=== PATIENT | female | born 1985 | race Caucasian/White ===

== ENCOUNTER 2019-07-06 11:18 | Emergency (ER) | payer SELFPAY ==
[2019-07-06 11:20] VITALS: BP 104/80; PULSE 100; RESP 18; TEMP 36.4; O2SAT 98; BMI 25.7
[2019-07-06 11:27] VITALS: O2SAT 99
[2019-07-06 11:28] VITALS: O2SAT 99
--- NOTE | 2019-07-06 11:33 | RAD_ITS ---
STUDY: X-RAY CHEST REASON FOR EXAM: Female, 34 years old. SOB, asthma attack today TECHNIQUE: PA and lateral views of the chest. COMPARISON: Prior comparison studies are not available for review at this time. FINDINGS: The lungs are clear and expanded. There is no demonstrated pleural abnormality. Normal size heart. Normal mediastinum and caron. Normal visualized pulmonary arteries. Normal visualized aortic arch and descending thoracic aorta. Normal visualized thoracic spine. Normal visualized ribs, clavicles, and shoulders. There is no demonstrated abnormality of the visualized soft tissue structures of the upper abdomen. RAD/Chest PA and Lateral IMPRESSION: Normal x-ray examination of the chest. Electronically Signed: Amara Blue MD at 12:55 EST Tel , Service support ,
--- NOTE | 2019-07-06 11:34 | ED.VIS.GEN ---
History of Present Illness Chief Complaint: Asthma Informant: Patient Onset: Days Current Severity: Moderate Maximum Severity: Moderate Narrative: Patient presents with URI symptoms and asthma exacerbation. She states earlier in the week she started to get cold symptoms with cough congestion and fever. It is now settled more into her chest with significant wheezing. She was seen at urgent care and given a DuoNeb treatment without improvement. - Past Medical History (1) Asthma Status: Chronic Past Medical History - Allergies and Home Meds Allergies/Adverse Reactions: Allergies No Known Allergies Allergy (Verified 07/06/19 11:20) Primary Care Physician: Navdeep Mo MD [Primary Care Provider] - Prior records reviewed: Yes Smoking Status: Current every day smoker Review of Systems General: Reports: Fever Eyes: Denies: Visual changes - bilaterally ENT: Denies: Rhinorrhea, Sore throat Cardiovascular: Reports: Chest pain - Lungs feel tight Respiratory: Reports: Dyspnea, Cough Gastrointestinal: Denies: Abdominal pain, Nausea, Vomiting, Diarrhea Genitourinary: Denies: Dysuria Skin: Denies: Rash Neurological: Denies: Headache Allergy: Denies: Uticaria Physical Exam Vital Signs/Narrative: Vital Signs Temp Pulse Resp BP Pulse Ox 07/06/19 11:27 99 07/06/19 11:20 97.6 F L 100 18 104/80 98 Inital Vital Signs reviewed: Yes General: Well nourished, Well developed Head: Normocephalic ENT: Moist mucous membranes, - - Normal posterior pharynx Neck: Supple Cardiovascular: Regular rate, Regular rhythm Respiratory: - - Diminished air movement with tight expiratory wheezes. Abdomen: Soft, Nontender Extremities: Nontender Skin: Normal color, No rash Neurological: Alert, Oriented x3 Psychological: Normal affect Diagnostic/Tx/Re-eval Impressions Chest X-Ray 07/06/19 11:33 IMPRESSION: Normal x-ray examination of the chest. Electronically Signed: Amara Blue MD at 12:55 EST Tel , Service support , 07/06/19 11:33 Chest PA and Lateral [RAD] Stat - Medical Decision Making Patient was given a DuoNeb treatment at urgent care. On arrival here she received 2 albuterol treatments. She was given 60 mg of p.o. prednisone. I was asked to stop and talk to the patient. Apparently someone at the urgent care had told her that she needed a drip of IV steroids for her breathing and she was upset that I had given her oral medication only. I explained to her that the bioavailability of both the oral and the IV is the exact same and there was no indication to start an IV. On repeat evaluation patient has much better air movement. She still does have some wheezing noted. She has an albuterol nebulizer at home as well as inhaler. I will write her for steroid taper. 2 view chest x-ray reveals no infiltrate. ED Disposition - Plan for ED Patient: Disposition: Home or Assisted Living Diagnosis: Asthma Instructions: ASTHMA, Acute (Adult) Prescriptions: Prednisone 10 mg PO DAILY #63 tablet Referrals: Navdeep Mo MD [Primary Care Provider] - 1-2 Days if not improving
[2019-07-06 11:42] VITALS: PULSE 88; RESP 18
[2019-07-06] MEDS: Albuterol 2.5 MG/3 ML VIAL.NEB. INHALATION ×2 (11:45)
[2019-07-06] MEDS: predniSONE 20 MG Tablet 60 MG PO (11:46)
--- NOTE | 2019-07-06 13:21 | EKG12_ITS ---
Test Reason : CHEST TIGHTNESS Blood Pressure : / mmHG Vent. Rate : 089 BPM Atrial Rate : 089 BPM P-R Int : 106 ms QRS Dur : 072 ms QT Int : 344 ms P-R-T Axes : 046 065 041 degrees QTc Int : 418 ms Sinus rhythm with short OH Otherwise normal ECG Confirmed by GAUDENCIO LIVINGSTON, BETI ([id number]), supervising editor news reel DARRELL GUZMAN ([id number]) on 07/09/2019 8:47:57 AM Referred By: TRIAGE NURSE Confirmed By:BETI RATLIFF MD
[2019-07-06 13:43] VITALS: BP 112/78; PULSE 81; RESP 18; O2SAT 97
== END 2019-07-06 13:44 | disposition home or self-care (01) ==
PROVIDERS: Emergency Provider Emergency Medicine; Family Provider Internal Medicine; PCP Internal Medicine
DX: J45.901 Unspecified asthma with (acute) exacerbation (principal); F17.200 Nicotine dependence, unspecified, uncomplicated; Z79.899 Other long term (current) drug therapy
CPT/HCPCS: 71046; 93005; 94640; 99251; 99281; 99282; G0463

== ENCOUNTER 2020-01-16 22:59 | Emergency (ER) | payer MEDICAID, SELFPAY ==
[2020-01-16 23:00] VITALS: BP 121/75; PULSE 90; RESP 16; TEMP 36.7; O2SAT 97; BMI 25.7
[2020-01-16 23:16] VITALS: O2SAT 100
--- NOTE | 2020-01-16 23:28 | ED.VIS.GEN ---
History of Present Illness Chief Complaint: Asthma Informant: Patient Narrative: 34-year-old female with history of asthma presents for wheezing. She states she feels like this is her typical asthma exacerbation. She is not a smoker. She states she has had no exposure to anybody ill. She is not had a fever. She does not have chest pain. She states that usually she gets breathing treatments and steroids and does well. She denies cough. Past Medical History - Allergies and Home Meds Allergies/Adverse Reactions: Allergies No Known Allergies Allergy (Verified 01/16/20 23:02) Primary Care Physician: Navdeep Mo MD [Primary Care Provider] - Smoking Status: Former smoker Review of Systems General: Denies: Chills, Fever, Malaise Eyes: Denies: Visual changes - bilaterally, Diplopia ENT: Denies: Rhinorrhea, Sore throat Cardiovascular: Denies: Chest pain, Palpitations Respiratory: Reports: Dyspnea Gastrointestinal: Denies: Abdominal pain, Nausea Genitourinary: Denies: Dysuria Musculoskeletal: Denies: Myalgias Skin: Denies: Rash Neurological: Denies: Headache, Weakness Endocrine: Denies: Polyuria, Polydipsia Allergy: Denies: Uticaria Physical Exam Vital Signs/Narrative: Vital Signs Temp Pulse Resp BP Pulse Ox 01/16/20 23:00 98.0 F 90 16 121/75 H 97 Inital Vital Signs reviewed: Yes General: Well nourished, Well developed, No Acute Distress Head: Normocephalic, Atraumatic Eyes: Perrl, EOMI ENT: Moist mucous membranes. Negative for: No rhinorrhea Cardiovascular: Regular rate, Regular rhythm Respiratory: No distress, Wheezing Skin: Normal color, No rash Neurological: Alert, Oriented x3 Psychological: Normal affect Diagnostic/Tx/Re-eval - Medical Decision Making She presents with wheezing which feels like her typical asthma exacerbation. She is in no acute distress. Her vital signs are stable and she is afebrile. She was given breathing treatments and prednisone and felt much improved on reevaluation. She was moving more air is diminished wheezing on reevaluation. Patient feels comfortable going home with a prednisone burst. She has breathing treatments at home. She is given return precautions. Patient stable for discharge. ED Disposition - Plan for ED Patient: Disposition: Home or Assisted Living Diagnosis: Asthma Instructions: ED REACTIVE AIRWAY DISEASE Adult Prescriptions: predniSONE tablet 60 mg PO DAILY #5 tab Prescription Printed Referrals: Navdeep Mo MD [Primary Care Provider] -
[2020-01-16 23:42] VITALS: PULSE 86; RESP 20; RESP 22; O2SAT 98
[2020-01-16] MEDS: Ipratropium/Albuterol Sulfate 3 ML AMPUL.NEB INHALATION (23:42)
[2020-01-16] MEDS: predniSONE 20 MG Tablet 60 MG PO (23:42)
[2020-01-16] MEDS: Albuterol 2.5 MG/3 ML VIAL.NEB. INHALATION ×3 (23:42)
--- NOTE | 2020-01-17 00:20 | CPS ---
x3 Albuterol given to pt. in ED as well
[2020-01-17 01:02] VITALS: PULSE 88; RESP 18; O2SAT 98
== END 2020-01-17 01:03 | disposition home or self-care (01) ==
LOC: ED 23:35
PROVIDERS: Emergency Provider Student in an Organized Health Care Education/Training Program; PCP Internal Medicine
DX: J45.909 Unspecified asthma, uncomplicated (principal); Z87.891 Personal history of nicotine dependence
CPT/HCPCS: 94640; 99251; 99283; G0463

== ENCOUNTER 2021-05-15 09:01 | Emergency (ER) | payer MEDICAID, SELFPAY ==
[2021-05-15 09:01] VITALS: BP 127/86; PULSE 107; RESP 18; TEMP 36.2; O2SAT 98; BMI 29.1
[2021-05-15 09:15] VITALS: PULSE 91; RESP 22; O2SAT 98
--- NOTE | 2021-05-15 10:09 | EDS_ITS ---
HPI History of Present Illness Chief Complaint: Asthma Narrative Narrative: Patient presenting with asthma exacerbation. She states she is had to deal with this every day of her life. She says she is been to pulmonologists and states that she does not see one now. She states that she does have home nebulizers for albuterol but this does not appear to be effective. Her shortness of breath is worse last 2 days. She denies fever, chills, cough. Patient does state that it is partially her fault because she continues to smoke cigarettes even though she has very bad asthma. She has not had any chest pain or palpitations. She denies other symptoms. [facility] Medical History Asthma Home Medications albuterol sulfate 2 puff INHALATION Q4H PRN PRN 07/06/19 [History Last Taken Unknown] albuterol sulfate 2.5 mg INHALATION Q4HWA.RT PRN 01/16/20 [History Last Taken Unknown] fluticasone propion-salmeterol [Advair Diskus] 1 inh INHALATION BID 05/15/21 [History Last Taken Unknown] montelukast 10 mg PO DAILY 05/15/21 [History Last Taken Unknown] prednisone 50 mg PO DAILY 5 Days #25 tab 05/15/21 [Rx Last Taken Unknown] Allergy/AdvReac Type Severity Reaction Status Date / Time No Known Allergies Allergy Verified 05/15/21 09:03 Surgical History no surgical history Social History Smoking Status: Current every day smoker tobacco type: cigarettes ROS ROS ED Constitutional Constitutional ED: Denies fever(s) Eyes Eyes: Denies blurry vision or change in vision ENT ENT ED: Denies rhinorrhea or sore throat Cardiovascular Cardiovascular: Denies chest pain or palpitations Respiratory/Chest Respiratory/Chest: Reports dyspnea Gastrointestinal Gastrointestinal: Denies abdominal pain, nausea or vomiting Genitourinary Genitourinary ED: Denies dysuria or hematuria Musculoskeletal Musculoskeletal: Denies arthralgias or myalgias Integumentary Denies abscess or rash Neurologic Neurologic: Denies headache(s) or paresthesias Psychiatric Psychiatric: Denies anxiety or depression EXAM Physical Exam Const Vital Signs: 05/15/21 09:01 05/15/21 09:15 05/15/21 10:23 Temperature 97.2 F L Temperature Source Temporal Pulse Rate 107 H 91 84 Respiratory Rate 18 22 H 21 H Respiratory Effort Non-Labored Short of Breath Short of Breath Labored Respiratory Depth Normal Respiratory Pattern Normal Blood Pressure 127/86 H Blood Pressure Mean 99 Pulse Ox 98 98 100 Oxygen Delivery Method Room Air Room Air Room Air 05/15/21 11:01 Temperature Temperature Source Pulse Rate Respiratory Rate 20 H Respiratory Effort Respiratory Depth Respiratory Pattern Blood Pressure Blood Pressure Mean Pulse Ox 98 Oxygen Delivery Method Room Air Positive well nourished General Appearance ED: NAD HEENT Reports moist mucous membranes atraumatic Eyes PERRL and EOMs intact bilaterally Resp normal respiratory effort Auscultation: wheezes scattered wheezes Cardio regular rate and regular rhythm Neuro oriented x3 Sensorium / Orientation: alert Psych mental status grossly normal Thought Process: normal thought process Skin Rashes: no rashes MDM MDM MDM Narrative Medical decision making narrative: Patient was given breathing treatments and prednisone. On reevaluation she has significant improvement of her wheezing. She feels much better physically as well. I will place her on a prednisone burst. She has albuterol at home and does not need a refill. She will follow-up with her PCP to ensure resolution. She is given return precautions. Impression: 1. Asthma exacerbation Discharge Plan Triage Chief Complaint: Asthma ED Provider: Blue Quispe Dx/Rx/DC Orders Instructions: ED Asthma, Acute (Adult) Prescriptions: New prednisone 10 mg tablet 50 mg PO DAILY 5 Days Qty: 25 RF: 0 No Action albuterol sulfate 1 PUFF inhaler 2 puff inhalation Q4H PRN PRN (Reason: Wheezing) RF: 0 albuterol sulfate 2.5 MG/3 ML solution for nebulization 2.5 mg inhalation Q4HWA.RT PRN (Reason: Shortness Of Breath) RF: 0 fluticasone propion-salmeterol [Advair Diskus] 500-50 mcg/dose blister with device 1 inh INHALATION BID RF: 0 montelukast 10 mg tablet 10 mg PO DAILY RF: 0 Primary Care Provider: Navdeep oM Referrals: Navdeep Mo MD [Primary Care Provider] - Disposition Disposition: Home, Self Care
[2021-05-15] MEDS: Ipratropium/Albuterol Sulfate 3 ML AMPUL.NEB INHALATION (10:21)
[2021-05-15 10:23] VITALS: PULSE 84; RESP 21; O2SAT 100
[2021-05-15] MEDS: Albuterol 2.5 MG/3 ML VIAL.NEB. INHALATION (10:25)
[2021-05-15] MEDS: predniSONE 20 MG Tablet 60 MG PO (10:47)
[2021-05-15 11:01] VITALS: RESP 20; O2SAT 98
[2021-05-15 11:32] VITALS: PULSE 86; RESP 16; O2SAT 98
== END 2021-05-15 11:34 | disposition home or self-care (01) ==
PROVIDERS: Emergency Provider Student in an Organized Health Care Education/Training Program; PCP Internal Medicine
DX: J45.901 Unspecified asthma with (acute) exacerbation (principal); F17.210 Nicotine dependence, cigarettes, uncomplicated; Z79.51 Long term (current) use of inhaled steroids; Z79.899 Other long term (current) drug therapy
CPT/HCPCS: 94640; 99251; 99283; G0463

== ENCOUNTER 2021-08-26 17:36 | Emergency (ER) | payer MEDICAID, SELFPAY ==
[2021-08-26 17:37] VITALS: BP 115/102; PULSE 85; RESP 18; TEMP 36.2; O2SAT 98; BMI 29.5
--- NOTE | 2021-08-26 18:04 | EDS_ITS ---
HPI History of Present Illness Chief Complaint: Asthma Detail of Chief Complaint: Asthma attack and hoarse voice Informant: patient Onset/Context/Timing Onset: Yesterday Context: sudden Timing: Continuous Quality: Positive for Dyspnea on exertion Current Severity: Moderate Maximum Severity: Severe Worsened by: Exertion; Not Worsened By Lying flat, Coughing and other Relieved by: Nothing Associated Symptoms cough and rhinorrhea; Negative for post nasal drip, ear pain, fever, sore throat, subjective, chills, sweats, clear sputum, white sputum, yellow sputum or green sputum Chest Pain: Positive for None Narrative Narrative: Patient is a 36-year-old female with history of asthma. Her last ER visit was May 2021. She was received aerosol treatments and prednisone at that time. She does report hoarse voice. She has chronic rhinorrhea. She has postnasal drainage with sore throat. She denies fever or chills. She denies headache. She denies neck pain or neck stiffness. She denies chest discomfort. She denies GI symptoms. She denies symptoms. She denies history of VTE. Denies leg pain, swelling discoloration. PE Risk Factors: Negative for Cancer, OCP + Smoking + > 35, Prior DVT or PE, Recent immobilization, Recent surgery and Recent travel Prior similar symptoms: Yes (Asthma) Recent Illness/Hospitalization: No (May 2021) [facility] Medical History Asthma Home Medications albuterol sulfate 2 puff INHALATION Q4H PRN PRN 07/06/19 [History Last Taken Unknown] albuterol sulfate 2.5 mg INHALATION Q4HWA.RT PRN 01/16/20 [History Last Taken Unknown] fluticasone propion-salmeterol [Advair Diskus] 1 inh INHALATION BID 05/15/21 [History Last Taken Unknown] montelukast 10 mg PO DAILY 05/15/21 [History Last Taken Unknown] inhalational spacing device [Aerochamber MV] #1 ea 08/26/21 [Rx Last Taken Unknown] prednisone 60 mg PO DAILY #15 tablet 08/26/21 [Rx Last Taken Unknown] Allergy/AdvReac Type Severity Reaction Status Date / Time propranolol [From Inderal LA] Allergy Shortness Verified 08/26/21 17:39 of breath Social History (Updated 08/26/21 @ 18:[address] Corey Marinelli MD) household members: significant other Smoking Status: Current every day smoker tobacco type: cigarettes substance use type: does not use ROS ROS ED Constitutional Constitutional ED: Denies chills, fever(s), sweats or weight loss Eyes Eyes: Denies blurry vision, change in vision or diplopia ENT ENT ED: Reports rhinorrhea; Denies ear pain or sore throat Cardiovascular Cardiovascular: Denies chest pain, orthopnea, palpitations, paroxysmal nocturnal dyspnea or racing heartbeat Respiratory/Chest Respiratory/Chest: Reports dyspnea and dyspnea on exertion; Denies orthopnea, paroxysmal nocturnal dyspnea or sputum Gastrointestinal Gastrointestinal: Denies abdominal pain, constipation, diarrhea, nausea or vomiting Genitourinary Genitourinary ED: Denies dysuria, hematuria or urinary frequency Musculoskeletal Musculoskeletal: Denies arthralgias, back pain, myalgias or neck pain Integumentary Denies rash Neurologic Neurologic: Reports headache(s); Denies paresthesias or weakness Endocrine Endocrinology: Denies polydipsia, polyphagia or polyuria Allergic/Immunologic Allergic/Immunologic ED: Denies mouth swelling or tongue swelling EXAM Physical Exam Const Vital Signs: 08/26/21 17:37 08/26/21 18:00 08/26/21 18:16 Temperature 97.2 F L Temperature Source Temporal Pulse Rate 85 80 Respiratory Rate 18 18 Respiratory Effort Short of Breath Blood Pressure 115/102 H Blood Pressure Mean 106 Pulse Ox 98 Oxygen Delivery Method Room Air 08/26/21 18:18 Temperature Temperature Source Pulse Rate 86 Respiratory Rate 18 Respiratory Effort Blood Pressure Blood Pressure Mean Pulse Ox 98 Oxygen Delivery Method Room Air Positive well nourished, well developed and obese General Appearance ED: well developed and NAD Nutritional Appearance: obese HEENT Reports TM's clear and moist mucous membranes; Denies dry mucous membranes HEENT Narrative: Uvula is midline. There is no angioedema. There is no erythema or exudate. atraumatic; Negative for tenderness Tympanic Membrane ED: Yes TM's clear Mouth ED: No dry mucous membranes Mouth: No dry mucous membranes Eyes PERRL and EOMs intact bilaterally General Eye ED: Negative for pale conjunctiva or scleral icterus Neck no lymphadenopathy, supple, no meningeal signs and no JVD Neck Narrative: Trachea is midline. There is no stridor. Resp normal respiratory effort and No clear to auscultation bilaterally Auscultation: wheezes expiratory wheezes, inspiratory wheezes (Upper left side posteriorly) and throughout Cardio regular rate, regular rhythm, S1 normal heart sound, S2 normal heart sound and no murmurs GI non-tender and non-distended Palpation: soft Extremity Negative for normal to inspection General Extremety ED: Negative for edema or tenderness General Extremity: Negative for edema Neuro oriented x3 and CN's II-XII intact bilaterally Neuro Narrative: Moves all extremities. Sensorium / Orientation: alert Psych mental status grossly normal Thought Process: normal thought process Skin no wounds Skin Narrative: Evidence of prior well-healed self collected wounds right and left forearm. Lesions: no lesions Rashes: no rashes MDM MDM MDM Narrative Medical decision making narrative: Suspect patient has a viral infection which is exacerbating her asthma. She was treated with 60 mg of prednisone and albuterol every 15 minutes x3. Patient was reassessed at 1846. She still has some wheezing. She has improved markedly. Plan is spacer and burst of prednisone. Discharge Plan Triage Chief Complaint: Asthma ED Provider: Corey Marinelli Dx/Rx/DC Orders Clinical Impression: Asthma with status asthmaticus Instructions: ED Asthma, Acute (Adult), ED Inhaler Use Prescriptions: New prednisone 20 MG tablet 60 mg PO DAILY Qty: 15 RF: 0 (DME) Aerochamber MV Spacer See Rx Instructions .ROUTE .MEDSUPPLY Qty: 1 RF: 0 No Action albuterol sulfate 1 PUFF inhaler 2 puff inhalation Q4H PRN PRN (Reason: Wheezing) RF: 0 albuterol sulfate 2.5 MG/3 ML solution for nebulization 2.5 mg inhalation Q4HWA.RT PRN (Reason: Shortness Of Breath) RF: 0 fluticasone propion-salmeterol [Advair Diskus] 500-50 mcg/dose blister with device 1 inh INHALATION BID RF: 0 montelukast 10 mg tablet 10 mg PO DAILY RF: 0 Primary Care Provider: Navdeep Mo Referrals: Navdeep Mo MD [Primary Care Provider] - Disposition Disposition: Home, Self Care
[2021-08-26 18:16] VITALS: PULSE 80; RESP 18
[2021-08-26] MEDS: predniSONE 20 MG Tablet 60 MG PO (18:16)
[2021-08-26 18:18] VITALS: PULSE 86; RESP 18; O2SAT 98
[2021-08-26] MEDS: Albuterol 2.5 MG/3 ML VIAL.NEB. INHALATION ×3 (18:19)
--- NOTE | 2021-08-27 11:30 | CASEMGMT ---
IGGY KIM ED follow-up: Date of ER visit: 08/26/2021 Presenting ER complaint: asthma RN JUDY placed call to patient's telephone number listed on demographics with no answer. Voice message identifies different name other than patient's. No message left. IGYG Beatty CM
== END 2021-08-26 18:57 | disposition home or self-care (01) ==
PROVIDERS: Emergency Provider Emergency Medicine; PCP Internal Medicine; Visit Provider Emergency Medicine
DX: J45.902 Unspecified asthma with status asthmaticus (principal); F17.210 Nicotine dependence, cigarettes, uncomplicated; Z79.899 Other long term (current) drug therapy
CPT/HCPCS: 94640; 99283

== ENCOUNTER 2022-01-22 23:09 | Emergency (ER) | payer MEDICAID, SELFPAY ==
[2022-01-22 23:10] VITALS: BP 129/92; PULSE 114; RESP 18; TEMP 36.3; BMI 28.0
[2022-01-22] MEDS: morphine 10 MG/ML Syringe IM (23:23)
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
--- NOTE | 2022-01-22 23:36 | CT_ITS ---
EXAM: CT CERVICAL SPINE WITHOUT INTRAVENOUS CONTRAST CLINICAL INDICATION: injury TECHNIQUE: Helically acquired images were obtained of the cervical spine without intravenous contrast. 2D reformatted images were reviewed. This CT exam was performed using one or more of the following dose reduction techniques: automated exposure control, adjustment of the mA and/or kV according to patient size, and/or use of iterative reconstruction technique. This report was created using [employer] report generation technology. RADIATION DOSE: CTDIvol = 18.42 mGy, DLP = 371.39 mGy-cm. COMPARISON: None. FINDINGS: VERTEBRAE: Reversal of the normal cervical lordosis. No fracture. No traumatic subluxation. No discrete lytic or blastic abnormality. Normal craniocervical junction and cervicothoracic junction. DISCS/SPINAL CANAL/NEURAL FORAMINA: Unremarkable. Disc heights are preserved. No critical stenosis. SOFT TISSUES: Unremarkable. No prevertebral soft tissue swelling. LYMPH NODES: Unremarkable. No cervical adenopathy. LUNG APICES: Unremarkable as visualized. Clear. CT/Spine Cervical without Contras IMPRESSION: No acute findings in the cervical spine. Reversal of the normal cervical lordosis may be due to positioning or muscle spasm. Electronically Signed: Andrade Aponte MD at 23:59 EDT ,
[2022-01-23 00:22] VITALS: BP 106/72; PULSE 64; RESP 16; O2SAT 96
== END 2022-01-23 00:43 | disposition home or self-care (01) ==
PROVIDERS: Emergency Provider Emergency Medicine; PCP Internal Medicine; Visit Provider Emergency Medicine
DX: S00.81XA Abrasion of other part of head, initial encounter (principal); S40.811A Abrasion of right upper arm, initial encounter; S40.812A Abrasion of left upper arm, initial encounter; S70.311A Abrasion, right thigh, initial encounter; S70.312A Abrasion, left thigh, initial encounter; S90.511A Abrasion, right ankle, initial encounter; F17.210 Nicotine dependence, cigarettes, uncomplicated; V28.1XXA Motorcycle passenger injured in noncollision transport accident in nontraffic accident, initial encounter
CPT/HCPCS: 70450; 72125; 99282

== ENCOUNTER 2022-05-24 19:18 | Emergency (ER) | payer MEDICAID, SELFPAY ==
[2022-05-24 19:19] VITALS: BP 137/94; PULSE 108; RESP 22; TEMP 36.6; O2SAT 97; BMI 29.2
[2022-05-24 19:46] VITALS: O2SAT 96
--- NOTE | 2022-05-24 19:53 | ED.VIS.DYS ---
HPI History of Present Illness Chief Complaint: Asthma Detail of Chief Complaint: Dyspnea that started today Informant: patient Narrative Narrative: Patient presents to the emergency department stating that her asthma is flared up. Patient has history of longstanding asthma. Patient complains of increased dyspnea today and she has been using her inhaler and nebulizer without much relief. Patient denies recent illness of fever cough. Patient states its been years since she has been admitted for asthma. She denies chest pain. PFSH PFSH Medical History Asthma Home Medications albuterol sulfate 90 mcg/actuation aerosol inhaler 2 puff inhalation Q4H PRN PRN Wheezing 07/06/19 [History Last Taken Unknown] albuterol sulfate 2.5 mg/3 mL (0.083 %) solution for nebulization 2.5 mg inhalation Q4HWA.RT PRN Shortness Of Breath 01/16/20 [History Last Taken Unknown] fluticasone 500 mcg-salmeterol 50 mcg/dose blistr powdr for inhalation (Advair Diskus) 1 inh inhalation BID 05/15/21 [History Last Taken Unknown] montelukast 10 mg tablet 10 mg PO DAILY 05/15/21 [History Last Taken Unknown] inhalational spacing device (Aerochamber MV spacer) #1 ea 08/26/21 [Rx Last Taken Unknown] prednisone 20 mg tablet 20 mg PO BID #10 tabs 05/24/22 [Rx Last Taken Unknown] Allergy/AdvReac Type Severity Reaction Status Date / Time propranolol [From Inderal LA] Allergy Shortness Verified 05/24/22 19:20 of breath Social History household members: significant other Smoking Status: Current every day smoker tobacco type: cigarettes substance use type: does not use ROS ROS ED Review of Systems ROS Unobtainable: other Constitutional Constitutional ED: Reports lethargy; Denies chills, fever(s), sweats or weight loss Eyes Eyes: Denies blurry vision, change in vision or diplopia ENT ENT ED: Denies rhinorrhea or sore throat Cardiovascular Cardiovascular: Denies chest pain, orthopnea or racing heartbeat Respiratory/Chest Respiratory/Chest: Reports dyspnea and dyspnea on exertion; Denies cough, orthopnea or sputum Gastrointestinal Gastrointestinal: Denies abdominal pain, diarrhea, nausea or vomiting Genitourinary Genitourinary ED: Denies dysuria, hematuria or urinary frequency Musculoskeletal Musculoskeletal: Denies arthralgias, back pain, myalgias or neck pain Integumentary Denies abscess, Abrasions or rash Neurologic Neurologic: Denies headache(s) or weakness Psychiatric Psychiatric: Denies anxiety, depression or suicidal thoughts Endocrine Endocrinology: Denies polydipsia, polyphagia or polyuria Hematologic/Lymphatic Hematologic/Lymphatic: Denies easy bleeding, easy bruising or lymphadenopathy Allergic/Immunologic Allergic/Immunologic ED: Denies mouth swelling, tongue swelling or urticaria EXAM Physical Exam Const Vital Signs: 05/24/22 19:19 05/24/22 19:46 05/24/22 19:57 Temperature 97.8 F Temperature Source Temporal Pulse Rate 108 H 109 H Respiratory Rate 22 H 18 Respiratory Effort Respiratory Depth Respiratory Pattern Normal Blood Pressure 137/94 H Blood Pressure Mean 108 Pulse Ox 97 Oxygen Delivery Method Room Air Room Air 05/24/22 19:57 Temperature Temperature Source Pulse Rate Respiratory Rate 26 H Respiratory Effort Short of Breath Labored Accessory Muscle Use Respiratory Depth Shallow Respiratory Pattern Tachypnea Blood Pressure Blood Pressure Mean Pulse Ox 96 Oxygen Delivery Method Room Air Positive well nourished and well developed General Appearance ED: well developed and NAD HEENT Reports TM's clear and moist mucous membranes normocephalic and atraumatic; Negative for trauma or tenderness Tympanic Membrane ED: Yes TM's clear Eyes PERRL and EOMs intact bilaterally General Eye ED: Negative for pale conjunctiva or scleral icterus Neck no lymphadenopathy, supple and no JVD General: Negative for tenderness Chest Wall inspection of chest normal and palpation of chest normal Chest: Negative for tenderness Resp normal respiratory effort Resp Narrative: Patient tachypneic with expiratory wheezes bilaterally. Diminished breath sounds bilaterally. Effort and Inspection: Negative for respiratory distress or pain with movement Auscultation: wheezes; Negative for rhonchi or diminished lung sounds Cardio regular rate, regular rhythm, S1 normal heart sound, S2 normal heart sound and no murmurs Peripheral Pulses: pulses 2+ throughout GI normal to inspection, nondistended, normoactive bowel sounds, soft to palpation, non-tender, non-distended and no masses Back/Spine no CVA tenderness and no thoracic nor lumbar tenderness Extremity normal to inspection General Extremety ED: Negative for edema General Extremity: Negative for edema Neuro oriented x3, CN's II-XII intact bilaterally, no sensory deficits noted and gait normal Sensorium / Orientation: awake, alert, oriented to person, oriented to place and oriented to time Motor Exam: strength 5/5 throughout and strength abnormal Psych mental status grossly normal Skin no rashes or lesions noted and no wounds MDM MDM MDM Narrative Medical decision making narrative: IV line established. Patient was given Solu-Medrol 125 mg IV. Patient was given DuoNeb aerosol and albuterol aerosols. After treatments in the department she felt markedly improved. Her wheezing is dramatically improved. She is moving good air. Patient feels well enough to go home. Patient will be started on prednisone. She is advised to return if increased difficulty breathing or condition worsen anyway. Patient otherwise to follow-up with her primary care physician within next 3 to 5 days. Lab Data Attestation: I reviewed the patient's lab results. Discharge Plan Triage Chief Complaint: Asthma ED Provider: Josue Cooper Dx/Rx/DC Orders Clinical Impression: Asthma exacerbation Instructions: ED Asthma, Acute (Adult) Prescriptions: New prednisone 20 mg tablet 20 mg PO BID Qty: 10 0RF No Action albuterol sulfate 1 PUFF inhaler 2 puff inhalation Q4H PRN PRN (Reason: Wheezing) albuterol sulfate 2.5 MG/3 ML solution for nebulization 2.5 mg inhalation Q4HWA.RT PRN (Reason: Shortness Of Breath) fluticasone propion-salmeterol [Advair Diskus] 500-50 mcg/dose blister with device 1 inh INHALATION BID montelukast 10 mg tablet 10 mg PO DAILY Label Comments: Take 1 tablet by mouth daily at bedtime. (DME) Aerochamber MV Spacer See Rx Instructions .ROUTE .MEDSUPPLY Qty: 1 0RF Rx Instructions: As directed Primary Care Provider: Navdeep Mo Referrals: Navdeep Mo MD [Primary Care Provider] - Disposition Disposition: Home, Self Care
[2022-05-24 19:57] VITALS: PULSE 109; RESP 18; RESP 26; O2SAT 96
[2022-05-24] MEDS: Ipratropium/Albuterol Sulfate 3 ML AMPUL.NEB INHALATION (19:57)
[2022-05-24] MEDS: Albuterol 2.5 MG/3 ML VIAL.NEB. INHALATION ×3 (19:58→20:20)
[2022-05-24] MEDS: MethylPREDNISolone 125 MG/2 ML Vial IV (20:03)
--- NOTE | 2022-05-24 20:32 | CPS ---
x3 Albuterol given to pt. in ER as well
[2022-05-24 21:09] VITALS: BP 124/74; PULSE 74; RESP 16; O2SAT 98
== END 2022-05-24 21:15 | disposition home or self-care (01) ==
PROVIDERS: Emergency Provider Emergency Medicine; PCP Internal Medicine; Visit Provider Emergency Medicine
DX: J45.901 Unspecified asthma with (acute) exacerbation (principal); F17.210 Nicotine dependence, cigarettes, uncomplicated; Z79.899 Other long term (current) drug therapy
CPT/HCPCS: G0463; 94640; 96374; 99251; 99284; A4216

== ENCOUNTER 2022-10-06 18:02 | Emergency (ER) | payer MEDICAID, SELFPAY ==
[2022-10-06 18:03] VITALS: BP 132/76; PULSE 118; RESP 18; TEMP 37.2; O2SAT 100; BMI 25.7
[2022-10-06] MEDS: predniSONE 20 MG Tablet 60 MG PO (18:33)
[2022-10-06 18:34] VITALS: PULSE 104; RESP 20; O2SAT 98
[2022-10-06 18:39] VITALS: PULSE 99; RESP 20; O2SAT 99
[2022-10-06] MEDS: Ipratropium/Albuterol Sulfate 3 ML AMPUL.NEB INHALATION (18:39)
--- NOTE | 2022-10-06 18:44 | EDS_ITS ---
HPI History of Present Illness Chief Complaint: Asthma Informant: patient Onset/Context/Timing Onset: Days (2) Context: gradual Timing: Continuous Quality: Positive for Wheezing Worsened by: Exertion Relieved by: Nothing Associated Symptoms cough; Negative for rhinorrhea, post nasal drip, ear pain, fever, sore throat, chills, sweats, clear sputum, white sputum, yellow sputum or green sputum Chest Pain: Positive for Sharp Narrative Narrative: Patient presents with exacerbation of her asthma that has been getting worse over the last 2 days. Patient states she feels like she is wheezing. Patient states it has been constant. Patient admits to a mild cough but denies any sputum. Patient denies any fevers or chills. Patient denies any sore throat or rhinorrhea. Patient does admit to some sharp pain in her chest along the parasternal area and lower chest wall bilaterally. Patient states this feels similar to prior asthma exacerbations. [facility] Medical History Asthma Home Medications albuterol sulfate 90 mcg/actuation aerosol inhaler 2 puff inhalation Q4H PRN PRN Wheezing 07/06/19 [History Last Taken Unknown] albuterol sulfate 2.5 mg/3 mL (0.083 %) solution for nebulization 2.5 mg inhalation Q4HWA.RT PRN Shortness Of Breath 01/16/20 [History Last Taken Unknown] fluticasone 500 mcg-salmeterol 50 mcg/dose blistr powdr for inhalation (Advair Diskus) 1 inh inhalation BID 05/15/21 [History Last Taken Unknown] montelukast 10 mg tablet 10 mg PO DAILY 05/15/21 [History Last Taken Unknown] inhalational spacing device (Aerochamber MV spacer) #1 ea 08/26/21 [Rx Last Taken Unknown] prednisone 20 mg tablet 20 mg PO BID #10 tabs 05/24/22 [Rx Last Taken Unknown] prednisone 20 mg tablet 60 mg PO DAILY #15 TABLETS 10/06/22 [Rx Last Taken Unknown] Allergy/AdvReac Type Severity Reaction Status Date / Time propranolol [From Inderal LA] Allergy Shortness Verified 05/24/22 19:20 of breath Surgical History no surgical history no surgical history Social History household members: significant other Smoking Status: Former smoker substance use type: does not use ROS ROS ED Constitutional Constitutional ED: Denies chills or fever(s) Eyes Eyes: Denies blurry vision or change in vision ENT ENT ED: Denies rhinorrhea or sore throat Cardiovascular Cardiovascular: Reports chest pain; Denies palpitations Respiratory/Chest Respiratory/Chest: Reports dyspnea; Denies cough Gastrointestinal Gastrointestinal: Denies nausea or vomiting Genitourinary Genitourinary ED: Denies dysuria or hematuria Musculoskeletal Musculoskeletal: Reports back pain; Denies neck pain Integumentary Denies abscess or rash Neurologic Neurologic: Denies headache(s) or weakness Allergic/Immunologic Allergic/Immunologic ED: Denies mouth swelling or urticaria EXAM Physical Exam Const Vital Signs: 10/06/22 18:03 10/06/22 18:34 10/06/22 18:34 Temperature 98.9 F Temperature Source Temporal Pulse Rate 118 H 104 H Respiratory Rate 18 20 H Respiratory Effort Short of Breath Labored Respiratory Depth Respiratory Pattern Blood Pressure 132/76 H Blood Pressure Mean 94 Pulse Ox 100 98 Oxygen Delivery Method Room Air Room Air 10/06/22 18:39 10/06/22 18:39 Temperature Temperature Source Pulse Rate 99 Respiratory Rate 20 H 20 H Respiratory Effort Normal Non-Labored Short of Breath Respiratory Depth Normal Respiratory Pattern Normal Normal Blood Pressure Blood Pressure Mean Pulse Ox 99 Oxygen Delivery Method Room Air Positive well nourished and well developed General Appearance ED: well developed HEENT Reports moist mucous membranes Neck supple and no JVD Resp normal respiratory effort Auscultation: wheezes expiratory wheezes and throughout Cardio regular rate and regular rhythm GI normal to inspection, nondistended, normoactive bowel sounds and non-tender Palpation: soft Extremity normal to inspection General Extremety ED: Negative for edema or tenderness General Extremity: Negative for edema Neuro oriented x3, CN's II-XII intact bilaterally and no sensory deficits noted Sensorium / Orientation: alert Motor Exam: strength 5/5 throughout Psych mental status grossly normal Skin no rashes or lesions noted MDM MDM MDM Narrative Medical decision making narrative: Differential diagnosis includes asthma exacerbation, pneumonia, and viral upper respiratory infection. Chest x-ray will be obtained to assess for pneumonia. Radiography Diagnostic Testing: Patient refused chest x-ray. Treatment and Re-Evaluation :: Patient was given a DuoNeb aerosol here. Patient was started on prednisone. Patient was still having some wheezing on reevaluation. Patient was given a repeat dose of albuterol here. Patient was given a prescription for prednisone. Patient was instructed to follow-up with her primary care physician in 5 to 7 days. Patient understood and was agreeable with the plan. All questions were answered. Discharge Plan Triage Chief Complaint: Asthma ED Provider: Chato Lomas Dx/Rx/DC Orders Clinical Impression: Asthma exacerbation, Asthma Instructions: ED Asthma, Acute (Adult) Prescriptions: New prednisone 20 mg tablet 60 mg PO DAILY Qty: 15 0RF No Action albuterol sulfate 1 PUFF inhaler 2 puff inhalation Q4H PRN PRN (Reason: Wheezing) albuterol sulfate 2.5 MG/3 ML solution for nebulization 2.5 mg inhalation Q4HWA.RT PRN (Reason: Shortness Of Breath) fluticasone propion-salmeterol [Advair Diskus] 500-50 mcg/dose blister with device 1 inh INHALATION BID montelukast 10 mg tablet 10 mg PO DAILY Label Comments: Take 1 tablet by mouth daily at bedtime. (DME) Aerochamber MV Spacer See Rx Instructions .ROUTE .MEDSUPPLY Qty: 1 0RF Rx Instructions: As directed prednisone 20 mg tablet 20 mg PO BID Qty: 10 0RF Primary Care Provider: Navdeep Mo Referrals: Navdeep Mo MD [Primary Care Provider] - 5-7 Days Disposition Disposition: Home, Self Care
[2022-10-06] MEDS: Albuterol 2.5 MG/3 ML VIAL.NEB. INHALATION (20:23)
--- NOTE | 2022-10-06 20:36 | CPS ---
[2023] x1 Albuterol given to pt. before discharge. Pt. still has inspiratory and expiratory wheezes throughout. Tx. did seem to help improve air movement, yet, scattered wheezes throughout.
[2022-10-06 21:01] VITALS: PULSE 115; RESP 16; O2SAT 97
== END 2022-10-06 21:03 | disposition home or self-care (01) ==
LOC: ED 18:49
PROVIDERS: Emergency Provider Emergency Medicine; PCP Internal Medicine; Visit Provider Emergency Medicine
DX: J45.901 Unspecified asthma with (acute) exacerbation (principal); Z87.891 Personal history of nicotine dependence
CPT/HCPCS: G0463; 94640; 99252; 99283

== ENCOUNTER 2023-04-12 20:52 | Emergency (ER) | payer MEDICAID, SELFPAY ==
[2023-04-12 20:53] VITALS: BP 122/69; PULSE 86; RESP 19; TEMP 36.7; O2SAT 100; BMI 28.6
[2023-04-12] MEDS: predniSONE 20 MG Tablet 60 MG PO (21:08)
[2023-04-12 21:12] VITALS: PULSE 88; RESP 18
[2023-04-12] MEDS: Ipratropium/Albuterol Sulfate 3 ML AMPUL.NEB INHALATION (21:12)
--- NOTE | 2023-04-12 21:12 | EDS_ITS ---
HPI History of Present Illness Chief Complaint: Asthma Informant: patient Onset/Context/Timing Onset: Days Narrative Narrative: Patient presents with increased shortness of breath for the past 3 days, much worse today. Has been using her albuterol more than normal. She states her symptoms are consistent with an asthma flare. She has not noted a fever. She has not had much of a cough. She is not currently on steroids. [facility] Medical History Asthma Home Medications albuterol sulfate 90 mcg/actuation aerosol inhaler 2 puff inhalation Q4H PRN PRN Wheezing 07/06/19 [History Last Taken Unknown] albuterol sulfate 2.5 mg/3 mL (0.083 %) solution for nebulization 2.5 mg inhalation Q4HWA.RT PRN Shortness Of Breath 01/16/20 [History Last Taken Unknown] fluticasone 500 mcg-salmeterol 50 mcg/dose blistr powdr for inhalation (Advair Diskus) 1 inh inhalation BID 05/15/21 [History Last Taken Unknown] montelukast 10 mg tablet 10 mg PO DAILY 05/15/21 [History Last Taken Unknown] inhalational spacing device (Aerochamber MV spacer) #1 ea 08/26/21 [Rx Last Taken Unknown] prednisone 20 mg tablet 20 mg PO BID #10 tabs 05/24/22 [Rx Last Taken Unknown] prednisone 20 mg tablet 60 mg (3 x 20 mg) PO DAILY #15 TABLETS 10/06/22 [Rx Last Taken Unknown] prednisone 20 mg tablet 40 mg (2 x 20 mg) PO DAILY #8 tabs 04/12/23 [Rx Last Taken Unknown] Allergy/AdvReac Type Severity Reaction Status Date / Time propranolol [From Inderal LA] Allergy Shortness Verified 04/12/23 20:55 of breath Social History household members: significant other Smoking Status: Former smoker substance use type: does not use ROS ROS ED Constitutional Constitutional ED: Denies chills or fever(s) Eyes Eyes: Denies discharge from eye(s) ENT ENT ED: Denies discharge from eye(s), rhinorrhea or sore throat Cardiovascular Cardiovascular: Denies chest pain or palpitations Respiratory/Chest Respiratory/Chest: Reports dyspnea; Denies cough Gastrointestinal Gastrointestinal: Denies abdominal pain, diarrhea, nausea or vomiting Musculoskeletal Musculoskeletal: Denies back pain or extremity pain Integumentary Denies Abrasions or rash Neurologic Neurologic: Denies headache(s) or weakness Psychiatric Psychiatric: Denies anxiety or depression Allergic/Immunologic Allergic/Immunologic ED: Denies lip swelling or urticaria EXAM Physical Exam Const Vital Signs: 04/12/23 20:53 04/12/23 20:57 04/12/23 21:12 Temperature 98.0 F Temperature Source Temporal Pulse Rate 86 88 Respiratory Rate 19 H 18 Respiratory Effort Normal Respiratory Depth Normal Respiratory Pattern Normal Normal Blood Pressure 122/69 H Blood Pressure Mean 86 Pulse Ox 100 Oxygen Delivery Method Room Air 04/12/23 22:44 Temperature Temperature Source Pulse Rate 80 Respiratory Rate 18 Respiratory Effort Respiratory Depth Respiratory Pattern Blood Pressure 102/60 Blood Pressure Mean 74 Pulse Ox 97 Oxygen Delivery Method Room Air Positive well nourished and well developed General Appearance ED: well developed HEENT Reports normocephalic and head/scalp atraumatic Eyes PERRL and EOMs intact bilaterally Neck supple Chest Wall inspection of chest normal and palpation of chest normal Resp Resp Narrative: Tight wheezes bilaterally. Cardio regular rate and regular rhythm GI normal to inspection, nondistended, normoactive bowel sounds Palpation: soft Extremity normal to inspection Neuro oriented x3 and no sensory deficits noted Sensorium / Orientation: alert Motor Exam: strength 5/5 throughout Psych mental status grossly normal Skin no rashes or lesions noted MDM MDM MDM Narrative Medical decision making narrative: Patient given p.o. prednisone along with aerosols. Treatment and Re-Evaluation :: On repeat examination patient still has some scattered expiratory wheezes, but much improved over initial exam. She has albuterol at home to use. I will write her for additional days of steroids for home. Return instructions are given. Discharge Plan Triage Chief Complaint: Asthma ED Provider: Joana Luu Dx/Rx/DC Orders Clinical Impression: Asthma exacerbation Instructions: ED Asthma, Acute (Adult) Prescriptions: New prednisone 20 mg tablet 40 mg PO DAILY Qty: 8 0RF No Action albuterol sulfate 1 PUFF inhaler 2 puff inhalation Q4H PRN PRN (Reason: Wheezing) albuterol sulfate 2.5 MG/3 ML solution for nebulization 2.5 mg inhalation Q4HWA.RT PRN (Reason: Shortness Of Breath) fluticasone propion-salmeterol [Advair Diskus] 500-50 mcg/dose blister with device 1 inh INHALATION BID montelukast 10 mg tablet 10 mg PO DAILY Patient Comments: Take 1 tablet by mouth daily at bedtime. (DME) Aerochamber MV Spacer See Rx Instructions .ROUTE .MEDSUPPLY Qty: 1 0RF Rx Instructions: As directed prednisone 20 mg tablet 20 mg PO BID Qty: 10 0RF prednisone 20 mg tablet 60 mg PO DAILY Qty: 15 0RF Primary Care Provider: Navdeep Mo Referrals: Navdeep Mo MD [Primary Care Provider] - 3-5 Days if not improving Disposition Disposition: Home, Self Care
[2023-04-12] MEDS: Albuterol 2.5 MG/3 ML VIAL.NEB. INHALATION ×2 (21:18→21:28)
--- NOTE | 2023-04-12 22:14 | CPS ---
x2 Albuterol given to pt. in ER as well
[2023-04-12 22:44] VITALS: BP 102/60; PULSE 80; RESP 18; O2SAT 97
[2023-04-12 22:56] VITALS: PULSE 78; RESP 18
== END 2023-04-12 22:56 | disposition home or self-care (01) ==
PROVIDERS: Emergency Provider Emergency Medicine; PCP Internal Medicine; Visit Provider Emergency Medicine
DX: J45.901 Unspecified asthma with (acute) exacerbation (principal); Z87.891 Personal history of nicotine dependence
CPT/HCPCS: 94640; 99282

== ENCOUNTER 2023-06-18 22:55 | Inpatient (IN) | payer SELFPAY ==
[2023-06-18 22:56] VITALS: BP 123/90; PULSE 132; RESP 40; TEMP 36.4; O2SAT 100; BMI 31.6
[2023-06-18 23:04] VITALS: O2SAT 100
--- NOTE | 2023-06-18 23:04 | EKG12_ITS ---
Test Reason : SOB Blood Pressure : / mmHG Vent. Rate : 129 BPM Atrial Rate : 129 BPM P-R Int : 124 ms QRS Dur : 074 ms QT Int : 296 ms P-R-T Axes : 067 060 066 degrees QTc Int : 433 ms Sinus tachycardia Otherwise normal ECG Confirmed by GAUDENCIO LIVINGSTON, BETI ([id number]), primer expeditor and drier DARRELL GUZMAN ([id number]) on 06/19/2023 1:08:26 PM Referred By: Saji Noonan Confirmed By:BETI RATLIFF MD
[2023-06-18 23:05] VITALS: PULSE 129; RESP 30
--- NOTE | 2023-06-18 23:06 | EDS_ITS ---
HPI History of Present Illness Chief Complaint: Shortness of Breath Informant: patient and EMS Narrative Narrative: Patient having a severe asthma attack. She has been intubated and in the ICU for this before. History is very limited due to acuity, the patient states please, I cannot talk when asked most questions. Unknown how long this has been going on. PFSH PFS Medical History Anxiety Asthma Home Medications albuterol sulfate 90 mcg/actuation aerosol inhaler 2 puff inhalation Q4H PRN PRN Wheezing 07/06/19 [History Last Taken Unknown] albuterol sulfate 2.5 mg/3 mL (0.083 %) solution for nebulization 2.5 mg inhalation Q4HWA.RT PRN Shortness Of Breath 01/16/20 [History Last Taken Unknown] fluticasone 500 mcg-salmeterol 50 mcg/dose blistr powdr for inhalation (Advair Diskus) 1 inh inhalation BID 05/15/21 [History Last Taken Unknown] montelukast 10 mg tablet 10 mg PO DAILY 05/15/21 [History Last Taken Unknown] inhalational spacing device (Aerochamber MV spacer) #1 ea 08/26/21 [Rx Last Taken Unknown] fluticasone propionate 50 mcg/actuation nasal spray,suspension 1 spray intranasal Q12H 06/18/23 [History Last Taken Unknown] Allergy/AdvReac Type Severity Reaction Status Date / Time propranolol [From Inderal LA] Allergy Shortness Verified 06/18/23 22:56 of breath Social History household members: significant other Smoking Status: Former smoker substance use type: does not use ROS ROS ED Review of Systems ROS Unobtainable: other Details: Limited due to acuity Respiratory/Chest Respiratory/Chest: Reports dyspnea EXAM Physical Exam Const Vital Signs: 06/18/23 22:56 06/18/23 23:04 06/18/23 23:49 Temperature 97.6 F L Temperature Source Temporal Pulse Rate 132 H 116 H Respiratory Rate 40 H 19 H Respiratory Effort Short of Breath Labored Accessory Muscle Use Respiratory Depth Shallow Respiratory Pattern Grunting Blood Pressure 123/90 H 137/84 H Blood Pressure Mean 101 101 Pulse Ox 100 96 Oxygen Delivery Method Non-Rebreather Oxygen Flow Rate (L/min) 15 06/18/23 23:05 Temperature Temperature Source Pulse Rate 129 H Respiratory Rate 30 H Respiratory Effort Respiratory Depth Respiratory Pattern Tachypnea Blood Pressure Blood Pressure Mean Pulse Ox Oxygen Delivery Method Oxygen Flow Rate (L/min) Positive well nourished and well developed Constitutional Narrative: Acute respiratory distress General Appearance ED: well developed HEENT Reports moist mucous membranes normocephalic and atraumatic Eyes PERRL and EOMs intact bilaterally Neck full ROM, supple and no JVD Resp Resp Narrative: Acute respiratory distress with expiratory wheezes throughout but sounds tight. Breath sounds symmetric bilaterally. Cardio regular rate, regular rhythm and no murmurs GI non-tender and non-distended Auscultation: normoactive bowel sounds Palpation: soft Back/Spine no CVA tenderness General Back: other FROM Extremity normal to inspection General Extremety ED: Negative for edema, pulses abnormal or tenderness General Extremity: Negative for edema or pulses abnormal Neuro oriented x3, CN's II-XII intact bilaterally and no sensory deficits noted Sensorium / Orientation: awake and alert Motor Exam: strength 5/5 throughout Psych Attitude: No agitated Mood & Affect: anxious Skin no rashes or lesions noted and no wounds MDM MDM MDM Narrative Medical decision making narrative: Recommended BiPAP at this patient struggling to breathe with, and in acute respiratory distress but she declined saying that she has had that before and been admitted to the ICU with asthma before like this, and the BiPAP is made things worse. She is in distress but holding her own right now so we treated her medically and it did result in drastic improvement, using nebulizer treatments, terbutaline, epinephrine, she received Solu-Medrol prior to arrival by EMS 125 mg. Magnesium sulfate ordered and yet to be infused. On reexamination she is doing much better and is able to converse better. She is tired but she agrees that she can continue like this without being intubated right now, but I would still admit her to the ICU. Discussed with hospitalist, and I reviewed her 1 view chest x-ray which shows no pneumonia or pneumothorax on my interpretation, COVID and flu are sent, her EKG is normal except for sinus tachycardia. Labs noted. As a result of treatment, her tachycardia is much improved down to the 110s. Lab Data Attestation: I reviewed the patient's lab results. Labs: Laboratory Results - last 24 hr 06/18/23 23:00 WBC 10.5 RBC 4.08 L Hgb 12.6 Hct 39.5 MCV 96.8 MCH 30.9 MCHC 31.9 L RDW Std Deviation 43.0 RDW Coeff of Brittney 12.1 Plt Count 430 MPV 9.3 Immature Gran % (Auto) 0.400 Neut % (Auto) 51.9 Lymph % (Auto) 33.9 Storey % (Auto) 7.9 Eos % (Auto) 4.8 Baso % (Auto) 1.1 H Absolute Neuts (auto) 5.4 Absolute Lymphs (auto) 3.55 Nucleated RBC % 0 Sodium 141 Potassium 3.7 Chloride 111 H Carbon Dioxide 28.0 Anion Gap 2 L BUN 10 Creatinine 0.84 Estim Creat Clear Calc 79.18 Est GFR (MDRD) Af Amer 98 Est GFR (MDRD) Non-Af 81 BUN/Creatinine Ratio 11.9 Glucose 128 H Calcium 8.5 Troponin I High Sens 5 ABG Data ABG results: ABG 06/18/23 23:21 Specimen Type MIHAI Sample Site Not entered O2 % 100.0 VBG pH 7.21 L VBG pO2 105 H VBG HCO3 26 VBG Total CO2 28 VBG O2 Sat (Calc) 96 H VBG Base Excess -2 L POC Mix VBG pCO2 Pt Tmp 64.8 H O2 Delivery Device NRB Rhythm Strip Rhythm Strip: Sinus Tach Rate: 140 Ectopy: None EKG Initial EKG: Attestation: I personally reviewed and interpreted this EKG as follows: Interpretation: No Acute Injury Pattern and Sinus Tachycardia Management Discussion w/another healthcare provider: Hospitalist Critical Care Time Critical Care Time: Yes Critical care time (excluding procedures): 30-74 minutes (36 min), Discussing w/Patient &/or Family/Refinery Operator Visbreaking, Discussing w/Consultants, Arranging Admission or Transfer and Performing Direct Patient Care at Bedside Discharge Plan Dx/Rx/DC Orders Clinical Impression: Asthma with status asthmaticus Disposition Disposition: [facility]
[2023-06-18] MEDS: Terbutaline 1 MG/ML Vial 0.25 MG SC (23:14)
[2023-06-18] MEDS: Epi Pen (EQUIV) 0.3 MG Syringe IM (23:15)
[2023-06-18 23:16] LABS: Absolute Lymphocyte Count 3.55 X10^3/uL (0.83-4.51); Absolute Neutrophil Count 5.4 X10^3/uL (2.0-7.7); Basophil# 0.11 X10^3/uL; Basophil% 1.1 % (0-1); Eosinophils% 4.8 % (0-5); Hematocrit 39.5 % (37-47); Hemoglobin 12.6 g/dL (12.0-15.0); Lymphocyte # 3.55 X10^3/ul (0.83-4.51); Lymphocyte % 33.9 % (19-41); Mean Corp Hgb Conc 31.9 g/dL (32-36); Mean Corpuscular Hgb 30.9 pg (27.0-32.0); Mean Corpuscular Volume 96.8 fL (81-99); Mean Platelet Vol. 9.3 fl (6.2-12.0); Monocyte# 0.83 X10^3/uL; Monocyte% 7.9 % (0-10); NRBC Flagged by Analyzer 0 % (0-5); Neutrophil # 5.44 X10^3/uL (2.7-7.7); Neutrophil % 51.9 % (47-70); Platelet Count 430 K/mm3 (150-450); RBC Distribution Width CV 12.1 % (11.6-14.6); Red Blood Count 4.08 M/mm3 (4.2-5.4); White Blood Count 10.5 K/mm3 (4.4-11.0)
--- NOTE | 2023-06-18 23:17 | RAD_ITS ---
EXAM: XR CHEST, 1 VIEW CLINICAL INDICATION: sob TECHNIQUE: Frontal view of the chest. COMPARISON: No relevant prior studies available. FINDINGS: LUNGS AND PLEURAL SPACES: Unremarkable. No consolidation or edema. No pneumothorax. No effusion. HEART: Unremarkable. Cardiac silhouette not enlarged. MEDIASTINUM: Central airways and mediastinal contour are unremarkable. BONES/JOINTS: Unremarkable. No acute fracture. SOFT TISSUES: Unremarkable. RAD/Chest 1 View (Portable) IMPRESSION: No radiographic evidence of acute cardiopulmonary disease. Electronically Signed: Onel Connor MD at 0:25 EST ,
[2023-06-18 23:25] LABS: Blood Gas Specimen Type VEN; O2 Delivery Device NRB; SITE Not entered; VBG BASE EXCESS -2 mmol/L (-1.0-3.5); VBG Bicarbonate 26 mmol/L (22-26); VBG PO2 105 mmHg (25-40); VBG SO2 96 % (50-70); VBG TCO2 28 mmol/L (23-33); VBG pCO2 64.8 mmHg (41-51); VBG pH 7.21 (7.32-7.42)
[2023-06-18 23:33] LABS: Anion Gap 2 (5-15); BUN 10 mg/dL (7-18); BUN/Creat Ratio 11.9 RATIO (10-20); Calcium,Total 8.5 mg/dL (8.5-10.1); Chloride 111 mmol/L (98-107); Creatinine, Serum 0.84 mg/dL (0.55-1.02); EST Glomerular Filtration Rate 81 mL/min (>60); Est Glom Filt Rate - Afr Amer 98 mL/min (>60); Estimated Creatinine Clearance 79.18 ml/min; Glucose 128 mg/dL (74-106); Potassium 3.7 mmol/L (3.5-5.1); Sodium Level 141 mmol/L (136-145); Troponin-I HS 5 pg/mL (3.0-54.0)
[2023-06-18 23:49] VITALS: BP 137/84; PULSE 116; RESP 19; O2SAT 96
[2023-06-18 23:54] VITALS: PULSE 110; RESP 14
--- NOTE | 2023-06-18 23:54 | HP.PCM.HOS_ITS ---
HPI - General General Date of Admission: 06/18/23 Date of Service: 06/18/23 Chief Complaint: Dyspnea, wheezing, increased work of breathing, respiratory distress. HPI Narrative The patient is a 38 y/o F w/ PMHx: Asthma w/ allergic rhinitis, Anxiety who presents to the [facility] ED on 06/18/23 with Workup in the ED included T97.6, heart rate 132, BP 123/90, respiratory rate 40, 100% on room air, Acute on Chronic Asthma exacerbation: CXR w/ chronic changes, CBC on admission w/ []. Will admit to [], maintain on oxygen with wean as tolerated to room air, continue ATC duonebs, PRN albuterol, IV methylprednisolone, HOB, IS parameters, will obtain sputum Cx, respiratory viral panel, procalcitonin, magnesium IV will be also administered. If ongoing low threshold to involve pulmonary medicine given history of status asthmaticus. Will continue home montelukast regimen. Anxiety: Per current list not on regimen, certainly would expect to be increased with current presentation #1, encourage continued outpatient follow-up and counseling if appropriate. [facility] Medical History Anxiety Asthma Home Medications albuterol sulfate 90 mcg/actuation aerosol inhaler 2 puff inhalation Q4H PRN PRN Wheezing 07/06/19 [History Last Taken Unknown] albuterol sulfate 2.5 mg/3 mL (0.083 %) solution for nebulization 2.5 mg inhalation Q4HWA.RT PRN Shortness Of Breath 01/16/20 [History Last Taken Unknown] fluticasone 500 mcg-salmeterol 50 mcg/dose blistr powdr for inhalation (Advair Diskus) 1 inh inhalation BID 05/15/21 [History Last Taken Unknown] montelukast 10 mg tablet 10 mg PO DAILY 05/15/21 [History Last Taken Unknown] inhalational spacing device (Aerochamber MV spacer) #1 ea 08/26/21 [Rx Last Taken Unknown] fluticasone propionate 50 mcg/actuation nasal spray,suspension 1 spray intr anasal Q12H 06/18/23 [History Last Taken Unknown] Allergy/AdvReac Type Severity Reaction Status Date / Time propranolol [From Inderal LA] Allergy Shortness Verified 06/18/23 22:56 of breath Social History household members: significant other Smoking Status: Former smoker substance use type: does not use Vital Signs Vital Signs Vital Signs: 06/18/23 22:56 06/18/23 23:04 06/18/23 23:49 Temperature 97.6 F L Temperature Source Temporal Pulse Rate 132 H 116 H Respiratory Rate 40 H 19 H Respiratory Effort Short of Breath Labored Accessory Muscle Use Respiratory Depth Shallow Respiratory Pattern Grunting Blood Pressure 123/90 H 137/84 H Blood Pressure Mean 101 101 Pulse Ox 100 96 Oxygen Delivery Method Non-Rebreather Oxygen Flow Rate (L/min) 15 Weight Weight: 184 lb 4.903 oz Body Mass Index (BMI) 31.6 Results Lab / Micro Data 06/18/23 23:00 06/18/23 23:00 Labs: Laboratory Results - last 24 hr 06/18/23 23:00: WBC 10.5, RBC 4.08 L, Hgb 12.6, Hct 39.5, MCV 96.8, MCH 30.9, MCHC 31.9 L, RDW Std Deviation 43.0, RDW Coeff of Brittney 12.1, Plt Count 430, MPV 9.3, Immature Gran % (Auto) 0.400, Neut % (Auto) 51.9, Lymph % (Auto) 33.9, [place]igs % (Auto) 7.9, Eos % (Auto) 4.8, Baso % (Auto) 1.1 H, Absolute Neuts (auto) 5.4, Absolute Lymphs (auto) 3.55, Nucleated RBC % 0, Sodium 141, Potassium 3.7, Chloride 111 H, Carbon Dioxide 28.0, Anion Gap 2 L, BUN 10, Creatinine 0.84, Estim Creat Clear Calc 79.18, Est GFR (MDRD) Af Amer 98, Est GFR (MDRD) Non-Af 81, BUN/Creatinine Ratio 11.9, Glucose 128 H, Calcium 8.5, Troponin I High Sens 5 ABG Data ABG results: ABG 06/18/23 23:21 Specimen Type MIHAI Sample Site Not entered O2 % 100.0 VBG pH 7.21 L VBG pO2 105 H VBG HCO3 26 VBG Total CO2 28 VBG O2 Sat (Calc) 96 H VBG Base Excess -2 L POC Mix VBG pCO2 Pt Tmp 64.8 H O2 Delivery Device NRB Rhythm Strip Rhythm Strip: Sinus Tach Rate: 140 Ectopy: None
--- NOTE | 2023-06-18 23:54 | PCM.HP.STD ---
HPI - General General Date of Admission: 06/18/23 Date of Service: 06/18/23 Chief Complaint: Dyspnea, wheezing, increased work of breathing, respiratory distress. HPI Narrative The patient is a 38 y/o F w/ PMHx: Asthma w/ allergic rhinitis, Anxiety who presents to the [facility] ED on 06/18/23 with 3 of onset dyspnea worsening over the last 3 days with chest tightness and wheezing with no recent upper respiratory infection or symptoms or any ill contacts in the home but not improving despite usage of home nebulizer treatments prompting eventual EMS call and transition to the ED. On route to the ED they did attempt BiPAP but because of claustrophobia and anxiety patient was unable to tolerate it. She does report allergies to cats and does have several cats but is never seek at allergy treatment. 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 Workup in the ED included T97.6, heart rate 132, BP 123/90, respiratory rate 40, 100% on room air, CBC with WBC 10.5, hemoglobin 12.6, platelet 430 without marked shift, VBG with pH 7.21, pO2 105, O2 96% on a nonrebreather, BMP with glucose 128 otherwise not marked appearing, troponin 5, chest x-ray on review with no acute cardiopulmonary findings but final read pending per radiology, EKG with sinus tachycardia with no acute evidence of ischemia, COVID and influenza antigen pending per ED physician. In the ED patient administered terbutaline 0.25 subcu x 1, Solu-Medrol 125 mg IV x 1, magnesium 2 g IV x 1, DuoNeb therapy as well as epi 0.3 mg IM x 1 treatment in addition to a 1 L normal saline bolus. In the ED the physician did encourage patient to utilize BiPAP however she declined but fortunately slowly improved. Did discuss potential need for future BiPAP in the ED with patient just in case she declined again and following lengthy discussion she would be amenable to trying potentially with Precedex drip. PFSH Medical History Anxiety Asthma Former tobacco use Home Medications albuterol sulfate 90 mcg/actuation aerosol inhaler 2 puff inhalation Q4H PRN PRN Wheezing 07/06/19 [History Last Taken Unknown] albuterol sulfate 2.5 mg/3 mL (0.083 %) solution for nebulization 2.5 mg inhalation Q4HWA.RT PRN Shortness Of Breath 01/16/20 [History Last Taken Unknown] fluticasone 500 mcg-salmeterol 50 mcg/dose blistr powdr for inhalation (Advair Diskus) 1 inh inhalation BID 05/15/21 [History Last Taken Unknown] montelukast 10 mg tablet 10 mg PO DAILY 05/15/21 [History Last Taken Unknown] inhalational spacing device (Aerochamber MV spacer) #1 ea 08/26/21 [Rx Last Taken Unknown] fluticasone propionate 50 mcg/actuation nasal spray,suspension 1 spray intranasal Q12H 06/18/23 [History Last Taken Unknown] Allergy/AdvReac Type Severity Reaction Status Date / Time propranolol [From Inderal LA] Allergy Shortness Verified 06/18/23 22:56 of breath Family History (Updated 06/19/23 @ 00:[address] Sara Celestin MD) Mother Asthma Father Diabetes Surgical History (Updated 06/19/23 @ 00:[address] Sara Celestin MD) No history of previous surgery Social History (Updated 06/19/23 @ 00:[address] Sara Celestin MD) household members: significant other and children Smoking Status: Former smoker how long ago did patient quit smoking: Quit cigarette tobacco ~ 1 year prior, 1 pk/3-4 days from teen until quit. alcohol intake: current alcohol intake frequency: a few times a month substance use type: does not use ROS ROS Narrative Admission Review of Systems: CONSTITUTIONAL: No weight loss, fever, chills, + weakness or fatigue. HEENT: Eyes: No visual loss, blurred vision, double vision or yellow sclerae. Ears, Nose, Throat: No hearing loss, sneezing, congestion, runny nose or sore throat. SKIN: No rash or itching, lesions, wounds. CARDIOVASCULAR: No chest pain, chest pressure or chest discomfort, palpitations, edema, orthopnea, syncopal events. RESPIRATORY: + Shortness of breath, wheezing, respiratory distress. No recent cough or marked sputum, hemoptysis. GASTROINTESTINAL: No anorexia, nausea, vomiting or diarrhea, abdominal pain, melena, BRBPR. GENITOURINARY: No dysuria, frequency, urgency or retention. NEUROLOGICAL: No headache, dizziness, syncope, paralysis, ataxia, numbness or tingling in the extremities, focal weakness, change in bowel or bladder control, seizure. MUSCULOSKELETAL: No muscle, back pain, joint pain or stiffness. HEMATOLOGIC: No anemia, bleeding or bruising. LYMPHATICS: No enlarged nodes. No history of splenectomy. PSYCHIATRIC: + Severe anxiety and claustrophobia. ENDOCRINOLOGIC: No reports of sweating, cold or heat intolerance. No polyuria or polydipsia. ALLERGIES: + history of asthma, rhinitis. Vital Signs Vital Signs Vital Signs: 06/18/23 22:56 06/18/23 23:04 06/18/23 23:49 Temperature 97.6 F L Temperature Source Temporal Pulse Rate 132 H 116 H Respiratory Rate 40 H 19 H Respiratory Effort Short of Breath Labored Accessory Muscle Use Respiratory Depth Shallow Respiratory Pattern Grunting Blood Pressure 123/90 H 137/84 H Blood Pressure Mean 101 101 Pulse Ox 100 96 Oxygen Delivery Method Non-Rebreather Oxygen Flow Rate (L/min) 15 Weight Weight: 184 lb 4.903 oz Body Mass Index (BMI) 31.6 Physical Exam Narrative Physical Examination: General: Awake, alert, oriented x 3 and cooperative, seated upright in the ED bed, still increased work of breathing and some accessory muscle use but able to speak in sentences now and no longer tripoding with respiratory distress significantly lessened. Skin: Normal color, normal turgor, no icterus, no cyanosis. HEENT: AT/NC, EOMI, PERRLA, dry MM, no carotid bruits or JVD noted. Lungs: Still significantly diminished throughout, tight, some air movement upper tavarez, decreased significantly bases, occasional and tight wheeze, increased work of breathing accessory muscle usage still present however respiratory distress is improving. Heart: Tachycardic with regular rhythm; no gallop, rub audible. Abdomen: Soft, NTTP, ND, distant normal BS, no HSM. Extremities: No cyanosis, clubbing, or edema. Neurological: Patient awake, alert, oriented as noted, cognitive function intact; pupils equally reactive to light and accommodation, cranial nerves II-XII grossly normal, moving all 4 extremities, no focal deficits, strength severely globally decreased secondary to acute presentation. Psychiatric: Affect appears anxious, tearful but eventually calms with discussions and does have significant underlying anxiety history. Also admits to claustrophobia. Results Lab / Micro Data 06/18/23 23:00 06/18/23 23:00 Labs: Laboratory Results - last 24 hr 06/18/23 23:00: WBC 10.5, RBC 4.08 L, Hgb 12.6, Hct 39.5, MCV 96.8, MCH 30.9, MCHC 31.9 L, RDW Std Deviation 43.0, RDW Coeff of Brittney 12.1, Plt Count 430, MPV 9.3, Immature Gran % (Auto) 0.400, Neut % (Auto) 51.9, Lymph % (Auto) 33.9, Cass % (Auto) 7.9, Eos % (Auto) 4.8, Baso % (Auto) 1.1 H, Absolute Neuts (auto) 5.4, Absolute Lymphs (auto) 3.55, Nucleated RBC % 0, Sodium 141, Potassium 3.7, Chloride 111 H, Carbon Dioxide 28.0, Anion Gap 2 L, BUN 10, Creatinine 0.84, Estim Creat Clear Calc 79.18, Est GFR (MDRD) Af Amer 98, Est GFR (MDRD) Non-Af 81, BUN/Creatinine Ratio 11.9, Glucose 128 H, Calcium 8.5, Troponin I High Sens 5 ABG Data ABG results: ABG 06/18/23 23:21 Specimen Type MIHAI Sample Site Not entered O2 % 100.0 VBG pH 7.21 L VBG pO2 105 H VBG HCO3 26 VBG Total CO2 28 VBG O2 Sat (Calc) 96 H VBG Base Excess -2 L POC Mix VBG pCO2 Pt Tmp 64.8 H O2 Delivery Device NRB Rhythm Strip Rhythm Strip: Sinus Tach Rate: 140 Ectopy: None Assessment & Plan Assessment/Plan (1) Asthma with status asthmaticus: PLAN: Plan The patient is a 38 y/o F w/ PMHx: Asthma w/ allergic rhinitis, Anxiety who presents to the [facility] ED on 06/18/23 with 3 of onset dyspnea worsening over the last 3 days with chest tightness and wheezing with no recent upper respiratory infection or symptoms or any ill contacts in the home but not improving despite usage of home nebulizer treatments prompting eventual EMS call and transition to the ED. #1. Acute on Chronic Asthma exacerbation with status asthmaticus with acute respiratory distress, slowly improving: CXR w/ chronic changes, CBC on admission w/ no marked WBC elevation or left shift, no recent URI symptoms. Will admit to the ICU, requesting send this to dilation, maintain on oxygen with wean as tolerated to room air, continue ATC duonebs, PRN albuterol, IV methylprednisolone, HOB, IS parameters, to be cautious we will request respiratory viral panel, procalcitonin, magnesium IV will be also administered. At discharge patient would strongly benefit from referral to pulmonary medicine and would also strongly benefit from allergy formal testing and treatment as patient very clearly implicates that she would not forego having cats as pets. #2. Anxiety: Per current list not on regimen, certainly would expect to be increased with current presentation #1, encourage continued outpatient follow-up and counseling if appropriate. Again as note if patient for some reason did worsen and required BiPAP certainly could consider Precedex usage. Given presentation in the ED and discussions will have low-dose Ativan for severe anxiety. #3. Former tobacco use: Encourage continued tobacco cessation. #4. DVT prophylaxis: Low risk. Charges/Coding Visit Charges Inpatient E&M: 33931 Init Hosp L3
[2023-06-18] MEDS: Albuterol 2.5 MG/3 ML VIAL.NEB. INHALATION ×3 (23:57)
[2023-06-18] MEDS: Ipratropium/Albuterol Sulfate 3 ML AMPUL.NEB INHALATION (23:57)
[2023-06-18 23:58] VITALS: O2SAT 98
[2023-06-19] VITALS (15 sets, daily range): BP systolic 90–124; BP diastolic 50–81; PULSE 84–113; RESP 14–23; TEMP 35.8–37; O2SAT 94–100; BMI 30.2
[2023-06-19] MEDS: Magnesium Sulfate 2 GM in Dextrose 5%-Water (100mL Bag) 100 ML IV (00:02)
--- NOTE | 2023-06-19 00:02 | NURSING ---
Report given to Serena PARKINSON in ICU
[2023-06-19] MEDS: Acetaminophen 325 MG Tablet 650 MG PO (00:52)
[2023-06-19] MEDS: 0.9% Normal Saline (1000mL) 1,000 ML 100 ML IV (00:53)
[2023-06-19] MEDS: LORazepam 2 MG/ML Syringe 0.5 MG IV (01:26)
[2023-06-19 04:56] LABS: Absolute Lymphocyte Count 0.29 X10^3/uL (0.83-4.51); Absolute Neutrophil Count 8.4 X10^3/uL (2.0-7.7); Basophil# 0.01 X10^3/uL; Basophil% 0.1 % (0-1); Hematocrit 35.2 % (37-47); Hemoglobin 11.4 g/dL (12.0-15.0); Lymphocyte # 0.29 X10^3/ul (0.83-4.51); Lymphocyte % 3.3 % (19-41); Mean Corp Hgb Conc 32.4 g/dL (32-36); Mean Corpuscular Hgb 31.1 pg (27.0-32.0); Mean Corpuscular Volume 95.9 fL (81-99); Monocyte# 0.07 X10^3/uL; Monocyte% 0.8 % (0-10); NRBC Flagged by Analyzer 0 % (0-5); Neutrophil # 8.37 X10^3/uL (2.7-7.7); Neutrophil % 95.5 % (47-70); POSITIVE DIFFERENTIAL YES; Platelet Count 263 K/mm3 (150-450); RBC Distribution Width SD 42.7 fl (35.1-43.9); Red Blood Count 3.67 M/mm3 (4.2-5.4); White Blood Count 8.8 K/mm3 (4.4-11.0)
[2023-06-19 05:03] LABS: ALB/GLOB Ratio 0.9 RATIO (0.9-2.4); AST(SGOT) 29 U/L (15-37); Alanine Aminotransfer ALT/SGPT 12 U/L (13-56); Albumin, Serum 2.8 g/dL (3.2-5.0); Alkaline Phosphatase 32 U/L (45-117); Anion Gap 8 (5-15); BUN 8 mg/dL (7-18); BUN/Creat Ratio 10.1 RATIO (10-20); Calcium,Total 6.8 mg/dL (8.5-10.1); Chloride 114 mmol/L (98-107); Creatinine, Serum 0.79 mg/dL (0.55-1.02); EST Glomerular Filtration Rate 87 mL/min (>60); Est Glom Filt Rate - Afr Amer 105 mL/min (>60); Estimated Creatinine Clearance 84.19 ml/min; Glucose 205 mg/dL (74-106); Potassium 4.2 mmol/L (3.5-5.1); Protein, Total 5.8 g/dL (6.4-8.2); Sodium Level 142 mmol/L (136-145)
[2023-06-19 05:36] LABS: Procalcitonin < 0.04 ng/mL (0.00-0.09)
[2023-06-19 06:17] LABS: Differential Indicated SCAN CRITERIA MET
[2023-06-19] MEDS: 0.9% Saline Lock 10 ML Syringe IV (06:33)
--- NOTE | 2023-06-19 07:22 | EX.PCM.CONCC ---
Assessment & Plan Assessment/Plan (1) Asthma with status asthmaticus: QUALIFIERS: Asthma severity: moderate Asthma persistence: persistent Qualified Code(s): J45.42 - Moderate persistent asthma with status asthmaticus PLAN: Plan RECOMMENDATIONS: 1. Okay to transition to p.o. prednisone 2. Social work to help with maintenance medications 3. Walking oximetry prior to discharge 4. Follow-up in pulmonary office in 2 weeks for baseline PFTs 5. Likely okay to transition to MedSurg status IMPRESSIONS: 1. Status asthmaticus secondary to noncompliance Clinical suspicion is for status asthmaticus secondary to inability to comply with medication secondary to insurance issues. Patient has not been using her maintenance medications appropriately, trying to get them to last. Patient responded very quickly. Low clinical suspicion for URI precipitated exacerbation, but patient could be treated for 5 days with p.o. prednisone. Patient will need a walking oximetry prior to discharge. Patient would benefit from following up in pulmonary as she may require Biologics. Patient is reporting 2-3 ER visits despite maximum inhaled steroids. Will need to address the social issues before patient can be discharged or she does run a high risk of readmission. HPI Consult Data Date of Consult: 06/19/23 HPI Narrative Reason for Consultation: Uncontrolled asthma HPI Narrative: PRAVEEN ONTIVEROS is a 38 F, with past medical history listed below, who presents to [facility] on 06/18/2023 secondary to a severe asthma attack. Patient reportedly has a long history of asthma that was relatively controlled previously. Patient states that over the last 4 to 5 days she has felt like she was developing an asthma attack. Unfortunately, patient does not have insurance and has been rationing her baseline Advair and was unable to get control. Patient had attempted albuterol with little to no success. On presentation to the ER, patient was tachycardic at 132 bpm and breathing 40 breaths/min. Patient was requiring a nonrebreather. Laboratory workup showed a white blood cell count of 10.5, hemoglobin of 12.6 and platelet count of 430. Patient was noted to have 4.8% eosinophils. Chemistry showed an elevated bicarbonate of 28 with normal renal function and a glucose of 128. Troponin was negative. Patient did have a VBG showing a pH of 7.21. No ABG was obtained. Patient was attempted on BiPAP, but this made her overall condition worse. Patient was given nebulized medications terbutaline, epinephrine and Solu-Medrol. Patient responded well and was admitted to the intensive care unit for possible need for intubation. Viral panels were sent. Overnight in the intensive care unit, patient has significantly improved. Patient is requiring only 2 L/min and is saturating 98%. Patient states she has a long history of asthma and was doing well until recently. Patient has been on Advair and relatively controlled, but lost her insurance several months ago. Patient states she has been trying to make her Advair last by using it every other day. Patient states she has not seen a communications editor in the past. Patient states that when she does have her medications she is typically presenting to the ER 2-3 times per year at most. Patient has been intubated for asthma previously. Review of systems otherwise negative from a constitutional, HEENT, respiratory, cardiovascular, GI, genitourinary, musculoskeletal, skin, neurologic, psychiatric and hematologic system unless stated above. PFSH Medical History Anxiety Asthma Former tobacco use Home Medications albuterol sulfate 90 mcg/actuation aerosol inhaler 2 puff inhalation Q4H PRN PRN Wheezing 07/06/19 [History Last Taken Unknown] albuterol sulfate 2.5 mg/3 mL (0.083 %) solution for nebulization 2.5 mg inhalation Q4HWA.RT PRN Shortness Of Breath 01/16/20 [History Last Taken Unknown] fluticasone 500 mcg-salmeterol 50 mcg/dose blistr powdr for inhalation (Advair Diskus) 1 inh inhalation BID 05/15/21 [History Last Taken Unknown] montelukast 10 mg tablet 10 mg PO DAILY 05/15/21 [History Last Taken Unknown] inhalational spacing device (Aerochamber MV spacer) #1 ea 08/26/21 [Rx Last Taken Unknown] fluticasone propionate 50 mcg/actuation nasal spray,suspension 1 spray intranasal Q12H 06/18/23 [History Last Taken Unknown] Allergy/AdvReac Type Severity Reaction Status Date / Time propranolol [From Inderal LA] Allergy Shortness Verified 06/18/23 22:56 of breath Family History Mother Asthma Father Diabetes Surgical History No history of previous surgery Social History household members: significant other and children Smoking Status: Former smoker how long ago did patient quit smoking: Quit cigarette tobacco ~ 1 year prior, 1 pk/3-4 days from teen until quit. alcohol intake: current alcohol intake frequency: a few times a month substance use type: does not use ROS ROS Narrative See HPI Physical Exam Const alert and oriented x3 Constitutional Narrative: No conversational dyspnea General Appearance: cooperative and well developed; Negative for ill appearing HEENT normocephalic and head/scalp atraumatic Mouth: oral and palatal mucosa normal Eyes PERRL, EOMs intact bilaterally and conjunctivae normal Eyes Narrative: Glasses in place Neck full ROM and no lymphadenopathy Resp normal respiratory effort Effort and Inspection: able to speak in complete sentences; Negative for actively coughing Auscultation: clear to auscultation bilaterally; Negative for rales, rhonchi or wheezes Cardio regular rate, regular rhythm, S1 normal heart sound, S2 normal heart sound, no murmurs, no rub and no gallops GI normal to inspection, nondistended, normoactive bowel sounds Extremity no clubbing, cyanosis or edema Skin no rashes or lesions noted Neuro oriented x3, CN's II-XII intact bilaterally and moves all extremities Psych cooperative and affect normal Medical Records Data Attestation: I reviewed the patient's medical records Medical records narrative: Patient has [address] [facility] secondary to an asthma exacerbation. Lab / Micro Data Attestation: I reviewed the patient's lab results. 06/19/23 04:05 06/19/23 04:05 Labs: Laboratory Results - last 24 hr 06/18/23 23:00: WBC 10.5, RBC 4.08 L, Hgb 12.6, Hct 39.5, MCV 96.8, MCH 30.9, MCHC 31.9 L, RDW Std Deviation 43.0, RDW Coeff of Brittney 12.1, Plt Count 430, MPV 9.3, Immature Gran % (Auto) 0.400, Neut % (Auto) 51.9, Lymph % (Auto) 33.9, [place] % (Auto) 7.9, Eos % (Auto) 4.8, Baso % (Auto) 1.1 H, Absolute Neuts (auto) 5.4, Absolute Lymphs (auto) 3.55, Nucleated RBC % 0, Sodium 141, Potassium 3.7, Chloride 111 H, Carbon Dioxide 28.0, Anion Gap 2 L, BUN 10, Creatinine 0.84, Estim Creat Clear Calc 79.18, Est GFR (MDRD) Af Amer 98, Est GFR (MDRD) Non-Af 81, BUN/Creatinine Ratio 11.9, Glucose 128 H, Calcium 8.5, Troponin I High Sens 5 06/19/23 00:40: Procalcitonin < 0.04 06/19/23 04:05: WBC 8.8, RBC 3.67 L, Hgb 11.4 L, Hct 35.2 L, MCV 95.9, MCH 31.1, MCHC 32.4, RDW Std Deviation 42.7, RDW Coeff of Brittney 12.0, Plt Count 263, MPV 10.0, Immature Gran % (Auto) 0.300, Neut % (Auto) 95.5 H, Lymph % (Auto) 3.3 L, [place] % (Auto) 0.8, Eos % (Auto) 0.0, Baso % (Auto) 0.1, Absolute Neuts (auto) 8.4 H, Absolute Lymphs (auto) 0.29 L, Nucleated RBC % 0, Sodium 142, Potassium 4.2, Chloride 114 H, Carbon Dioxide 20.0 L, Anion Gap 8, BUN 8, Creatinine 0.79, Estim Creat Clear Calc 84.19, Est GFR (MDRD) Af Amer 105, Est GFR (MDRD) Non-Af 87, BUN/Creatinine Ratio 10.1, Glucose 205 H, Calcium 6.8 L, Total Bilirubin 0.30, AST 29, ALT 12 L, Alkaline Phosphatase 32 L, Total Protein 5.8 L, Albumin 2.8 L, Globulin 3.0, Albumin/Globulin Ratio 0.9 Micro: Microbiology 06/18/23 23:27 Nasal Secretion SARS-CoV-2 & FLU Antigen (Rapid) - Final ABG Data ABG results: ABG 06/18/23 23:21 Specimen Type MIHAI Sample Site Not entered O2 % 100.0 VBG pH 7.21 L VBG pO2 105 H VBG HCO3 26 VBG Total CO2 28 VBG O2 Sat (Calc) 96 H VBG Base Excess -2 L POC Mix VBG pCO2 Pt Tmp 64.8 H O2 Delivery Device NRB Rhythm Strip Rhythm Strip: Sinus Tach Rate: 140 Ectopy: None Imagaing Radiology Impression Chest X-Ray 06/18/23 23:17 IMPRESSION: No radiographic evidence of acute cardiopulmonary disease. Electronically Signed: Onel Connor MD at 0:25 EST Reading Location ID and State: [address] [place] [address] Tel , Service support , Charges/Coding Visit Charges Inpatient E&M: 68058 Init Hosp L2
--- NOTE | 2023-06-19 07:22 | PCM.PN.HOSP ---
Reason for Visit Reason for Visit: Diagnoses Unspecified asthma with status asthmaticus (06/18/23) Objective Data Objective Data Vital Signs: Vital Signs Temp Pulse Resp BP Pulse Ox O2 Del Method O2 Flow Rate 97.2 F L 98 17 107/65 99 Nasal Cannula 2 06/19/23 06:00 06/19/23 07:00 06/19/23 07:00 06/19/23 07:00 06/19/23 07:00 06/19/23 07:00 06/19/23 07:00 Oxygen Flow Rate (L/min) 2 Oxygen Delivery Method Nasal Cannula Weight: 80 kg Body Mass Index (BMI) 30.2 Intake & Output: Intake and Output for Last 24 Hours 06/17/23 06/18/23 06/19/23 23:59 23:59 23:59 Intake Total 304 / 304 Output Total 0 / 0 Balance 304 / 304 Lab / Micro Data 06/19/23 04:05 06/19/23 04:05 Labs: Laboratory Results - last 24 hr 06/18/23 23:00: WBC 10.5, RBC 4.08 L, Hgb 12.6, Hct 39.5, MCV 96.8, MCH 30.9, MCHC 31.9 L, RDW Std Deviation 43.0, RDW Coeff of Brittney 12.1, Plt Count 430, MPV 9.3, Immature Gran % (Auto) 0.400, Neut % (Auto) 51.9, Lymph % (Auto) 33.9, [place] % (Auto) 7.9, Eos % (Auto) 4.8, Baso % (Auto) 1.1 H, Absolute Neuts (auto) 5.4, Absolute Lymphs (auto) 3.55, Nucleated RBC % 0, Sodium 141, Potassium 3.7, Chloride 111 H, Carbon Dioxide 28.0, Anion Gap 2 L, BUN 10, Creatinine 0.84, Estim Creat Clear Calc 79.18, Est GFR (MDRD) Af Amer 98, Est GFR (MDRD) Non-Af 81, BUN/Creatinine Ratio 11.9, Glucose 128 H, Calcium 8.5, Troponin I High Sens 5 06/19/23 00:40: Procalcitonin < 0.04 06/19/23 04:05: WBC 8.8, RBC 3.67 L, Hgb 11.4 L, Hct 35.2 L, MCV 95.9, MCH 31.1, MCHC 32.4, RDW Std Deviation 42.7, RDW Coeff of Brittney 12.0, Plt Count 263, MPV 10.0, Immature Gran % (Auto) 0.300, Neut % (Auto) 95.5 H, Lymph % (Auto) 3.3 L, [place] % (Auto) 0.8, Eos % (Auto) 0.0, Baso % (Auto) 0.1, Absolute Neuts (auto) 8.4 H, Absolute Lymphs (auto) 0.29 L, Nucleated RBC % 0, Sodium 142, Potassium 4.2, Chloride 114 H, Carbon Dioxide 20.0 L, Anion Gap 8, BUN 8, Creatinine 0.79, Estim Creat Clear Calc 84.19, Est GFR (MDRD) Af Amer 105, Est GFR (MDRD) Non-Af 87, BUN/Creatinine Ratio 10.1, Glucose 205 H, Calcium 6.8 L, Total Bilirubin 0.30, AST 29, ALT 12 L, Alkaline Phosphatase 32 L, Total Protein 5.8 L, Albumin 2.8 L, Globulin 3.0, Albumin/Globulin Ratio 0.9 Micro: Microbiology 06/18/23 23:27 Nasal Secretion SARS-CoV-2 & FLU Antigen (Rapid) - Final ABG Data ABG results: ABG 06/18/23 23:21 Specimen Type MIHAI Sample Site Not entered O2 % 100.0 VBG pH 7.21 L VBG pO2 105 H VBG HCO3 26 VBG Total CO2 28 VBG O2 Sat (Calc) 96 H VBG Base Excess -2 L POC Mix VBG pCO2 Pt Tmp 64.8 H O2 Delivery Device NRB Radiography Diagnostic Testing: Radiology Impression Chest X-Ray 06/18/23 23:17 IMPRESSION: No radiographic evidence of acute cardiopulmonary disease. Electronically Signed: Onel Connor MD at 0:25 EST , Rhythm Strip Rhythm Strip: Sinus Tach Rate: 140 Ectopy: None Physical Exam Narrative Physical Examination: General: Awake, alert, oriented x 3 and cooperative, seated upright in the ED bed, still increased work of breathing and some accessory muscle use but able to speak in sentences now and no longer tripoding with respiratory distress significantly lessened. Skin: Normal color, normal turgor, no icterus, no cyanosis. HEENT: AT/NC, EOMI, PERRLA, dry MM, no carotid bruits or JVD noted. Lungs: Still significantly diminished throughout, tight, some air movement upper [place], decreased significantly bases, occasional and tight wheeze, increased work of breathing accessory muscle usage still present however respiratory distress is improving. Heart: Tachycardic with regular rhythm; no gallop, rub audible. Abdomen: Soft, NTTP, ND, distant normal BS, no HSM. Extremities: No cyanosis, clubbing, or edema. Neurological: Patient awake, alert, oriented as noted, cognitive function intact; pupils equally reactive to light and accommodation, cranial nerves II-XII grossly normal, moving all 4 extremities, no focal deficits, strength severely globally decreased secondary to acute presentation. Psychiatric: Affect appears anxious, tearful but eventually calms with discussions and does have significant underlying anxiety history. Also admits to claustrophobia. Assessment & Plan Assessment/Plan (1) Asthma with status asthmaticus: PLAN: Plan The patient is a 38 y/o F w/ PMHx: Asthma w/ allergic rhinitis, Anxiety who presents to the [facility] ED on 06/18/23 with 3 of onset dyspnea worsening over the last 3 days with chest tightness and wheezing with no recent upper respiratory infection or symptoms or any ill contacts in the home but not improving despite usage of home nebulizer treatments prompting eventual EMS call and transition to the ED. #1. Acute on Chronic Asthma exacerbation with status asthmaticus with acute respiratory distress, slowly improving: CXR w/ chronic changes, CBC on admission w/ no marked WBC elevation or left shift, no recent URI symptoms. Will admit to the ICU, requesting send this to dilation, maintain on oxygen with wean as tolerated to room air, continue ATC duonebs, PRN albuterol, IV methylprednisolone, HOB, IS parameters, to be cautious we will request respiratory viral panel, procalcitonin, magnesium IV will be also administered. At discharge patient would strongly benefit from referral to pulmonary medicine and would also strongly benefit from allergy formal testing and treatment as patient very clearly implicates that she would not forego having cats as pets. #2. Anxiety: Per current list not on regimen, certainly would expect to be increased with current presentation #1, encourage continued outpatient follow-up and counseling if appropriate. Again as note if patient for some reason did worsen and required BiPAP certainly could consider Precedex usage. Given presentation in the ED and discussions will have low-dose Ativan for severe anxiety. #3. Former tobacco use: Encourage continued tobacco cessation. #4. DVT prophylaxis: Low risk.
[2023-06-19] MEDS: Ipratropium/Albuterol Sulfate 3 ML AMPUL.NEB INHALATION ×2 (07:26→11:14)
[2023-06-19] MEDS: Fluticasone 0.05% 1 SPRAY NASAL.SRY NASAL (08:02)
[2023-06-19] MEDS: Montelukast 10 MG Tablet PO (08:02)
[2023-06-19 08:32] LABS: Differential Comment SCANNED
--- NOTE | 2023-06-19 10:01 | DS.PCM_ITS ---
Providers Date of Admission: 06/18/23 Date of Discharge: 06/19/23 Primary Care Physician: Dr. Navdeep Mo MD Consultations 06/19/23 00:37 Consult: Die Stamping Press Operator / Pulmonary Medicine Routine Consulting Provider: Maximo Beasley Reason for Consult: Asthma with status asthmaticus EMERGENT Consult: No Notified: No Date Notified: 06/18/23 Time Notified: 23:56 06/19/23 07:02 Consult: Die Stamping Press Operator / Pulmonary Medicine Routine Consulting Provider: Pulmonary Medicine jeison [place] Reason for Consult: Asthma EMERGENT Consult: No Notified: Yes Date Notified: 06/19/23 Time Notified: 07:02 Method of Notification: Verbal Reason For Visit: STATUS ASTHMATICUS Diagnosis Discharge Diagnosis (1) Asthma with status asthmaticus: Status: Chronic Code(s): J45.902 - Unspecified asthma with status asthmaticus Qualifiers: Asthma persistence: persistent Asthma severity: moderate Qualified Code(s): J45.42 - Moderate persistent asthma with status asthmaticus Medications at Discharge Home Medications albuterol sulfate 90 mcg/actuation aerosol inhaler 2 puff inhalation Q4H PRN PRN Wheezing 07/06/19 albuterol sulfate 2.5 mg/3 mL (0.083 %) solution for nebulization 2.5 mg inhalation Q4HWA.RT PRN Shortness Of Breath 01/16/20 fluticasone 500 mcg-salmeterol 50 mcg/dose blistr powdr for inhalation (Advair Diskus) 1 inh inhalation BID 05/15/21 montelukast 10 mg tablet 10 mg PO DAILY 05/15/21 inhalational spacing device (Aerochamber MV spacer) #1 ea 08/26/21 fluticasone propionate 50 mcg/actuation nasal spray,suspension 1 spray intranasal Q12H 06/18/23 prednisone 20 mg tablet 40 mg (2 x 20 mg) PO DAILY #10 tabs 06/19/23 Hospital Course Summary of Care Provided Minutes Spent on Discharge: 35 Hospital Course: Patient is a 38-year-old lady with past medical history is again for moderate intermittent asthma who presented to the emergency department with worsening shortness of breath 1. Acute asthma exacerbation ? Patient admitted to a monitored bed managed with bronchodilator treatment as well as systemic steroid. Patient was seen in consultation by pulmonary medicine. Patient did experience rapid improvement in her condition discharged on prednisone. Instructed to follow-up with pulmonary medicine and primary care physician as outpatient 2. Allergic rhinitis ? Stable 3. Anxiety disorder ? Per history currently not on any medication 4. DVT prophylaxis ? Low risk Physical Exam Narrative GENERAL: cooperative HEENT: Atraumatic; normocephalic EYES; Anicteric, Normal Conjunctiva NECK; supple, normal thyroid, RESPIRATORY: Diminished to auscultation CARDIOVASCULAR: Regular S1 S2, GI: soft, normoactive bowel sounds, : No Renal angle tenderness; EXTREMITIES: No edema, no clubbing, MUSCULOSKELETAL: no muscle wasting NEURO: Awake; no lateralizing signs. SKIN: No Rash PSYCH; Flat affect Weight / BMI Weight Weight: 80 kg Body Mass Index (BMI) 30.2 ABG / Lab / Microbiology Data 06/19/23 04:05 06/19/23 04:05 Laboratory: Laboratory Results - last 24 hr 06/18/23 23:00: WBC 10.5, RBC 4.08 L, Hgb 12.6, Hct 39.5, MCV 96.8, MCH 30.9, MCHC 31.9 L, RDW Std Deviation 43.0, RDW Coeff of Brittney 12.1, Plt Count 430, MPV 9.3, Immature Gran % (Auto) 0.400, Neut % (Auto) 51.9, Lymph % (Auto) 33.9, Jack % (Auto) 7.9, Eos % (Auto) 4.8, Baso % (Auto) 1.1 H, Absolute Neuts (auto) 5.4, Absolute Lymphs (auto) 3.55, Nucleated RBC % 0, Sodium 141, Potassium 3.7, Chloride 111 H, Carbon Dioxide 28.0, Anion Gap 2 L, BUN 10, Creatinine 0.84, Estim Creat Clear Calc 79.18, Est GFR (MDRD) Af Amer 98, Est GFR (MDRD) Non-Af 81, BUN/Creatinine Ratio 11.9, Glucose 128 H, Calcium 8.5, Troponin I High Sens 5 06/19/23 00:40: Procalcitonin < 0.04 06/19/23 04:05: WBC 8.8, RBC 3.67 L, Hgb 11.4 L, Hct 35.2 L, MCV 95.9, MCH 31.1, MCHC 32.4, RDW Std Deviation 42.7, RDW Coeff of Brittney 12.0, Plt Count 263, MPV 10.0, Immature Gran % (Auto) 0.300, Neut % (Auto) 95.5 H, Lymph % (Auto) 3.3 L, Jack % (Auto) 0.8, Eos % (Auto) 0.0, Baso % (Auto) 0.1, Absolute Neuts (auto) 8.4 H, Absolute Lymphs (auto) 0.29 L, Nucleated RBC % 0, Differential Comment SCANNED, Sodium 142, Potassium 4.2, Chloride 114 H, Carbon Dioxide 20.0 L, Anion Gap 8, BUN 8, Creatinine 0.79, Estim Creat Clear Calc 84.19, Est GFR (MDRD) Af Amer 105, Est GFR (MDRD) Non-Af 87, BUN/Creatinine Ratio 10.1, Glucose 205 H, Calcium 6.8 L, Total Bilirubin 0.30, AST 29, ALT 12 L, Alkaline Phosphatase 32 L , Total Protein 5.8 L, Albumin 2.8 L, Globulin 3.0, Albumin/Globulin Ratio 0.9 Microbiology: Microbiology 06/18/23 23:27 Nasal Secretion SARS-CoV-2 & FLU Antigen (Rapid) - Final ABG: ABG 06/18/23 23:21 Specimen Type MIHAI Sample Site Not entered O2 % 100.0 VBG pH 7.21 L VBG pO2 105 H VBG HCO3 26 VBG Total CO2 28 VBG O2 Sat (Calc) 96 H VBG Base Excess -2 L POC Mix VBG pCO2 Pt Tmp 64.8 H O2 Delivery Device NRB Radiography Diagnostic Testing: Radiology Impression Chest X-Ray 06/18/23 23:17 IMPRESSION: No radiographic evidence of acute cardiopulmonary disease. Electronically Signed: Onel Connor MD at 0:25 EST , D/C Instructions Discharge Diet: No restrictions Discharge Activity: Return to Normal Activity Call your doctor if you observe: Fever of 101 or Higher, Shortness of breath, Fainting spells and Chest pain Meaningful Use Info Meaningful Use Diagnoses (Choose all that apply): None applicable Discharge Plan Admission Admit Date/Time: 06/18/23 23:54 Attending Provider: Gregorio Mosley Primary Care Provider: Navdeep Mo Consulting Providers: Sara Celestin; You Fox; Tc Swan; aMximo Beasley; Chacorta Frost; Vani Méndez DIRECTOR TELEMETRY Discharge Orders/Prescriptions Prescriptions: New prednisone 20 mg tablet 40 mg PO DAILY Qty: 10 0RF Continued albuterol sulfate 1 PUFF inhaler 2 puff inhalation Q4H PRN PRN (Reason: Wheezing) albuterol sulfate 2.5 MG/3 ML solution for nebulization 2.5 mg inhalation Q4HWA.RT PRN (Reason: Shortness Of Breath) fluticasone propion-salmeterol [Advair Diskus] 500-50 mcg/dose blister with device 1 inh INHALATION BID montelukast 10 mg tablet 10 mg PO DAILY Patient Comments: Take 1 tablet by mouth daily at bedtime. (DME) Aerochamber MV Spacer See Rx Instructions .ROUTE .MEDSUPPLY Qty: 1 0RF Rx Instructions: As directed fluticasone propionate 50 mcg/actuation spray,suspension 1 spray INTRANASAL Q12H Patient Comments: Use 2 Sprays in each nostril once daily. Rinse mouth after use. Referrals / Follow Up: You Fox MD [Med Staff - Active Staff] - Within 1 Month Navdeep Mo MD [Primary Care Provider] - Within 2 Weeks Disposition Disposition (needs filled in before D/C Order can be placed): Home, Self Care Charges/Coding Visit Charges Inpatient E&M: 08987 Disch Hosp >30min
--- NOTE | 2023-06-19 10:40 | CASEMGMT ---
Patient is self pay. Per RN patient recently lost her Medicaid and has been trying to conserve on using her inhalers etc. SW met with patient. Introduced self and role at [facility]. Patient has a primary care doctor. Patient said she had Medicaid for a long time up until a month ago when they told her she no longer qualified. Patient did sign up for an insurance plan that will go into effect Jul 2023. SW completed [facility] prescription assistance program so patient can leave the hospital with her necessary medications/inhalers etc. SW also provided patient with a list of prescription assistance programs and information on [employer]. SW also printed of a program that assists patients with Asthma that have no insurance. Patient was thankful for all of the information and assistance. Chitra NULL
--- NOTE | 2023-06-19 11:33 | CASEMGMT ---
IGGY KIM Discharge Planning Assessment: Face to Face with patient for initial transition planning/care coordination assessment.?This IGGY KIM introduced self and role at [facility], pt voices understanding.? Pt alert, oriented and answering questions appropriately. Pt agreeable to participating in assessment. Care providers, pharmacy,?and demographics verified. ? Admitting dx: Asthma exac PCP: [facility] Specialists: none, states she saw a program management professional in the summer of 2021 but has not seen since. Preferred Pharmacy: [facility], agreeable to [facility] for prescription assistance program Insurance: none, states she has signed up for insurance that will be effective on 07/03/2023. Pt unable to recall the name of the provider and has not yet received her cards. Prescription Benefit: none? LNOK: Marv (friend) Living Arrangements: Pt lives with her young son and roommate (Marv) in a two story home. Pt states she is independent with ADLs and IADLs. Pt states she can navigate the steps without difficulty on good days but has more difficulty with SOB on days she is not feeling well. Transportation: Pt drives and denies any transportation concerns. DME: [employer] HHC/SNF: denies any previous providers. ? Pt's goal/plan: pt states she plans to return home with the support of her roommate. Discussed information on prescription assistance programs as provided by the . Discussed follow-up with program management professional. Pt states she did not followup in 2021 d/t fear of what she may have been told. Encouraged pt to follow-up with program management professional with the goal of being placed on medications to improve her asthma and prevent exacerbations and ED/Acute care need. Pt expressed understanding. Pt states she is willing to follow-up with program management professional after discharge but wants to wait and see who will be covered under her new insurance plan. Pt states she would prefer to follow-up with Dr. Fox/[facility] [place]. This IGGY KIM provided pt with the office phone number for follow-up. Also provided pt with pulse oximeter. Pt denies any additional needs at this time. DC plan: home with Rx assist, pulse oximeter, and follow-up with pulmonology. Alber Barrett RN CM
== END 2023-06-19 11:43 | disposition home or self-care (01) | DRG 203 ==
LOC: ED 23:47 → ICU 06-19 00:03
PROVIDERS: Admitting Provider Family Medicine; Emergency Provider Emergency Medicine; PCP Internal Medicine; Referring Provider Emergency Medicine; Visit Provider Internal Medicine
DX: J45.42 Moderate persistent asthma with status asthmaticus (principal); F41.1 Generalized anxiety disorder; Z91.148 Patient's other noncompliance with medication regimen for other reason; Z59.7 Insufficient social insurance and welfare support; Z79.51 Long term (current) use of inhaled steroids; Z87.891 Personal history of nicotine dependence
CPT/HCPCS: 71045; 80048; 80053; 82803; 84145; 84484; 85025; 87428; 87633; 93005; 94640; 94762; 99285; 99406; J7030; J7050; A4216

== ENCOUNTER 2023-07-30 19:13 | Emergency (ER) | payer SELFPAY ==
[2023-07-30 19:15] VITALS: PULSE 116; RESP 22; TEMP 36.7; O2SAT 98; BMI 31.1
[2023-07-30 19:25] VITALS: BP 101/55; PULSE 112; RESP 24; O2SAT 99
[2023-07-30 19:28] VITALS: O2SAT 97
--- NOTE | 2023-07-30 19:41 | ED.VIS.DYS ---
HPI History of Present Illness Chief Complaint: Shortness of Breath Informant: patient Narrative Narrative: Patient presents with some cough and wheezing. She states this really all just started today. She has had subjective fever. Little bit of myalgias. A little bit of congestion sore throat. She started coughing but no productivity. She is now wheezing. She does have some moderate asthma. She generally has been reasonably well-controlled but did have some more exacerbations recently. She was actually admitted to ICU for status asthmaticus a little over a month ago. But she did well within about a day. That was her last steroid dose. She is not having chest pain. [facility] Medical History Anxiety Asthma Former tobacco use Home Medications inhalational spacing device (Aerochamber MV spacer) #1 ea 08/26/21 [Rx Last Taken Unknown] albuterol sulfate 2.5 mg/3 mL (0.083 %) solution for nebulization 2.5 mg (3 mL) inhalation Q4HWA.RT PRN Shortness Of Breath #180 mL 06/19/23 [Rx Last Taken Unknown] albuterol sulfate 90 mcg/actuation aerosol inhaler 2 puff inhalation Q4H PRN PRN Wheezing #8.5 grams 06/19/23 [Rx Last Taken Unknown] fluticasone 500 mcg-salmeterol 50 mcg/dose blistr powdr for inhalation (Advair Diskus) 1 inh inhalation BID #60 ea 06/19/23 [Rx Last Taken Unknown] fluticasone propionate 50 mcg/actuation nasal spray,suspension 1 spray intranasal Q12H #16 grams 06/19/23 [Rx Last Taken Unknown] montelukast 10 mg tablet 10 mg PO DAILY #30 tabs 06/19/23 [Rx Last Taken Unknown] prednisone 20 mg tablet 40 mg (2 x 20 mg) PO DAILY #10 tabs 06/19/23 [Rx Last Taken Unknown] prednisone 20 mg tablet 60 mg (3 x 20 mg) PO DAILY #15 TABLETS 07/30/23 [Rx Last Taken Unknown] umeclidinium 62.5 mcg/actuation blister powder for inhalation (Incruse Ellipta) 1 inh inhalation Q24H 07/30/23 [History Last Taken Unknown] Allergy/AdvReac Type Severity Reaction Status Date / Time propranolol [From Inderal LA] Allergy Shortness Verified 07/30/23 19:15 of breath Family History Mother Asthma Father Diabetes Surgical History No history of previous surgery Social History household members: significant other and children Smoking Status: Former smoker how long ago did patient quit smoking: Quit cigarette tobacco ~ 1 year prior, 1 pk/3-4 days from teen until quit. alcohol intake: current alcohol intake frequency: a few times a month substance use type: does not use ROS ROS ED ROS Narrative A complete review of systems was performed and is negative except as documented in the history of present illness. Some specific details below. Constitutional: Possible mild fevers today. EYE: No discharge, visual complaints, or pain. ENT: No difficulty swallowing. No swelling. No pain. No reflux symptoms. CV: No chest pain or syncope. No palpitations. Respiratory: See history of present illness. GI: No abdominal pain. No nausea vomiting diarrhea. No blood in stool. : No frequency dysuria or hematuria. Musculoskeletal: No recent trauma. Mild myalgias Skin: No rash. Nondiaphoretic. Neuro: No weakness or numbness. Endocrine: No polyuria or polydipsia. EXAM Physical Exam Narrative Exam Narrative: CONSTITUTIONAL: Patient is nontoxic in appearance. The patient looks comfortable. Work of breathing looks slightly increased. HEENT: No notable trauma. Mucous membranes moist. No swelling. No nasal drainage. EYES: No conjunctival injection. No proptosis. NECK:No JVD. No stridor. CARDIOVASCULAR: Mildly tachycardic rate. Regular rhythm. No notable murmur. No JVD. RESPIRATORY: No respiratory distress. Breathing is slightly increased but she is air able to carry on normal conversation. She does have expiratory wheezing that is mild throughout. But she seems to be moving good volumes. Saturations are normal at 99% on room air showing no hypoxia. GASTROINTESTINAL: Not distended. Bowel sounds are normal. No tenderness. No guarding. No rebound. No palpable mass. No bruit is heard. GENITOURINARY: No CVA tenderness. MUSCULOSKELETAL: Atraumatic. No peripheral edema. No cord. No tenderness. NEUROLOGICAL: Patient is alert and appropriate. SKIN: No noted rashes. No diaphoresis. PSYCHIATRIC: Patient is calm. Mood is appropriate. Const Vital Signs: 07/30/23 19:15 07/30/23 19:25 07/30/23 19:28 Temperature 98.1 F Temperature Source Temporal Pulse Rate 116 H 112 H Respiratory Rate 22 H 24 H Respiratory Effort Short of Breath Respiratory Depth Normal Respiratory Pattern Tachypnea Blood Pressure 101/55 L Blood Pressure Mean 70 Pulse Ox 98 99 Oxygen Delivery Method Room Air Room Air Room Air 07/30/23 19:51 07/30/23 19:43 Temperature Temperature Source Pulse Rate 94 Respiratory Rate 20 H Respiratory Effort Respiratory Depth Respiratory Pattern Normal Blood Pressure Blood Pressure Mean Pulse Ox Oxygen Delivery Method Room Air MDM MDM MDM Narrative Medical decision making narrative: My independent interpretation of single view x-ray shows no acute process. No infiltrate or pneumothorax. Final reading shows increased lung volumes. Viral studies are normal. I did blood work because she had gotten ill before and I wanted to get ahead of this in case. Patient CBC is normal. Patient's electrolytes are normal other than minimal elevation of glucose. Patient is feeling markedly better. She has nebulizer meds and inhalers at home. I will write for prednisone. Lab Data Attestation: I reviewed the patient's lab results. Labs: Laboratory Results - last 24 hr 07/30/23 19:50 WBC 7.4 RBC 4.22 Hgb 12.9 Hct 39.5 MCV 93.6 MCH 30.6 MCHC 32.7 RDW Std Deviation 43.3 RDW Coeff of Brittney 12.7 Plt Count 322 MPV 9.1 Immature Gran % (Auto) 0.400 Neut % (Auto) 78.9 H Lymph % (Auto) 14.3 L Real % (Auto) 2.8 Eos % (Auto) 2.8 Baso % (Auto) 0.8 Absolute Neuts (auto) 5.8 Absolute Lymphs (auto) 1.06 Nucleated RBC % 0 Sodium 141 Potassium 3.8 Chloride 112 H Carbon Dioxide 26.0 Anion Gap 3 L BUN 9 Creatinine 0.91 Estim Creat Clear Calc 87.93 Est GFR (MDRD) Af Amer 89 Est GFR (MDRD) Non-Af 74 BUN/Creatinine Ratio 9.9 L Glucose 146 H Calcium 8.7 Radiography Diagnostic Testing: Clinical Impression(s) from Imaging Studies Chest X-Ray 01/28/24 20:11 IMPRESSION: Increased lung volumes suggesting air trapping, without appreciable peribronchial thickening. No pulmonary hyperlucency to suggest emphysema. Electronically Signed: Andrade Alvarado, at 20:36 EST , Discharge Plan Triage Chief Complaint: Shortness of Breath ED Provider: Amilcar Byrnes Dx/Rx/DC Orders Clinical Impression: Asthma Instructions: ED Asthma, Acute (Adult) Prescriptions: New prednisone 20 mg tablet 60 mg PO DAILY Qty: 15 0RF No Action (DME) Aerochamber MV Spacer See Rx Instructions .ROUTE .MEDSUPPLY Qty: 1 0RF Rx Instructions: As directed prednisone 20 mg tablet 40 mg PO DAILY Qty: 10 0RF albuterol sulfate 2.5 MG/3 ML solution for nebulization 2.5 mg inhalation Q4HWA.RT PRN (Reason: Shortness Of Breath) Qty: 180 0RF fluticasone propion-salmeterol [Advair Diskus] 500-50 mcg/dose blister with device 1 inh INHALATION BID Qty: 60 0RF montelukast 10 mg tablet 10 mg PO DAILY Qty: 30 0RF albuterol sulfate 1 PUFF inhaler 2 puff inhalation Q4H PRN PRN (Reason: Wheezing) Qty: 8.5 0RF fluticasone propionate 50 mcg/actuation spray,suspension 1 spray INTRANASAL Q12H Qty: 16 0RF Incruse Ellipta 62.5 mcg/actuation blister with device 1 inh INHALATION Q24H Patient Comments: Inhale 1 Puff as instructed once daily. Primary Care Provider: Navdeep Mo Referrals: Navdeep Mo MD [Primary Care Provider] - 3-5 Days if not improving Disposition Disposition: Home, Self Care
[2023-07-30 19:43] VITALS: PULSE 94; RESP 20
[2023-07-30] MEDS: Ipratropium/Albuterol Sulfate 3 ML AMPUL.NEB INHALATION (19:43)
[2023-07-30] MEDS: Albuterol 2.5 MG/3 ML VIAL.NEB. INHALATION (19:43)
[2023-07-30] MEDS: MethylPREDNISolone 125 MG/2 ML Vial IV (19:49)
[2023-07-30 19:56] LABS: Absolute Lymphocyte Count 1.06 X10^3/uL (0.83-4.51); Absolute Neutrophil Count 5.8 X10^3/uL (2.0-7.7); Basophil# 0.06 X10^3/uL; Basophil% 0.8 % (0-1); Eosinophil# 0.21 X10^3/uL; Eosinophils% 2.8 % (0-5); Hematocrit 39.5 % (37-47); Hemoglobin 12.9 g/dL (12.0-15.0); Lymphocyte # 1.06 X10^3/ul (0.83-4.51); Lymphocyte % 14.3 % (19-41); Mean Corp Hgb Conc 32.7 g/dL (32-36); Mean Corpuscular Hgb 30.6 pg (27.0-32.0); Mean Corpuscular Volume 93.6 fL (81-99); Mean Platelet Vol. 9.1 fl (6.2-12.0); Monocyte# 0.21 X10^3/uL; Monocyte% 2.8 % (0-10); NRBC Flagged by Analyzer 0 % (0-5); Neutrophil # 5.82 X10^3/uL (2.7-7.7); Neutrophil % 78.9 % (47-70); Platelet Count 322 K/mm3 (150-450); RBC Distribution Width CV 12.7 % (11.6-14.6); RBC Distribution Width SD 43.3 fl (35.1-43.9); Red Blood Count 4.22 M/mm3 (4.2-5.4); White Blood Count 7.4 K/mm3 (4.4-11.0)
--- NOTE | 2023-07-30 20:03 | CPS ---
x1 Albuterol given to pt. in ER as well
--- OUTSIDE RECORDS SUMMARY | 2023-07-30 20:08 | XMS RPT_ITS | CCD ---
Author Name Unknown Address [address] [place] [address] Organization [facility] Care Team Providers [employer] Administrator Name Role Phone ALEXI [facility] Unavailable Unavaila javan TRUONG, [facility] Unavailable Unavaila javan TRUONG, [facility] Unavailable UnavailNavdeep Trinidad MD Primary Care Provider [phone] Navdeep Flowers MD Primary Care Provider [phone] Navdeep Flowers MD Primary Care Provider [phone] NAVDEEP FLOWERS Primary Care Unavailable NAVDEEP FLOWERS Primary Care Unavailable LIDIA PERAZA Attending Unavailable NAVDEEP FLOWERS Primary Care Unavailable LIDIA PERAZA Attending Unavailable NAVDEEP FLOWERS Primary Care Unavailable Allergies Allergy Classification Reported Allergen(s) Allergy Type Date of Onset Reaction(s) Facility (15 sources) Environmental allergies [Other] Propensity to adverse reactions 9 Other: See Comments [facility] (11 sources) Propranolol; Translations: [PROPRANOLOL] Drug Allergy 2 Shortness of Breath [facility] (1 source) OTHER; Translations: [OTHER] Propensity to adverse reactions (disorder) 9 [facility] Rep[facility] Medications Current Medications Medication Drug Class(es) Dates Sig (Normalized) Sig (Original) gabapentin 300 mg oral capsule (1 source) Anti-epileptic Agent Start: 05-10-2023 End: 05-09-2024 take 1 capsule by mouth three times daily gabapentin (NEURONTIN) 300 mg capsule Take 1 capsule by mouth three times a day. Prescribed by psychiatry at [facility] 0 05/10/2023 05/09/2024 Active Completed/Discontinued Medications Medication Drug Class(es) Dates Sig (Normalized) Sig (Original) albuterol 0.83 mg/ml inhalation solution (20 sources) beta2-Adrenergic Agonist Start: 01-24-2023 End: 03-15-2023 take 1 dose by inhalation every four hours for wheezing albuterol (PROVENTIL) 2.5 mg /3 mL (0.083 %) nebulizer solution Indications: Moderate persistent asthma without complication inhale contents of 1 vial in nebulizer every 4 hours if needed for wheezing or shortness of breath 150 mL 0 03/16/2023 Active Problems Active Problems Problem Classification Problem Date Documented Da te Episodic/Chronic Alcohol-related disorders (1 source) Chronic alcoholism in remission; Translations: [Alcohol dependence, in remission] Onset: 05-10-2023 05-10-2023 Chronic Anxiety disorders (20 sources) Generalized anxiety disorder; Translations: [Generalized anxiety disorder] Onset: 08-24-2017 Chronic Asthma (20 sources) Moderate persistent asthma; Translations: [Moderate persistent asthma, uncomplicated] Onset: 09-22-2009 08-25-2017 Chronic Mood disorders (18 sources) Recurrent major depressive episodes, moderate ; Translations: [Major depressive disorder, recurrent, moderate] Onset: 08-25-2021 Chronic Other aftercare (1 source) Patient encounter status; Translations: [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] Episodic Other nervous system disorders (1 source) Anesthesia of skin; Translations: [Numbness and tingling in left hand] Onset: 07-05-2023 Episodic Other nervous system disorders (1 source) Paresthesia of skin; Translations: [Numbness and tingling in left hand] Onset: 07-05-2023 Episodic Other non-traumatic joint disorders (1 source) Pain in left shoulder; Translations: [Acute pain of left shoulder] Onset: 07-05-2023 Episodic Residual codes; unclassified (2 sources) Nicotine user; Translations: [Tobacco use] Episodic Spondylosis; intervertebral disc disorders; other back problems (1 source) Cervicalgia; Translations: [Neck pain] Onset: 07-05-2023 Episodic Substance-related disorders (14 sources) Tobacco dependence syndrome; Translations: [Nicotine dependence, unspecified, uncomplicated] Onset: 09-22-2009 09-22-2009 Chronic Past or Other Problems Problem Classification Problem Date Documented Da te Episodic/Chronic Residual codes; unclassified (15 sources) Abnormal cytology findings; Translations: [ASCUS favor benign] Onset: 05-25-2012 06-28-2021 Episodic Results Test Name Value Interpretation Reference Range Facil ity Vital Signs Date Time Vital Sign Value Performing Clinician Wan ibarra 04-20-2022 18:17-0400 Body temperature 98.6 [degF] [facility] DIRECTOR OF OPTIMIZATION.DESIGN MAKER Work Phone: [facility] 04-20-2022 18:17-0400 Body weight 77.75 kg [facility] DIRECTOR OF OPTIMIZATION.DESIGN MAKER Work Phone: [facility] 04-20-2022 18:17-0400 Diastolic blood pressure 78 mm[Hg] [facility] DIRECTOR OF OPTIMIZATION.DESIGN MAKER Work Phone: [facility] 04-20-2022 18:17-0400 Heart rate 98 /min [facility] DIRECTOR OF OPTIMIZATION.DESIGN MAKER Work Phone: [facility] 04-20-2022 18:17-0400 Respiratory rate 21 /min [facility] DIRECTOR OF OPTIMIZATION.DESIGN MAKER Work Phone: [facility] 04-20-2022 18:17-0400 SaO2% (BldA) [Mass fraction] 97 % [facility] DIRECTOR OF OPTIMIZATION.DESIGN MAKER Work Phone: [facility] 04-20-2022 18:17-0400 Systolic blood pressure 112 mm[Hg] [facility] DIRECTOR OF OPTIMIZATION.DESIGN MAKER Work Phone: [facility] Encounters Encounter Date Encounter Type Care Provider Facility Start: 07-14-2023 Emergency department patient visit NAVDEEP FLOWERS Facility:[facility] Start: 07-13-2023 End: 07-13-2023 ambulatory NAVDEEP FLOWERS Facility:[facility] Start: 07-05-2023 End: 07-06-2023 ambulatory NAVDEEP FLOWERS Facility:[facility] Start: 05-11-2023 Telephone encounter Navdeep jennings MD Work Phone: [facility] Plan of Treatment Date Care Activity Detail Author Start: 05-14-2026 HPV TESTING HPV TESTING [facility] Start: 05-14-2026 PAP TESTING PAP TESTING [facility] Start: 05-10-2024 Annual PCP Team Golf Technician iveth Disease Visit Annual PCP Team Chronic Disease Visit [facility] Start: 05-10-2024 Covid-19 Vaccine (#1) Covid-19 Vacci ne (#1) [facility] Immunizations Immunization Date Immunization Notes Care Provider Fa karen 04-10-2017 influenza virus vacc ine, unspecified formulation Lidia Older DIRECTOR OF OPTIMIZATION.DESIGN MAKER Work Phone: [facility] 05-05-2014 influenza, seasonal, injectable Pham Rajguru DIRECTOR OF OPTIMIZATION.DESIGN MAKER Work Phone: [facility] 09-30-2013 measles, mumps and rubella virus vaccine Pham Rajguru DIRECTOR OF OPTIMIZATION.DESIGN MAKER Work Phone: [facility] 09-30-2013 pneumococcal polysaccharide vaccine, 23 valent Pham Rajguru DIRECTOR OF OPTIMIZATION.DESIGN MAKER Work Phone: [facility] 10-02-2012 tetanus toxoid, redu tad diphtheria toxoid, and acellular pertussis vaccine, adsorbed Pham Rajguru DIRECTOR OF OPTIMIZATION.DESIGN MAKER Work Phone: [facility] 05-25-2012 influenza virus vacc ine, unspecified formulation Pham Rajguru DIRECTOR OF OPTIMIZATION.DESIGN MAKER Work Phone: [facility] 05-14-2009 influenza virus vacc ine, unspecified formulation Pham Rajguru DIRECTOR OF OPTIMIZATION.DESIGN MAKER Work Phone: [facility] 05-14-2009 novel influenza-H1N1 -09, all formulations Pham Rajguru DIRECTOR OF OPTIMIZATION.DESIGN MAKER Work Phone: [facility] Payers Date Payer Category Payer Medicaid [id number] 2020 Medicaid [employer] [id number] 2020-Present [phone] [address] [place] [address] Medicaid [id number] 2020 Medicaid [id number] Social History Date Type Detail Facility Start: 11-08-2003 End: 04-20-2022 Tobacco smoking status NHIS Smokes tobacco daily [facility] Start: 11-08-2003 End: 05-10-2022 History of tobacco use Cigarette Smoker [facility] Start: 11-23-2015 End: 01-13-2023 Cigarettes smoked current (pack per day) - Reported 0.3 [facility] Start: 11-23-2015 End: 05-10-2023 Tobacco use and exposure Smokeless tobacco non-user [facility] Start: 08-25-2021 End: 05-10-2023 Alcohol intake Current drinker of alcohol (finding) [facility] Start: 11-19-2014 History SDOH Alcohol Comment occasionally [facility] Start: 09-21-2018 End: 04-20-2022 Tobacco Comment 2 packs per week [facility] Start: 1985 Sex Assigned At Not on file [facility] Start: 12-03-2021 History SDOH Alcohol Frequency 2 [facility] Start: 12-03-2021 History SDOH Alcohol Std Drinks 1 [facility] Start: 12-03-2021 History SDOH Social Connections Living 7 [facility] Start: 12-03-2021 History SDOH Physical Activity DPW 0 [facility] Start: 12-03-2021 History SDOH Stress 5 [facility] Start: 12-03-2021 History SDOH Financial 4 [facility] Start: 11-30-2021 End: 12-10-2021 Exposure to SARS-CoV-2 (event) Not sure [facility] Work Phone: Start: 01-13-2023 End: 05-10-2023 Social connection and isolation panel [facility] Do you belong to any clubs or organizations such as tenriism groups, unions, fraternal or athletic groups, or school groups? No [facility] Are you now , , , , never or living with a partner? Never [facility] How often to you hav e a drink containing alcohol? 2-3 time sa week [facility] How many standard dr inks containing alcohol do you have on a typical day? 3 or 4 [facility] How often do you hav e 6 or more drinks on 1 occasion? Weekly [facility] How hard is it for y ou to pay for the very basics like food, housing, medical care, and heating Somewhat hard [facility] Adult Depression Screening Assessment 5 [facility] Do you feel stress - tense, restless, nervous, or anxious, or unable to sleep at night because your mind is troubled all the time - these days [OSQ] Very much [facility] (I/We) worried wheth er (my/our) food would run out before (I/we) got money to buy more. Never true [facility] Start: 05-10-2023 Tobacco smoking status NHIS Ex-smoker [facility] Work Phone: Start: 11-08-2003 End: 05-10-2022 History of tobacco use Current smoker [facility] Work Phone: Clinical Notes 01-04-2013 to 07-13-2023 Telephone Encounter - Heladio Mead Ma - 05/12/2023 11:32 AM ESTTelephone Encounter - Lidia Johnson APRN.CNP - 05/12/2023 10:22 AM ESTTelephone Encounter - Lidia Johnson APRN.SHAR - 05/12/2023 10:20 AM EST Note Date & Type Note Facility 07-13-2023 Note HNO ID: [id number] Author: CROW DUARTE PA-C Service: ? Author Type: Physician Planer Chain Offbearer Type: Progress Notes Filed: 07/13/2023 15:30 Note Text: Patient presents to [facility] with a chief complaint of left arm pain. She states she feels like it is losing strength and numb. She was seen about a week ago by PCP who gave her prednisone. She states today the pain is 10 out of 10 and is making her feel lightheaded it hurts so bad today. Discussed with patient would recommend being seen in the emergency department for pain control at this point. [facility] 07-05-2023 Note HNO ID: [id number] Author: Lidia Peraza APRN.CNP Service: ? Author Type: Nurse Practitioner Type: Progress Notes Filed: 07/05/2023 6:26 PM Note Text: CC: Patient presents with: Arm Pain: Starts in shoulder radiates down left arm x 1.5 months, no injury patient aware of. HPI Praveen Ontiveros is a 38 year old female who presents today for above. Left shoulder pain for almost two months, worsening over the past two weeks Injury: Patient does not recall any specific injury. Her job requires a lot of heavy lifting most of the work day. Located: left side of neck down to the shoulder and then down the left arm to the hand Described as shooting, burning pain that is constant Clicking, locking, popping, feeling like the shoulder is not stable, feeling like the shoulder is giving out : No Associated symptoms: She notes radicular neck pain on the left to the fingers and numbness and tingling of the left hand. Denies weakness. exhibits aggravating factors of Any movement of the arm. exhibits alleviating factors of head. Treatments so far have included ibuprofen, Aleve, Tylenol with no relief of symptoms. Review of Systems See HPI 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 (Deisi Rodriguez MD) MONA (generalized anxiety disorder) 08/25/2021 High-risk 04/27/2012 LGSIL (low grade squamous intraepithelial dysplasia) 01/04/2013 Tobacco dependence syndrome 09/22/2009 Trauma 2008 DISLOCATED KNEE, Right PAST SURGICAL HISTORY Procedure Laterality Date NONE ALLERGIES Environmental Allergies [Other] and Propranolol MEDICATIONS umeclidinium (INCRUSE ELLIPTA) 62.5 mcg/actuation inhaler Inhale 1 Puff as instructed once daily. fluticasone (FLONASE) 50 mcg/actuation nasal spray Use 2 Sprays in each nostril once daily. Rinse mouth after use. albuterol (PROVENTIL) 2.5 mg /3 mL (0.083 %) nebulizer solution inhale contents of 1 vial in nebulizer every 4 hours if needed for wheezing or shortness of breath diphenhydrAMINE (BENADRYL) 25 mg capsule Take 1 capsule by mouth twice daily. fluticasone-salmeterol (ADVAIR DISKUS) 500-50 mcg/dose dsdv Inhale 1 Puff as instructed twice daily. Rinse and gargle mouth with water after use. albuterol HFA (VENTOLIN HFA) 90 mcg/actuation inhaler inhale 2 puffs by mouth as directed every 4 hours if needed for wheezing OR SHORTNESS OF BREATH montelukast (SINGULAIR) 10 mg tablet Take 1 tablet by mouth daily at bedtime. levonorgestrel (MIRENA) 20 mcg/24 hours (7 yrs) 52 mg IUD 1 Each by INTRAUTERINE route as directed. Nebulizer Accessories [facility] Pt needs nebulzier and supplies. Dx is asthma J45.40. gabapentin (NEURONTIN) 300 mg capsule Take 1 capsule by mouth three times a day. Prescribed by [facility]ry [facility] (Patient not taking: Reported on 07/05/2023) naltrexone 50 mg tablet Take 1 tablet by mouth once daily. Prescribed by psychiatry at [facility] (Patient not taking: Reported on 07/05/2023) FAMILY HISTORY Problem Relation Age of Onset Anxiety disorder Mother Depression Mother Asthma Mother Diabetes Father Hypertension Father Diabetes Paternal Grandfather Hypertension Paternal Grandfather Social History Tobacco Use Smoking status: Former Packs/day: 0.30 Years: 16.00 Additional pack years: 0.00 Total pack years: 4.80 Types: Cigarettes Start date: 11/08/2003 Quit date: 05/10/2022 Years since quittin.1 Smokeless tobacco: Never Vaping Use Vaping Use: Never used Substance Use Topics Alcohol use: Yes Comment: occasionally Drug use: No BP 126/84 (BP Site: Right Arm, BP Position: Sitting, BP Cuff Size: Regular Adult) Pulse 99 Wt 77.8 kg (171 lb 9.6 oz) LMP (LMP Unknown) SpO2 100% BMI 29.46 kg/m? Physical Exam Vitals reviewed. Constitutional: General: She is not in acute distress. Comments: Appears uncomfortable Cardiovascular: Pulses: Normal pulses. Musculoskeletal: Right shoulder: Normal. Left shoulder: Tenderness (left scapula, posterior shoulder, biceps) present. No swelling or deformity. Normal range of motion. Normal strength. Right upper arm: Normal. Left upper arm: Tenderness present. No swelling or deformity. Right elbow: Normal. Left elbow: No swelling or deformity. Tenderness present. Right forearm: Normal. Left forearm: Tenderness present. No swelling or deformity. Cervical back: Normal range of motion. Pain with movement and muscular tenderness (left trapezius and sternocleidomastoid) present. Normal range of motion. Comments: Left shoulder- positive Valentine and Neer Skin: General: Skin is warm and dry. Capillary Refill: Capillary refill takes less than 2 seconds. Neurological: Mental Status: She is alert. Motor: No weakness or atrophy. Deep Tendon Reflexes: Reflex Scores: Tricep reflexes are 2+ on th (more content not included)... [facility] 05-12-2023 Miscellaneous Notes Patient notified, verbalized understanding. Please let patient know she needs to take the Incruse Ellipta in addition to the Advair. Lidia Johnson APRN.CNP The following approved medication requests have been transmitted electronically. Requested Prescriptions Signed Prescriptions Disp Refills umeclidinium (INCRUSE ELLIPTA) 62.5 mcg/actuation inhaler 30 Each 5 Sig: Inhale 1 Puff as instructed once daily. Authorizing Provider: LIDIA JOHNSON APRN.CNP Notified that medicaid will not cover Trelegy Ellipta. Please change to alternative listed below. Patient aware formulary change is needed and does not need notified when sent. -Anoror Ellipta -Dulera -Incruse Ellipta -Ipratropium Albuterol -Stiolto Respimat Tammy Quick Ma documented in this encounter [facility] 05-10-2023 Note HNO ID: [id number] Author: Lidia Johnson APRN.CNP Service: ? Author Type: Nurse Practitioner Type: Progress Notes Filed: 05/10/2023 6:52 PM Note Text: CC: Patient presents with: Yearly Exam HPI Praveen Ontiveros is a 38 year old female who presents today for above. Exercise: denies regular aerobic exercise. Works 10 hours a day on her feet Diet: Watches diet for salt (salty snacks, added salt, processed frozen/canned foods), sugary/sweet snacks, unhealthy fats: no Asthma-Symptoms: wheezing, chest tightness, shortness of breath, and cough. Nocturnal Symptoms: YES once a week. Asthma is limiting daily activities or exercise. Current pulmonary medications are montelukast (Singulair) 10 mg daily and Advair 500/50 one inhalation bid. Frequency of albuterol use is Q 4hours. Triggers include: animal dander - cat, upper respiratory infections, and pollens/allergens. Recent exacerbations: YES. Last steriod course was one month ago with 4 courses in the past 12 months. Recent ED visits or hospitalizations in the past year: Yes, last and October History of life threatening exacerbations: No Review of Systems HENT: Positive for postnasal drip, rhinorrhea and sneezing. Negative for trouble swallowing. Eyes: Positive for itching. Respiratory: See HPI Cardiovascular: Negative for chest pain, palpitations and leg swelling. Gastrointestinal: Negative for abdominal pain, blood in stool, constipation, diarrhea, nausea and vomiting. Occasional heartburn when she eats tomato based foods/sauces Genitourinary: Negative. Musculoskeletal: Negative. Skin: Negative. Neurological: Negative. Hematological: Negative. Psychiatric/Behavioral: MONA treated by psychiatry at [facility]. Currently prescribed Gabapentin for anxiety and Naltrexone for alcohol abuse 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 (Deisi Rodriguez MD) MONA (generalized anxiety disorder) 08/25/2021 High-risk 04/27/2012 LGSIL (low grade squamous intraepithelial dysplasia) 01/04/2013 Tobacco dependence syndrome 09/22/2009 Trauma 2008 DISLOCATED KNEE, Right PAST SURGICAL HISTORY Procedure Laterality Date NONE ALLERGIES Environmental Allergies [Other] and Propranolol MEDICATIONS albuterol (PROVENTIL) 2.5 mg /3 mL (0.083 %) nebulizer solution inhale contents of 1 vial in nebulizer every 4 hours if needed for wheezing or shortness of breath diphenhydrAMINE (BENADRYL) 25 mg capsule Take 1 capsule by mouth twice daily. fluticasone-salmeterol (ADVAIR DISKUS) 500-50 mcg/dose dsdv Inhale 1 Puff as instructed twice daily. Rinse and gargle mouth with water after use. albuterol HFA (VENTOLIN HFA) 90 mcg/actuation inhaler inhale 2 puffs by mouth as directed every 4 hours if needed for wheezing OR SHORTNESS OF BREATH montelukast (SINGULAIR) 10 mg tablet Take 1 tablet by mouth daily at bedtime. levonorgestrel (MIRENA) 20 mcg/24 hours (7 yrs) 52 mg IUD 1 Each by INTRAUTERINE route as directed. Nebulizer Accessories [facility] Pt needs nebulzier and supplies. Dx is asthma J45.40. FLUoxetine (PROZAC) 40 mg capsule Take 2 capsules by mouth once daily. (Patient not taking: Reported on 05/10/2023) QUEtiapine (SEROQUEL) 25 mg tablet Take 1 tablet by mouth daily at bedtime. (Patient not taking: Reported on 05/10/2023) varenicline (CHANTIX STARTING MONTH BOX) 0.5 mg (11)- 1 mg (42) tablet Take 0.5 mg by mouth once daily on Days 1 through 3, THEN 0.5 mg twice daily on Days 4 through 7, THEN 1 mg twice daily on Day 8 and thereafter (Patient not taking: Reported on 05/10/2023) FAMILY HISTORY Problem Relation Age of Onset Anxiety disorder Mother Depression Mother Asthma Mother Diabetes Father Hypertension Father Diabetes Paternal Grandfather Hypertension Paternal Grandfather Social History Tobacco Use Smoking status: Former Packs/day: 0.30 Years: 16.00 Additional pack years: 0.00 Total pack years: 4.80 Types: Cigarettes Start date: 11/08/2003 Quit date: 05/10/2022 Years since quittin.0 Smokeless tobacco: Never Tobacco comments: 2 packs per week Vaping Use Vaping Use: Never used Substance Use Topics Alcohol use: Yes Comment: occasionally Drug use: No BP 124/86 Pulse 94 Temp 36.3 ?C (97.4 ?F) (Temporal) Resp 16 Ht 162.6 cm (5' 4 ) Wt 77.4 kg (170 lb 11.2 oz) LMP (LMP Unknown) SpO2 96% BMI 29.30 kg/m? Physical Exam Vitals reviewed. Constitutional: Appearance: Normal appearance. Eyes: Conjunctiva/sclera: Conjunctivae normal. Neck: Thyroid: No thyroid mass, thyromegaly or thyroid tenderness. Cardiovascular: Rate and Rhythm: Normal rate and regular rhythm. Pulses: Normal pulses. Heart sounds: Normal heart sounds. No murmur heard. Pulmonary: Effort: Pulmonary effort is normal. Breath sounds: Examination of the right-upp (more content not included)... [facility] 03-16-2023 Miscellaneous Notes Patient has been identified by name and date of : Yes Patient phones for refill(s): Requested Prescriptions Pending Prescriptions Disp Refills albuterol (PROVENTIL) 2.5 mg /3 mL (0.083 %) nebulizer solution 150 mL 0 Sig: inhale contents of 1 vial in nebulizer every 4 hours if needed for wheezing or shortness of breath diphenhydrAMINE (BENADRYL) 25 mg capsule 60 capsule 0 Sig: Take 1 capsule by mouth twice daily. fluticasone-salmeterol (ADVAIR DISKUS) 500-50 mcg/dose dsdv 1 Each 0 Sig: Inhale 1 Puff as instructed twice daily. Rinse and gargle mouth with water after use. Refused Prescriptions Disp Refills albuterol HFA (VENTOLIN HFA) 90 mcg/actuation inhaler 18 g 5 Sig: inhale 2 puffs by mouth as directed every 4 hours if needed for wheezing OR SHORTNESS OF BREATH Date of last office visit in primary care: 12/03/2021 Next appointment scheduled 05/10/2023 Please advise. Thank you. Emani Aquino LPN documented in this encounter [facility] 04-20-2022 History of Presen t illness Narrative Subjective HPI Nontoxic-appearing female presents urgent care chief complaint asthma flare. Duration of symptoms last few days. Associated symptoms increased cough and wheeze. History of asthma exacerbations this feels similar. Has been using rescue inhaler more frequently. Increased weakening at night. States may be fumes at work she. 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 Denies any known sick contacts. Denies any chest pain hemoptysis fever body aches chills nausea vomiting abdominal pain change in bowel or bladder habits. Past medical history prescription medication use allergies reviewed. Denies chance of is not breast-feeding. .Patient presents with: Asthma: Asthma flare up, has been going on for a few days 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 (Deisi Rodriguez MD) MONA (generalized anxiety disorder) 08/25/2021 High-risk 04/27/2012 LGSIL (low grade squamous intraepithelial dysplasia) 01/04/2013 Tobacco dependence syndrome 09/22/2009 Trauma 2008 DISLOCATED KNEE, Right PAST SURGICAL HISTORY Procedure Laterality Date NONE ALLERGIES Environmental Allergies [Other] and Propranolol MEDICATIONS montelukast (SINGULAIR) 10 mg tablet Take 1 tablet by mouth daily at bedtime. albuterol HFA (VENTOLIN HFA) 90 mcg/actuation inhaler inhale 2 puffs by mouth as directed every 4 hours if needed for wheezing OR SHORTNESS OF BREATH albuterol (PROVENTIL) 2.5 mg /3 mL (0.083 %) nebulizer solution inhale contents of 1 vial in nebulizer every 4 hours if needed for wheezing or shortness of breath diphenhydrAMINE (BENADRYL) 25 mg capsule Take 1 capsule by mouth twice daily. fluticasone-salmeterol (ADVAIR DISKUS) 500-50 mcg/dose dsdv Inhale 1 Puff as instructed twice daily. Rinse and gargle mouth with water after use. FLUoxetine (PROZAC) 40 mg capsule Take 2 capsules by mouth once daily. QUEtiapine (SEROQUEL) 25 mg tablet Take 1 tablet by mouth daily at bedtime. levonorgestrel (MIRENA) 20 mcg/24 hours (7 yrs) 52 mg IUD 1 Each by INTRAUTERINE route as directed. Nebulizer Accessories [facility] [place] Pt needs nebulzier and supplies. Dx is asthma J45.40. varenicline (CHANTIX STARTING MONTH BOX) 0.5 mg (11)- 1 mg (42) tablet Take 0.5 mg by mouth once daily on Days 1 through 3, THEN 0.5 mg twice daily on Days 4 through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 with her boyfriend and son. PATIENT DATA: Generalized Anxiety Disorder Scale (MONA-7) MONA - 7 SCORES 08/06/2021 08/25/2021 10/01/2021 MONA-7 Score 20 20 21 (0-4) minimal anxiety, (5-9) mild anxiety, (10-14) moderate anxiety, (15-21) severe anxiety Patient Health Questionnaire (PHQ-9) PHQ-9 08/25/2021 10/01/2021 10/01/2021 Score 25 16 16 (0-4) minimal depression, (5-9) mild depression, (10-14) moderate depression, (15-19) moderately severe depression, (20-27) severe depression ROS: See HPI General: Negative for fever, malaise, unintentional weight loss HEENT: Negative for recent changes in vision or hearing, no nasal drainage Respiratory: Negative for cough, wheezing or SOB Cardiovascular: Negative for chest pain GI: Negative for nausea, vomiting, change in bowel habits MUSCULOSKELETAL: Negative for acute back or joint pain SKIN: Negative for rash NEURO: Negative for headaches, seizures, focal neurological deficits All other systems negative. MENTAL STATUS EXAMINATION: Appearance: Appropriately groomed, appears stated age Behavior: Appropriately engaged Psychomotor: No psychomotor agitation Cognition Level of Consciousness: Awake and alert. No fluctuation in wakefulness. Orientation: Grossly oriented Memory: Intact Attention/Concentration: Good Fund of Knowledge: Able to demonstrate an awareness of current events. Mood: Anxious Affect: Full Range Speech/Language: The patient demonstrates appropriate tone, prosody, orin, phonetics, and syntax and Appropriate tone, prosody, orin, phonetics, and syntax Thought Form: Goal-directed. No loosening of associations. Thought Content: No delusions noted or endorsed. Perceptual Disturbances: Did not appear to respond to auditory stimuli. Safety: Suicidal Ideations: No suicidal ideation, intent or plan. Homicidal Ideations: No homicidal ideation, intent or plan. Insight: Good Judgment: Good I spent a total of 28 minutes on the date of the service which included preparing to see the patient, [id number] patient care, completing clinical documentation, and counseling and educating the patient/family/caregiver, ordering medications/labs. 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 Discussed risks of smoking during and advised pt to continue not smoking. RR_ 1/4-1/3 PPD Immunization due 03/29/2012 11/19/2014 Overview: 03/29/2012 patient states her tetanus vaccine is not up-to-date. 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 Discussed risks of smoking during and advised pt to continue not smoking. RR_ 1/4-1/3 PPD Immunization due 03/29/2012 11/19/2014 Overview: 03/29/2012 patient states her tetanus vaccine is not up-to-date. 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 Discussed risks of smoking during and advised pt to continue not smoking. RR_ 1/4-1/3 PPD Immunization due 03/29/2012 11/19/2014 Overview: 03/29/2012 patient states her tetanus vaccine is not up-to-date. 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 Discussed risks of smoking during and advised pt to continue not smoking. RR_ 1/4-13 PPD Immunization due 03/29/2012 11/19/2014 Overview: 03/29/2012 patient states her tetanus vaccine is not up-to-date. 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 Discussed risks of smoking during and advised pt to continue not smoking. RR_ 1/4-1/3 PPD Immunization due 03/29/2012 11/19/2014 Overview: 03/29/2012 patient states her tetanus vaccine is not up-to-date. 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 Discussed risks of smoking during and advised pt to continue not smoking. RR_ 1/4-1/3 PPD Immunization due 03/29/2012 11/19/2014 Overview: 03/29/2012 patient states her tetanus vaccine is not up-to-date. 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 Discussed risks of smoking during and advised pt to continue not smoking. RR_ 1/4-1/3 PPD Immunization due 03/29/2012 11/19/2014 Overview: 03/29/2012 patient states her tetanus vaccine is not up-to-date. 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 Discussed risks of smoking during and advised pt to continue not smoking. RR_ 1/4-1/3 PPD Immunization due 03/29/2012 11/19/2014 Overview: 03/29/2012 patient states her tetanus vaccine is not up-to-date. 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 Discussed risks of smoking during and advised pt to continue not smoking. RR_ 1/4-1/3 PPD Immunization due 03/29/2012 11/19/2014 Overview: 03/29/2012 patient states her tetanus vaccine is not up-to-date. 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 Discussed risks of smoking during and advised pt to continue not smoking. RR_ 1/4-1/3 PPD Immunization due 03/29/2012 11/19/2014 Overview: 03/29/2012 patient states her tetanus vaccine is not up-to-date. 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 Discussed risks of smoking during and advised pt to continue not smoking. RR_ 1/4-1/3 PPD Immunization due 03/29/2012 11/19/2014 Overview: 03/29/2012 patient states her tetanus vaccine is not up-to-date. 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 Discussed risks of smoking during and advised pt to continue not smoking. RR_ 1/4-1/3 PPD Immunization due 03/29/2012 11/19/2014 Overview: 03/29/2012 patient states her tetanus vaccine is not up-to-date. documented as of this encounter (statuses as of 04/20/2022) [facility] History of Past illness Narrative* Problem Noted Date Diagnosed Date Resolved Date LGSIL (low grade squamous in traepithelial dysplasia) 01/04/2013 08/25/2017 Rubella non-immune status 04/30/2012 High-risk 04/27/2012 10/01/19 14 Quit smoking 03/29/2012 11/19/2014 Overview: 03/29/2012 Pt recently quit smoking March 06, 2012. Discussed risks of smoking during and advised pt to continue not smoking. RR_ 1/4-1/3 PPD Immunization due 03/29/2012 11/19/2014 Overview: 03/29/2012 patient states her tetanus vaccine is not up-to-date. documented as of this encounter (statuses as of 03/16/2023) [facility] History of Past illness Narrative* Problem Noted Date Diagnosed Date Resolved Date LGSIL (low grade squamous in traepithelial dysplasia) 01/04/2013 08/25/2017 Rubella non-immune status 04/30/2012 High-risk 04/27/2012 10/01/19 14 Quit smoking 03/29/2012 11/19/2014 Overview: 03/29/2012 Pt recently quit smoking March 06, 2012. Discussed risks of smoking during and advised pt to continue not smoking. RR_ 1/4-1/3 PPD Immunization due 03/29/2012 11/19/2014 Overview: 03/29/2012 patient states her tetanus vaccine is not up-to-date. Tobacco dependence syndrome 09/22/2009 05/10/2023 documented as of this encounter (statuses as of 05/12/2023) [facility] Diagnosis MONA (generalized anxiety disorder)- Primary Generalized anxiety disorder Chronic post-traumatic stress disorder (PTSD) Major depressive disorder, recurrent episode, moderate (HCC) Major depressive disorder, recurrent episode, moderate Encounter for long-term (current) use of medications Encounter for long-term (current) use of other medications [facility] Diagnosis Moderate persistent asthma without complication Unspecified asthma Anxiety Anxiety state, unspecified Moderate persistent asthma with acute exacerbation [facility] Diagnosis MONA (generalized anxiety disorder) Generalized anxiety disorder [facility] Moderate persistent asthma without complication Unspecified asthma [facility] Diagnosis Chronic post-traumatic stress disorder (PTSD)- Primary MONA (generalized anxiety disorder) Generalized anxiety disorder Major depressive disorder, recurrent episode, moderate (HCC) Major depressive disorder, recurrent episode, moderate Nicotine use [facility] Diagnosis Moderate persistent asthma without complication Unspecified asthma Anxiety Anxiety state, unspecified Moderate persistent asthma with acute exacerbation [facility] Diagnosis Moderate persistent asthma without complication Unspecified asthma [facility] Diagnosis Chronic post-traumatic stress disorder (PTSD)- Primary MONA (generalized anxiety disorder) Generalized anxiety disorder Recurrent major depressive disorder, in partial remission (HCC) Nicotine use documented in this encounter [facility] note* Diagnosis MONA (generalized anxiety disorder) Generalized anxiety disorder [facility] Diagnosis Moderate persistent asthma with exacerbation- Primary Unspecified asthma, with exacerbation documented in this encounter [facility]* Diagnosis Moderate persistent asthma without complication Unspecified asthma Anxiety Anxiety state, unspecified Moderate persistent asthma with acute exacerbation documented in this encounter [facility] Summary Purpose Family History No Family History Records FoundNo Family History Records FoundNo Family History Records Found Advance Directives No Advanced Directives Records FoundNo Advanced Directives Records FoundNo Advanced Directives Records Found Additional Source Comments INFORMATION SOURCE (unrecogn ized section and content) DATE CREATED AUTHOR AUTHOR'S ORGANIZ ATION 07/15/2023 [facility] DATE CREATED AUTHOR AUTHOR'S ORGANIZ ATION 07/15/2023 [facility] Source Comments (unrecognize d section and content) In the event this informatio n is protected by the Federal Confidentiality of Alcohol and Drug Abuse Patient Records regulations: The Federal rules restrict any use of the information to criminally investigate or prosecute any alcohol or drug abuse patient.[facility] event this information is protected by the Federal Confidentiality of Alcohol and Drug Abuse Patient Records regulations: The Federal rules restrict any use of the information to criminally investigate or prosecute any alcohol or drug abuse patient.[facility] the event this information is protected by the Federal Confidentiality of Alcohol and Drug Abuse Patient Records regulations: The Federal rules restrict any use of the information to criminally investigate or prosecute any alcohol or drug abuse patient.[facility] the event this information is protected by the Federal Confidentiality of Alcohol and Drug Abuse Patient Records regulations: The Federal rules restrict any use of the information to criminally investigate or prosecute any alcohol or drug abuse patient.[facility] the event this information is protected by the Federal Confidentiality of Alcohol and Drug Abuse Patient Records regulations: The Federal rules restrict any use of the information to criminally investigate or prosecute any alcohol or drug abuse patient.[facility] the event this information is protected by the Federal Confidentiality of Alcohol and Drug Abuse Patient Records regulations: The Federal rules restrict any use of the information to criminally investigate or prosecute any alcohol or drug abuse patient.[facility] the event this information is protected by the Federal Confidentiality of Alcohol and Drug Abuse Patient Records regulations: The Federal rules restrict any use of the information to criminally investigate or prosecute any alcohol or drug abuse patient.[facility] the event this information is protected by the Federal Confidentiality of Alcohol and Drug Abuse Patient Records regulations: The Federal rules restrict any use of the information to criminally investigate or prosecute any alcohol or drug abuse patient.[facility] the event this information is protected by the Federal Confidentiality of Alcohol and Drug Abuse Patient Records regulations: The Federal rules restrict any use of the information to criminally investigate or prosecute any alcohol or drug abuse patient.[facility] the event this information is protected by the Federal Confidentiality of Alcohol and Drug Abuse Patient Records regulations: The Federal rules restrict any use of the information to criminally investigate or prosecute any alcohol or drug abuse patient.[facility] the event this information is protected by the Federal Confidentiality of Alcohol and Drug Abuse Patient Records regulations: The Federal rules restrict any use of the information to criminally investigate or prosecute any alcohol or drug abuse patient.[facility] the event this information is protected by the Federal Confidentiality of Alcohol and Drug Abuse Patient Records regulations: The Federal rules restrict any use of the information to criminally investigate or prosecute any alcohol or drug abuse patient.[facility] the event this information is protected by the Federal Confidentiality of Alcohol and Drug Abuse Patient Records regulations: The Federal rules restrict any use of the information to criminally investigate or prosecute any alcohol or drug abuse patient.[facility] the event this information is protected by the Federal Confidentiality of Alcohol and Drug Abuse Patient Records regulations: The Federal rules restrict any use of the information to criminally investigate or prosecute any alcohol or drug abuse patient.[facility] the event this information is protected by the Federal Confidentiality of Alcohol and Drug Abuse Patient Records regulations: The Federal rules restrict any use of the information to criminally investigate or prosecute any alcohol or drug abuse patient.[facility] Reason for Visit (unrecogniz ed section and content) Reason Onset Date Comments Refill Request 10/12/2021 Reason Comments Opened In Error Reason Onset Date Comments Refill Request 11/01/2021 Reason Comments Follow Up Anxiety Reason Onset Date Comments Refill Request 12/06/2021 Reason Comments Insurance Authorization Reason Comments Spirometry Specialty Diagnoses / Procedures Referred By Contac t Referred To [facility] Diagnoses Moderate persistent asthma without complication Procedures LUNG VOLUMES PLETHYSMOGRAPHY LUNG VOLUMES W/WO AIRWAY RESIST Lidia Johnson, PEREZ.DESIGN MAKER [address] [place] [address] [facility] [place] [address] [place] [address] Referral ID Status Reason Start Date Expiration Date V isits Requested Visits Authorized [id number] Closed Auto-Generate d Referral 12/03/2021 07/02/2022 1 1 Reason Onset Date Comments Refill Request 03/04/2022 Reason Comments Asthma Asthma flare up, has been going on for a few days Reason Onset Date Comments Refill Request 03/15/2023 Reason Comments Insurance Authorization Trelegy [employer] Care Teams (unrecognized sec tion and content) [employer] Administrator Relationship Specialty Start Date End Date Navdeep Flowers MD [address] [place], [place] [id number] PCP - General Internal Medicine 11/30/17 [employer] Administrator Relationship Specialty Start Date End Date Navdeep Flowers MD [address] [facility] [address] PCP - General Internal Medicine 11/30/17 [employer] Administrator Relationship Specialty Start Date End Date Navdeep Flowers MD [address] [facility] [address] PCP - General Internal Medicine 11/30/17 [employer] Administrator Relationship Specialty Start Date End Date Navdeep Flowers MD [address] [facility] [address] PCP - General Internal Medicine 11/30/17 [employer] Administrator Relationship Specialty Start Date End Date Navdeep Flowers MD [address] [facility] [address] PCP - General Internal Medicine 11/30/17 [employer] Administrator Relationship Specialty Start Date End Date Navdeep Flowers MD [address] [facility] [address] PCP - General Internal Medicine 11/30/17 [employer] Administrator Relationship Specialty Start Date End Date Navdeep Flowers MD [address] [facility] [address] PCP - General Internal Medicine 11/30/17 [employer] Administrator Relationship Specialty Start Date End Date Navdeep Flowers MD [address] [facility] [address] PCP - General Internal Medicine 11/30/17 [employer] Administrator Relationship Specialty Start Date End Date Navdeep Flowers MD [address] [facility] [address] PCP - General Internal Medicine 11/30/17 [employer] Administrator Relationship Specialty Start Date End Date Navdeep Flowers MD [address] [facility] [address] PCP - General Internal Medicine 11/30/17 FOR RECORDS PERTAINING TO PATIENTS WHO ARE OR HAVE BEEN ENROLLED IN A CHEMICAL DEPENDENCY/SUBSTANCEABUSE PROGRAM, SOME INFORMATION MAY BE OMITTED. This clinical summary was aggregated from multiple sources. Caution should be exercised in using it in the provision of clinical care. This summary normalizes information from multiple sources, and as a consequence, information in this document may materially change the coding, format and clinical context of patient data. In addition, data may be omitted in some cases. CLINICAL DECISIONS SHOULD BE BASED ON THE PRIMARY CLINICAL RECORDS. [facility]. provides no warranty or guarantee of the accuracy or completeness of information in this document.
[2023-07-30 20:11] LABS: Anion Gap 3 (5-15); BUN 9 mg/dL (7-18); BUN/Creat Ratio 9.9 RATIO (10-20); Calcium,Total 8.7 mg/dL (8.5-10.1); Chloride 112 mmol/L (98-107); Creatinine, Serum 0.91 mg/dL (0.55-1.02); EST Glomerular Filtration Rate 74 mL/min (>60); Est Glom Filt Rate - Afr Amer 89 mL/min (>60); Estimated Creatinine Clearance 87.93 ml/min; Glucose 146 mg/dL (74-106); Potassium 3.8 mmol/L (3.5-5.1); Sodium Level 141 mmol/L (136-145)
--- NOTE | 2023-07-30 20:11 | RAD_ITS ---
INDICATION: cough EXAMINATION/TECHNIQUE: X-RAY - XR Chest 1 View COMPARISON: July 06, 2019 chest x-ray and June 18, 2023 chest x-ray FINDINGS: LINES/DEVICES: None. LUNGS: Symmetric, increased lung volumes likely representing air trapping. Central airways are normal in appearance. No hyperlucency to suggest emphysematous changes. No consolidation, pleural effusion or nodule. No reticulations. No pneumothorax. MEDIASTINUM AND CARDIOVASCULAR STRUCTURES: Normal size and contour of the cardiomediastinal silhouette. No evidence of pulmonary vascular congestion. BONES AND SOFT TISSUES: No fracture or focal osseous lesion. RAD/Chest 1 View (Portable) IMPRESSION: Increased lung volumes suggesting air trapping, without appreciable peribronchial thickening. No pulmonary hyperlucency to suggest emphysema. Electronically Signed: Andrade Alvarado DO at 20:36 EST ,
[2023-07-30 21:14] VITALS: BP 132/87; PULSE 100; PULSE 97; RESP 16; RESP 22; O2SAT 100; O2SAT 98
== END 2023-07-30 21:38 | disposition home or self-care (01) ==
PROVIDERS: Emergency Provider Emergency Medicine; PCP Internal Medicine; Visit Provider Emergency Medicine
DX: J45.909 Unspecified asthma, uncomplicated (principal); Z87.891 Personal history of nicotine dependence
CPT/HCPCS: 71045; 80048; 85025; 87631; 94640; 96374; 99284

== ENCOUNTER 2023-11-27 04:40 | Emergency (ER) | payer SELFPAY ==
[2023-11-27 04:41] VITALS: BP 117/88; PULSE 81; RESP 20; TEMP 36.4; O2SAT 99
[2023-11-27 04:44] VITALS: O2SAT 99
--- NOTE | 2023-11-27 04:49 | EDS_ITS ---
HPI History of Present Illness Chief Complaint: Asthma Informant: patient Onset/Context/Timing Onset: Today Context: gradual Timing: Continuous Quality: Positive for Wheezing Current Severity: Moderate Maximum Severity: Moderate Worsened by: Nothing Relieved by: Nothing Associated Symptoms Negative for cough Chest Pain: Positive for None Narrative Narrative: [id number] female history of asthma complaining of shortness of breath and wheezing consistent with her prior asthma flares. No chest pain. No fever or cough. Using her inhalers at home without relief. Currently not on any ster oids. PE Risk Factors: Negative for Cancer, OCP + Smoking + > 35, Prior DVT or PE, Recent immobilization, Recent surgery or Recent travel Prior similar symptoms: Yes Recent Illness/Hospitalization: No PFSH PFSH Medical History Former tobacco use Anxiety Asthma Home Medications ?Medication ?Instructions ?Recorded ?Last Taken ?Type inhalational spacing device #1 ea 08/26/21 Unknown Rx (Aerochamber MV spacer) albuterol sulfate 90 mcg/actuation 2 puff inhalation Q4H PRN PRN 06/19/23 Unknown Rx aerosol inhaler Wheezing #8.5 grams fluticasone 500 mcg-salmeterol 50 1 inh inhalation BID #60 ea 06/19/23 Unknown Rx mcg/dose blistr powdr for inhalation (Advair Diskus) fluticasone propionate 50 1 spray intranasal Q12H #16 grams 06/19/23 Unknown Rx mcg/actuation nasal spray,suspension albuterol sulfate 90 mcg/actuation 2 inh inhalation Q4H PRN shortness 11/27/23 Unknown Rx aerosol inhaler (Proventil HFA) of breath or wheezing #8.5 grams cyclobenzaprine 10 mg tablet 10 mg PO Q8H PRN PRN back pain 11/27/23 Unknown History diclofenac sodium 75 mg 75 mg PO BID 11/27/23 Unknown History tablet,delayed release prednisone 20 mg tablet 40 mg (2 x 20 mg) PO DAILY 7 days 11/27/23 Unknown Rx #14 tabs prednisone 20 mg tablet 40 mg (2 x 20 mg) PO DAILY 7 days 11/27/23 Unknown Rx #14 tabs tizanidine 4 mg tablet 4 mg PO Q8H PRN PRN muscle spasm 11/27/23 Unknown History Allergy/AdvReac Type Severity Reaction Status Date / Time propranolol (From Inderal [place]) Allergy Shortness Verified 07/30/23 19:15 of breath Family History Mother Asthma Father Diabetes Surgical History No history of previous surgery Social History household members: significant other and children Smoking Status: Former smoker how long ago did patient quit smoking: Quit cigarette tobacco ~ 1 year prior, 1 pk/3-4 days from teen until quit. alcohol intake: current alcohol intake frequency: a few times a month substance use type: does not use ROS ROS ED ROS Narrative Shortness of breath and wheezing. Review of Systems ROS Unobtainable: Denies due to encephalopathy Constitutional Constitutional ED: Denies chills or fever(s) Eyes Eyes: Denies blurry vision Cardiovascular Cardiovascular: Denies chest pain or palpitations Respiratory/Chest Respiratory/Chest: Reports dyspnea; Denies cough Gastrointestinal Gastrointestinal: Denies abdominal pain, constipation, diarrhea, melena, nausea or vomiting Genitourinary Genitourinary ED: Denies dysuria or hematuria Musculoskeletal Musculoskeletal: Denies arthralgias, back pain or myalgias Integumentary Denies abscess or Abrasions Neurologic Neurologic: Denies headache(s) Psychiatric Psychiatric: Denies anxiety or depression Endocrine Endocrinology: Denies cold intolerance Hematologic/Lymphatic Hematologic/Lymphatic: Denies easy bleeding or easy bruising Allergic/Immunologic Allergic/Immunologic ED: Denies mouth swelling, tongue swelling or urticaria EXAM Physical Exam Narrative Exam Narrative: 38-year-old female vital signs are stable pulse ox 99% on room air. Mild respiratory distress. H EENT exam unremarkable. Mytrex members. Neck nontender. No JVD. No lymphadenopathy. Lungs expiratory wheezing throughout. Prolonged expiratory phase. No rales or rhonchi. Equal symmetrical. Heart regular rhythm rate about 80 no murmur. Chest wall and ribs nontender. Abdomen soft nontender. Back nontender. Moving all 4 extremities. Normal milieu coordinator strength. Normal dorsi plantarflexion. Calves are nontender without edema or cords. Neurologically she is awake and alert no focal motor deficits. Exam consistent with asthma flare. Const Vital Signs: 11/27/23 04:41 11/27/23 04:44 11/27/23 04:52 Temperature 97.6 F L Temperature Source Temporal Pulse Rate 81 83 Respiratory Rate 20 H 18 Respiratory Effort Normal Non-Labored Respiratory Depth Normal Respiratory Pattern Normal Normal Blood Pressure 117/88 H Blood Pressure Mean 97 Pulse Ox 99 Oxygen Delivery Method Room Air Room Air 11/27/23 05:47 Temperature 97.1 F L Temperature Source Pulse Rate 72 Respiratory Rate 16 Respiratory Effort Respiratory Depth Respiratory Pattern Blood Pressure 117/68 Blood Pressure Mean 84 Pulse Ox 98 Oxygen Delivery Method Positive well nourished and well developed; Negative for cachectic, contractures or unkempt General Appearance ED: well developed; Negative for unkempt, cachectic, contractures, NAD or pallor Nutritional Appearance: Negative for cachectic HEENT Reports moist mucous membranes atraumatic; Negative for trauma or tenderness Eyes PERRL and EOMs intact bilaterally General Eye ED: Negative for pale conjunctiva or scleral icterus Neck no lymphadenopathy, supple, no meningeal signs and no JVD General: Negative for tenderness Lymph Lymphatic: Negative for other Resp No normal respiratory effort and No clear to auscultation bilaterally Resp Narrative: Bilateral wheezing. Primarily expiratory. Prolonged expiratory phase. Auscultation: wheezes and diminished lung sounds; Negative for rales or rhonchi Cardio regular rate, regular rhythm, S1 normal heart sound, S2 normal heart sound and no murmurs Rate: Negative for bradycardia Rhythm: Negative for abnormal rhythm GI non-tender, non-distended and no masses Inspection: Negative for other Auscultation: normoactive bowel sounds Palpation: soft; Negative for tender, guarding or rebound tenderness present Back/Spine no CVA tenderness and normal to inspection General Back: Negative for CVA tenderness Extremity normal to inspection General Extremety ED: Negative for edema, tenderness or other findings General Extremity: Negative for edema or other findings Neuro oriented x3 and CN's II-XII intact bilaterally Neuro Narrative: Speaks in limited phrases due to dyspnea. Sensorium / Orientation: alert, oriented to person, oriented to place and oriented to time; Negative for orientation impaired, confused, lethargic or stuporous Speech: speech normal Motor Exam: strength 5/5 throughout Psych mental status grossly normal Appearance: Negative for unkempt Attitude: No agitated and No other Mood & Affect: Negative for depressed, anxious or tearful Thought Process: normal thought process Skin no wounds and skin turgor normal General Skin Exam: Negative for jaundice or pallor Rashes: no rashes Trauma: Negative for abrasion or laceration MDM MDM MDM Narrative Medical decision making narrative: 38-year-old female history of asthma. Asthma asthma flare with wheezing. She will be treated with DuoNeb and albuterol aerosols and prednisone. Chest x-ray will be obtained. She be reevaluated after treatment. I do not think she needs blood work at this time. Repeat exam at 5:20 AM patient has better air movement. Still has expiratory wheezes. She has already been given her aerosol and prednisone. She is responding. She will be observed and reexamined. But at this time I do think she will be able to be discharged home on prednisone and use her inhaler.Patient also requested the chest x-ray not be done for financial reasons. Therefore I canceled the order. Review 0 5:50 AM. Patient is showing improvement. She is comfortable being discharged home. She did not want a chest x-ray to be done so it was canceled. She was discharged home on Proventil inhaler and prednisone daily for the next week. Outpatient follow-up as needed. Return if worse. History & Record Review Discussion w/independent historian: Patient Additional record(s) reviewed:: Prior inpatient record, Prior outpatient record, Prior ED visit and Prior labs Radiography Diagnostic Testing: Patient requested no chest x-ray. Discharge Plan Triage Chief Complaint: Asthma ED Provider: Bill Bowen Dx/Rx/DC Orders Clinical Impression: Asthma Instructions: ED Asthma, Acute (Adult) Prescriptions: New prednisone 20 mg tablet 40 mg PO DAILY 7 Days Qty: 14 0RF albuterol sulfate [Proventil HFA] 90 mcg/actuation HFA aerosol inhaler 2 inh inhalation Q4H PRN (Reason: shortness of breath or wheezing) Qty: 8.5 1RF prednisone 20 mg tablet 40 mg PO DAILY 7 Days Qty: 14 0RF No Action (DME) Aerochamber MV Spacer See Rx Instructions .ROUTE .MEDSUPPLY Qty: 1 0RF Rx Instructions: As directed fluticasone propion-salmeterol [Advair Diskus] 500-50 mcg/dose blister with device 1 inh INHALATION BID Qty: 60 0RF albuterol sulfate 1 PUFF inhaler 2 puff inhalation Q4H PRN PRN (Reason: Wheezing) Qty: 8.5 0RF fluticasone propionate 50 mcg/actuation spray,suspension 1 spray INTRANASAL Q12H Qty: 16 0RF cyclobenzaprine 10 mg tablet 10 mg PO Q8H PRN PRN (Reason: back pain) tizanidine 4 mg tablet 4 mg PO Q8H PRN PRN (Reason: muscle spasm) diclofenac sodium 75 mg tablet,delayed release (DR/EC) 75 mg PO BID Primary Care Provider: Navdeep Mo Referrals: Navdeep Mo MD [Primary Care Provider] - 3-5 Days if not improving Activity Restrictions/Additional Instructions: Use your inhaler 2 puffs every 2-4 hours as needed. Prednisone 20 mg/day for the next week. Follow-up with your doctor if not improving or return if worse. Print Language: Upper Sorbian Disposition Disposition: Home, Self Care
[2023-11-27] MEDS: predniSONE 20 MG Tablet 60 MG PO (04:51)
[2023-11-27 04:52] VITALS: PULSE 83; RESP 18
[2023-11-27] MEDS: Ipratropium/Albuterol Sulfate 3 ML AMPUL.NEB INHALATION (04:52)
[2023-11-27] MEDS: Albuterol 2.5 MG/3 ML VIAL.NEB. INHALATION ×2 (04:58→05:03)
--- NOTE | 2023-11-27 05:20 | CPS ---
x2 Albuterol given to pt. in ER as well
[2023-11-27 05:47] VITALS: BP 117/68; PULSE 72; RESP 16; TEMP 36.2; O2SAT 98
== END 2023-11-27 05:53 | disposition home or self-care (01) ==
LOC: ED 05:19
PROVIDERS: Emergency Provider Emergency Medicine; PCP Internal Medicine; Visit Provider Emergency Medicine
DX: J45.909 Unspecified asthma, uncomplicated (principal); Z87.891 Personal history of nicotine dependence; Z79.51 Long term (current) use of inhaled steroids
CPT/HCPCS: 94640; 99283

== ENCOUNTER 2024-02-02 03:41 | Emergency (ER) | payer SELFPAY ==
[2024-02-02] VITALS (7 sets, daily range): BP systolic 136–149; BP diastolic 72–103; PULSE 90–95; RESP 14–27; TEMP 36.9; O2SAT 94–97; BMI 30.2
--- NOTE | 2024-02-02 03:48 | RAD_ITS ---
INDICATION: dyspnea EXAMINATION/TECHNIQUE: X-RAY - XR Chest 1 View COMPARISON: Prior study dated: 07/30/2023 FINDINGS: LINES/DEVICES: None. LUNGS: The lungs are well expanded. No consolidation, edema or effusion. No pneumothorax. MEDIASTINUM AND CARDIOVASCULAR STRUCTURES: Cardiac silhouette not enlarged. Central airways and mediastinal contour are unremarkable. BONES AND SOFT TISSUES: No acute abnormality. RAD/Chest 1 View (Portable) IMPRESSION: No acute pulmonary finding. Electronically Signed: Angelo Rojas MD at 4:54 EDT ,
[2024-02-02] MEDS: Albuterol 2.5 MG/3 ML VIAL.NEB. INHALATION ×2 (03:52→04:37)
[2024-02-02] MEDS: Ipratropium/Albuterol Sulfate 3 ML AMPUL.NEB INHALATION (03:52)
[2024-02-02] MEDS: MethylPREDNISolone 125 MG/2 ML Vial IV (03:52)
[2024-02-02 04:00] LABS: Absolute Lymphocyte Count 2.84 X10^3/uL (0.83-4.51); Absolute Neutrophil Count 3.7 X10^3/uL (2.0-7.7); Basophil# 0.12 X10^3/uL; Basophil% 1.5 % (0-1); Eosinophil# 0.58 X10^3/uL; Eosinophils% 7.3 % (0-5); Hematocrit 41.9 % (37-47); Hemoglobin 14.1 g/dL (12.0-15.0); Lymphocyte # 2.84 X10^3/ul (0.83-4.51); Lymphocyte % 35.8 % (19-41); Mean Corp Hgb Conc 33.7 g/dL (32-36); Mean Corpuscular Hgb 30.9 pg (27.0-32.0); Mean Corpuscular Volume 91.9 fL (81-99); Mean Platelet Vol. 9.2 fl (6.2-12.0); Monocyte# 0.65 X10^3/uL; Monocyte% 8.2 % (0-10); NRBC Flagged by Analyzer 0 % (0-5); Neutrophil # 3.72 X10^3/uL (2.7-7.7); Neutrophil % 46.9 % (47-70); Platelet Count 414 K/mm3 (150-450); RBC Distribution Width CV 12.7 % (11.6-14.6); RBC Distribution Width SD 42.5 fl (35.1-43.9); Red Blood Count 4.56 M/mm3 (4.2-5.4); White Blood Count 7.9 K/mm3 (4.4-11.0)
[2024-02-02 04:17] LABS: Anion Gap 5 (5-15); BUN 9 mg/dL (7-18); Calcium,Total 8.7 mg/dL (8.5-10.1); Chloride 111 mmol/L (98-107); Creatinine, Serum 0.82 mg/dL (0.55-1.02); EST Glomerular Filtration Rate 83 mL/min (>60); Est Glom Filt Rate - Afr Amer 101 mL/min (>60); Estimated Creatinine Clearance 95.97 ml/min; Glucose 96 mg/dL (74-106); Potassium 4.3 mmol/L (3.5-5.1); Sodium Level 140 mmol/L (136-145)
--- NOTE | 2024-02-02 04:20 | CPS ---
x1 Albuterol given to pt. in ER as well
--- NOTE | 2024-02-02 04:33 | EDS_ITS ---
HPI History of Present Illness Chief Complaint: Asthma [facility] Medical History (Updated 02/02/24 @ 05:[address] Mick Martinez DO) Status asthmaticus Former tobacco use Anxiety Asthma Home Medications ?Medication ?Instructions ?Recorded ?Last Taken ?Type inhalational spacing device #1 ea 08/26/21 Unknown Rx (Aerochamber MV spacer) albuterol sulfate 90 mcg/actuation 2 puff inhalation Q4H PRN PRN 06/19/23 Unknown Rx aerosol inhaler Wheezing #8.5 grams fluticasone 500 mcg-salmeterol 50 1 inh inhalation BID #60 ea 06/19/23 Unknown Rx mcg/dose blistr powdr for inhalation (Advair Diskus) fluticasone propionate 50 1 spray intranasal Q12H #16 grams 06/19/23 Unknown Rx mcg/actuation nasal spray,suspension albuterol sulfate 90 mcg/actuation 2 inh inhalation Q4H PRN shortness 11/27/23 Unknown Rx aerosol inhaler (Proventil HFA) of breath or wheezing #8.5 grams cyclobenzaprine 10 mg tablet 10 mg PO Q8H PRN PRN back pain 11/27/23 Unknown History tizanidine 4 mg tablet 4 mg PO Q8H PRN PRN muscle spasm 11/27/23 Unknown History albuterol sulfate 90 mcg/actuation 2 puff inhalation Q4H PRN PRN 02/02/24 Unknown Rx aerosol inhaler (Ventolin HFA) Wheezing ##1 prednisone 20 mg tablet 60 mg (3 x 20 mg) PO DAILY #12 02/02/24 Unknown Rx TABLETS Allergy/AdvReac Type Severity Reaction Status Date / Time propranolol (From Inderal [place]) Allergy Shortness Verified 02/02/24 03:42 of breath Family History Mother Asthma Father Diabetes Surgical History No history of previous surgery Social History household members: significant other and children Smoking Status: Former smoker how long ago did patient quit smoking: Quit cigarette tobacco ~ 1 year prior, 1 pk/3-4 days from teen until quit. alcohol intake: current alcohol intake frequency: a few times a month substance use type: does not use EXAM Physical Exam Const Vital Signs: 02/02/24 03:41 02/02/24 03:48 02/02/24 03:52 Temperature 98.5 F Temperature Source Oral Pulse Rate 95 93 Respiratory Rate 27 H 18 Respiratory Effort Short of Breath Labored Accessory Muscle Use Respiratory Pattern Normal Blood Pressure 149/98 H Blood Pressure Mean 115 Pulse Ox 97 Oxygen Delivery Method 02/02/24 04:41 02/02/24 05:00 Temperature Temperature Source Pulse Rate 90 90 Respiratory Rate 18 20 H Respiratory Effort Respiratory Pattern Blood Pressure 136/103 H 139/72 H Blood Pressure Mean 114 94 Pulse Ox 94 96 Oxygen Delivery Method Room Air Room Air MDM MDM MDM Narrative Medical decision making narrative: Interventions / MDM: Differential diagnosis: Asthma exacerbation Diagnosis considered but do not suspect: Pneumothorax, pneumonia however chest x-ray negative. My EKG interpretation: N/A Imaging independently reviewed and interpreted by myself: 1 view chest x-ray: No acute process. External documents reviewed: N/A Test considered but not ordered:N/A ED course: Patient increasing tachypnea with wheezing asthma history slight cough. DuoNeb additional albuterol ordered Solu-Medrol IV. Basic labs were obtained. Chest x-ray ordered. 0430: Clinically improving however on reevaluation there is still some wheezing lower lobes. Additional aerosol treatments were given. Chest x-ray negative baseline labs negative. 0530: Clinically improved ambulated with pulse ox maintained at 94%. Considered admission however symptoms significantly improved and stable with ambulation. Will refill her inhaler. Additional 4 days of steroids for burst treatment for exacerbation. Outpatient follow-up. Return precautions. Re-evaluation: stable Disposition discussed with patient/family/significant other: Patient Case discussed with consulting clinician: N/A This note was generated with [employer] dictation software. It may contain incorrect words, spelling, and punctuation that were not noted in checking the note before signing. Lab Data Attestation: I reviewed the patient's lab results. Labs: Laboratory Results - last 24 hr 02/02/24 03:50 WBC 7.9 RBC 4.56 Hgb 14.1 Hct 41.9 MCV 91.9 MCH 30.9 MCHC 33.7 RDW Std Deviation 42.5 RDW Coeff of Brittney 12.7 Plt Count 414 MPV 9.2 Immature Gran % (Auto) 0.300 Neut % (Auto) 46.9 L Lymph % (Auto) 35.8 Giles % (Auto) 8.2 Eos % (Auto) 7.3 H Baso % (Auto) 1.5 H Absolute Neuts (auto) 3.7 Absolute Lymphs (auto) 2.84 Nucleated RBC % 0 Sodium 140 Potassium 4.3 Chloride 111 H Carbon Dioxide 24.0 Anion Gap 5 BUN 9 Creatinine 0.82 Estim Creat Clear Calc 95.97 Est GFR (MDRD) Af Amer 101 Est GFR (MDRD) Non-Af 83 BUN/Creatinine Ratio 11.0 Glucose 96 Calcium 8.7 Radiography Diagnostic Testing: Clinical Impression(s) from Imaging Studies Chest X-Ray 02/02/24 03:48 IMPRESSION: No acute pulmonary finding. Electronically Signed: Angelo Rojas MD at 4:54 EDT , Discharge Plan Triage Chief Complaint: Asthma ED Provider: Mick Martinez Dx/Rx/DC Orders Clinical Impression: Asthma with exacerbation, Bilateral wheezing Instructions: Asthma Action Plan Prescriptions: New prednisone 20 mg tablet 60 mg PO DAILY Qty: 12 0RF albuterol sulfate [Ventolin HFA] 90 mcg/actuation HFA aerosol inhaler 2 puff inhalation Q4H PRN PRN (Reason: Wheezing) Qty: 1 0RF No Action (DME) Aerochamber MV Spacer See Rx Instructions .ROUTE .MEDSUPPLY Qty: 1 0RF Rx Instructions: As directed fluticasone propion-salmeterol [Advair Diskus] 500-50 mcg/dose blister with device 1 inh INHALATION BID Qty: 60 0RF albuterol sulfate 1 PUFF inhaler 2 puff inhalation Q4H PRN PRN (Reason: Wheezing) Qty: 8.5 0RF fluticasone propionate 50 mcg/actuation spray,suspension 1 spray INTRANASAL Q12H Qty: 16 0RF cyclobenzaprine 10 mg tablet 10 mg PO Q8H PRN PRN (Reason: back pain) tizanidine 4 mg tablet 4 mg PO Q8H PRN PRN (Reason: muscle spasm) albuterol sulfate [Proventil HFA] 90 mcg/actuation HFA aerosol inhaler 2 inh inhalation Q4H PRN (Reason: shortness of breath or wheezing) Qty: 8.5 1RF Primary Care Provider: Navdeep Mo Referrals: Navdeep Mo MD [Primary Care Provider] - 1 Week Activity Restrictions/Additional Instructions: Chest x-ray is negative labs are all stable. Continue steroids and finish the course. Inhaler as needed. May hold your Advair while taking oral steroids, restart after finish. If you have worsening symptoms, return to the ED for reevaluation. Print Language: Vietnamese Disposition Disposition: Home, Self Care
--- NOTE | 2024-02-02 04:49 | CPS ---
[0437] x1 Albuterol given to pt. in ER. Pre-tx: HR = 84, RR = 14 with diminished breath sounds and expiratory wheezes. Post-tx: HR = 86, RR = 14 with clearer breath sounds and inspiratory wheezes.
== END 2024-02-02 05:51 | disposition home or self-care (01) ==
PROVIDERS: Emergency Provider Emergency Medicine; PCP Internal Medicine; Visit Provider Emergency Medicine
DX: J45.901 Unspecified asthma with (acute) exacerbation (principal); Z87.891 Personal history of nicotine dependence; Z79.51 Long term (current) use of inhaled steroids
CPT/HCPCS: 71045; 80048; 85025; 94640; 96374; 99284; A4216

== ENCOUNTER 2024-04-10 19:49 | Emergency (ER) | payer SELFPAY ==
[2024-04-10 19:50] VITALS: BP 158/90; PULSE 115; RESP 28; TEMP 37; O2SAT 98; BMI 30.4
--- NOTE | 2024-04-10 20:26 | EDS_ITS ---
HPI History of Present Illness Chief Complaint: Asthma Informant: patient Onset/Context/Timing Onset: Today Timing: Continuous Quality: Positive for Wheezing Current Severity: Moderate Maximum Severity: Moderate Worsened by: Coughing Relieved by: Albuterol Associated Symptoms cough Chest Pain: Positive for None Narrative Narrative: 39-year-old female history of asthma has a inhaler or nebulizer at home. Currently not on steroids. Has had URI symptoms with nonproductive cough last several days today started having increasing difficulty breathing with wheezing. Denies any fever. No vomiting. No hemoptysis. No leg pain or swelling. No history of DVT or PE risk factors. No hemoptysis. PE Risk Factors: Negative for Cancer, OCP + Smoking + > 35, Prior DVT or PE, Recent immobilization, Recent surgery or Recent travel Prior similar symptoms: Yes Recent Illness/Hospitalization: No PFSH PFSH Medical History Status asthmaticus Former tobacco use Anxiety Asthma Home Medications ?Medication ?Instructions ?Recorded ?Last Taken ?Type inhalational spacing device #1 ea 08/26/21 Unknown Rx (Aerochamber MV spacer) albuterol sulfate 90 mcg/actuation 2 puff inhalation Q4H PRN PRN 06/19/23 Unknown Rx aerosol inhaler Wheezing #8.5 grams fluticasone 500 mcg-salmeterol 50 1 inh inhalation BID #60 ea 06/19/23 Unknown Rx mcg/dose blistr powdr for inhalation (Advair Diskus) fluticasone propionate 50 1 spray intranasal Q12H #16 grams 06/19/23 Unknown Rx mcg/actuation nasal spray,suspension albuterol sulfate 90 mcg/actuation 2 inh inhalation Q4H PRN shortness 11/27/23 Unknown Rx aerosol inhaler (Proventil HFA) of breath or wheezing #8.5 grams cyclobenzaprine 10 mg tablet 10 mg PO Q8H PRN PRN back pain 11/27/23 Unknown History tizanidine 4 mg tablet 4 mg PO Q8H PRN PRN muscle spasm 11/27/23 Unknown History albuterol sulfate 90 mcg/actuation 2 puff inhalation Q4H PRN PRN 02/02/24 Unknown Rx aerosol inhaler (Ventolin HFA) Wheezing ##1 prednisone 20 mg tablet 60 mg (3 x 20 mg) PO DAILY #12 02/02/24 Unknown Rx TABLETS albuterol sulfate 2.5 mg/3 mL 2.5 mg (3 mL) inhalation Q4H PRN 04/10/24 Unknown Rx (0.083 %) solution for nebulization #25 vials prednisone 20 mg tablet 40 mg (2 x 20 mg) PO DAILY asthma 04/10/24 Unknown Rx 7 days #14 tabs Allergy/AdvReac Type Severity Reaction Status Date / Time propranolol (From Inderal [place]) Allergy Shortness Verified 04/10/24 19:52 of breath Family History Mother Asthma Father Diabetes Surgical History No history of previous surgery Social History household members: significant other and children Smoking Status: Former smoker how long ago did patient quit smoking: Quit cigarette tobacco ~ 1 year prior, 1 pk/3-4 days from teen until quit. alcohol intake: current alcohol intake frequency: a few times a month substance use type: does not use ROS ROS ED ROS Narrative Recent URI. Wheezing. Constitutional Constitutional ED: Denies chills or fever(s) Eyes Eyes: Denies blurry vision ENT ENT ED: Denies ear pain Cardiovascular Cardiovascular: Denies chest pain Respiratory/Chest Respiratory/Chest: Reports cough and dyspnea Gastrointestinal Gastrointestinal: Denies abdominal pain, diarrhea, nausea or vomiting Genitourinary Genitourinary ED: Denies dysuria or hematuria Musculoskeletal Musculoskeletal: Denies arthralgias Integumentary Denies abscess Neurologic Neurologic: Denies headache(s) Psychiatric Psychiatric: Denies anxiety Endocrine Endocrinology: Denies cold intolerance Hematologic/Lymphatic Hematologic/Lymphatic: Denies easy bleeding, easy bruising or lymphadenopathy Allergic/Immunologic Allergic/Immunologic ED: Denies mouth swelling, tongue swelling or urticaria EXAM Physical Exam Narrative Exam Narrative: 39-year-old female vital signs are stable except she is tachycardic at 115 respiratory rate 28. H EENT exam unremarkable. Neck nontender. No JVD. No lymphadenopathy. Lungs prolonged expiratory phase bilaterally. Inspiratory and expiratory wheezing bilaterally. More so expiratory. No rales or rhonchi. Equal symmetrical. Heart tachycardic 115 no murmur. Chest wall and ribs nontender. No subcu air. Abdomen soft nontender. Back nontender. Moving all 4 extremities. 5 out of 5 quality control strength. Dorsi plantarflexion intact. Calves are nontender without edema or cords. Neurologically she is awake and alert no focal motor deficits. Const Vital Signs: 04/10/24 19:50 04/10/24 20:34 Temperature 98.6 F Temperature Source Temporal Pulse Rate 115 H 94 Respiratory Rate 28 H 15 Respiratory Pattern Normal Blood Pressure 158/90 H Blood Pressure Mean 112 Pulse Ox 98 Oxygen Delivery Method Room Air Positive well nourished and well developed; Negative for obese, cachectic, contractures or unkempt General Appearance ED: well developed; Negative for unkempt, cachectic, contractures, NAD or pallor Nutritional Appearance: Negative for cachectic or obese HEENT Reports moist mucous membranes atraumatic; Negative for trauma or tenderness Eyes PERRL and EOMs intact bilaterally General Eye ED: Negative for pale conjunctiva or scleral icterus Neck no lymphadenopathy, supple, no meningeal signs and no JVD General: Negative for tenderness Lymph Lymphatic: Negative for other Resp No normal respiratory effort and No clear to auscultation bilaterally Resp Narrative: Prolonged expiratory phase bilaterally Tory both inspiratory and expiratory wheezing. Equal symmetrical. No rales or rhonchi. Auscultation: wheezes Cardio regular rhythm, S1 normal heart sound, S2 normal heart sound and no murmurs; Negative for regular rate Rate: tachycardic GI non-tender, non-distended and no masses Palpation: Negative for tender, guarding or rebound tenderness present Back/Spine no CVA tenderness and normal to inspection Extremity normal to inspection General Extremety ED: Negative for edema or tenderness General Extremity: Negative for edema Neuro oriented x3 and CN's II-XII intact bilaterally Sensorium / Orientation: alert, oriented to person, oriented to place and oriented to time; Negative for orientation impaired, confused, lethargic or stuporous Speech: speech normal Motor Exam: strength 5/5 throughout Psych mental status grossly normal Appearance: Negative for unkempt Attitude: No agitated Mood & Affect: anxious; Negative for depressed Thought Process: normal thought process Skin no wounds and skin turgor normal General Skin Exam: Negative for jaundice or pallor Lesions: no lesions Rashes: no rashes MDM MDM MDM Narrative Medical decision making narrative: 39-year-old female with wheezing and recent URI. Suspect viral syndrome with exacerbation of asthma. She be treated with DuoNeb aerosols plus albuterol aerosols. Oral prednisone. At this time I do not think she needs imaging should be reevaluated after the aerosol treatments and steroids. Repeat exam at 9:40 PM. Patient looks and feels much better. Respiratory rate is improved from 28-15. Pulse ox is 98% on room air. She is in no distress. She is still having mild respiratory wheezing but her peak flow is improved. She is much better expiration. She and I discussed discharge she is comfortable being discharged. She has both a nebulizer at home which I wrote her for albuterol for she also has an inhaler and should be started on prednisone. She was given her first dose in the ER. History & Record Review Discussion w/independent historian: Patient Additional record(s) reviewed:: Prior inpatient record, Prior outpatient record, Prior ED visit and Prior labs Discharge Plan Triage Chief Complaint: Asthma ED Provider: Bill Bowen Dx/Rx/DC Orders Clinical Impression: Asthma, Viral URI Instructions: Asthma Prescriptions: New prednisone 20 mg tablet 40 mg PO DAILY 7 Days Qty: 14 0RF albuterol sulfate 2.5 mg /3 mL (0.083 %) solution for nebulization 2.5 mg inhalation Q4H PRN Qty: 25 0RF Rx Instructions: Use q4 hours and PRN for wheezing No Action (DME) Aerochamber MV Spacer See Rx Instructions .ROUTE .MEDSUPPLY Qty: 1 0RF Rx Instructions: As directed fluticasone propion-salmeterol [Advair Diskus] 500-50 mcg/dose blister with device 1 inh INHALATION BID Qty: 60 0RF albuterol sulfate 1 PUFF inhaler 2 puff inhalation Q4H PRN PRN (Reason: Wheezing) Qty: 8.5 0RF fluticasone propionate 50 mcg/actuation spray,suspension 1 spray INTRANASAL Q12H Qty: 16 0RF cyclobenzaprine 10 mg tablet 10 mg PO Q8H PRN PRN (Reason: back pain) tizanidine 4 mg tablet 4 mg PO Q8H PRN PRN (Reason: muscle spasm) albuterol sulfate [Proventil HFA] 90 mcg/actuation HFA aerosol inhaler 2 inh inhalation Q4H PRN (Reason: shortness of breath or wheezing) Qty: 8.5 1RF prednisone 20 mg tablet 60 mg PO DAILY Qty: 12 0RF albuterol sulfate [Ventolin HFA] 90 mcg/actuation HFA aerosol inhaler 2 puff inhalation Q4H PRN PRN (Reason: Wheezing) Qty: 1 0RF Primary Care Provider: Navdeep Mo Referrals: Navdeep Mo MD [Primary Care Provider] - 3-5 Days if not improving Activity Restrictions/Additional Instructions: Use your inhaler as needed. Your nebulizer as needed. I sent a prescription for more albuterol for your nebulizer to the pharmacy. Prednisone 40 mg a day starting tomorrow for the next 7 days. Follow-up with your doctor if not improving or return if worse. Print Language: [place] Disposition Disposition: Home, Self Care
[2024-04-10] MEDS: Ipratropium/Albuterol Sulfate 3 ML AMPUL.NEB INHALATION (20:32)
[2024-04-10] MEDS: Albuterol 2.5 MG/3 ML VIAL.NEB. INHALATION ×2 (20:32→20:33)
[2024-04-10 20:34] VITALS: PULSE 94; RESP 15
[2024-04-10] MEDS: predniSONE 20 MG Tablet 60 MG PO (20:45)
[2024-04-10 21:55] VITALS: BP 122/65; PULSE 101; RESP 18; TEMP 37.2; O2SAT 99
== END 2024-04-10 21:57 | disposition home or self-care (01) ==
PROVIDERS: Emergency Provider Emergency Medicine; PCP Internal Medicine; Referring Provider Emergency Medicine; Visit Provider Emergency Medicine
DX: J06.9 Acute upper respiratory infection, unspecified (principal); J45.909 Unspecified asthma, uncomplicated; Z87.891 Personal history of nicotine dependence; Z79.52 Long term (current) use of systemic steroids
CPT/HCPCS: 94640; 99282

== ENCOUNTER 2024-04-19 14:37 | Inpatient (IN) | payer SELFPAY ==
[2024-04-19] VITALS (25 sets, daily range): BP systolic 87–174; BP diastolic 68–133; PULSE 76–121; RESP 16–23; TEMP 36.1–38.2; O2SAT 88–100; BMI 31.8; BMI 31.6
[2024-04-19] MEDS: Etomidate 20 MG/10 ML Vial IV (14:45)
[2024-04-19] MEDS: Rocuronium Bromide 50 MG/5 ML Vial 60 MG IV (14:46)
--- NOTE | 2024-04-19 14:50 | EKG12_ITS ---
Test Reason : Blood Pressure : / mmHG Vent. Rate : 094 BPM Atrial Rate : 067 BPM P-R Int : 126 ms QRS Dur : 080 ms QT Int : 382 ms P-R-T Axes : 072 065 081 degrees QTc Int : 477 ms Sinus rhythm with frequent and consecutive Premature ventricular complexes Abnormal ECG Confirmed by Andrade Garzon ([id number]), publishing editor DARRELL GUZMAN ([id number]) on 04/22/2024 11:57:50 AM Referred By: Confirmed By:Andrade Garzon
--- NOTE | 2024-04-19 14:54 | RAD_ITS ---
INDICATION: Dyspnea EXAMINATION/TECHNIQUE: X-RAY - XR Chest 1 View COMPARISON: Prior study dated: 02/02/2024 FINDINGS: LINES/DEVICES: Endotracheal tube with its tip approximately 1 cm proximal to the pao. Nasogastric tube extends below the level of the diaphragm. The sidehole is just below the gastroesophageal junction. LUNGS: No consolidation, edema or effusion. No pneumothorax. MEDIASTINUM AND CARDIOVASCULAR STRUCTURES: Cardiac silhouette not enlarged. Central airways and mediastinal contour are unremarkable. BONES AND SOFT TISSUES: Unremarkable. RAD/Chest 1 View (Portable) IMPRESSION: 1. Endotracheal tube with its tip just above the pao. 2. No active pulmonary disease. Electronically Signed: Christiano Aden MD at 15:03 EDT ,
[2024-04-19] MEDS: Albuterol 2.5 MG/3 ML VIAL.NEB. INHALATION ×5 (14:59→15:56)
--- NOTE | 2024-04-19 15:08 | ED.VIS.DYS ---
HPI History of Present Illness Chief Complaint: Asthma Informant: EMS Onset/Context/Timing Onset: Today Timing: Continuous Quality: Positive for Wheezing Relieved by: Oxygen and Albuterol Narrative Narrative: Patient presents with asthma that became worse today. EMS reports they were called for shortness of breath. EMS states the patient was hypoxic when they arrived. EMS reports patient was having tight wheezing. EMS administered a DuoNeb aerosol with minimal improvement. EMS then gave subcutaneous epinephrine with some improvement. Patient's oxygen saturations improved. However, as the patient was being carried to the ambulance, her saturations diminished again. EMS was using [id number] to help ventilate the patient on the way to the emergency department. Family states patient has been intubated in the past for her asthma. Patient is nonverbal. [facility] Medical History Status asthmaticus Former tobacco use Anxiety Asthma Home Medications ?Medication ?Instructions ?Recorded ?Last Taken ?Type inhalational spacing device #1 ea 08/26/21 Unknown Rx (Aerochamber MV spacer) albuterol sulfate 90 mcg/actuation 2 puff inhalation Q4H PRN PRN 06/19/23 Unknown Rx aerosol inhaler Wheezing #8.5 grams fluticasone 500 mcg-salmeterol 50 1 inh inhalation BID #60 ea 06/19/23 Unknown Rx mcg/dose blistr powdr for inhalation (Advair Diskus) fluticasone propionate 50 1 spray intranasal Q12H #16 grams 06/19/23 Unknown Rx mcg/actuation nasal spray,suspension albuterol sulfate 90 mcg/actuation 2 inh inhalation Q4H PRN shortness 11/27/23 Unknown Rx aerosol inhaler (Proventil HFA) of breath or wheezing #8.5 grams cyclobenzaprine 10 mg tablet 10 mg PO Q8H PRN PRN back pain 11/27/23 Unknown History tizanidine 4 mg tablet 4 mg PO Q8H PRN PRN muscle spasm 11/27/23 Unknown History albuterol sulfate 90 mcg/actuation 2 puff inhalation Q4H PRN PRN 02/02/24 Unknown Rx aerosol inhaler (Ventolin HFA) Wheezing ##1 prednisone 20 mg tablet 60 mg (3 x 20 mg) PO DAILY #12 02/02/24 Unknown Rx TABLETS albuterol sulfate 2.5 mg/3 mL 2.5 mg (3 mL) inhalation Q4H PRN 04/10/24 Unknown Rx (0.083 %) solution for nebulization #25 vials Allergy/AdvReac Type Severity Reaction Status Date / Time propranolol (From Inderal LA) Allergy Shortness Verified 04/19/24 14:38 of breath Family History Mother Asthma Father Diabetes Surgical History No history of previous surgery Social History household members: significant other and children Smoking Status: Former smoker how long ago did patient quit smoking: Quit cigarette tobacco ~ 1 year prior, 1 pk/3-4 days from teen until quit. alcohol intake: current alcohol intake frequency: a few times a month substance use type: does not use ROS ROS ED Review of Systems ROS Unobtainable: due to mental status EXAM Physical Exam Const Vital Signs: 04/19/24 14:38 04/19/24 14:44 04/19/24 14:55 Temperature 97.8 F Temperature Source Temporal Pulse Rate 121 H Respiratory Rate 22 H 16 Respiratory Effort Labored Accessory Muscle Use Respiratory Depth Shallow Respiratory Pattern Tachypnea Blood Pressure 158/105 H Blood Pressure Mean 122 Pulse Ox 99 Oxygen Delivery Method Ambu-Bag Fraction of Inspired Oxygen (FIO2) 30 04/19/24 15:00 04/19/24 15:07 04/19/24 15:23 Temperature Temperature Source Pulse Rate 94 90 Respiratory Rate 16 19 H Respiratory Effort Labored Accessory Muscle Use Respiratory Depth Shallow Respiratory Pattern Normal Tachypnea Blood Pressure 174/133 H Blood Pressure Mean 146 Pulse Ox 98 Oxygen Delivery Method Mechanical Ventilator Mechanical Ventilator Fraction of Inspired Oxygen (FIO2) 04/19/24 15:30 04/19/24 15:30 04/19/24 15:35 Temperature 97 F L Temperature Source Core Pulse Rate 76 Respiratory Rate 16 Respiratory Effort Respiratory Depth Respiratory Pattern Blood Pressure 138/96 H Blood Pressure Mean 110 Pulse Ox 88 93 Oxygen Delivery Method Mechanical Ventilator Mechanical Ventilator Fraction of Inspired Oxygen (FIO2) 50 30 50 04/19/24 15:53 04/19/24 15:53 04/19/24 15:57 Temperature 97.2 F L Temperature Source Core Pulse Rate 102 H 102 H Respiratory Rate 19 H 23 H Respiratory Effort Respiratory Depth Respiratory Pattern Blood Pressure 133/93 H Blood Pressure Mean 106 Pulse Ox 94 Oxygen Delivery Method Mechanical Ventilator Fraction of Inspired Oxygen (FIO2) 60 60 04/19/24 16:00 04/19/24 16:30 04/19/24 16:47 Temperature 97.2 F L 97.4 F L Temperature Source Core Core Pulse Rate 95 118 H 104 H Respiratory Rate 20 H 18 20 H Respiratory Effort Respiratory Depth Respiratory Pattern Blood Pressure 143/82 H 110/70 Blood Pressure Mean 102 83 Pulse Ox 94 94 97 Oxygen Delivery Method Mechanical Ventilator Mechanical Ventilator Fraction of Inspired Oxygen (FIO2) 60 60 60 04/19/24 17:00 04/19/24 17:14 Temperature 98.1 F Temperature Source Pulse Rate 108 H 102 H Respiratory Rate 16 18 Respiratory Effort Respiratory Depth Respiratory Pattern Blood Pressure 97/69 106/78 Blood Pressure Mean 78 87 Pulse Ox 98 99 Oxygen Delivery Method Fraction of Inspired Oxygen (FIO2) Positive well nourished and well developed General Appearance ED: well developed and NAD HEENT Reports moist mucous membranes atraumatic Neck supple Resp Auscultation: wheezes expiratory wheezes and inspiratory wheezes Cardio regular rhythm Rate: tachycardic GI non-distended Palpation: soft Extremity General Extremety ED: Negative for edema General Extremity: Negative for edema MDM MDM MDM Narrative Medical decision making narrative: Differential diagnosis includes status asthmaticus, pneumonia, upper respiratory infection, cardiac dysrhythmia, cardiac ischemia, and respiratory failure. EKG will be obtained to assess for cardiac dysrhythmia and cardiac ischemia. Chest x-ray will be obtained to assess for pneumonia and pneumothorax. CBC will be obtained to assess for leukocytosis and anemia. Basic metabolic profile will be obtained to assess for electrolyte abnormality and renal function. High-sensitivity troponin will be obtained to assess for cardiac ischemia. 2-hour repeat high-sensitivity troponin will be obtained to assess for ongoing cardiac ischemia. Urinalysis will be obtained to assess for urinary tract infection. Sputum culture will be obtained to assess for pneumonia. COVID-19, influenza, and RSV PCR will be obtained to assess for viral illness. Arterial blood gas will be obtained to assess for acid-base status and oxygenation. Lab Data Attestation: I reviewed the patient's lab results. Lab results narrative: CBC was reviewed. There is a slight leukocytosis of 11.4. There is a slight thrombocytosis of 458. The remainder is within normal limits. Basic metabolic profile was reviewed and was within normal limits. High-sensitivity troponin was reviewed and was normal at 35. Urinalysis was reviewed. There is no evidence of urinary tract infection or hematuria. Labs: Laboratory Results - last 24 hr 04/19/24 04/19/24 15:15 15:21 WBC 11.4 H RBC 4.55 Hgb 14.4 Hct 43.3 MCV 95.2 MCH 31.6 MCHC 33.3 RDW Std Deviation 43.3 RDW Coeff of Brittney 12.4 Plt Count 458 H MPV 9.1 Immature Gran % (Auto) 1.000 H Neut % (Auto) 54.4 Lymph % (Auto) 33.1 Coke % (Auto) 7.0 Eos % (Auto) 3.3 Baso % (Auto) 1.2 H Absolute Neuts (auto) 6.2 Absolute Lymphs (auto) 3.78 Nucleated RBC % 0 Sodium 139 Potassium 4.2 Chloride 105 Carbon Dioxide 32.0 Anion Gap 2 L BUN 15 Creatinine 1.03 H Estim Creat Clear Calc 77.65 Est GFR (MDRD) Af Amer 77 Est GFR (MDRD) Non-Af 64 BUN/Creatinine Ratio 14.6 Glucose 153 H Calcium 8.0 L Troponin I High Sens 35 Urine Color Yellow Urine Clarity Sl. Cloudy Urine pH 6.0 Ur Specific [place] 1.030 Urine Protein 100 H Urine Glucose (UA) Normal Urine Ketones Negative Urine Occult Blood 25 H Urine Nitrite Negative Urine Bilirubin Negative Urine Urobilinogen Normal Ur Leukocyte Esterase Negative Urine RBC 0-5 SEEN Urine WBC 0-5 SEEN Ur Squamous Epith Cells 5-10 SEEN Urine Bacteria 2+ Hyaline Casts 0-5 SEEN Urine Mucus 0 SEEN ABG Data Attestation: I personally reviewed and interpreted this ABG as follows: Interpretation: Arterial blood gas was reviewed and showed a pH of 7.32 with a pCO2 of 46.4. pO2 was 67 and bicarb was 23.6. Oxygen saturation 91% on FiO2 of 60% with a tidal volume of 400 and respiratory rate of 16 and PEEP of 5. ABG results: ABG 04/19/24 16:38 Specimen Type ART Sample Site R Radial pH 7.32 L Bicarbonate Actual 23.6 Total CO2 25 Base Excess -3 L O2 Saturation 91 L O2 % 60.0 ABG pCO2 46.4 H ABG pO2 67 L Torsten Test Positive Respiration Rate 16 O2 Delivery Device Adult Vent Vent Mode AC Tidal Volume 400.0 POC PEEP 5 Radiography Chest X-Ray - ED: 1 View, Read by ED Physician, Read by Radiologist, No Acute Disease and - (Endotracheal tube is just above the pao.) Diagnostic Testing: Clinical Impression(s) from Imaging Studies Chest X-Ray 04/19/24 14:54 IMPRESSION: 1. Endotracheal tube with its tip just above the pao. 2. No active pulmonary disease. Electronically Signed: Christiano Aden MD at 15:03 EDT , Portable 1 view chest x-ray was obtained. On my independent interpretation, lung tavarez are clear. There is normal cardiac silhouette. Bony thorax is normal. The endotracheal tube is intact and just above the pao. Radiologist also interpreted the x-ray and agrees. EKG Initial EKG: Attestation: I personally reviewed and interpreted this EKG as follows: Interpretation: Sinus Rhythm (94 with frequent PVCs) Comments: EKG was obtained. On my independent interpretation, it showed a normal sinus rhythm with frequent PVCs with a rate of 94. [place] interval, QRS interval, and QTc intervals were all normal. Vass was normal. There are no acute ST or T wave changes. Prior EKG tracings: available for review Prior: Unchanged (06/18/2023) Treatment and Re-Evaluation :: Patient was not responding. Patient was having tight inspiratory and expiratory wheezing. Patient has been intubated in the past for her asthma. Patient was having difficulty protecting her airway. Because of this, the decision was made to proceed with endotracheal intubation to protect patient's airway. Family is agreeable with this. Patient was given etomidate, 20 mg, and rocuronium, 60 mg. Patient was intubated using a glide scope with a 7.5 ET tube. Patient was intubated to 23 cm at the lip. Patient tolerated procedure well. Patient was placed on propofol and fentanyl drip for sedation. Patient was given continuous albuterol aerosols. After reviewing chest x-ray, the endotracheal tube was withdrawn 2 cm. Patient was feeling better on reevaluation. Patient was more awake and was able to use her hand to communicate. Patient was advised of the need for admission. Patient is agreeable with this. Case was discussed with Dr. Lisa. He will admit the patient to ICU. Patient and family understood and were agreeable with the plan. All questions were answered. Procedures Intubations Intubation Method: orotracheal Intubation Verification: Positive color change and Bilateral breath sounds confirmed Intubation Complications: vomited Critical Care Time Critical Care Time: Yes Critical care time (excluding procedures): 30-74 minutes (36), Including time spent:, Discussing w/Patient &/or Family/Padded Products Inspector Trimmer, Discussing w/Consultants, Arranging Admission or Transfer and Performing Direct Patient Care at Bedside Discharge Plan Dx/Rx/DC Orders Clinical Impression: Respiratory failure, Status asthmaticus, Altered mental status, Dyspnea Disposition Disposition: Acute Care [facility]
[2024-04-19] MEDS: fentaNYL 100 MCG/2 ML Ampul 50 MCG IV (15:16)
[2024-04-19] MEDS: Propofol 10MG/Ml 1,000 MG/100 ML Bottle 5 MG CONT INF (15:17)
[2024-04-19] MEDS: fentaNYL drip 100 ML 2.5 MCG CONT INF (15:18)
[2024-04-19 15:26] LABS: Absolute Lymphocyte Count 3.78 X10^3/uL (0.83-4.51); Absolute Neutrophil Count 6.2 X10^3/uL (2.0-7.7); Basophil# 0.14 X10^3/uL; Basophil% 1.2 % (0-1); Eosinophil# 0.38 X10^3/uL; Eosinophils% 3.3 % (0-5); Hematocrit 43.3 % (37-47); Hemoglobin 14.4 g/dL (12.0-15.0); Lymphocyte # 3.78 X10^3/ul (0.83-4.51); Lymphocyte % 33.1 % (19-41); Mean Corp Hgb Conc 33.3 g/dL (32-36); Mean Corpuscular Hgb 31.6 pg (27.0-32.0); Mean Corpuscular Volume 95.2 fL (81-99); Mean Platelet Vol. 9.1 fl (6.2-12.0); NRBC Flagged by Analyzer 0 % (0-5); Neutrophil # 6.21 X10^3/uL (2.7-7.7); Neutrophil % 54.4 % (47-70); Platelet Count 458 K/mm3 (150-450); RBC Distribution Width CV 12.4 % (11.6-14.6); RBC Distribution Width SD 43.3 fl (35.1-43.9); Red Blood Count 4.55 M/mm3 (4.2-5.4); White Blood Count 11.4 K/mm3 (4.4-11.0)
[2024-04-19 15:33] LABS: Mucous, Urine 0 SEEN /hpf (<or=2+)
[2024-04-19 15:39] LABS: Color, Urine Yellow (Yellow); Glucose, Dipstick Normal (Normal); Ketone-Dipstick Negative (Negative); Leukocyte Esterase-Dipstick Negative /ul (Negative); Nitrite-Dipstick Negative (Negative); Occult Blood-Urine 25 /ul (Negative); Protein-Dipstick 100 mg/dl (Negative); Urine Bilirubin Dipstick Negative (Negative); Urine Clarity Sl. Cloudy (Clear); Urine Urobilinogen Normal (Normal)
[2024-04-19 15:49] LABS: Bacteria 2+ /hpf (None Seen); Hyaline Cast 0-5 SEEN /lpf (0-5); Squamous Epithelial Cells - UA 5-10 SEEN /hpf (5-10); White Blood Cells 0-5 SEEN /hpf (0-5)
[2024-04-19 15:50] LABS: Anion Gap 2 (5-15); BUN 15 mg/dL (7-18); BUN/Creat Ratio 14.6 RATIO (10-20); Chloride 105 mmol/L (98-107); Creatinine, Serum 1.03 mg/dL (0.55-1.02); EST Glomerular Filtration Rate 64 mL/min (>60); Est Glom Filt Rate - Afr Amer 77 mL/min (>60); Estimated Creatinine Clearance 77.65 ml/min; Glucose 153 mg/dL (74-106); Potassium 4.2 mmol/L (3.5-5.1); Sodium Level 139 mmol/L (136-145); Troponin-I HS (w/2H Reflex) 35 pg/mL (3.0-54.0)
[2024-04-19 15:50] LABS: Red Blood Cells-Urine 0-5 SEEN /hpf (0-5)
[2024-04-19 16:44] LABS: Allen Test Positive; Base Excess -3 mmol/L (-2 to +2); Bicarbonate 23.6 mmol/L (22-26); Blood Gas Specimen Type ART; Mode AC; O2 Delivery Device Adult Vent; PEEP 5; PO2 67 mmHG (75-100); RR 16; SITE R Radial; SO2 91 % (95-99); Total Carbon Dioxide 25 mmol/L; pCO2 46.4 mmHg (35-45); pH 7.32 (7.35-7.45)
[2024-04-19] MEDS: Midazolam 2 MG/2 ML Syringe IV (16:51)
[2024-04-19 17:20] LABS: Reflex Troponin-HS? (from REC) Y
--- NOTE | 2024-04-19 17:20 | HP.PCM.HOS_ITS ---
HPI - General General Date of Admission: 04/19/24 Date of Service: 04/19/24 Chief Complaint: Hypoxic 56% on room air, asthma exacerbation HPI Narrative PRAVEEN ONTIVEROS, antonio a 39 F was brought to ED by EMS for increased shortness of breath, labored breathing, tripod breathing, respiratory distress, audible wheezing and turning blue. EMS was called by her son who is 11-year-old and told me in ED that her mother called her and she was struggling with breath, could not speak in sentences, was turning blue therefore she called EMS. As per her boyfriend, she is not doing well for last 3 to 4 days. She has history of asthma since her early 20s. Patient was put on 15 L oxygen nonrebreather and was given a DuoNeb and oxygen came up to 89% from 56%. In ED, patient looked very worse with shortness of breath, hypoxic, tight and wheezing and patient was intubated after not significant improvement after DuoNeb for nebulization. Patient has been intubated in the past for the asthma. She was nonverbal to the ED physician When I saw the patient she is on ventilator on propofol and fentanyl drip. [facility] Medical History Status asthmaticus Former tobacco use Anxiety Asthma Home Medications ?Medication ?Instructions ?Recorded ?Last Taken ?Type inhalational spacing device #1 ea 08/26/21 Unknown Rx (Aerochamber MV spacer) albuterol sulfate 90 mcg/actuation 2 puff inhalation Q4H PRN PRN 06/19/23 Unknown Rx aerosol inhaler Wheezing #8.5 grams fluticasone 500 mcg-salmeterol 50 1 inh inhalation BID #60 ea 06/19/23 Unknown Rx mcg/dose blistr powdr for inhalation (Advair Diskus) fluticasone propionate 50 1 spray intranasal Q12H #16 grams 06/19/23 Unknown Rx mcg/actuation nasal spray,suspension albuterol sulfate 90 mcg/actuation 2 inh inhalation Q4H PRN shortness 11/27/23 Unknown Rx aerosol inhaler (Proventil HFA) of breath or wheezing #8.5 grams cyclobenzaprine 10 mg tablet 10 mg PO Q8H PRN PRN back pain 11/27/23 Unknown History tizanidine 4 mg tablet 4 mg PO Q8H PRN PRN muscle spasm 11/27/23 Unknown History albuterol sulfate 90 mcg/actuation 2 puff inhalation Q4H PRN PRN 02/02/24 Unknown Rx aerosol inhaler (Ventolin HFA) Wheezing ##1 prednisone 20 mg tablet 60 mg (3 x 20 mg) PO DAILY #12 02/02/24 Unknown Rx TABLETS albuterol sulfate 2.5 mg/3 mL 2.5 mg (3 mL) inhalation Q4H PRN 04/10/24 Unknown Rx (0.083 %) solution for nebulization #25 vials Allergy/AdvReac Type Severity Reaction Status Date / Time propranolol (From Inderal [place]) Allergy Shortness Verified 04/19/24 14:38 of breath Family History Mother Asthma Father Diabetes Surgical History No history of previous surgery Social History household members: significant other and children Smoking Status: Former smoker how long ago did patient quit smoking: Quit cigarette tobacco ~ 1 year prior, 1 pk/3-4 days from teen until quit. alcohol intake: current alcohol intake frequency: a few times a month substance use type: does not use ROS Review of Systems ROS Unobtainable: due to encephalopathy and due to endotracheal tube Vital Signs Vital Signs Vital Signs: 04/19/24 14:38 04/19/24 14:44 04/19/24 14:55 Temperature 97.8 F Temperature Source Temporal Pulse Rate 121 H Respiratory Rate 22 H 16 Respiratory Effort Labored Accessory Muscle Use Respiratory Depth Shallow Respiratory Pattern Tachypnea Blood Pressure 158/105 H Blood Pressure Mean 122 Pulse Ox 99 Oxygen Delivery Method Ambu-Bag Fraction of Inspired Oxygen (FIO2) 30 04/19/24 15:00 04/19/24 15:07 04/19/24 15:23 Temperature Temperature Source Pulse Rate 94 90 Respiratory Rate 16 19 H Respiratory Effort Labored Accessory Muscle Use Respiratory Depth Shallow Respiratory Pattern Normal Tachypnea Blood Pressure 174/133 H Blood Pressure Mean 146 Pulse Ox 98 Oxygen Delivery Method Mechanical Ventilator Mechanical Ventilator Fraction of Inspired Oxygen (FIO2) 04/19/24 15:30 04/19/24 15:30 04/19/24 15:35 Temperature 97 F L Temperature Source Core Pulse Rate 76 Respiratory Rate 16 Respiratory Effort Respiratory Depth Respiratory Pattern Blood Pressure 138/96 H Blood Pressure Mean 110 Pulse Ox 88 93 Oxygen Delivery Method Mechanical Ventilator Mechanical Ventilator Fraction of Inspired Oxygen (FIO2) 50 30 50 04/19/24 15:53 04/19/24 15:53 04/19/24 15:57 Temperature 97.2 F L Temperature Source Core Pulse Rate 102 H 102 H Respiratory Rate 19 H 23 H Respiratory Effort Respiratory Depth Respiratory Pattern Blood Pressure 133/93 H Blood Pressure Mean 106 Pulse Ox 94 Oxygen Delivery Method Mechanical Ventilator Fraction of Inspired Oxygen (FIO2) 60 60 04/19/24 16:00 04/19/24 16:30 04/19/24 16:47 Temperature 97.2 F L 97.4 F L Temperature Source Core Core Pulse Rate 95 118 H 104 H Respiratory Rate 20 H 18 20 H Respiratory Effort Respiratory Depth Respiratory Pattern Blood Pressure 143/82 H 110/70 Blood Pressure Mean 102 83 Pulse Ox 94 94 97 Oxygen Delivery Method Mechanical Ventilator Mechanical Ventilator Fraction of Inspired Oxygen (FIO2) 60 60 60 04/19/24 17:00 04/19/24 17:14 04/19/24 17:15 Temperature 98.1 F 98.1 F Temperature Source Core Pulse Rate 108 H 102 H 104 H Respiratory Rate 16 18 18 Respiratory Effort Respiratory Depth Respiratory Pattern Blood Pressure 97/69 106/78 107/73 Blood Pressure Mean 78 87 84 Pulse Ox 98 99 98 Oxygen Delivery Method Mechanical Ventilator Fraction of Inspired Oxygen (FIO2) 60 Weight Weight: 185 lb 3.2 oz Body Mass Index (BMI) 31.8 Physical Exam Narrative General: Intubated, lightly sedated HEENT: Atraumatic, PERRLA, EOMI, Normocephalic Oral: ET and OG Neck: Supple, No JVD, Negative Carotid Bruits Chest wall/Lungs: Air entry diminished in bilateral lung bases. Bilateral wheezing. On vent sup Cardiovascular: Sinus tachycardia, Normal S1, Normal S2, No M/G/R Abdomen: Bowel Sounds Present, Soft, Non Tender, Non-Distended : No renal angle tenderness. No suprapubic tenderness. Extremities: No edema, Capillary Refill Less than 3 Seconds Skin: No rashes, No breakdown Musculoskeletal: No Tenderness to Palpation of Joints or Extremities Neurological: Sedated. Neuroexam unobtainable Psych/Mental Status: Flat Results Lab / Micro Data 04/19/24 15:15 04/19/24 15:15 Labs: Laboratory Results - last 24 hr 04/19/24 15:15: WBC 11.4 H, RBC 4.55, Hgb 14.4, Hct 43.3, MCV 95.2, MCH 31.6, MCHC 33.3, RDW Std Deviation 43.3, RDW Coeff of Brittney 12.4, Plt Count 458 H, MPV 9.1, Immature Gran % (Auto) 1.000 H, Neut % (Auto) 54.4, Lymph % (Auto) 33.1, [place] % (Auto) 7.0, Eos % (Auto) 3.3, Baso % (Auto) 1.2 H, Absolute Neuts (auto) 6.2, Absolute Lymphs (auto) 3.78, Nucleated RBC % 0, Sodium 139, Potassium 4.2, Chloride 105, Carbon Dioxide 32.0, Anion Gap 2 L, BUN 15, Creatinine 1.03 H, Estim Creat Clear Calc 77.65, Est GFR (MDRD) Af Amer 77, Est GFR (MDRD) Non-Af 64, BUN/Creatinine Ratio 14.6, Glucose 153 H, Calcium 8.0 L, Troponin I High Sens 35 04/19/24 15:21: Urine Color Yellow, Urine Clarity Sl. Cloudy, Urine pH 6.0, Ur Specific [place] 1.030, Urine Protein 100 H, Urine Glucose (UA) Normal, Urine Ketones Negative, Urine Occult Blood 25 H, Urine Nitrite Negative, Urine Bilirubin Negative, Urine Urobilinogen Normal, Ur Leukocyte Esterase Negative, Urine RBC 0-5 SEEN, Urine WBC 0-5 SEEN, Ur Squamous Epith Cells 5-10 SEEN, Urine Bacteria 2+, Hyaline Casts 0-5 SEEN, Urine Mucus 0 SEEN Micro: Microbiology 04/19/24 15:21 Mucosa - Nose SARS-CoV-2, Influenza & RSV (PCR) - Final ABG Data ABG results: ABG 04/19/24 16:38 Specimen Type ART Sample Site R Radial pH 7.32 L Bicarbonate Actual 23.6 Total CO2 25 Base Excess -3 L O2 Saturation 91 L O2 % 60.0 ABG pCO2 46.4 H ABG pO2 67 L Torsten Test Positive Respiration Rate 16 O2 Delivery Device Adult Vent Vent Mode AC Tidal Volume 400.0 POC PEEP 5 Imaging Radiology Impression Chest X-Ray 04/19/24 14:54 IMPRESSION: 1. Endotracheal tube with its tip just above the pao. 2. No active pulmonary disease. Electronically Signed: Christiano Aden MD at 15:03 EDT , Assessment & Plan Assessment/Plan (1) Respiratory failure: (2) Altered mental status: PLAN: Plan This is a 31-year-old female is being admitted for acute asthma exacerbation/status asthmaticus 1. Acute hypoxic respiratory failure due to acute asthma exacerbation/status asthmaticus: Patient is being admitted in ICU after intubation and ventilator. Help Desk Support Specialist consult to manage ventilator. Triple PCR for SARS-CoV-2, flu and RSV are negative. ABG shows 7.3 on 60% FiO2/400/5. On light sedation with propofol and fentanyl drip 2. Acute asthma exacerbation/status asthmaticus: Patient is being managed on scheduled bronchodilator, IV Solu-Medrol, Mucinex, incentive spirometry and Pep. Chest x-ray initially reviewed and does not show active pulmonary disease. Doxycycline as anti-inflammatory ordered. Zithromax as drug interaction with propofol 3. Acute encephalopathy, could not explain most likely due to hypoxia/asthma exacerbation: Monitor mental status 4. DVT prophylaxis: Moderate risk as the patient is sick and admitted in ICU. Lovenox 40 mg subcutaneous daily Patient is full code Microbiology Past 72 Hours 04/19/24 15:21 Mucosa - Nose SARS-CoV-2, Influenza & RSV (PCR) - Final Laboratory Results 04/19/24 15:15: WBC 11.4 H, RBC 4.55, Hgb 14.4, Hct 43.3, MCV 95.2, MCH 31.6, MCHC 33.3, RDW Std Deviation 43.3, RDW Coeff of Brittney 12.4, Plt Count 458 H, MPV 9.1, Immature Gran % (Auto) 1.000 H, Neut % (Auto) 54.4, Lymph % (Auto) 33.1, [place] % (Auto) 7.0, Eos % (Auto) 3.3, Baso % (Auto) 1.2 H, Absolute Neuts (auto) 6.2, Absolute Lymphs (auto) 3.78, Nucleated RBC % 0, Sodium 139, Potassium 4.2, Chloride 105, Carbon Dioxide 32.0, Anion Gap 2 L, BUN 15, Creatinine 1.03 H, Estim Creat Clear Calc 77.65, Est GFR (MDRD) Af Amer 77, Est GFR (MDRD) Non-Af 64, BUN/Creatinine Ratio 14.6, Glucose 153 H, Calcium 8.0 L, Troponin I High Sens 35 04/19/24 15:21: Urine Color Yellow, Urine Clarity Sl. Cloudy, Urine pH 6.0, Ur Specific [place] 1.030, Urine Protein 100 H, Urine Glucose (UA) Normal, Urine Ketones Negative, Urine Occult Blood 25 H, Urine Nitrite Negative, Urine Bilirubin Negative, Urine Urobilinogen Normal, Ur Leukocyte Esterase Negative, Urine RBC 0-5 SEEN, Urine WBC 0-5 SEEN, Ur Squamous Epith Cells 5-10 SEEN, Urine Bacteria 2+, Hyaline Casts 0-5 SEEN, Urine Mucus 0 SEEN 04/19/24 16:38: Specimen Type ART, Sample Site R Radial, pH 7.32 L, Bicarbonate Actual 23.6, Total CO2 25, Base Excess -3 L, O2 Saturation 91 L, O2 % 60.0, ABG pCO2 46.4 H, ABG pO2 67 L, Torsten Test Positive, Respiration Rate 16, O2 Delivery Device Adult Vent, Vent Mode AC, Tidal Volume 400.0, POC PEEP 5 Clinical Impression(s) from Imaging Studies Chest X-Ray 04/19/24 14:54 IMPRESSION: 1. Endotracheal tube with its tip just above the pao. 2. No active pulmonary disease. Electronically Signed: Christiano Aden MD at 15:03 EDT , Charges/Coding Visit Charges Inpatient E&M: 61846 Init Hosp L3 Procedures Hospitalists Procedures: 46795 Advncd Care Plan 30 Min
[2024-04-19] MEDS: Propofol 10MG/Ml 1,000 MG/100 ML Bottle 22.7 MG CONT INF ×2 (19:10→23:00)
[2024-04-19] MEDS: Ipratropium/Albuterol Sulfate 3 ML AMPUL.NEB INHALATION ×2 (19:30→22:59)
--- NOTE | 2024-04-19 19:50 | CON.PCM.CC_ITS ---
HPI Consult Data Date of Consult: 04/19/24 HPI Narrative HPI Narrative: PRAVEEN ONTIVEROS, is a 39 F w/ severe asthma on ?chronic prednisone, anxiety, h/o tobacco use who was brought in by EMS for asthma exacerbation. Per boyfriend she apparently has been feeling ill for past few days, though he is unaware of any specific sx associated with this such as congestion, cough, fevers/chills, etc. She has not having any obvious dyspnea the past few days, but then today she apparently had severe acute respiratory distress prompting son to call EMS. She continued to be in respiratory distress with severe wheezing, becoming cyanotic in ED despite neb treatment. Therefore she was intubated and transferred to ICU. She apparently came to the ER several days ago as well for asthma exac and sent home. She has been intubated previously for this as well. Boyfriend believes she is compliant with taking her inhalers daily, and that she is also on chronic prednisone. No other significant medical issues per him. No prior known h/o vocal cord dysfunction/throat closing. She quit smoking abt a yr ago. Only occasional EtOH, no illicits per boyfriend. ROS: Unable to obtain as pt intubated [facility] Medical History Status asthmaticus Former tobacco use Anxiety Asthma Home Medications ?Medication ?Instructions ?Recorded ?Last Taken ?Type inhalational spacing device #1 ea 08/26/21 Unknown Rx (Aerochamber MV spacer) albuterol sulfate 90 mcg/actuation 2 puff inhalation Q4H PRN PRN 06/19/23 Unknown Rx aerosol inhaler Wheezing #8.5 grams fluticasone 500 mcg-salmeterol 50 1 inh inhalation BID #60 ea 06/19/23 Unknown Rx mcg/dose blistr powdr for inhalation (Advair Diskus) fluticasone propionate 50 1 spray intranasal Q12H #16 grams 06/19/23 Unknown Rx mcg/actuation nasal spray,suspension albuterol sulfate 90 mcg/actuation 2 inh inhalation Q4H PRN shortness 11/27/23 Unknown Rx aerosol inhaler (Proventil HFA) of breath or wheezing #8.5 grams cyclobenzaprine 10 mg tablet 10 mg PO Q8H PRN PRN back pain 11/27/23 Unknown History tizanidine 4 mg tablet 4 mg PO Q8H PRN PRN muscle spasm 11/27/23 Unknown History albuterol sulfate 90 mcg/actuation 2 puff inhalation Q4H PRN PRN 02/02/24 Unknown Rx aerosol inhaler (Ventolin HFA) Wheezing ##1 prednisone 20 mg tablet 60 mg (3 x 20 mg) PO DAILY #12 02/02/24 Unknown Rx TABLETS albuterol sulfate 2.5 mg/3 mL 2.5 mg (3 mL) inhalation Q4H PRN 04/10/24 Unknown Rx (0.083 %) solution for nebulization #25 vials Allergy/AdvReac Type Severity Reaction Status Date / Time propranolol (From Inderal [place]) Allergy Shortness Verified 04/19/24 14:38 of breath Family History Mother Asthma Father Diabetes Surgical History No history of previous surgery Social History household members: significant other and children Smoking Status: Former smoker how long ago did patient quit smoking: Quit cigarette tobacco ~ 1 year prior, 1 pk/3-4 days from teen until quit. alcohol intake: current alcohol intake frequency: a few times a month substance use type: does not use Objective Data Objective Data Vital Signs: Vital Signs Last response 3 Temperature 37.7 C H 04/19/24 19:00 Temperature Source Core 04/19/24 19:00 Pulse Rate 98 04/19/24 19:00 Respiratory Rate 18 04/19/24 19:00 Respiratory Effort Labored, Accessory Muscle Use 04/19/24 15:23 Respiratory Depth Shallow 04/19/24 15:23 Respiratory Pattern Tachypnea 04/19/24 15:23 Blood Pressure 114/80 04/19/24 19:00 Blood Pressure Mean 91 04/19/24 19:00 Blood Pressure Source Monitor 04/19/24 19:00 Blood Pressure Position Semi-Fowlers 04/19/24 19:00 Blood Pressure Location Left Arm 04/19/24 19:00 Pulse Ox 100 04/19/24 19:00 Oxygen Delivery Method Mechanical Ventilator 04/19/24 19:00 Fraction of Inspired Oxygen (FIO2) 50 04/19/24 19:00 I&O: I&O Last 24 Hours 3 04/18/24 04/19/24 04/19/24 23:59 11:59 23:59 Intake Total 79.37 / 79.37 Balance 79.37 / 79.37 I&O: Total Stay 3 04/19/24 14:37 thru 04/19/24 19:10 Intake Total 79.37 Balance 79.37 Current Meds Ordered / Administered: Current meds ordered / Administered 3 Generic Name Dose Route Start Last Admin Trade Name Freq PRN Reason Stop Dose Admin Albuterol/Ipratropium 3 ml 04/19/24 18:50 04/19/24 19:30 Ipratropium/Albuterol Sulfate 3 Ml Ampul.Neb INHALATION 3 ml Q4H.RT HELENA Administration Doxycycline Monohydrate 100 mg 04/19/24 22:00 Doxycycline 100 Mg Capsule GT BID HELENA Enoxaparin Sodium 40 mg 04/19/24 18:45 Enoxaparin 40 Mg/0.4 Ml Syringe SC Q24 [facility] Propofol 1,000 mg in 100 mls @ 5.04 mls/hr 04/19/24 14:50 04/19/24 19:10 Diprivan CONT INF 45 mcg/kg/min .Q12H HELENA 22.7 mls/hr Administration Protocol 10 MCG/KG/MIN Fentanyl 100 mls @ 2.5 mls/hr 04/19/24 14:50 04/19/24 16:45 CONT INF 100 mcg/hr UD HELENA 10 mls/hr Titration Protocol 25 MCG/HR Methylprednisolone 40 mg 04/19/24 22:00 Methylprednisolone 40 Mg/Ml Vial IV Q8 [facility] Sodium Chloride 10 - 40 ml 04/19/24 19:08 0.9% Saline Lock 10 Ml Syringe IV UD PRN SALINE FLUSH Lab / Micro Data 04/19/24 15:15 04/19/24 15:15 Labs: Laboratory Results - last 24 hr 04/19/24 15:15: WBC 11.4 H, RBC 4.55, Hgb 14.4, Hct 43.3, MCV 95.2, MCH 31.6, MCHC 33.3, RDW Std Deviation 43.3, RDW Coeff of Brittney 12.4, Plt Count 458 H, MPV 9.1, Immature Gran % (Auto) 1.000 H, Neut % (Auto) 54.4, Lymph % (Auto) 33.1, [place] % (Auto) 7.0, Eos % (Auto) 3.3, Baso % (Auto) 1.2 H, Absolute Neuts (auto) 6.2, Absolute Lymphs (auto) 3.78, Nucleated RBC % 0, Sodium 139, Potassium 4.2, Chloride 105, Carbon Dioxide 32.0, Anion Gap 2 L, BUN 15, Creatinine 1.03 H, Estim Creat Clear Calc 77.65, Est GFR (MDRD) Af Amer 77, Est GFR (MDRD) Non-Af 64, BUN/Creatinine Ratio 14.6, Glucose 153 H, Calcium 8.0 L, Troponin I High Sens 35 04/19/24 15:21: Urine Color Yellow, Urine Clarity Sl. Cloudy, Urine pH 6.0, Ur Specific [place] 1.030, Urine Protein 100 H, Urine Glucose (UA) Normal, Urine Ketones Negative, Urine Occult Blood 25 H, Urine Nitrite Negative, Urine Bilirubin Negative, Urine Urobilinogen Normal, Ur Leukocyte Esterase Negative, Urine RBC 0-5 SEEN, Urine WBC 0-5 SEEN, Ur Squamous Epith Cells 5-10 SEEN, Urine Bacteria 2+, Hyaline Casts 0-5 SEEN, Urine Mucus 0 SEEN Micro: Microbiology 04/19/24 15:21 Mucosa - Nose SARS-CoV-2, Influenza & RSV (PCR) - Final ABG Data ABG results: ABG 04/19/24 16:38 Specimen Type ART Sample Site R Radial pH 7.32 L Bicarbonate Actual 23.6 Total CO2 25 Base Excess -3 L O2 Saturation 91 L O2 % 60.0 ABG pCO2 46.4 H ABG pO2 67 L Torsten Test Positive Respiration Rate 16 O2 Delivery Device Adult Vent Vent Mode AC Tidal Volume 400.0 POC PEEP 5 Imaging Radiology Impression Chest X-Ray 04/19/24 14:54 IMPRESSION: 1. Endotracheal tube with its tip just above the pao. 2. No active pulmonary disease. Electronically Signed: Christiano Aden MD at 15:03 EDT , Assessment and Plan . Assessment and plan: Physical Exam: Gen - NAD, well-developed HEENT - MMM. ETT in place Resp - CTAB. Mechanically ventilated CV - RRR. No m/g/r Abd - Soft, NT, ND Ext - No c/c/e. Skin - No rashes? Neuro - Sedated, intubated I have reviewed the pertinent vital sign, laboratory, and imaging data. ASSESSMENT: # Acute hypoxic and hypercapneic respiratory failure - intubated 04/19 # Asthma exacerbation - pt had reported inspiratory/expiratory wheezing on arrival prior to intubation. However currently without wheezing and Ppeak only 21. May have had rapid improvement in bronchospasm vs VCD/upper airway pathology that improved after intubation? (though not reported to be a difficult intubation per ED notes). Multiple prior asthma exacerbations reported in the past # UTE # Acute encephalopathy # Anxiety PLAN: -Cont VC vent 400/18/5/30%. Follow ABG/CXR. ETT pulled back -Attempt SAT/SBT tmrw if remains stable. Check for cuff leak. Reportedly has been able to follow some commands and even write on pad with sedation wean earlier -IV steroids, nebs -Obtain sputum Cx, procal. Started on empiric doxy per IM -IVF -Check test FEN/GI: NPO Proph DVT/GI: Lovenox, pepcid Updated boyfriend at bedside Critical Care Time: 60 mins The entirety of this encounter was completed via telemedicine
[2024-04-19] MEDS: Enoxaparin 40 MG/0.4 ML Syringe SC (21:15)
[2024-04-19] MEDS: Doxycycline 100 MG CAPSULE GT (21:16)
[2024-04-19 23:16] LABS: Internal QC Validated? YES +Cl - CLEAR BKGD; Pregnancy, Serum, hCG Quali. NEGATIVE Negative
[2024-04-19 23:31] LABS: Procalcitonin 0.25 ng/mL (0.00-0.09)
[2024-04-19 23:34] LABS: Troponin-I HS 1255 pg/mL (3.0-54.0)
[2024-04-19 23:46] LABS: CPK Total, Creatine Kinase 141 U/L (26-192); Triglycerides 68 mg/dL
[2024-04-20] VITALS (34 sets, daily range): BP systolic 89–140; BP diastolic 53–94; PULSE 78–108; RESP 10–24; TEMP 36.2–38.1; O2SAT 91–100
[2024-04-20] MEDS: fentaNYL drip 100 ML 15 MCG CONT INF (00:14)
[2024-04-20] MEDS: Ipratropium/Albuterol Sulfate 3 ML AMPUL.NEB INHALATION ×6 (02:20→22:43)
[2024-04-20] MEDS: Propofol 10MG/Ml 1,000 MG/100 ML Bottle 22.7 MG CONT INF (03:25)
[2024-04-20 05:23] LABS: Absolute Lymphocyte Count 0.26 X10^3/uL (0.83-4.51); Absolute Neutrophil Count 13.1 X10^3/uL (2.0-7.7); Basophil# 0.01 X10^3/uL; Basophil% 0.1 % (0-1); Hematocrit 39.2 % (37-47); Hemoglobin 13.2 g/dL (12.0-15.0); Lymphocyte # 0.26 X10^3/ul (0.83-4.51); Lymphocyte % 1.9 % (19-41); Mean Corp Hgb Conc 33.7 g/dL (32-36); Mean Corpuscular Hgb 31.4 pg (27.0-32.0); Mean Corpuscular Volume 93.1 fL (81-99); Mean Platelet Vol. 9.1 fl (6.2-12.0); Monocyte# 0.17 X10^3/uL; Monocyte% 1.3 % (0-10); NRBC Flagged by Analyzer 0 % (0-5); Neutrophil # 13.12 X10^3/uL (2.7-7.7); Neutrophil % 96.4 % (47-70); POSITIVE DIFFERENTIAL YES; Platelet Count 312 K/mm3 (150-450); RBC Distribution Width CV 12.6 % (11.6-14.6); RBC Distribution Width SD 43.1 fl (35.1-43.9); Red Blood Count 4.21 M/mm3 (4.2-5.4); White Blood Count 13.6 K/mm3 (4.4-11.0)
[2024-04-20 05:29] LABS: Base Excess -2 mmol/L (-2 to +2); Bicarbonate 22.9 mmol/L (22-26); Blood Gas Specimen Type ART; Mode AC; O2 Delivery Device Adult Vent; PEEP 5; PO2 69 mmHG (75-100); RR 18; SITE L Radial; SO2 93 % (95-99); Total Carbon Dioxide 24 mmol/L; pCO2 37.8 mmHg (35-45); pH 7.39 (7.35-7.45)
[2024-04-20 05:38] LABS: Anion Gap 7 (5-15); BUN 12 mg/dL (7-18); Calcium,Total 8.6 mg/dL (8.5-10.1); Chloride 105 mmol/L (98-107); Creatinine, Serum 1.09 mg/dL (0.55-1.02); EST Glomerular Filtration Rate 60 mL/min (>60); Est Glom Filt Rate - Afr Amer 72 mL/min (>60); Estimated Creatinine Clearance 73.38 ml/min; Glucose 172 mg/dL (74-106); Potassium 3.9 mmol/L (3.5-5.1); Sodium Level 136 mmol/L (136-145)
[2024-04-20] MEDS: Propofol 10MG/Ml 1,000 MG/100 ML Bottle 25.2 MG CONT INF (06:37)
[2024-04-20] MEDS: fentaNYL drip 100 ML 17.5 MCG CONT INF (06:39)
[2024-04-20] MEDS: TITRATION PARAMETER CHANGE 1 EACH IV (07:04)
--- NOTE | 2024-04-20 09:46 | PN.CC_ITS ---
Objective Data Objective Data Vital Signs: Vital Signs Last response 3 Temperature 37.6 C H 04/20/24 08:00 Temperature Source Core 04/20/24 08:00 Pulse Rate 88 04/20/24 08:00 Pulse Strength Normal (2+) 04/19/24 22:00 Respiratory Rate 18 04/20/24 08:00 Respiratory Effort Mechanically Ventilated 04/20/24 08:00 Respiratory Depth Normal 04/20/24 08:00 Respiratory Pattern Normal 04/20/24 08:00 Blood Pressure 95/56 L 04/20/24 08:00 Blood Pressure Mean 69 04/20/24 08:00 Blood Pressure Source Monitor 04/20/24 08:00 Blood Pressure Position Semi-Fowlers 04/20/24 08:00 Blood Pressure Location Right Arm 04/20/24 08:00 Pulse Ox 91 04/20/24 08:00 Oxygen Delivery Method Mechanical Ventilator 04/20/24 08:00 Fraction of Inspired Oxygen (FIO2) 30 04/20/24 08:00 I&O: I&O Last 24 Hours 3 04/19/24 04/19/24 04/20/24 11:59 23:59 11:59 Intake Total 243.89 / 274.09 347.30 / 347.30 Output Total 200 / 300 315 / 315 Balance 43.89 / -25.91 32.30 / 32.30 I&O: Total Stay 3 04/19/24 14:37 thru 04/20/24 08:15 Intake Total 591.19 Output Total 515 Balance 76.19 Current Meds Ordered / Administered: Current meds ordered / Administered 3 Generic Name Dose Route Start Last Admin Trade Name Usamaq PRN Reason Stop Dose Admin Albuterol/Ipratropium 3 ml 04/19/24 18:50 04/20/24 07:24 Ipratropium/Albuterol Sulfate 3 Ml Ampul.Neb INHALATION 3 ml Q4H.RT HELENA Administration Doxycycline Monohydrate 100 mg 04/19/24 22:00 04/19/24 21:16 Doxycycline 100 Mg Capsule GT 100 mg BID HELENA Administration Enoxaparin Sodium 40 mg 04/19/24 18:45 04/19/24 21:15 Enoxaparin 40 Mg/0.4 Ml Syringe SC 40 mg Q24 HELENA Administration Famotidine 20 mg 04/19/24 22:00 04/19/24 22:29 Famotidine 20 Mg Tablet PO Not Given BID HELENA Propofol 1,000 mg in 100 mls @ 4.788 mls/hr 04/19/24 14:50 04/20/24 08:15 Diprivan CONT INF 30 mcg/kg/min .Q12H HELENA 14.4 mls/hr Titration Protocol 10 MCG/KG/MIN Fentanyl 100 mls @ 2.5 mls/hr 04/19/24 14:50 04/20/24 08:00 CONT INF 175 mcg/hr UD HELENA 17.5 mls/hr Titration Protocol 25 MCG/HR Influenza Virus Vaccine 45 mcg 04/20/24 10:00 Flu Vacc (6mos Up)/Pf 45 Mcg/0.5 Ml Syringe IM 04/20/24 10:01 .ONCE ONE Methylprednisolone 40 mg 04/19/24 22:00 04/20/24 05:53 Methylprednisolone 40 Mg/Ml Vial IV 40 mg Q8 HELENA Administration Sodium Chloride 10 - 40 ml 04/19/24 19:08 0.9% Saline Lock 10 Ml Syringe IV UD PRN SALINE FLUSH Lab / Micro Data 04/20/24 05:10 04/20/24 05:10 Labs: Laboratory Results - last 24 hr 04/19/24 15:15: WBC 11.4 H, RBC 4.55, Hgb 14.4, Hct 43.3, MCV 95.2, MCH 31.6, MCHC 33.3, RDW Std Deviation 43.3, RDW Coeff of Brittney 12.4, Plt Count 458 H, MPV 9.1, Immature Gran % (Auto) 1.000 H, Neut % (Auto) 54.4, Lymph % (Auto) 33.1, [place] % (Auto) 7.0, Eos % (Auto) 3.3, Baso % (Auto) 1.2 H, Absolute Neuts (auto) 6.2, Absolute Lymphs (auto) 3.78, Nucleated RBC % 0, Sodium 139, Potassium 4.2, Chloride 105, Carbon Dioxide 32.0, Anion Gap 2 L, BUN 15, Creatinine 1.03 H, Estim Creat Clear Calc 77.65, Est GFR (MDRD) Af Amer 77, Est GFR (MDRD) Non-Af 64, BUN/Creatinine Ratio 14.6, Glucose 153 H, Calcium 8.0 L, Troponin I High Sens 35 04/19/24 15:21: Urine Color Yellow, Urine Clarity Sl. Cloudy, Urine pH 6.0, Ur Specific [place] 1.030, Urine Protein 100 H, Urine Glucose (UA) Normal, Urine Ketones Negative, Urine Occult Blood 25 H, Urine Nitrite Negative, Urine Bilirubin Negative, Urine Urobilinogen Normal, Ur Leukocyte Esterase Negative, Urine RBC 0-5 SEEN, Urine WBC 0-5 SEEN, Ur Squamous Epith Cells 5-10 SEEN, Urine Bacteria 2+, Hyaline Casts 0-5 SEEN, Urine Mucus 0 SEEN 04/19/24 22:50: Total Creatine Kinase 141, Troponin I High Sens 1255 H*, Triglycerides 68, Procalcitonin 0.25 H, TSH 2.100, Serum , Qual NEGATIVE 04/20/24 05:10: WBC 13.6 H, RBC 4.21, Hgb 13.2, Hct 39.2, MCV 93.1, MCH 31.4, MCHC 33.7, RDW Std Deviation 43.1, RDW Coeff of Brittney 12.6, Plt Count 312, MPV 9.1, Immature Gran % (Auto) 0.300, Neut % (Auto) 96.4 H, Lymph % (Auto) 1.9 L, [place] % (Auto) 1.3, Eos % (Auto) 0.0, Baso % (Auto) 0.1, Absolute Neuts (auto) 13.1 H, Absolute Lymphs (auto) 0.26 L, Nucleated RBC % 0, Sodium 136, Potassium 3.9, Chloride 105, Carbon Dioxide 24.0, Anion Gap 7, BUN 12, Creatinine 1.09 H, Estim Creat Clear Calc 73.38, Est GFR (MDRD) Af Amer 72, Est GFR (MDRD) Non-Af 60, BUN/Creatinine Ratio 11.0, Glucose 172 H, Calcium 8.6 Micro: Microbiology 04/19/24 19:07 Mucosa - Nasopharyngeal Respiratory Panel (PCR) - Final 04/19/24 15:21 Mucosa - Nose SARS-CoV-2, Influenza & RSV (PCR) - Final ABG Data ABG results: ABG 04/19/24 04/20/24 16:38 05:25 Specimen Type ART ART Sample Site R Radial L Radial pH 7.32 L 7.39 Bicarbonate Actual 23.6 22.9 Total CO2 25 24 Base Excess -3 L -2 O2 Saturation 91 L 93 L O2 % 60.0 25.0 ABG pCO2 46.4 H 37.8 ABG pO2 67 L 69 L [place] Test Positive N/A Respiration Rate 16 18 O2 Delivery Device Adult Vent Adult Vent Vent Mode AC AC Tidal Volume 400.0 400.0 POC PEEP 5 5 Imaging Radiology Impression Chest X-Ray 04/19/24 14:54 IMPRESSION: 1. Endotracheal tube with its tip just above the pao. 2. No active pulmonary disease. Electronically Signed: Christiano Aden MD at 15:03 EDT , Assessment and Plan . Assessment and plan: Critical Care Time: The entirety of this encounter was done via Telemedicine Subjective Subjective Pt seen and examined. Intubated but currently wide awake off sedation and completing SBT. On 11/04 PS/CPAP she is getting volumes >1500 cc and is indicating for ETT to be removed. Physical Exam: Gen - NAD, well-developed HEENT - MMM. ETT in place Resp - CTAB. Mechanically ventilated CV - RRR. No m/g/r Abd - Soft, NT, ND Ext - No c/c/e. Skin - No rashes? Neuro - awake, following all commands, no deficits I have reviewed the pertinent vital sign, laboratory, and imaging data. ASSESSMENT: #Acute hypoxic and hypercapneic respiratory failure - intubated 04/19 #Asthma exacerbation - pt had reported inspiratory/expiratory wheezing on arrival prior to intubation. However currently without wheezing and Ppeak only 21. May have had rapid improvement in bronchospasm vs VCD/upper airway pathology that improved after intubation? (though not reported to be a difficult intubation per ED notes). Multiple prior asthma exacerbations reported in the past #UTE #Acute encephalopathy #Anxiety PLAN: -On MV; settings reviewed/adjusted --> tolerating SAT/SBT; no evidence to suggest significant bronchoconstriction at this time; extubate -IV steroids, nebs -Obtain sputum Cx, procal. Started on empiric doxy per IM -IVF -Check test --> neg FEN/GI: NPO Proph DVT/GI: Lovenox, pepcid Critical Care Time: 50 min The entirety of this encounter was completed via telemedicine
--- NOTE | 2024-04-20 10:04 | PCM.PN.HOSP ---
Subjective Subjective Intubated and sedated, no issues overnight. Will attempt to wean and extubate this morning Objective Data Objective Data Vital Signs: Vital Signs Temp Pulse Resp BP Pulse Ox O2 Del Method FiO2 99.7 F H 108 H 24 H 95/56 L 98 Mechanical Ventilator 30 04/20/24 08:00 04/20/24 09:04 04/20/24 09:04 04/20/24 08:00 04/20/24 09:04 04/20/24 08:00 04/20/24 09:04 Oxygen Delivery Method Mechanical Ventilator Weight: 175 lb 14.862 oz Body Mass Index (BMI) 30.0 Intake & Output: Intake and Output for Last 24 Hours 04/19/24 04/20/24 04/21/24 03:59 03:59 03:59 Intake Total 396.39 / 424.63 194.80 / 194.80 Output Total 340 / 390 175 / 175 Balance 56.39 / 34.63 19.80 / 19.80 Lab / Micro Data 04/20/24 05:10 04/20/24 05:10 Labs: Laboratory Results - last 24 hr 04/19/24 15:15: WBC 11.4 H, RBC 4.55, Hgb 14.4, Hct 43.3, MCV 95.2, MCH 31.6, MCHC 33.3, RDW Std Deviation 43.3, RDW Coeff of Brittney 12.4, Plt Count 458 H, MPV 9.1, Immature Gran % (Auto) 1.000 H, Neut % (Auto) 54.4, Lymph % (Auto) 33.1, [place] % (Auto) 7.0, Eos % (Auto) 3.3, Baso % (Auto) 1.2 H, Absolute Neuts (auto) 6.2, Absolute Lymphs (auto) 3.78, Nucleated RBC % 0, Sodium 139, Potassium 4.2, Chloride 105, Carbon Dioxide 32.0, Anion Gap 2 L, BUN 15, Creatinine 1.03 H, Estim Creat Clear Calc 77.65, Est GFR (MDRD) Af Amer 77, Est GFR (MDRD) Non-Af 64, BUN/Creatinine Ratio 14.6, Glucose 153 H, Calcium 8.0 L, Troponin I High Sens 35 04/19/24 15:21: Urine Color Yellow, Urine Clarity Sl. Cloudy, Urine pH 6.0, Ur Specific [place] 1.030, Urine Protein 100 H, Urine Glucose (UA) Normal, Urine Ketones Negative, Urine Occult Blood 25 H, Urine Nitrite Negative, Urine Bilirubin Negative, Urine Urobilinogen Normal, Ur Leukocyte Esterase Negative, Urine RBC 0-5 SEEN, Urine WBC 0-5 SEEN, Ur Squamous Epith Cells 5-10 SEEN, Urine Bacteria 2+, Hyaline Casts 0-5 SEEN, Urine Mucus 0 SEEN 04/19/24 22:50: Total Creatine Kinase 141, Troponin I High Sens 1255 H*, Triglycerides 68, Procalcitonin 0.25 H, TSH 2.100, Serum , Qual NEGATIVE 04/20/24 05:10: WBC 13.6 H, RBC 4.21, Hgb 13.2, Hct 39.2, MCV 93.1, MCH 31.4, MCHC 33.7, RDW Std Deviation 43.1, RDW Coeff of Brittney 12.6, Plt Count 312, MPV 9.1, Immature Gran % (Auto) 0.300, Neut % (Auto) 96.4 H, Lymph % (Auto) 1.9 L, [place] % (Auto) 1.3, Eos % (Auto) 0.0, Baso % (Auto) 0.1, Absolute Neuts (auto) 13.1 H, Absolute Lymphs (auto) 0.26 L, Nucleated RBC % 0, Sodium 136, Potassium 3.9, Chloride 105, Carbon Dioxide 24.0, Anion Gap 7, BUN 12, Creatinine 1.09 H, Estim Creat Clear Calc 73.38, Est GFR (MDRD) Af Amer 72, Est GFR (MDRD) Non-Af 60, BUN/Creatinine Ratio 11.0, Glucose 172 H, Calcium 8.6 Micro: Microbiology 04/19/24 19:07 Mucosa - Nasopharyngeal Respiratory Panel (PCR) - Final 04/19/24 15:21 Mucosa - Nose SARS-CoV-2, Influenza & RSV (PCR) - Final ABG Data ABG results: ABG 04/19/24 04/20/24 16:38 05:25 Specimen Type ART ART Sample Site R Radial L Radial pH 7.32 L 7.39 Bicarbonate Actual 23.6 22.9 Total CO2 25 24 Base Excess -3 L -2 O2 Saturation 91 L 93 L O2 % 60.0 25.0 ABG pCO2 46.4 H 37.8 ABG pO2 67 L 69 L Torsten Test Positive N/A Respiration Rate 16 18 O2 Delivery Device Adult Vent Adult Vent Vent Mode AC AC Tidal Volume 400.0 400.0 POC PEEP 5 5 Radiography Diagnostic Testing: Radiology Impression Chest X-Ray 04/19/24 14:54 IMPRESSION: 1. Endotracheal tube with its tip just above the pao. 2. No active pulmonary disease. Electronically Signed: Christiano Aden MD at 15:03 EDT , Physical Exam Const General Appearance: intubated and patient mechanically ventilated HEENT normocephalic Eyes PERRL and conjunctivae normal Neck supple and no JVD Resp normal respiratory effort, no retractions and no use of accessory muscles Auscultation: Negative for crackles, rales, rhonchi or wheezes Cardio regular rate, regular rhythm, S1 normal heart sound, S2 normal heart sound and no murmurs GI soft to palpation and non-distended; Negative for hepatosplenomegaly Extremity no clubbing, cyanosis or edema Skin no rashes or lesions noted Neuro Sensorium / Orientation: sedated on vent Psych Appearance: intubated Assessment & Plan Assessment/Plan (1) Respiratory failure: (2) Altered mental status: PLAN: Plan 1. Acute hypoxic respiratory failure secondary to status asthmaticus ? She was intubated in the ER ? Appreciate dynamic balancer assistance, will attempt to extubate today if possible ? Continue with inhalers as well as steroids DVT: Lovenox Charges/Coding Visit Charges Inpatient E&M: 96956 Subs Hosp L2
--- NOTE | 2024-04-20 11:43 | CASEMGMT ---
IGGY KIM Assessment: Face to Face with pt for initial transition planning/care coordination assessment. IGGY KIM introduced self and role at [facility], pt voices understanding and consents to assessment. Pt is A&O x4 and answers all questions appropriately at this time. Pt lying in bed on NC oxygen in no distress. Pt extubated this morning. Care providers, pharmacy, and demographics verified/updated. Admitting Dx: acute hypoxic resp failure Strata Score: NA PCP:[facility]pe Specialists:Denies Preferred Pharmacy:[facility] Insurance: Self Pay- notified Prescription Benefit: no LNOK: Marv Echeverria, tarsha Living Arrangements: Pt lives with friend and son in a two story home with 4 steps to enter. Pt reports she is I in ADLs and denies concerns at home. Transportation: Pt drives self and denies concerns with transportation. DME:pox, nebulizer HHC/SNF: Denies hx of Pt states no concerns with going home at time of dc. Pt states no further concerns/needs. CM to follow. Advised pt to ask CM if any further question/concerns/needs arise, voices understanding. Pt Goal: Home Plan: Home Dolly PARKINSON CM
[2024-04-20] MEDS: Doxycycline 100 MG CAPSULE GT (12:14)
[2024-04-20] MEDS: Enoxaparin 40 MG/0.4 ML Syringe SC (12:15)
[2024-04-20] MEDS: Famotidine 20 MG Tablet PO ×2 (12:15→21:26)
--- NOTE | 2024-04-20 12:37 | CASEMGMT ---
Social Work- SW met with pt to discuss self pay status. Pt reports insurance through her employer would take her entire paycheck and pt reports that she has high prescription costs. Pt reports that she has qualified through marketplace, but never gets a crd/gets connected. Referral to [facility] for assistance. SW provided HCAP form, as well as printed information on [place] [employer], [employer].gov, medicaid, [employer], [employer] card, & prescription resources and applications. No other needs reported at this time. JACK Myers
[2024-04-20] MEDS: 0.9% Saline Lock 10 ML Syringe IV (15:40)
[2024-04-20] MEDS: Ondansetron 4 MG/2 ML Vial IV (15:40)
[2024-04-20] MEDS: Doxycycline 100 MG CAPSULE PO (21:26)
[2024-04-21] VITALS (21 sets, daily range): BP systolic 98–152; BP diastolic 59–90; PULSE 69–118; RESP 12–24; TEMP 36.5–36.8; O2SAT 94–100; BMI 29.7
[2024-04-21] MEDS: Ipratropium/Albuterol Sulfate 3 ML AMPUL.NEB INHALATION ×3 (03:45→15:37)
[2024-04-21 06:14] LABS: Absolute Lymphocyte Count 0.48 X10^3/uL (0.83-4.51); Basophil# 0.01 X10^3/uL; Basophil% 0.1 % (0-1); Hematocrit 35.2 % (37-47); Hemoglobin 11.9 g/dL (12.0-15.0); Lymphocyte # 0.48 X10^3/ul (0.83-4.51); Mean Corp Hgb Conc 33.8 g/dL (32-36); Mean Corpuscular Hgb 31.6 pg (27.0-32.0); Mean Corpuscular Volume 93.4 fL (81-99); Mean Platelet Vol. 9.4 fl (6.2-12.0); Monocyte# 0.61 X10^3/uL; NRBC Flagged by Analyzer 0 % (0-5); Neutrophil % 90.5 % (47-70); POSITIVE DIFFERENTIAL YES; Platelet Count 307 K/mm3 (150-450); RBC Distribution Width CV 12.5 % (11.6-14.6); RBC Distribution Width SD 43.4 fl (35.1-43.9); Red Blood Count 3.77 M/mm3 (4.2-5.4); White Blood Count 12.2 K/mm3 (4.4-11.0)
[2024-04-21 06:27] LABS: Anion Gap 4 (5-15); BUN 8 mg/dL (7-18); BUN/Creat Ratio 9.5 RATIO (10-20); Calcium,Total 8.7 mg/dL (8.5-10.1); Chloride 108 mmol/L (98-107); Creatinine, Serum 0.84 mg/dL (0.55-1.02); EST Glomerular Filtration Rate 80 mL/min (>60); Est Glom Filt Rate - Afr Amer 97 mL/min (>60); Estimated Creatinine Clearance 92.29 ml/min; Glucose 162 mg/dL (74-106); Potassium 3.9 mmol/L (3.5-5.1); Sodium Level 138 mmol/L (136-145)
[2024-04-21 08:07] LABS: CRP, High Sensitivity 5.04 mg/L (0.00-3.00)
[2024-04-21] MEDS: Doxycycline 100 MG CAPSULE PO (09:22)
[2024-04-21] MEDS: Enoxaparin 40 MG/0.4 ML Syringe SC (09:23)
[2024-04-21] MEDS: Famotidine 20 MG Tablet PO (09:23)
--- NOTE | 2024-04-21 11:42 | PCM.PN.TICU ---
Objective Data Objective Data Vital Signs: Vital Signs Last response Temperature 36.8 C 04/21/24 10:00 Temperature Source Temporal 04/21/24 10:00 Pulse Rate 92 04/21/24 11:09 Pulse Strength Normal (2+) 04/21/24 08:33 Respiratory Rate 15 04/21/24 11:09 Respiratory Effort Normal 04/21/24 08:00 Respiratory Depth Normal 04/21/24 08:00 Respiratory Pattern Normal 04/21/24 11:09 Blood Pressure 125/82 H 04/21/24 11:00 Blood Pressure Mean 96 04/21/24 11:00 Blood Pressure Source Monitor 04/21/24 11:00 Blood Pressure Position Semi-Fowlers 04/21/24 11:00 Blood Pressure Location Left Arm 04/21/24 11:00 Pulse Ox 96 04/21/24 11:00 Oxygen Delivery Method Room Air 04/21/24 11:00 Oxygen Flow Rate (L/min) 2 04/20/24 18:00 Fraction of Inspired Oxygen (FIO2) 30 04/20/24 10:00 I&O: I&O Last 24 Hours 04/20/24 04/20/24 04/21/24 11:59 23:59 11:59 Intake Total 375.60 / 815.60 440 / 815.60 840 / 840 Output Total 315 / 465 150 / 465 0 / 0 Balance 60.60 / 350.60 290 / 350.60 840 / 840 I&O: Total Stay 04/19/24 14:37 thru 04/21/24 09:55 Intake Total 1899.49 Output Total 665 Balance 1234.49 Current Meds Ordered / Administered: Current meds ordered / Administered Generic Name Dose Route Start Last Admin Trade Name Freq PRN Reason Stop Dose Admin Albuterol/Ipratropium 3 ml 04/19/24 18:50 04/21/24 11:09 Ipratropium/Albuterol Sulfate 3 Ml Ampul.Neb INHALATION 3 ml Q4H.RT HELENA Administration Doxycycline Monohydrate 100 mg 04/20/24 22:00 04/21/24 09:22 Doxycycline 100 Mg Capsule PO 100 mg BID HELENA Administration Enoxaparin Sodium 40 mg 04/19/24 18:45 04/21/24 09:23 Enoxaparin 40 Mg/0.4 Ml Syringe SC 40 mg Q24 HELENA Administration Famotidine 20 mg 04/19/24 22:00 04/21/24 09:23 Famotidine 20 Mg Tablet PO 20 mg BID HELENA Administration Propofol 1,000 mg in 100 mls @ 4.788 mls/hr 04/19/24 14:50 04/20/24 10:45 Diprivan CONT INF Infused .Q12H HELENA Titration Protocol 10 MCG/KG/MIN Fentanyl 100 mls @ 2.5 mls/hr 04/19/24 14:50 04/20/24 10:45 CONT INF Infused UD HELENA Titration Protocol 25 MCG/HR Methylprednisolone 40 mg 04/19/24 22:00 04/21/24 05:55 Methylprednisolone 40 Mg/Ml Vial IV 40 mg Q8 HELENA Administration Ondansetron HCl 4 mg 04/20/24 14:55 04/20/24 15:40 Ondansetron 4 Mg/2 Ml Vial IV 4 mg Q6H PRN PRN Administration NAUSEA Sodium Chloride 10 - 40 ml 04/19/24 19:08 04/20/24 15:40 0.9% Saline Lock 10 Ml Syringe IV 10 ml UD PRN Administration SALINE FLUSH Lab / Micro Data 04/21/24 06:00 04/21/24 06:00 Labs: Laboratory Results - last 24 hr 04/19/24 22:50: C-React Prot High Sens 5.04 H 04/21/24 06:00: WBC 12.2 H, RBC 3.77 L, Hgb 11.9 L, Hct 35.2 L, MCV 93.4, MCH 31.6, MCHC 33.8, RDW Std Deviation 43.4, RDW Coeff of Brittney 12.5, Plt Count 307, MPV 9.4, Immature Gran % (Auto) 0.400, Neut % (Auto) 90.5 H, Lymph % (Auto) 4.0 L, [place] % (Auto) 5.0, Eos % (Auto) 0.0, Baso % (Auto) 0.1, Absolute Neuts (auto) 11.0 H, Absolute Lymphs (auto) 0.48 L, Nucleated RBC % 0, Sodium 138, Potassium 3.9, Chloride 108 H, Carbon Dioxide 26.0, Anion Gap 4 L, BUN 8, Creatinine 0.84, Estim Creat Clear Calc 92.29, Est GFR (MDRD) Af Amer 97, Est GFR (MDRD) Non-Af 80, BUN/Creatinine Ratio 9.5 L, Glucose 162 H, Calcium 8.7 Micro: Microbiology 04/19/24 15:16 Sputum, Induced/Lukens Respiratory Culture - Final Mixed normal respiratory colin. No Streptococcus pneumoniae, beta-hemolytic Streptococcus or Staphylococcus aureus isolated. Assessment and Plan . Assessment and plan: Critical Care Time: The entirety of this encounter was done via Telemedicine Subjective Subjective Pt seen and examined. Extubated yesterday and doing well. Physical Exam: Gen - NAD, well-developed HEENT - MMM. neck supple, no palp mass Resp - CTAB. nl chest wall CV - RRR. No m/g/r Abd - Soft, NT, ND Ext - No c/c/e. Skin - No rashes? Neuro - awake & oriented x3; no gross motor/sensory deficits I have reviewed the pertinent vital sign, laboratory, and imaging data. ASSESSMENT: #Acute hypoxic and hypercapneic respiratory failure - intubated 04/19, extubated 04/20 #Asthma exacerbation - pt had reported inspiratory/expiratory wheezing on arrival prior to intubation. However currently without wheezing and Ppeak only 21. May have had rapid improvement in bronchospasm vs VCD/upper airway pathology that improved after intubation? (though not reported to be a difficult intubation per ED notes). Multiple prior asthma exacerbations reported in the past and has been on ventilator now twice #UTE #Acute encephalopathy #Anxiety -IV steroids, nebs --> wean to BID methylpred today and transition to PO pred tomorrow with 7d course -Obtain sputum Cx, procal. 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 along with several environmental allergens on prior testing but unfortunately has 2 cats at home; she uses around the clock nebulizer and albuterol inhalers and has a hard time being compliant with Advair due to cost; she sees PCP through [facility] patient assistance program but does not have attending ambulatory care --> due to patient's severe persistent symptoms including needing to be on ventilator now twice for severe Sx she needs to try to get established at [facility] pulm clinic ideally with asthma expert; unfortunately there are no inhalers on [employer] $4 Rx list but would ask SW/JUDY with assistance to try to get her coupon for ICS/LABA inhaler such as Breo or equivalent if possible for short term support, alternatively nebulzed budesonice & arfomoterol BID can be Rx and hopefully affordable for her; I counseled her on risk factor mitigation including getting rid of home cats but understandably this is difficult; would also have her take daily Zyrtec or similar med and Singulair if she can afford; she would likely be ideal candidate for biologic add-on therapy if she can establish with outpatient pulm care Pt can be downgraded. Will sign off but available as needed. The entirety of this encounter was completed via telemedicine
--- NOTE | 2024-04-21 15:45 | PCM.DC ---
Discharge Instructions Diet Discharge Diet: No restrictions Activity Discharge Activity: Return to Normal Activity Dressing / Incision Call your doctor if you observe: Fever of 101 or Higher, Shortness of breath, Dizziness, Fainting spells, Swelling in the ankles, Chest pain and Increased palpitations (irregular heartbeat) Follow Up Care Test Results: Test results from this visit will be discussed in further detail at your follow-up appointment, if applicable. Discharge Plan Admission Admit Date/Time: 04/19/24 17:15 Attending Provider: Daniel Reed Primary Care Provider: Navdeep Mo Consulting Providers: Miguel Ángel Lisa Instructions Additional Instructions / Restrictions: If you are able to fill the budesonide and the arformoterol prescription then please discontinue your Advair until you follow-up with pulmonology in the [facility] Discharge Orders/Prescriptions Prescriptions: New budesonide 0.25 mg/2 mL suspension for nebulization 0.25 mg inhalation BID 30 Days Qty: 120 0RF arformoterol 15 mcg/2 mL solution for nebulization 2 ml inhalation BID 30 Days Qty: 120 0RF prednisone 10 mg tablet 10 mg PO DAILY Qty: 32 0RF Rx Instructions: Take 4 tablets daily for 3 days then 3 tablets daily for 3 days then 2 tablets daily for 3 days then 1 tablet daily for 3 days then half tablet daily for 4 days Continued (DME) Aerochamber MV Spacer See Rx Instructions .ROUTE .MEDSUPPLY Qty: 1 0RF Rx Instructions: As directed fluticasone propion-salmeterol [Advair Diskus] 500-50 mcg/dose blister with device 1 inh INHALATION BID Qty: 60 0RF albuterol sulfate 1 PUFF inhaler 2 puff inhalation Q4H PRN PRN (Reason: Wheezing) Qty: 8.5 0RF fluticasone propionate 50 mcg/actuation spray,suspension 1 spray INTRANASAL Q12H Qty: 16 0RF albuterol sulfate [Proventil HFA] 90 mcg/actuation HFA aerosol inhaler 2 inh inhalation Q4H PRN (Reason: shortness of breath or wheezing) Qty: 8.5 1RF albuterol sulfate 2.5 mg /3 mL (0.083 %) solution for nebulization 2.5 mg inhalation Q4H PRN Qty: 25 0RF Rx Instructions: Use q4 hours and PRN for wheezing albuterol sulfate [Ventolin HFA] 90 mcg/actuation HFA aerosol inhaler 2 puff inhalation Q4H PRN PRN (Reason: Wheezing) Qty: 1 0RF Discontinued prednisone 20 mg tablet 60 mg PO DAILY Qty: 12 0RF Referrals / Follow Up: Navdeep Mo MD [Primary Care Provider] - Within 1 Week Disposition Disposition (needs filled in before D/C Order can be placed): Home, Self Care
--- NOTE | 2024-04-21 17:32 | DS.PCM_ITS ---
Providers Date of Admission: 04/19/24 Primary Care Physician: Dr. Navdeep Mo MD Reason For Visit: ACUTE HYPOXIC RESP FAILURE Diagnosis Discharge Diagnosis (1) Respiratory failure: Status: Acute Code(s): J96.90 - Respiratory failure, unspecified, unspecified whether with hypoxia or hypercapnia (2) Altered mental status: Status: Acute Code(s): R41.82 - Altered mental status, unspecified Medications at Discharge Home Medications inhalational spacing device (Aerochamber MV spacer) #1 ea 08/26/21 albuterol sulfate 90 mcg/actuation aerosol inhaler 2 puff inhalation Q4H PRN PRN Wheezing #8.5 grams 06/19/23 fluticasone 500 mcg-salmeterol 50 mcg/dose blistr powdr for inhalation (Advair Diskus) 1 inh inhalation BID Asthma #60 ea 06/19/23 fluticasone propionate 50 mcg/actuation nasal spray,suspension 1 spray intranasal Q12H Allergies #16 grams 06/19/23 albuterol sulfate 90 mcg/actuation aerosol inhaler (Proventil HFA) 2 inh inhalation Q4H PRN shortness of breath or wheezing #8.5 grams 11/27/23 albuterol sulfate 90 mcg/actuation aerosol inhaler (Ventolin HFA) 2 puff inhalation Q4H PRN PRN Wheezing ##1 02/02/24 albuterol sulfate 2.5 mg/3 mL (0.083 %) solution for nebulization 2.5 mg (3 mL) inhalation Q4H PRN #25 vials 04/10/24 arformoterol 15 mcg/2 mL solution for nebulization 2 ml inhalation BID 30 days #120 mL 04/21/24 budesonide 0.25 mg/2 mL suspension for nebulization 0.25 mg (2 mL) inhalation BID 30 days #120 mL 04/21/24 prednisone 10 mg tablet 10 mg PO DAILY #32 tabs 04/21/24 Hospital Course Operations None Procedures Intubation Summary of Care Provided Minutes Spent on Discharge: 37 Hospital Course: Per HPI: antonio BRADY a 39 F was brought to ED by EMS for increased shortness of breath, labored breathing, tripod breathing, respiratory distress, audible wheezing and turning blue. EMS was called by her son who is 11-year-old and told me in ED that her mother called her and she was struggling with breath, could not speak in sentences, was turning blue therefore she called EMS. As per her boyfriend, she is not doing well for last 3 to 4 days. She has history of asthma since her early 20s. Patient was put on 15 L oxygen nonrebreather and was given a DuoNeb and oxygen came up to 89% from 56%. In ED, patient looked very worse with shortness of breath, hypoxic, tight and wheezing and patient was intubated after not significant improvement after DuoNeb for nebulization. Patient has been intubated in the past for the asthma. She was nonverbal to the ED physician When I saw the patient she is on ventilator on propofol and fentanyl drip. Hospital Course: 1. Acute hypoxic respiratory failure secondary to status asthmaticus?3 9-year-old female with a history of uncontrolled asthma presents to the hospital with significant shortness of breath and tripod breathing. She had audible wheezing and was intubated in the ER. She was started on steroids and breathing treatments and was able to be extubated 24 hours later. She states that she has difficulty affording the Advair and so instead of taking it twice a day she takes it once a day which is also led to significant albuterol usage. Today she was breathing much better and was not requiring any oxygen at rest or with ambulation. I discussed with her the possibility for discharge today she expressed understanding of the risk benefits of going home and would like to go home today. Her sputum culture is negative with mixed colin. She does state that she has a nebulizer so I gave her prescription for budesonide and arformoterol to hopefully be able to replace the Advair at a cheaper cost at the expense of having to use the nebulizer. I also recommended she follow-up with a senior security architect in the [facility] is asked what her preference was. It is possible that based on her rapid improvement she could have had a bronchospasm. Will continue with the steroid taper on discharge. Physical Exam Narrative General: Alert, Oriented x3, Cooperative, No apparent distress HEENT: Atraumatic, PERRLA, EOMI, Normocephalic Oral: Moist Mucosa Neck: Supple, No JVD Lungs: Normal air movement, scattered rhonchi, No wheeze, No rales Cardiovascular: Regular rate, Regular Rhythm, Normal S1, Normal S2, No murmurs Abdomen: Soft, Non Tender, Non-Distended, No Hepato-splenomegaly Extremities: No edema, Capillary Refill Less than 3 Seconds Skin: No rashes, No breakdown Musculoskeletal: No Tenderness to Palpation of Joints or Extremities Neurological: No focal neurological deficits, Motor Exam 5/5 strength throughout, Sensory exam intact to light touch and pain Psych/Mental Status: Normal Affect, Appropriate Weight / BMI Weight Weight: 173 lb 15.115 oz Body Mass Index (BMI) 29.7 ABG / Lab / Microbiology Data 04/21/24 06:00 04/21/24 06:00 Laboratory: Laboratory Results - last 24 hr 04/19/24 22:50: C-React Prot High Sens 5.04 H 04/21/24 06:00: WBC 12.2 H, RBC 3.77 L, Hgb 11.9 L, Hct 35.2 L, MCV 93.4, MCH 31.6, MCHC 33.8, RDW Std Deviation 43.4, RDW Coeff of Brittney 12.5, Plt Count 307, MPV 9.4, Immature Gran % (Auto) 0.400, Neut % (Auto) 90.5 H, Lymph % (Auto) 4.0 L, [place] % (Auto) 5.0, Eos % (Auto) 0.0, Baso % (Auto) 0.1, Absolute Neuts (auto) 11.0 H, Absolute Lymphs (auto) 0.48 L, Nucleated RBC % 0, Sodium 138, Potassium 3.9, Chloride 108 H, Carbon Dioxide 26.0, Anion Gap 4 L, BUN 8, Creatinine 0.84, Estim Creat Clear Calc 92.29, Est GFR (MDRD) Af Amer 97, Est GFR (MDRD) Non-Af 80, BUN/Creatinine Ratio 9.5 L, Glucose 162 H, Calcium 8.7 Microbiology: Microbiology 04/19/24 15:16 Sputum, Induced/Lukens Gram Stain - Final 04/19/24 15:16 Sputum, Induced/Lukens Respiratory Culture - Final Mixed normal respiratory colin. No Streptococcus pneumoniae, beta-hemolytic Streptococcus or Staphylococcus aureus isolated. 04/19/24 19:07 Mucosa - Nasopharyngeal Respiratory Panel (PCR) - Final 04/19/24 15:21 Mucosa - Nose SARS-CoV-2, Influenza & RSV (PCR) - Final D/C Instructions Discharge Diet: No restrictions Call your doctor if you observe: Fever of 101 or Higher, Shortness of breath, Dizziness, Fainting spells, Swelling in the ankles, Chest pain and Increased palpitations (irregular heartbeat) Meaningful Use Info Meaningful Use Meaningful Use Diagnoses (Choose all that apply): None applicable Ischemic Stroke Statin Dosing Therapy Reference: STATIN DOSE THERAPY REFERENCE: * Patients > 75 years receive moderate or high dose statin therapy. * Patients 75 years or YOUNGER should receive HIGH intensity statin dose unless contraindicated. You will be required to document reason for non-treatment if statin daily dose does not meet guidelines. HIGH DOSE STATIN THERAPY DAILY Atorvastatin > than or = to 40 mg Rosuvastatin > than or = to 20 mg Amlodipine + Atorvastatin > than or = to 2.5/40 mg Ezetimibe + Simvastatin 10/80 mg Simvastatin 80mg Discharge Plan Admission Admit Date/Time: 04/19/24 17:15 Attending Provider: Daniel Reed Primary Care Provider: Navdeep Mo Consulting Providers: Miguel Ángel Lisa Instructions Additional Instructions / Restrictions: If you are able to fill the budesonide and the arformoterol prescription then please discontinue your Advair until you follow-up with pulmonology in the [facility] Discharge Orders/Prescriptions Prescriptions: New budesonide 0.25 mg/2 mL suspension for nebulization 0.25 mg inhalation BID 30 Days Qty: 120 0RF arformoterol 15 mcg/2 mL solution for nebulization 2 ml inhalation BID 30 Days Qty: 120 0RF prednisone 10 mg tablet 10 mg PO DAILY Qty: 32 0RF Rx Instructions: Take 4 tablets daily for 3 days then 3 tablets daily for 3 days then 2 tablets daily for 3 days then 1 tablet daily for 3 days then half tablet daily for 4 days Continued (DME) Aerochamber MV Spacer See Rx Instructions .ROUTE .MEDSUPPLY Qty: 1 0RF Rx Instructions: As directed fluticasone propion-salmeterol [Advair Diskus] 500-50 mcg/dose blister with device 1 inh INHALATION BID Qty: 60 0RF albuterol sulfate 1 PUFF inhaler 2 puff inhalation Q4H PRN PRN (Reason: Wheezing) Qty: 8.5 0RF fluticasone propionate 50 mcg/actuation spray,suspension 1 spray INTRANASAL Q12H Qty: 16 0RF albuterol sulfate [Proventil HFA] 90 mcg/actuation HFA aerosol inhaler 2 inh inhalation Q4H PRN (Reason: shortness of breath or wheezing) Qty: 8.5 1RF albuterol sulfate 2.5 mg /3 mL (0.083 %) solution for nebulization 2.5 mg inhalation Q4H PRN Qty: 25 0RF Rx Instructions: Use q4 hours and PRN for wheezing albuterol sulfate [Ventolin HFA] 90 mcg/actuation HFA aerosol inhaler 2 puff inhalation Q4H PRN PRN (Reason: Wheezing) Qty: 1 0RF Discontinued prednisone 20 mg tablet 60 mg PO DAILY Qty: 12 0RF Referrals / Follow Up: Navdeep Mo MD [Primary Care Provider] - Within 1 Week Disposition Disposition (needs filled in before D/C Order can be placed): Home, Self Care Charges/Coding Visit Charges Inpatient E&M: 90114 Disch Hosp >30min
--- NOTE | 2024-04-23 09:50 | CASEMGMT ---
IGGY KIM: CoverMyMeds prior auth request received on 04/22/24 for pt's prescription for budesonide for nebulizer. Prior auth process completed on 04/22/24 and auth denied on 04/23/24 due to failure of other treatment modalities. Noted during pt's stay, pt stated she did not have insurance coverage and was self pay. Noted pt had used prescription assist program during last visit 06/2023. Prior auth request was from [facility] and response does not state pt is inactive. This IGGY CM attempted to contact pt via phone on 04/22 and 04/23/24 but voicemail identified as being for someone else and was full. Attempted to reach pt's listed friend but his voicemail box was also full. 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 Alber Barrett RN [facility]
== END 2024-04-21 16:50 | disposition home or self-care (01) | DRG 208 ==
LOC: ED 15:27 → ICU 17:19
PROVIDERS: Family Medicine; Internal Medicine Pulmonary Disease; Admitting Provider Internal Medicine; Emergency Provider Emergency Medicine; PCP Internal Medicine; Visit Provider Family Medicine
DX: J45.52 Severe persistent asthma with status asthmaticus (principal); J96.02 Acute respiratory failure with hypercapnia; J96.01 Acute respiratory failure with hypoxia; G93.40 Encephalopathy, unspecified; N17.9 Acute kidney failure, unspecified; F41.9 Anxiety disorder, unspecified; Z79.51 Long term (current) use of inhaled steroids; Z87.891 Personal history of nicotine dependence
CPT/HCPCS: 31500; 31720; 36600; 51702; 71045; 80048; 81001; 82550; 82803; 84145; 84443; 84478; 84484; 84703; 85025; 86141; 87070; 87205; 87631; 87633; 93005; 94002; 94003; 94640; 94668; 97162; 99252; 99285; 99406; A4216; G0463; J2405

== ENCOUNTER 2025-03-01 09:06 | Emergency (ER) | payer SELFPAY ==
[2025-03-01 09:07] VITALS: BP 136/78; PULSE 88; RESP 16; TEMP 36.8; O2SAT 100; BMI 32.1
--- NOTE | 2025-03-01 09:22 | EDS_ITS ---
HPI History of Present Illness Chief Complaint: Eye Problem Detail of Chief Complaint: Left eyelid swelling. Discomfort. Informant: patient Onset/Context/Timing Location: Left Eye Onset: Days Context: Gradual Onset Timing: Continuous Current Severity: Moderate Maximum Severity: Moderate Associated Symptoms Associated Symptoms - Eyes: Eyelid swelling and Pain; Negative for Burning, Crusting, Drainage, Foreign body sensation, Itching, Matting, Photophobia or Redness History of injury: No Visual correction: Glasses Narrative Narrative: 40-year-old female complaining of left upper eyelid swelling and discomfort. Denies any trauma. Went to an urgent care they sent her to the emergency department. She wears glasses no contacts. As a child she had tear duct surgery but no other eye surgery. Denies any recent injury or foreign body sensation. Tearing but no other drainage. Prior similar symptoms: No Recent Illness/Hospitalization: No PFSH PFS Medical History Status asthmaticus Former tobacco use Anxiety Asthma Home Medications ?Medication ?Instructions ?Recorded ?Last Taken ?Type inhalational spacing device #1 ea 08/26/21 Unknown Rx (Aerochamber MV spacer) albuterol sulfate 90 mcg/actuation 2 puff inhalation Q 4H PRN PRN 06/19/23 Unknown Rx aerosol inhaler Wheezing #8.5 grams fluticasone 500 mcg-salmeterol 50 1 inh inhalation BID Asthma #60 ea 06/19/23 04/18/24 Rx mcg/dose blistr powdr for inhalation (Advair Diskus) fluticasone propionate 50 1 spray intranasal Q12H Brennon rgies 06/19/23 04/18/24 Rx mcg/actuation nasal #16 grams spray,suspension albuterol sulfate 90 mcg/actuation 2 inh inhalation Q4 H PRN shortness 11/27/23 Unknown Rx aerosol inhaler (Proventil HFA) of breath or wheezing #8.5 grams albuterol sulfate 90 mcg/actuation 2 puff inhalation Q 4H PRN PRN 02/02/24 Unknown Rx aerosol inhaler (Ventolin HFA) Wheezing ##1 albuterol sulfate 2.5 mg/3 mL 2.5 mg (3 mL) inhalation Q4H PRN 04/10/24 Unknown Rx (0.083 %) solution for nebulization #25 vials arformoterol 15 mcg/2 mL solution 2 ml inhalation BID 30 days #120 mL 04/21/24 Unknown Rx for nebulization budesonide 0.25 mg/2 mL suspension 0.25 mg (2 mL) inha lation BID 30 04/21/24 Unknown Rx for nebulization days #120 mL budesonide 1 mg/2 mL suspension 1 mg inhalation DAILY 03/01/25 Unknown History for nebulization cephalexin 500 mg capsule 500 mg PO TID 7 days #21 cap s 03/01/25 Unknown Rx dupilumab 300 mg/2 mL subcutaneous 300 mg subcut .q2we eks 03/01/25 Unknown History syringe (Dupixent) ipratropium 0.5 mg-albuterol 3 mg 3 ml continuous nebu lization Q4H 03/01/25 Unknown History (2.5 mg base)/3 mL nebulization PRN PRN wheezing soln montelukast 10 mg tablet 10 mg PO QHS 03/01/25 Unknow n History Allergy/AdvReac Type Severity Reaction Status Date / Time propranolol (From Inderal [place]) Allergy Shortness Verified 04/19/24 14:38 of breath Family History Mother Asthma Father Diabetes Surgical History No history of previous surgery Social History household members: significant other and children Smoking Status: Former smoker how long ago did patient quit smoking: Quit cigarette tobacco ~ 1 year prior, 1 pk/3-4 days from teen until quit. alcohol intake: current alcohol intake frequency: a few times a month substance use type: does not use ROS ROS ED ROS Narrative Denies recent illness. Constitutional Constitutional ED: Denies chills or fever(s) Eyes Eyes: Denies blurry vision ENT ENT ED: Denies ear pain Cardiovascular Cardiovascular: Denies chest pain Respiratory/Chest Respiratory/Chest: Denies cough or dyspnea Gastrointestinal Gastrointestinal: Denies abdominal pain Genitourinary Genitourinary ED: Denies dysuria or hematuria Musculoskeletal Musculoskeletal: Denies arthralgias Integumentary Denies abscess or Abrasions Neurologic Neurologic: Denies headache(s) Endocrine Endocrinology: Denies polydipsia Hematologic/Lymphatic Hematologic/Lymphatic: Denies easy bleeding, easy bruising or lymphadenopathy Allergic/Immunologic Allergic/Immunologic ED: Denies mouth swelling, tongue swelling or urticaria EXAM Physical Exam Narrative Exam Narrative: Well-appearing 40-year-old female. Vital signs stable afebrile. Took her glasses off. Pupils round react to light. Extra motions are intact. Left upper eyelid is swollen there is a stye midportion of the left upper eyelid slightly medial. It is not on the edge of the eyelid. There is no way to drain at this time. The eye itself is normal in appearance pupils round react to light. No injection. No purulent discharge. Extra motions are intact. There is no discharge. There is mild tearing. The left upper lid is red that may all be from the stye or could be early cellulitis also. No preauricular lymphadenopathy. No corneal abrasion. No foreign body. Neck nontender no lymphadenopathy. Lungs clear. Heart regular rhythm. Abdomen soft. Moving all 4 extremities. Patient is awake and alert. Answering questions following commands. Const Vital Signs: 03/01/25 09:07 Temperature 98.3 F Temperature Source Oral Pulse Rate 88 Respiratory Rate 16 Blood Pressure 136/78 H Blood Pressure Mean 97 Pulse Ox 100 Oxygen Delivery Method Room Air Positive well nourished and well developed; Negative for cachectic, contractures or unkempt General Appearance ED: well developed and NAD; Negative for unkempt, cachectic or contractures Nutritional Appearance: Negative for cachectic HEENT HEENT Narrative: Left upper eyelid swelling. Redness. Stye. Possible early cellulitis. atraumatic Eyes Eyes Narrative: Pupils round reactive to light. Not injected. Mild tearing. No foreign body no corneal abrasion. Neck no lymphadenopathy, supple and no JVD Resp normal respiratory effort, no retractions, no use of accessory muscles and clear to auscultation bilaterally Cardio regular rate, regular rhythm, S1 normal heart sound, S2 normal heart sound and no murmurs GI non-tender, non-distended and no masses Back/Spine no CVA tenderness Extremity normal to inspection Neuro oriented x3 and CN's II-XII intact bilaterally Sensorium / Orientation: alert, oriented to person, oriented to place and oriented to time Motor Exam: strength 5/5 throughout Psych Appearance: Negative for unkempt Skin no wounds Lesions: no lesions Rashes: no rashes Image ED - Eye Diagram: 2 1. Left upper eyelid swelling. Stye. Redness. MDM MDM MDM Narrative Medical decision making narrative: 40-year-old female has a stye left upper eyelid. Warm compresses. Motrin Tylenol for pain. She does have significant redness to the left upper eyelid she be placed on Keflex for the possibility of an early cellulitis but this is most likely secondary to the stye. Follow-up with ophthalmology as needed. There is nothing to drain at this time. Fluorescein stain left eye and used bluelight there is no corneal abrasion, foreign body or ulcer. This all seems to be secondary to a stye. She will be discharged home. Warm compresses. Motrin. Keflex for the chance that there could be an early cellulitis to the left upper lid. History & Record Review Discussion w/independent historian: Patient Discharge Plan Triage Chief Complaint: Eye Problem ED Provider: Bill Bowen Dx/Rx/DC Orders Clinical Impression: Hordeolum of left upper eyelid Instructions: ED Stye Prescriptions: New cephalexin 500 mg capsule 500 mg PO TID 7 Days Qty: 21 0RF No Action (DME) Aerochamber MV Spacer See Rx Instructions .ROUTE .MEDSUPPLY Qty: 1 0RF Rx Instructions: As directed fluticasone propion-salmeterol [Advair Diskus] 500-50 mcg/dose blister with device 1 inh INHALATION BID Qty: 60 0RF albuterol sulfate 1 PUFF inhaler 2 puff inhalation Q4H PRN PRN (Reason: Wheezing) Qty: 8.5 0RF fluticasone propionate 50 mcg/actuation spray,suspension 1 spray INTRANASAL Q12H Qty: 16 0RF albuterol sulfate [Proventil HFA] 90 mcg/actuation HFA aerosol inhaler 2 inh inhalation Q4H PRN (Reason: shortness of breath or wheezing) Qty: 8.5 1RF albuterol sulfate 2.5 mg /3 mL (0.083 %) solution for nebulization 2.5 mg inhalation Q4H PRN Qty: 25 0RF Rx Instructions: Use q4 hours and PRN for wheezing budesonide 0.25 mg/2 mL suspension for nebulization 0.25 mg inhalation BID 30 Days Qty: 120 0RF arformoterol 15 mcg/2 mL solution for nebulization 2 ml inhalation BID 30 Days Qty: 120 0RF ipratropium-albuterol 0.5 mg-3 mg(2.5 mg base)/3 mL solution for nebulization 3 ml continuous nebulization Q4H PRN PRN (Reason: wheezing) montelukast 10 mg tablet 10 mg PO QHS budesonide 1 mg/2 mL suspension for nebulization 1 mg inhalation DAILY Dupixent Syringe 300 mg/2 mL syringe 300 mg SUBCUT .[id number] albuterol sulfate [Ventolin HFA] 90 mcg/actuation HFA aerosol inhaler 2 puff inhalation Q4H PRN PRN (Reason: Wheezing) Qty: 1 0RF Primary Care Provider: Navdeep Mo Referrals: Abdoul Montoya MD [Med Staff - Active Staff] - 1 Week if not improving Navdeep Mo MD [Primary Care Provider] - Activity Restrictions/Additional Instructions: Warm compresses to your left eye to help resolve the stye. It may come to ahead and rupture. It may just go away. Motrin and Tylenol for pain. Follow-up with the eye doctor if not improving. I started you on antibiotic Keflex in case there is an early infection in your left upper eyelid. It is probably most likely all due to the stye. Print Language: Telugu Disposition Disposition: Home, Self Care
--- OUTSIDE RECORDS SUMMARY | 2025-03-01 09:37 | XMS RPT_ITS | CCD ---
Author Organization [facility] Care Team Providers Care Purification Operator Helper Name Role Phone [facility] Unavailable Unavaila ble [facility]AS[facility], [facility] Unavailable Unavaila ble CEASAR, POMVANESSA [facility] Unavailable Unavaila ble Chepe LIVINGSTON, Navdeep Gaspar Primary Care Provider Chepe LIVINGSTON, Navdeep Gaspar Primary Care Provider Chepe LIVINGSTON, Navdeep Gaspar Primary Care Provider [phone] Dr. Navdeep Mo Primary Care Provider Dr. Saji Noonan Referring Provider Dr. Saji Noonan Emergency Provider Dr. Sara Celestin Admit Provider Dr. Sara Celestin Other Provider Dr. You Fox Other Provider Dr. Tc Swan Other Provider Dr. Maximo Beasley Other Provider Unavailable Dr. Chacorta Frost Other Provider Unavailab Clemons ORDAINED MINISTER, ORDAINED MINISTER-C Vani Other Provider Dr. Gregorio Mosley Attending Provider Unavailable Dr. Gregorio Mosley Other Provider Unavailable Dr. Navdeep Mo Primary Care Provider Dr. Saji Noonan Referring Provider Dr. Saji Noonan Emergency Provider Dr. Sara Celestin Admit Provider Dr. Sara Celestin Other Provider Dr. You Fox Attending Provider Dr. You Fox Other Provider Dr. Tc Swan Other Provider Dr. Maximo Beasley Other Provider Unavailable Pancgera, Dr. Whatley Other Provider Unavailab clotilde Méndez ORDAINED MINISTER, ORDAINED MINISTER-C Vani Other Provider Dr. Gregorio Mosley Other Provider Unavailable SELF Referring Unavailable PREBISH, ELI Attending Unavailable MO, IMANI Primary Care Unavailable MO, IMANI Primary Care Unavailable PREBISH, ELI Attending Unavailable MO, IMANI Primary Care Unavailable Mo , Imani Primary Care Provider [phone] Bill Bowen Attending Unavailable Mo, Navdeep Primary Care Unavailable Mick Martinez Attending Unavailable Mo, Navdeep Primary Care Unavailable Bill Bowen Referring Unavailable Bill Bowen Attending Unavailable Mo, Navdeep Primary Care Unavailable Saji Noonan Referring Unavailable Gregorio Mosley Attending Unavailable Sara Celestin Admitting Unavailable Sara Celestin Consulting Unavailable Mo, Navdeep Primary Care Unavailable You Fox Consulting Unavailable Tc Swan Consulting Unavailable Almaira, Maximo Consulting Unavailable Pancgera, Chacorta Consulting Unavailable Dev ROBLERO, Vani Consulting Unavailable Daniel Reed Attending Unavailable Sloan, Miguel Ángel Admitting Unavailable Mo, Navdeep Primary Care Unavailable Sloan, Miguel Ángel Consulting Unavailable Amilcar Byrnes Attending Unavailable Mo, Navdeep Primary Care Unavailable Saji Noonan Referring Unavailable Gregorio Mosley Attending Unavailable Sara Celestin Consulting Unavailable Mo, Navdeep Primary Care Unavailable Sara Celestin Admitting Unavailable You Fox Consulting Unavailable Tc Swan Consulting Unavailable Gale, Maximo Consulting Unavailable Margot, Chacorta Consulting Unavailable Vani Méndez NP Consulting Unavailable Gregorio Mosley Consulting Unavailable You Fox Attending Unavailable Sloan, Miguel Ángel Admitting Unavailable Mo, Navdeep Primary Care Unavailable Sloan, Miguel Ángel Attending Unavailable Sloan, Miguel Ángel Consulting Unavailable Daniel Reed Attending Unavailable Daniel Reed Consulting Unavailable Sara Celestin Attending Unavailable Stu SUPERVISOR RIVETING.DOCUMENTATION CLERK, Lidia M Unavailable LONA, NARIMAN A Attending Unavailable MO, IMANI Primary Care Unavailable LONA, NARIMAN A Referring Unavailable NILSON WADSWORTH Attending Unavailable MO, IMANI Primary Care Unavailable LONA, NARIMAN A Referring Unavailable MO, IMANI Primary Care Unavailable MO, IMANI Primary Care Unavailable MO, IMANI Primary Care Unavailable MO, IMANI Referring Unavailable LONA, NARIMAN A Attending Unavailable MO, IMANI Primary Care Unavailable MO, IMANI Attending Unavailable MO, IMANI Referring Unavailable LONA, NARIMAN A Referring Unavailable MO, IMANI Primary Care Unavailable LONA, NARIMAN A Referring Unavailable MO, IMANI Primary Care Unavailable LONA, NARIMAN A Referring Unavailable MO, IMANI Primary Care Unavailable MO, IMANI Primary Care Unavailable LONA, NARIMAN A Referring Unavailable Allergies Allergy Classification Reported Allergen(s) Allergy Type Date of Onset Reaction(s) Facility (15 sources) Environmental allergies [Other] Propensity to adverse reactions 9 Other: See Comments [facility] (20 sources) Propranolol; Translations: [PROPRANOLOL] Drug Allergy 2 Shortness of Breath [facility] (1 source) Propranolol Drug Allergy 4 [facility] Rep[facility] (16 sources) Seasonal allergy; Translations: [SEASONAL ALLERGIES] Allergy to substance 4 Unknown [facility] Medications Current Medications Medication Drug Class(es) Dates Sig (Normalized) Sig (Original) acetaminophen 325 mg / HYDROcodone bitartrate 5 mg oral tablet (1 source) Opioid Agonist Start: 01-23-2022 take 1 tablet by mouth every six hours Hydrocodone-Aceta minophen Active 1 TABLET PO EVERY 6 HOURS 10 January 23, 2022 Start: 01-23-2022 take 1 tablet by veriot th every six hours Hydrocodone-Acetaminophen Active 1 TABLE T PO EVERY 6 HOURS 10 January 23, 2022 [id number] actuat albuterol 0.09 mg/actuat metered dose inhaler (20 sources) beta2-Adrenergic Agonist Start: 04-24-2024 End: 06-09-2025 take 2 puff(s) by inhalation every four hours as needed for wheezing and wheezing, then take 2 puff(s) by inhalation every four hours as needed for wheezing and wheezing albuterol HFA (VENTOLIN HFA) 90 mcg/actuation inhaler Inhale 2 Puffs as instructed every 4 hours as needed for wheezing/shortness of breath. inhale 2 puffs by mouth as directed every 4 hours if needed for wheezing OR SHORTNESS OF BREATH 1 Each 11 05/22/2024 06/09/2025 Active Start: 01-06-2024 End: 04-04-2024 take 2 puff(s) by inhalation every six hours as needed for wheezing albuterol HFA (PROVENTIL HFA, VENTOLIN HFA) 90 mcg/actuation inhaler Indications: Mild intermittent asthma without complication Inhale 2 Puffs as instructed every 6 hours as needed for wheezing/shortness of breath. 1 Each 01/06/2024 04/04/2024 Discontinued Start: 10-27-2023 End: 04-04-2024 take 2 puff(s) by inhalation every six hours as needed albuterol HFA (PROAIR HFA) 90 mcg/actuation inhaler Inhale 2 Puffs as instructed every 6 hours as needed. 8.5 g 10/27/2023 04/04/2024 Discontinued Start: 07-13-2023 End: 04-24-2024 take 2 puff(s) by mouth every four hours for wheezing albuterol HFA (VENTOLIN HFA) 90 mcg/actuation inhaler Indications: Moderate persistent asthma without complication inhale 2 puffs by mouth as directed every 4 hours if needed for wheezing OR SHORTNESS OF BREATH 18 g 1 04/04/2024 04/24/2024 Discontinued Start: 01-24-2023 take 2 puff(s) by mo uth every four hours for wheezing albuterol HFA (VENTOLIN HFA) 90 mcg/actuation inhaler Indications: Moderate persistent asthma without complication inhale 2 puffs by mouth as directed every 4 hours if needed for wheezing OR SHORTNESS OF BREATH 18 g 5 01/24/2023 Active Start: 11-02-2021 End: 03-04-2022 take 2 puff(s) by mouth every four hours for wheezing albuterol HFA (VENTOLIN HFA) 90 mcg/actuation inhaler Indications: Moderate persistent asthma without complication inhale 2 puffs by mouth as directed every 4 hours if needed for wheezing OR SHORTNESS OF BREATH 18 g 5 03/04/2022 Active Start: 02-04-2021 End: 11-01-2021 take 2 puff(s) by mouth every four hours for wheezing albuterol HFA (VENTOLIN HFA) 90 mcg/actuation inhaler Indications: Moderate persistent asthma without complication inhale 2 puffs by mouth as directed every 4 hours if needed for wheezing OR SHORTNESS OF BREATH 54 g 3 02/04/2021 11/01/2021 Discontinued Start: 01-16-2020 End: 06-13-2024 take 1 dose by inhalation every four hours for wheezing albuterol (PROVENTIL) 2.5 mg /3 mL (0.083 %) nebulizer solution Indications: Moderate persistent asthma without complication inhale contents of 1 vial in nebulizer every 4 hours if needed for wheezing or shortness of breath 150 mL 04/04/2024 06/13/2024 Discontinued (Other) Start: 07-06-2019 End: 06-19-2023 take 1 puff(s) by inhalation every four hours as needed Albuterol Sulfate Active 2 PUFF INHALATION EVERY 4 HOURS NEEDED 8.5 June 19, 2023 10:38am Comment on above: inhale 2 puffs by mo [facility] as directed every 4 hours if needed for wheezing OR SHORTNESS OF BREATH inhale contents of 1 vial in nebulizer every 4 hours if needed for wheezing or shortness of breath albuterol 0.833 mg/ml / ipratropium bromide 0.167 mg/ml inhalation solution (20 sources) Anticholinergic, beta2-Adrenergic Agonist Start: 04-24-20 End: 05-24-20 take 3 mL by inhalation every four hours as needed ipratropium-albuter ol (DUONEB) 0.5 mg-3 mg(2.5 mg base)/3 mL nebu Inhale 3 mL as instructed every 4 hours as needed for wheezing/shortness of breath. 360 mL 11 04/24/2024 05/24/2025 Active amoxicillin 500 mg / clavulanate 125 mg oral tablet (15 sources) Penicillin-class Antibacterial Start: 06-11-20 take 1 tablet by mouth twice daily amoxicillin-clavula jhonatan potassium (AUGMENTIN) 500-125 mg per tablet Take 1 tablet by mouth two times a day. 06/11/2024 Active arformoterol 0.0075 mg/ml inhalation solution (20 sources) beta2-Adrenergic Agonist Start: 04-24-20 End: 06-09-20 take 2 mL by inhalation every twelve hours arformoterol (BROVANA) 15 mcg/2 mL nebulizer solution Inhale 2 mL as instructed every 12 hours. 120 mL 11 05/22/2024 06/09/2025 Active Start: 04-21-2024 End: 04-24-2024 take 2 mL by inhalation twice daily arformoterol (BROVANA) 15 mcg/2 mL nebulizer solution INHALE 2 ML via NEBULIZER TWICE DAILY 04/21/2024 04/24/2024 Discontinued budesonide 0.5 mg/ml inhalation suspension (20 sources) Corticosteroid Start: 04-24-2024 End: 06-09-2025 budesonide (PULMICORT) 1 mg/2 mL nebulizer solution Indications: SOB (shortness of breath) Use 2 mL via nebulizer once daily. 60 mL 11 05/22/2024 06/09/2025 Active Start: 04-21-2024 End: 04-24-2024 budesonide (PULMICORT) 0.25 mg/2 mL nebulizer solution two times a day. 04/21/2024 04/24/2024 Discontinued cetirizine HCl/pseudoephedrine (ZYRTEC-D ORAL) (20 sources) cetirizine HCl/pseudoephedrine (ZYRTEC-D ORAL) Take by mouth. Active diclofenac sodium 75 mg delayed release oral tablet (2 sources) Nonsteroidal Anti-inflammatory Drug Start: 2023 End: 2023 take 1 tablet by mouth twice daily diclofenac, EC, (VOLTAREN) 75 mg EC tablet Indications: Cervical radicular pain Take 1 tablet by mouth two times a day. 60 tablet 1 10/13/2023 12/12/2023 Active Comment on above: Take 1 tablet by verito th two times a day. 2 ml dupilumab 150 mg/ml auto-injector (16 sources) Interleukin-4 Receptor alpha Antagonist Start: 2023 End: 2024 dupilumab 300 mg/2 mL subcutaneous pen injector (Eventifier) Inject 600mg(2 pens) subcutaneously on day 1, followed by 300mg(1 pen) on day 15 and every 2 weeks thereafter 3 mL 11 07/08/2024 Active famotidine 20 mg oral tablet (20 sources) Histamine-2 Receptor Antagonist take 20 mg by mouth once daily FAMOTIDINE ORAL Take 20 mg by mouth once daily. Active FAMOTIDINE ORAL Take by mouth. Active fluticasone propionate 0.05 mg/actuat metered dose nasal spray (20 sources) Corticosteroid Start: 06-18-2023 End: 06-19-2023 Fluticasone Propionate Active 1 SPRAY INTRANASAL Q12H June 19, 2023 10:38am Start: 05-10-2023 End: 04-23-2024 take 2 spray(s) by mouth once daily fluticasone (FLONASE) 50 mcg/actuation nasal spray Use 2 Sprays in each nostril once daily. Rinse mouth after use. 1 Each 04/24/2024 Active Comment on above: Use 2 Sprays in each nostril once daily. Rinse mouth after use. Fluticasone Propion-Salmeterol (20 sources) Corticosteroid, beta2-Adrenergic Agonist Start: 06-19-2023 Fluticasone Propion-Salmeterol (Advair Diskus) 500-50 mcg/dose blister with device Active 1 INH INHALATION TWICE A DAY June 19, 2023 10:38am Start: 03-16-2023 End: 04-04-2024 take 1 puff(s) by mouth twice daily fluticasone-salmeterol (ADVAIR DISKUS) 500-50 mcg/dose dsdv Indications: Moderate persistent asthma with acute exacerbation Inhale 1 Puff as instructed twice daily. Rinse and gargle mouth with water after use. 1 Each 03/16/2023 04/04/2024 Discontinued Start: 03-16-2023 take 1 puff(s) by mo uth twice daily fluticasone-salmeterol (ADVAIR DISKUS) 500-50 mcg/dose dsdv Indications: Moderate persistent asthma with acute exacerbation Inhale 1 Puff as instructed twice daily. Rinse and gargle mouth with water after use. 1 Each 03/16/2023 Active Start: 03-16-2023 take 1 puff(s) by mo uth twice daily fluticasone-salmeterol (ADVAIR DISKUS) 500-50 mcg/dose dsdv Indications: Moderate persistent asthma with acute exacerbation Inhale 1 Puff as instructed twice daily. Rinse and gargle mouth with water after use. 1 Each 0 03/16/2023 Active Start: 01-24-2023 End: 03-15-2023 take 1 puff(s) by mouth twice daily fluticasone-salmeterol (ADVAIR DISKUS) 500-50 mcg/dose dsdv Indications: Moderate persistent asthma with acute exacerbation Inhale 1 Puff as instructed twice daily. Rinse and gargle mouth with water after use. 1 Each 0 01/24/2023 03/15/2023 Discontinued Start: 03-04-2022 take 1 puff(s) by mo uth twice daily fluticasone-salmeterol (ADVAIR DISKUS) 500-50 mcg/dose dsdv Indications: Moderate persistent asthma with acute exacerbation Inhale 1 Puff as instructed twice daily. Rinse and gargle mouth with water after use. 1 Each 03/04/2022 Active Start: 12-06-2021 End: 03-04-2022 take 1 puff(s) by mouth twice daily fluticasone-salmeterol (ADVAIR DISKUS) 500-50 mcg/dose dsdv Indications: Moderate persistent asthma with acute exacerbation Inhale 1 Puff as instructed twice daily. Rinse and gargle mouth with water after use. 1 Each 12/06/2021 03/04/2022 Discontinued Start: 12-06-2021 take 1 puff(s) by mo uth twice daily fluticasone-salmeterol (ADVAIR DISKUS) 500-50 mcg/dose dsdv Indications: Moderate persistent asthma with acute exacerbation Inhale 1 Puff as instructed twice daily. Rinse and gargle mouth with water after use. 1 Each 12/06/2021 Active Start: 11-02-2021 End: 12-06-2021 take 1 puff(s) by mouth twice daily fluticasone-salmeterol (ADVAIR DISKUS) 500-50 mcg/dose dsdv Indications: Moderate persistent asthma with acute exacerbation Inhale 1 Puff as instructed twice daily. Rinse and gargle mouth with water after use. 1 Each 11 12/06/2021 Active Start: 10-12-2021 End: 11-01-2021 take 1 puff(s) by mouth twice daily fluticasone-salmeterol (ADVAIR DISKUS) 500-50 mcg/dose dsdv Indications: Moderate persistent asthma with acute exacerbation Inhale 1 Puff as instructed twice daily. Rinse and gargle mouth with water after use. 1 Each 0 10/12/2021 11/01/2021 Discontinued Start: 10-12-2021 take 1 puff(s) by mo uth twice daily fluticasone-salmeterol (ADVAIR DISKUS) 500-50 mcg/dose dsdv Indications: Moderate persistent asthma with acute exacerbation Inhale 1 Puff as instructed twice daily. Rinse and gargle mouth with water after use. 1 Each 0 10/12/2021 Active Start: 08-13-2021 End: 10-12-2021 take 1 puff(s) by mouth twice daily fluticasone-salmeterol (ADVAIR DISKUS) 500-50 mcg/dose dsdv Indications: Moderate persistent asthma with acute exacerbation Inhale 1 Puff as instructed twice daily. Rinse and gargle mouth with water after use. 1 Each 0 08/13/2021 10/12/2021 Discontinued Start: 08-13-2021 take 1 puff(s) by mo uth twice daily fluticasone-salmeterol (ADVAIR DISKUS) 500-50 mcg/dose dsdv Indications: Moderate persistent asthma with acute exacerbation Inhale 1 Puff as instructed twice daily. Rinse and gargle mouth with water after use. 1 Each 0 08/13/2021 Active Start: 05-15-2021 End: 06-19-2023 Fluticasone Propion-Salmeter ol (Advair Diskus) 500-50 mcg/dose blister with device Discontinued 1 INH INHALATION TWICE A DAY May 15, 2021 12:00am June 19, 2023 10:38am Start: 05-15-2021 Fluticasone Pr opion-Salmeterol (Advair Diskus) 500-50 mcg/dose blister with device Active 1 INH INHALATION TWICE A DAY May 15, 2021 12:00am Start: 05-15-2021 Fluticasone Pr opion-Salmeterol (Advair Diskus) 500-50 mcg/dose blister with device Active 1 INH INHALATION TWICE A DAY May 15, 2021 1:00am Comment on above: Inhale 1 Puff as ins tructed twice daily. Rinse and gargle mouth with water after use. ibuprofen 800 mg oral tablet (15 sources) Nonsteroidal Anti-inflammatory Drug Start: take 1 tablet by mouth every six hours as needed ibuprofen (MOTRIN) 800 mg tablet Take 800 mg by mouth every 6 hours as needed. 06/11/2024 Active Inhalational Spacing Device (1 source) Start: End: Inhalational Spacing Device 1 Device one time only for 1 dose. 1 Each 0 01/06/2024 01/06/2024 Active Inhalational Spacing Device (Aerochamber Mv) spacer (7 sources) Start: Inhalational Spacing Device (Aerochamber Mv) spacer Active 0 .ROUTE .MEDSUPPLY August 26, 2021 12:00am As directed Start: 08-26-2021 Inhalational S pacing Device (Aerochamber Mv) spacer Active 0 .ROUTE .MEDSUPPLY August 26, 2021 1:00am As directed levonorgestrel 0.093222 mg/hr intrauterine system (20 sources) Progestin, Progestin-containing Intrauterine Device Start: 05-21-2021 End: 05-19-2028 levonorgestrel (MIRENA) 20 mcg/24 hours (7 yrs) 52 mg IUD 1 Each by INTRAUTERINE route as directed. 1 Each 05/21/2021 05/19/2028 Active Comment on above: 1 Each by INTRAUTERI NE route as directed. LORazepam 0.5 mg oral tablet (8 sources) Benzodiazepine Start: 03-04-2022 End: 04-03-2022 take 1 tablet by mouth once daily as needed LORazepam (ATIVAN) 0.5 mg Indications: YUNIOR (generalized anxiety disorder) Take 1 tablet by mouth once daily as needed for up to 30 days. 30 tablet 1 03/04/2022 04/03/2022 Active Start: 01-28-2022 End: 02-27-2022 take 1 tablet by mouth once daily as needed LORazepam (ATIVAN) 0.5 mg Indications: YUNIOR (generalized anxiety disorder) Take 1 tablet by mouth once daily as needed for up to 30 days. 30 tablet 1 01/28/2022 02/27/2022 Active Start: 11-26-2021 End: 12-26-2021 take 1 tablet by mouth once daily as needed LORazepam (ATIVAN) 0.5 mg Indications: YUNIOR (generalized anxiety disorder) Take 1 tablet by mouth once daily as needed for up to 30 days. 30 tablet 1 11/26/2021 12/26/2021 Active Start: 10-25-2021 End: 11-24-2021 take 1 tablet by mouth once daily as needed LORazepam (ATIVAN) 0.5 mg Indications: YUNIOR (generalized anxiety disorder) Take 1 tablet by mouth once daily as needed for up to 30 days. 30 tablet 0 10/25/2021 11/24/2021 Active Comment on above: Take 1 tablet by verito th once daily as needed for up to 30 days. montelukast 10 mg oral tablet (20 sources) Leukotriene Receptor Antagonist Start: End: take 1 tablet by mouth once daily at bedtime montelukast (SINGULAIR) 10 mg tablet Take 1 tablet by mouth daily at bedtime. 30 tablet 11 04/24/2024 05/12/2025 Active Start: 10-06-2020 End: 04-04-2024 take 1 tablet by mouth once daily at bedtime montelukast (SINGULAIR) 10 mg tablet Indications: Moderate persistent asthma without complication Take 1 tablet by mouth daily at bedtime. 90 tablet 3 03/04/2022 04/04/2024 Discontinued Comment on above: Take 1 tablet by verito th daily at bedtime. Nebulizer Accessories misc (20 sources) Start: 09-01-2020 Nebulizer Accessories misc Indications: Moderate persistent asthma without complication (HCC) Pt needs nebulzier and supplies. Dx is asthma J45.40. 1 Each 5 09/01/2020 Active Start: 09-01-2020 Nebulizer Acce ssories misc Indications: Moderate persistent asthma without complication Pt needs nebulzier and supplies. Dx is asthma J45.40. 1 Each 5 09/01/2020 Active Comment on above: Pt needs nebulzier a nd supplies. Dx is asthma J45.40. predniSONE 20 mg oral tablet (20 sources) Start: 04-24-2024 End: 04-14-2025 take 2 tablets by mouth once daily predniSONE (DELTASONE) 20 mg tablet Take 2 tablets by mouth once daily for 7 days. 14 tablet 10/03/2024 10/10/2024 Active Start: 04-03-2024 End: 04-12-2024 predniSONE (DELTASONE) 10 mg tablet Indications: Moderate persistent asthmatic bronchitis with acute exacerbation Take 6 tabs today, then 4 tabs daily for 2 days, then 2 tabs daily for 3 days, then 1 tab daily for 3 days with food. 23 tablet 04/03/2024 04/12/2024 Active Start: 01-06-2024 End: 01-15-2024 predniSONE (DELTASONE) 10 mg tablet Indications: Mild intermittent asthma without complication Take 4 tabs daily for 3 days, then 2 tabs daily for 3 days, then 1 tab daily for 3 days with food. 21 tablet 0 01/06/2024 01/15/2024 Active Start: 07-30-2023 take 60 mg by mouth once daily Prednisone Active 60 MG PO DAILY July 30, 2023 12:00am Start: 04-12-2023 End: 06-18-2023 take 40 mg by mouth once daily Prednisone Active 40 MG PO DAILY June 19, 2023 12:00am Start: 10-06-2022 End: 06-18-2023 take 60 mg by mouth once daily Prednisone Discontinued 60 MG PO DAILY October 05, 2022 11:00pm June 18, 2023 11:47pm Start: 05-24-2022 End: 06-18-2023 take 20 mg by mouth twice daily Prednisone Discontinue d 20 MG PO TWICE A DAY May 24, 2022 12:00am June 18, 2023 11:48pm Start: 04-20-2022 End: 11-01-2023 take 4 tablets by mouth once daily predniSONE (DELTASONE) 10 mg tablet Take 4 tablets by mouth once daily for 5 days. 20 tablet 0 10/27/2023 11/01/2023 Active Start: 08-26-2021 take 60 mg by mouth once daily Prednisone Active 60 MG PO DAILY August 26, 2021 1:00am Comment on above: Take 4 tabs daily fo r 3 days, then 2 tabs daily for 3 days, then 1 tab daily for 3 days with food. QUEtiapine 25 mg oral tablet (17 sources) Atypical Antipsychotic Start: End: take 1 tablet by mouth once daily at bedtime QUEtiapine (SEROQUEL) 25 mg tablet Take 1 tablet by mouth daily at bedtime. 30 tablet 1 03/04/2022 05/03/2022 Active Comment on above: Take 1 tablet by verito th daily at bedtime. tiZANidine 4 mg oral tablet (2 sources) Central alpha-2 Adrenergic Agonist Start: End: take 1 tablet by mouth every eight hours as needed for muscle spasms tiZANidine (ZANAFLEX) 4 mg tablet Indications: Cervical radicular pain Take 1 tablet by mouth every 8 hours as needed (spasm). 60 tablet 1 10/13/2023 12/12/2023 Active Comment on above: Take 1 tablet by verito th every 8 hours as needed (spasm). Umeclidinium (15 sources) Anticholinergic Start: take 62.5 ug by inhalation every twenty-four hours Umeclidinium (Umeclidinium 62.5 Mcg/Actuation Blister Powder For Inhalation) 62.5 mcg/actuation blister with device Active 1 INH INHALATION Q24H July 30, 2023 12:00am Start: 05-12-2023 End: 04-04-2024 take 1 puff(s) by inhalation once daily umeclidinium (INCRUSE ELLIPTA) 62.5 mcg/actuation inhaler Inhale 1 Puff as instructed once daily. 30 Each 5 05/12/2023 04/04/2024 Discontinued Comment on above: Inhale 1 Puff as ins tructed once daily. Completed/Discontinued Medications Medication Drug Class(es) Dates Sig (Normalized) Sig (Original) cyclobenzaprine hydrochloride 10 mg oral tablet (7 sources) Muscle Relaxant Start: 07-19-2023 End: 11-09-2023 take 1 tablet by mouth every eight hours as needed cyclobenzaprine (FLEXERIL) 10 mg tablet Indications: Cervical radicular pain , Degeneration of intervertebral disc of cervical spine without disc herniation Take 1 tablet by mouth every 8 hours as needed. 90 tablet 2 08/11/2023 10/13/2023 Discontinued (Clinical Decision) Comment on above: Take 1 tablet by verito every 8 hours as needed. diphenhydrAMINE hydrochloride 25 mg oral capsule (20 sources) Histamine-1 Receptor Antagonist Start: 01-24-2023 End: 04-04-2024 take 1 capsule by mouth twice daily diphenhydrAMINE (BENADRYL) 25 mg capsule Indications: Anxiety Take 1 capsule by mouth twice daily. 60 capsule 03/16/2023 04/04/2024 Discontinued Start: 10-06-2020 End: 03-04-2022 take 1 capsule by mouth twice daily diphenhydrAMINE (BENADRYL) 25 mg capsule Indications: Anxiety Take 1 capsule by mouth twice daily. 60 capsule 5 03/04/2022 Active Comment on above: Take 1 capsule by mo [facility] twice daily. FLUoxetine 40 mg oral capsule (20 sources) Serotonin Reuptake Inhibitor Start: 01-28-2022 End: 04-03-2022 take 2 capsules by mouth once daily FLUoxetine (PROZAC) 40 mg capsule Take 2 capsules by mouth once daily. 60 capsule 1 03/04/2022 Active Start: 11-26-2021 End: 01-28-2022 take 1 capsule by mouth once daily FLUoxetine (PROZAC) 20 mg capsule Take 1 capsule by mouth once daily. Take with 40 mg dose. 30 capsule 1 11/26/2021 01/28/2022 Discontinued (Course of therapy completed) Start: 10-01-2021 End: 01-28-2022 take 1 capsule by mouth once daily FLUoxetine (PROZAC) 40 mg capsule Take 1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 fax from [employer]They have been trying to contact patient to provide copay assistance. This nurse spoke to patient. She states that she has not returned [employer]'s call as it is difficult with her work hours. This nurse spoke to [employer] and they state that it is the patient that needs to contact them. Patient was notified of this. Nilson Wadsworth MD 09/18/2024 2:58 PM Signed Aware. Nilson Wadsworth MD Allergies As of Date: 07/23/2024 Noted Allergy Reaction PROPRANOLOL 08/26/2021 12 - Shortness of Breath SEASONAL ALLERGIES 06/13/2024 16 - Unknown Comments: Cats, dogs and dust mites verified by dust mites Date Reviewed: 06/13/2024 Reviewed by: Nilson Wadsworth MD - Fully Assessed Prescriptions as of 09/18/2024 - dupilumab 300 mg/2 mL subcutaneous pen injector (DUPIXEnchanted Diamonds) Inject 600mg(2 pens) subcutaneously on day 1, followed by 300mg(1 pen) on day 15 and every 2 weeks thereafter - amoxicillin-clavula jhonatan potassium (AUGMENTIN) 500-125 mg per tablet Take 1 tablet by mouth two times a day. - ibuprofen (MOTRIN) 800 mg tablet Take 800 mg by mouth every 6 hours as needed. - albuterol HFA (VENTOLIN HFA) 90 mcg/actuation inhaler Inhale 2 Puffs as instructed every 4 hours as needed for wheezing/shortness of breath. inhale 2 puffs by mouth as directed every 4 hours if needed for wheezing OR SHORTNESS OF BREATH - arformoterol (BROVANA) 15 mcg/2 mL nebulizer solution Inhale 2 mL as instructed every 12 hours. - budesonide (PULMICORT) 1 mg/2 mL nebulizer solution Use 2 mL via nebulizer once daily. - fluticasone (FLONASE) 50 mcg/actuation nasal spray Use 2 Sprays in each nostril once daily. Rinse mouth after use. - predniSONE (DELTASONE) 10 mg tablet Take FOUR tablets daily for 3 (THREE) days, then 3 (THREE) tablets daily for 3 (THREE) days, then 2 (TWO) tablets daily for 3 (THREE) days, then 1 tablet daily for 3 (THREE) days, then half tablet daily for FOUR days] - cetirizine HCl/pseudoephedrine (ZYRTEC-D ORAL) Take by mouth. - FAMOTIDINE ORAL Take 20 mg by mouth once daily. - ipratropium-albuter ol (DUONEB) 0.5 mg-3 mg(2.5 mg base)/3 mL nebu Inhale 3 mL as instructed every 4 hours as needed for wheezing/shortness of breath. - montelukast (SINGULAIR) 10 mg tablet Take 1 tablet by mouth daily at bedtime. - levonorgestrel (MIRENA) 20 mcg/24 hours (7 yrs) 52 mg IUD 1 Each by INTRAUTERINE route as directed. - Nebulizer Accessories misc Pt needs nebulzier and supplies. Dx is asthma J45.40. Problem List As Of Date 07/23/2024 Noted Resolved Tobacco dependence syndrome [F17.200] 09/22/2009 05/10/2023 Asthma, moderate persistent [J45.40] 09/22/2009 Quit smoking [Z87.891] 03/29/2012 11/19/2014 Immunization due [Z23] 03/29/2012 11/19/2014 High-risk [O09.90] 04/27/2012 09/30/2013 Rubella non-immune status [Z78.9] 04/30/2012 11/19/2014 ASCUS favor benign [OBW4196] 05/25/2012 04/26/2024 LGSIL (low grade squamous intraepithelial dyspl*01/04/2013 08/25/2017 Anxiety [F41.9] 08/24/2017 04/26/2024 YUNIOR (generalized anxiety disorder) [F41.1] 08/25/2021 Major depressive disorder, recurrent severe wit*08/25/2021 Chronic post-traumatic stress disorder (PTSD) [*08/25/2021 Alcohol dependence in remission (HCC) [F10.21] 05/10/2023 Cervical disc disorder with radiculopathy [M50.*09/01/2023 Acute respiratory failure (HCC) [J96.00] 04/22/2024 04/26/2024 Severe persistent asthma with status asthmaticu*04/22/20 Encounter Status:Closed by CARO DRISCOLL on 07/23/24 [facility] CNOVbashir 06-13-2024 CNOV Office Visit (ALLMED) ---- SARA ONTIVEROS ([id number]) 1985 F Date Time Provider Department 06/13/24 10:30 AM NILSON WADSWORTH ALLMED During your visit today, we recorded the following information about you: Pulse Blood pressure Weight 83/minute 124/85 81.4 kg Nilson Wadsworth MD 06/14/2024 5:48 PM Signed ASSESSMENT/PLAN: -Severe persistent eosinophilic asthma, poorly controlled Based on the severity of the patient's asthma, requiring treatment with multiple courses of systemic corticosteroids and recent hospitalization with intubation respiratory failure, treatment with a biologic medication is indicated. Risk benefits alternatives and personnel for treatment with Dupixent were discussed with the patient and she consents to proceed. Start Dupixent 600 mg subcutaneously for 1 dose then 300 mg subcutaneously every 2 weeks Continue budesonide 1 mg nebulized twice daily Continue arformoterol 15 mcg nebulized twice daily Continue Singulair 10 mg at bedtime Continue albuterol HFA inhaler 2 puffs every 4 hours as needed or DuoNeb 4 times daily as needed. She should receive Prevnar 20 and an annual influenza vaccine. Continue to follow-up with pulmonary medicine (Patient is self-pay for meds. Paperwork has been submitted for assistance through [employer]) -Allergic rhinitis (cats, dogs, dust mites) Aggressive environmental controls. Encouraged patient to continue to decrease the number of cats in the home. ( Ideally, there should be no cats in the home.) Dust mite precautions should be instituted in the home. Continue fluticasone nasal spray 2 sprays each nostril once daily Continue Zyrtec-D as needed - Discussed medication dosage, usage, side effects, and goals of treatment in detail. - Follow-up in 4 months with repeat spirometry and FeNO- patient will return sooner should new symptoms or problems arise. Nilson Wadsworth MD Allergy AND Immunology I spent a total of 90 minutes on the date of the service which included preparing to see the patient, [id number] patient care, completing clinical documentation, obtaining and/or reviewing separately obtained history, performing a medically appropriate examination, counseling and educating the patient/family/post acute care nurse practitioner, ordering medications, tests, or procedures, independently interpreting results (not separately reported), and communicating results to the patient/family/post acute care nurse practitioner. This is a consultation requested by Roselyn Zamorano MD for an allergy and immunology evaluation. My final recommendations will be communicated back to the requesting healthcare provider(s) by way of shared medical record or via [place] mail. Sara Ontiveros is a 39 year old female with a history of severe persistent asthma and allergic rhinitis who presents to [facility]. Last visit in this office was in 2013. Patient presents with increased asthma symptoms. Symptoms include cough, wheezing, chest tightness and shortness of breath. She is using short acting beta agonists at least a few times per day for acute symptoms. Awakening due to respiratory symptoms once per week. She has presented to the emergency room and required treatment with multiple courses of systemic steroids for asthma exacerbations in the past year. In April, she was hospitalized. She was intubated for 24 hours and spent 7 days in the ICU. She has had additional prior intubations for asthma exacerbations. Outside of the recent hospitalization, last intubation was about 10 years ago. Asthma triggers include physical activity, respiratory illnesses, cold temperatures and cat exposure. She uses fluticasone nasal spray 2 sprays each nostril once daily and Zyrtec-D with good control of her allergy symptoms other than sneezing. Cat exposure is a trigger for her symptoms. No prior subcutaneous allergy immunotherapy. She takes Pepcid 20 mg daily with improvement in her GERD symptoms. History of mild atopic dermatitis involving the antecubital and popliteal fossa. Applies Vaseline as needed with relief Denies a history of recurrent or chronic rhinosinusitis, nasal polyposis or nasal trauma. Since her recent hospitalization, she was able to re-home some of her cats. She she now has 9 cats, previously had 16. The cats are restricted from her bedroom. Dust mite precautions are not in place in the home. COLLATERAL ALLERGY HISTORY: History of Recurrent or chronic sinusitis:No Nasal polyps:No Asthma:Yes Eczema or atopic dermatitis:Yes Urticaria:No Food allergy:No Systemic reaction to insect sting:No Allergy to penicillin antibiotics:No REVIEW OF SYSTEMS: All other review of systems negative except for those listed above. PAST MEDICAL HISTORY Diagnosis Date Acute respiratory failure (HCC) 04/22/2024 Allergic rhinitis Anxiet (more content not included)... Normal [facility] CNPNon 06-13-2024 SHARN Telephone (ALLMED) ---- ONTIVEROSSARA ANDERSON ([id number]) 1985 F Date Time Provider Department 06/13/24 NILSON WADSWORTH ALLDUANE During your visit today, we recorded the following information about you: Caro Driscoll RN 06/13/2024 3:19 PM Signed Form for [employer] completed and faxed to [employer]. Since patient has no insurance- [facility] specialty pharmacy cannot help with PA assistance. Caro Driscoll RN 06/13/2024 5:11 PM Signed Will fax office notes to [employer] once completed Caro Driscoll RN 06/17/2024 10:42 AM Signed Office notes, breathing tests, labs and pulm notes sent to [employer]. Awaiting response. Caro Driscoll RN 06/28/2024 11:43 AM Signed Called [employer] to check on status. They are working on coverage status because it's coming back that she has express scripts. Then they will enroll her with a co pay once verification is complete. Caro Driscoll RN 07/04/2024 8:34 AM Signed Forms completed for PA and faxed to [employer] for dupixent PA. Awaiting response Caro Driscoll RN 07/08/2024 2:48 PM Signed PA APPROVED: [id number] DATES: 07/04/24 TO 12/31/24 [employer] C[address] [employer] #[id number] GROUP:[id number] Allergies As of Date: 06/13/2024 Noted Allergy Reaction PROPRANOLOL 08/26/2021 12 - Shortness of Breath SEASONAL ALLERGIES 06/13/2024 16 - Unknown Comments: Cats, dogs and dust mites verified by dust mites Date Reviewed: 06/13/2024 Reviewed by: Wadsworth, Nilson A, MD - Fully Assessed Reason for Visit: dupixent start [Other] Prescriptions as of 07/08/2024 - amoxicillin-clavula jhonatan potassium (AUGMENTIN) 500-125 mg per tablet Take 1 tablet by mouth two times a day. - ibuprofen (MOTRIN) 800 mg tablet Take 800 mg by mouth every 6 hours as needed. - dupilumab 300 mg/2 mL subcutaneous pen injector (DUPIXENT) Inject 600mg(2 pens) subcutaneously on day 1, followed by 300mg(1 pen) on day 15 and every 2 weeks thereafter - albuterol HFA (VENTOLIN HFA) 90 mcg/actuation inhaler Inhale 2 Puffs as instructed every 4 hours as needed for wheezing/shortness of breath. inhale 2 puffs by mouth as directed every 4 hours if needed for wheezing OR SHORTNESS OF BREATH - arformoterol (BROVANA) 15 mcg/2 mL nebulizer solution Inhale 2 mL as instructed every 12 hours. - budesonide (PULMICORT) 1 mg/2 mL nebulizer solution Use 2 mL via nebulizer once daily. - fluticasone (FLONASE) 50 mcg/actuation nasal spray Use 2 Sprays in each nostril once daily. Rinse mouth after use. - predniSONE (DELTASONE) 10 mg tablet Take FOUR tablets daily for 3 (THREE) days, then 3 (THREE) tablets daily for 3 (THREE) days, then 2 (TWO) tablets daily for 3 (THREE) days, then 1 tablet daily for 3 (THREE) days, then half tablet daily for FOUR days] - cetirizine HCl/pseudoephedrine (ZYRTEC-D ORAL) Take by mouth. - FAMOTIDINE ORAL Take 20 mg by mouth once daily. - ipratropium-albuter ol (DUONEB) 0.5 mg-3 mg(2.5 mg base)/3 mL nebu Inhale 3 mL as instructed every 4 hours as needed for wheezing/shortness of breath. - montelukast (SINGULAIR) 10 mg tablet Take 1 tablet by mouth daily at bedtime. - levonorgestrel (MIRENA) 20 mcg/24 hours (7 yrs) 52 mg IUD 1 Each by INTRAUTERINE route as directed. - Nebulizer Accessories misc Pt needs nebulzier and supplies. Dx is asthma J45.40. Problem List As Of Date 06/13/2024 Noted Resolved Tobacco dependence syndrome [F17.200] 09/22/2009 05/10/2023 Asthma, moderate persistent [J45.40] 09/22/2009 Quit smoking [Z87.891] 03/29/2012 11/19/2014 Immunization due [Z23] 03/29/2012 11/19/2014 High-risk [O09.90] 04/27/2012 09/30/2013 Rubella non-immune status [Z78.9] 04/30/2012 11/19/2014 ASCUS favor benign [CXT2372] 05/25/2012 04/26/2024 LGSIL (low grade squamous intraepithelial dyspl*01/04/2013 08/25/2017 Anxiety [F41.9] 08/24/2017 04/26/2024 YUNIOR (generalized anxiety disorder) [F41.1] 08/25/2021 Major depressive disorder, recurrent severe wit*08/25/2021 Chronic post-traumatic stress disorder (PTSD) [*08/25/2021 Alcohol dependence in remission (HCC) [F10.21] 05/10/2023 Cervical disc disorder with radiculopathy [M50.*09/01/2023 Acute respiratory failure (HCC) [J96.00] 04/22/2024 04/26/2024 Severe persistent asthma with status asthmaticu*04/22/20 Encounter Status:Closed by CARO DRISCOLL on 07/08/24 [facility] INHALANT 32 ALLERGEN SKIN TE [facility] 06-13-2024 INHALANT 34 PERCUTANEOUS TESTING/ Mean Wheal & Flare Diameter (mm) Patient has been identified by name and date of : Yes . Skin test applied by : Caro Driscoll RN Interpreted By: Nilson Wadsworth M.D. * Clinical significant reactions are regarded as a wheal diameter greater than or equal to 3 mm with a flare diameter greater or equal to 6mm. ALLERGENS Negative Control: 50%Glycerin/50%Coca s P: W = 0 mm F = 0 mm Cat Hair 10,000 BAU/ml P: W = 4 mm F = 20 mm Dog Epithelial 1:20 P: W = 4 mm F = 19 mm Cockroach Mix 1:20 P: W = 0 mm F = 0 mm Mite Df 10,000 AU/ml P: W = 5 mm F = 24 mm Mite Dp 10,000AU/ml P: W = 5 mm F = 26 mm Alternaria Tenuis 1:20 P: W = 0 mm F = 0 mm Aspergillus Fumigatus 1:20 P: W = 0 mm F = 0 mm Cladosporium sphearospermum 1:20 P: W = 0 mm F = 0 mm Bipolaris Sorokiniana 1:20 Heiminthosporium P: W = 0 mm F = 0 mm Mirza, White 1:20 P: W = 0 mm F = 0 mm Beech, Spanish 1:20 P: W = 0mm F = 0mm Birch Mix 1:20 P: W = 0 mm F = 0 mm Maple Mix 1:20 P: W = 0 mm F = 0 mm [place] ,Eastern 1:20 P: W = 0 mm F = 0 mm [place], Shagbark 1:20 P: W = 0 mm F = 0 mm [place] Tree, Red 1:20 P: W = 0mm F = 0 mm Adams, Red 1:20 P: W = 0 mm F = 0 mm [place], Spanish/Eastern 1:20 P: W = 0 mm F = 0 mm Ossian Pollen, Black 1:20 P: W = 0 mm F = 0 mm [place], Black 1:20 P: W = 0 mm F = 0 mm Bermuda Grass 10,000 BAU/ml P: W = 0 mm F = 0 mm [place] Grass 1:20 P: W = 0 mm F = 0 mm Perennial Rankin, 100,000 BAU/ml P: W = 0 mm F = 0 mm Bob 100,000 BAU/ml P : W = 0mm F = 0mm Cocklebur 1:20 P: W = 0mm F = 0mm Green Tree, sheep 1:20 P: W = 0mm F = 0mm Plantain, Macedonian 1:20 P: W = 0 mm F = 0 mm Lambs Quarters 1:20 P: W = 0 mm F = 0 mm Shetty Elder, Burweed 1:20 P: W = 0 mm F = 0 mm Mugwort, Common 1:20 P: W = 0 mm F = 0 mm Pigweed, Rough 1:20 P: W = 0 mm F = 0 mm Ragweed, Mix 1:20 P: W = 0 mm F = 0 mm HISTAMINE, positive control(Histamine base 6mg/ml) P: W = 4 mm F = 35 mm [facility] NITRIC OXIDE, EXHALEDon 06-02 Yoan Rowe TOBI 06/13/2024 10:17 AM RESPIRATORY THERAPY ORAL EXHALED NITRIC OXIDE SERVICE DATE: 06/13/2024 SERVICE TIME: 10:16 AM Oral Exhaled Nitric Oxide measurement: 64.0 (ppb) (A) Normal: Adult <25 ppb, pediatric (<12 years) <20 ppb High Normal / Increased: Adult 25-50 ppb, pediatric (<12 years) 20-35 ppb Moderately raised exhaled Nitric Oxide may indicate underlying inflammation, but note that: Cold and influenza can raise exhaled Nitric Oxide and some patients have higher baseline exhaled Nitric Oxide levels than others. High: Adult >50 ppb, pediatric (<12 years) >35 ppb Indicative of ongoing eosinophilic inflammation. Symptomatic patient likely to respond to steroids. Possible causes (if already on steroids): Poor compliance, recent allergen exposure, steroid dose inadequate, and steroid resistance. Note that not all patients with high exhaled nitric oxide levels display symptoms. Oral Exhaled Nitric Oxide measurement (Previous Encounters) Test Date Oral Exhaled Nitric Oxide (ppb) 06/13/2024 64.0 (A) NAME: Yoan Valencia AntonililianaTOBI PATIENT NAME: Sara Ontiveros DATE: June 13, 2024 TIME: 10:16 AM [facility] No Panel Informationon 06-13 [facility] CBC W Auto Differential pane l (Bld)on 06-07-2024 Basophils (Bld) [#/Vol] 0.06 10*3/uL Normal <0.11 [facility] Comment on above: Order Comment: Roxana holman Type: BLOOD SPECIMENOrdering Facility: [facility] Address: [address] [place] [address] Performed By: #### 5 7021-8 ####[facility] LABCLIA [id number] [place] [address] [place] Basophils/100 WBC (Bld) 1.1 % Normal [facility] Comment on above: Order Comment: Speci men Type: BLOOD SPECIMENOrdering Facility: [facility] Address: [address] [place] [address] Performed By: #### 5 7021-8 ####[facility] LABCLIA [id number] [place] [address] [place] Differential cell count method Nom (Bld) Auto Normal [facility] Comment on above: Order Comment: Speci men Type: BLOOD SPECIMENOrdering Facility: [facility] Address: [address] [place] [address] Performed By: #### 5 7021-8 ####[facility] LABCLIA [id number] [place] [address] [place] Eosinophils (Bld) [#/Vol] 0.17 10*3/uL Normal <0.46 [facility] Comment on above: Order Comment: Speci men Type: BLOOD SPECIMENOrdering Facility: [facility] Address: [address] [place] [address] Performed By: #### 5 7021-8 ####[facility] LABCLIA [id number] [place] [address] [place] Eosinophils/100 WBC (Bld) 3.0 % Normal [facility] Comment on above: Order Comment: Speci men Type: BLOOD SPECIMENOrdering Facility: [facility] Address: [address] [place] [address] Performed By: #### 5 7021-8 ####[facility] LABCLIA [id number] [place] [address] [place] Erythrocyte distribution width (RBC) [Ratio] 12.5 % Normal 11.5-15.0 [facility] Comment on above: Order Comment: Speci men Type: BLOOD SPECIMENOrdering Facility: [facility] Address: [address] [place] [address] Performed By: #### 5 7021-8 ####[facility] LABCLIA [id number] [place] [address] [place] Hematocrit (Bld) [Volume fraction] 41.9 % Normal 36.0-46.0 [facility] Comment on above: Order Comment: Speci men Type: BLOOD SPECIMENOrdering Facility: [facility] Address: [address] [place] [address] Performed By: #### 5 7021-8 ####[facility] LABCLIA [id number] [place] [address] [place] Hemoglobin (Bld) [Mass/Vol] 13.5 g/dL Normal 11.5-15.5 [facility] Comment on above: Order Comment: Speci men Type: BLOOD SPECIMENOrdering Facility: [facility] Address: [address] [place] [address] Performed By: #### 5 7021-8 ####[facility] LABCLIA [id number] [place] [address] [place] Immature granulocytes (Bld) [#/Vol] 10*3/uL Normal <0.10 [facility] Comment on above: Order Comment: Speci men Type: BLOOD SPECIMENOrdering Facility: [facility] Address: [address] [place] [address] Performed By: #### 5 7021-8 ####[facility] LABCLIA [id number] [place] [address] [place] Immature granulocytes/100 WBC (Bld) 0.0 % Normal [facility] Comment on above: Order Comment: Speci men Type: BLOOD SPECIMENOrdering Facility: [facility] Address: [address] [place] [address] Performed By: #### 5 7021-8 ####[facility] LABCLIA [id number] [place] [address] [place] Lymphocytes (Bld) [#/Vol] 1.80 10*3/uL Normal 1.00-4.0 0 [facility] Comment on above: Order Comment: Speci men Type: BLOOD SPECIMENOrdering Facility: [facility] Address: [address] [place] [address] Performed By: #### 5 7021-8 ####[facility] LABIA [id number] [place] [address] [place] Lymphocytes/100 WBC (Bld) 32.1 % Normal [facility] Comment on above: Order Comment: Speci men Type: BLOOD SPECIMENOrdering Facility: [facility] Address: [address] [place] [address] Performed By: #### 5 7021-8 ####[facility] [id number] [place] [address] [place] MCH (RBC) [Entitic mass] 30.0 pg Normal 26.0-34.0 [facility] Comment on above: Order Comment: Speci men Type: BLOOD SPECIMENOrdering Facility: [facility] Address: [address] [place] [address] Performed By: #### 5 7021-8 ####[facility] LABIA [id number] [place] [address] [place] MCHC (RBC) [Mass/Vol] 32.2 g/dL Normal 30.5-36.0 [facility] Comment on above: Order Comment: Speci men Type: BLOOD SPECIMENOrdering Facility: [facility] Address: [address] [place] [address] Performed By: #### 5 7021-8 ####[facility] LABIA [id number] [place] [address] [place] MCV (RBC) [Entitic vol] 93.1 fL Normal 80.0-100.0 [facility] Comment on above: Order Comment: Speci men Type: BLOOD SPECIMENOrdering Facility: [facility] Address: [address] [place] [address] Performed By: #### 5 7021-8 ####[facility] LABCLIA [id number] [place] [address] [place] Monocytes (Bld) [#/Vol] 0.46 10*3/uL Normal <0.87 [facility] Comment on above: Order Comment: Speci men Type: BLOOD SPECIMENOrdering Facility: [facility] Address: [address] [place] [address] Performed By: #### 5 7021-8 ####[facility] LABCLIA [id number] [place] [address] [place] Monocytes/100 WBC (Bld) 8.2 % Normal [facility] Comment on above: Order Comment: Speci men Type: BLOOD SPECIMENOrdering Facility: [facility] Address: [address] [place] [address] Performed By: #### 5 7021-8 ####[facility] LABCLIA [id number] [place] [address] [place] Neutrophils (Bld) [#/Vol] 3.12 10*3/uL Normal 1.45-7.5 0 [facility] Comment on above: Order Comment: Speci men Type: BLOOD SPECIMENOrdering Facility: [facility] Address: [address] [place] [address] Performed By: #### 5 7021-8 ####[facility] LABCLIA [id number] [place] [address] [place] Neutrophils/100 WBC (Bld) 55.6 % Normal [facility] Comment on above: Order Comment: Speci men Type: BLOOD SPECIMENOrdering Facility: [facility] Address: [address] [place] [address] Performed By: #### 5 7021-8 ####[facility] LABCLIA [id number] [place] [address] [place] Nucleated RBC (Bld) [#/Vol] 10*3/uL Normal <0.01 [facility] Comment on above: Order Comment: Speci men Type: BLOOD SPECIMENOrdering Facility: [facility] Address: [address] [place] [address] Performed By: #### 5 7021-8 ####[facility] LABIA [id number] [place] [address] [place] Nucleated RBC/100 WBC (Bld) [Ratio] 0.0 /100 WBC Normal [facility] Comment on above: Order Comment: Speci men Type: BLOOD SPECIMENOrdering Facility: [facility] Address: [address] [place] [address] Performed By: #### 5 7021-8 ####[facility] LABIA [id number] [place] [address] [place] Platelet mean volume (Bld) [Entitic vol] 9.6 fL Normal 9.0-12.7 [facility] Comment on above: Order Comment: Speci men Type: BLOOD SPECIMENOrdering Facility: [facility] Address: [address] [place] [address] Performed By: #### 5 7021-8 ####[facility] LABIA [id number] [place] [address] [place] Platelets (Bld) [#/Vol] 369 10*3/uL Normal 150-400 [facility] Comment on above: Order Comment: Speci men Type: BLOOD SPECIMENOrdering Facility: [facility] Address: [address] [place] [address] Performed By: #### 5 7021-8 ####[facility] LABIA [id number] [place] [address] [place] RBC (Bld) [#/Vol] 4.50 10*6/uL Normal 3.90-5.20 [facility] Comment on above: Order Comment: Speci men Type: BLOOD SPECIMENOrdering Facility: [facility] Address: [address] [place] [address] Performed By: #### 5 7021-8 ####[facility] LABCLIA [id number] [place] [id number] [place] WBC (Bld) [#/Vol] 5.61 10*3/uL Normal 3.70-11.00 [facility] Comment on above: Order Comment: Speci men Type: BLOOD SPECIMENOrdering Facility: [facility] Address: [address] [place] [address] Performed By: #### 5 7021-8 ####[facility] LABCLIA [id number] [place] [address] [place] IgE SerPl-aCncon 06-07-2024 IgE Qn 161.0 kU/l High <114.0 [facility] Comment on above: Order Comment: Speci men Type: BLOOD SPECIMENOrdering Facility: [facility] Address: [address] [place] [address] Performed By: #### 1 9113-0 ####[facility] LABCLIA [id number] [place] [address] [place] CNOVon 04-26-2024 CNOV Office Visit (INTMWS) ---- SARA ONTIVEROS ([id number]) 1985 F Date Time Provider Department 04/26/24 9:40 AM NAVDEEP MO INTMWS During your visit today, we recorded the following information about you: Temperature Pulse Respiration Blood pressure 98.2 degrees 85/minute 16/minute 110/62 Weight 83.6 kg Navdeep Mo MD 04/26/2024 11:07 AM Signed This note was created using NoteWriter. Subjective Patient presents with: Hospital F/U: [facility] 04/19 - 04/21 Chasity Ontiveros is a 39 year old female who was admitted for acute respiratory failure with mental status change, treated with mechanical ventilation for about 24 hours then extubated with rapid improvement. No infection was found, and she was discharged with prescriptions for asthma. She apparently had coverage issues so she was reducing medication dosages and going to urgent care or the ER for acute care. She saw Alia Batres and established pulmonary care 2 days ago. She was scheduled for PFTs and allergy consultation. She was doing better. 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 She had depression and anxiety which was currently stable without medication. [facility] she had [facility] issues. 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 Review of Systems Constitutional: Negative for chills and fever. HENT: Negative for congestion. Respiratory: Negative for chest tightness, shortness of breath and wheezing. Cardiovascular: Negative for chest pain, palpitations and leg swelling. Gastrointestinal: Negative for diarrhea, nausea and vomiting. Neurological: Negative for dizziness and headaches. Psychiatric/Behavio ral: Negative for self-injury and suicidal ideas. ACTIVE PROBLEM LIST Asthma, Moderate Persistent Yunior (Generalized Anxiety Disorder) Major Depressive Disorder, Recurrent Severe Without Psychotic Features (Hcc) Chronic Post-Traumatic Stress Disorder (Ptsd) Alcohol Dependence in Remission (Hcc) Cervical Disc Disorder With Radiculopathy Severe Persistent Asthma With Status Asthmaticus Social History Tobacco Use Smoking status: Former Current packs/day: 0.00 Average packs/day: 0.3 packs/day for 18.5 years (5.6 ttl pk-yrs) Types: Cigarettes Start date: 11/08/2003 Quit date: 05/10/2022 Years since quittin.9 Smokeless tobacco: Never Vaping Use Vaping status: Never Used Substance Use Topics Alcohol use: Yes Alcohol/week: 12.0 standard drinks of alcohol Types: 12 Standard drinks or equivalent per week Drug use: No Objective BP 110/62 Pulse 85 Temp 36.8 ?C (98.2 ?F) Resp 16 Wt 83.6 kg (184 lb 4.9 oz) LMP (LMP Unknown) SpO2 99% BMI 31.64 kg/m? Physical Exam Constitutional: General: She is not in acute distress. Appearance: She is not ill-appearing. HENT: Head: Normocephalic. Nose: No congestion or rhinorrhea. Mouth/Throat: Mouth: Mucous membranes are moist. Pharynx: Oropharynx is clear. Eyes: Conjunctiva/sclera: Conjunctivae normal. Cardiovascular: Rate and Rhythm: Normal rate and regular rhythm. Heart sounds: No murmur heard. No gallop. Pulmonary: Effort: No respiratory distress. Breath sounds: Normal breath sounds. No wheezing or rales. Abdominal: Palpations: Abdomen is soft. Tenderness: There is no abdominal tenderness. Musculoskeletal: Cervical back: No tenderness. Right lower leg: No edema. Left lower leg: No edema. Neurological: Mental Status: She is alert. Gait: Gait normal. Psychiatric: Mood and Affect: Mood normal. Behavior: Behavior normal. Assessment and Plan 1. Severe persistent asthma with status asthmaticus - ICD9: 493.91, ICD10: J45.52 (primary diagnosis) - status post respiratory failure. - Continue current management per pulmonary. 2. YUNIOR (generalized anxiety disorder) - ICD9: 300.02, ICD10: F41.1 - Stable on no treatment. She declined referral at this time. 3. Major depressive disorder, recurrent severe without psychotic features (HCC) - ICD9: 296.33, ICD10: F33.2 - Stable on no treatment. She declined referral at this time. 4. Alcohol dependence in remission (HCC) - ICD9: 303.93, ICD10: F10.21 - We reviewed risks of alcohol consumption. Navdeep Mo MD Referring Provider: NAVDEEP MO [[id number]] Allergies As of Date: 04/26/2024 Noted Allergy Reaction PROPRANOLOL 08/26/2021 12 - Shortness of Breath Date Reviewed: 04/26/2024 Reviewed by: Maria De Jesus Page LPN - Fully Assessed Reason for Visit: Hospital F/U [57] Cmt: [facility] 04/19 - 04/21 Primary Visit Diagnosis:Severe persistent asthma with status asthmaticus [J45.52] Other Visit Diagnoses:YUNIOR (generalized anxiety disorder) [F41.1] Major depressive disorder, recurrent severe without psychotic features (HCC) [F33.2] Alcohol dependence in remission (HCC) (more content not included)... Normal [facility] CNOVon 04-24-2024 CNOV Office Visit ([facility]) ---- SARA ONTIVEROS ([id number]) 1985 F Date Time Provider Department 04/24/24 1:00 PM ROSELYN ZAMORANO [facility] During your visit today, we recorded the following information about you: Pulse Blood pressure Weight 85/minute 115/77 83.6 kg Roselyn Zamorano MD 04/24/2024 2:37 PM [facility] DEPART[facility]ULMONARY MEDICINE OFFICE VISIT CONSULT 04/24/2024 Patient Name: Sara Ontiveros PRIMARY CARE PHYSICIAN: Navdeep Mo MD REASON FOR CONSULT: uncontrolled asthma, allergies, ex smoker, GERD, obesity bmi 31 REFERRING PHYSICIAN: Navdeep Mo MD My final recommendations will be communicated to the requesting health care provider by way of the shared medical record for internal providers or by letter via US mail for external providers. CHIEF COMPLAINT: asthma HISTORY OF PRESENT ILLNESS: Sara Ontiveros is a 39 year old female, BMI 31.64 kg/m2 with a PMH significant for ex smoking, uncontrolled asthma, allergies, ex smoker, GERD, obesity bmi 31, here for evaluation. Her asthma symptoms has been worsening She was admitted to [facility] last week to the ICU where she required intubation for 24 hours and was kept in the ICU for 7 days. Today she feels better but she continue to have wheezing and chest congestion Her asthma attacks has been more frequent. She lost her Medicaid and was not able to afford inhalers she has been using Advair once a day instead of twice a day She is allergic to cats but have cats at home Symptoms are mild to moderate, persistent, occur at rest and on exertion. Negative stated She was discharged home from [facility], metoprolol and budesonide 0.25 in addition to albuterol inhaler and 23 months and she is currently on prednisone taper She does have GERD symptoms has been taking famotidine once a day Most recent chest x-ray June 2023 reported hyperinflation PFTs 2021 severe airflow obstruction with air trapping Smoked in the past MMRC Dyspnea Scale: 0. Not troubled by breathlessness except on strenuous exercise Short of breath when hurrying or walking up a slight hill Walks slower than contemporaries on the level because of breathlessness, or has to stop for breath when walking at own pace Stops for breath after about 100 m or after a few minutes on the level Too breathless to leave the house, or breathless when dressing or undressing Environmental/ Occupational Exposure History: Pets: No birds Asbestos: No significant exposure Silica: No significant exposure [place]: No significant exposure Mold: No significant exposure Hot tub: No significant exposure Fumes: No significant exposure Metal dust: No significant exposure Beryllium: No significant exposure Dust: No significant exposure Medications: No relevant exposure for interstitial lung diseases 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 (Deisi Rodriguez MD) YUNIOR (generalized anxiety disorder) 08/25/2021 High-risk 04/27/2012 LGSIL (low grade squamous intraepithelial dysplasia) 01/04/2013 Tobacco dependence syndrome 09/22/2009 Trauma 2008 DISLOCATED KNEE, Right PAST SURGICAL HISTORY Procedure Laterality Date NONE FAMILY HISTORY Problem Relation Age of Onset Anxiety disorder Mother Depression Mother Asthma Mother Diabetes Father Hypertension Father Diabetes Paternal Grandfather Hypertension Paternal Grandfather no pertinent family history Social History Tobacco Use Smoking status: Former Current packs/day: 0.00 Average packs/day: 0.3 packs/day for 18.5 years (5.6 ttl pk-yrs) Types: Cigarettes Start date: 11/08/2003 Quit date: 05/10/2022 Years since quittin.9 Smokeless tobacco: Never Vaping Use Vaping status: Never Used Substance Use Topics Alcohol use: Yes Comment: occasionally Drug use: No ALLERGIES ALLERGIES Allergen Reactions Propranolol Shortness of Breath CURRENT OUTPATIENT MEDICATIONS fluticasone (FLONASE) 50 mcg/actuation nasal spray Use 2 Sprays in each nostril once daily. Rinse mouth after use. arformoterol (BROVANA) 15 mcg/2 mL nebulizer solution INHALE 2 ML via NEBULIZER TWICE DAILY budesonide (PULMICORT) 0.25 mg/2 mL nebulizer solution two times a day. predniSONE (DELTASONE) 10 mg tablet Take FOUR tablets daily for 3 (THREE) days, then 3 (THREE) tablets daily for 3 (THREE) days, then 2 (TWO) tablets daily for 3 (THREE) days, then 1 tablet daily for 3 (THREE) days, then half tablet daily for FOUR days] cetirizine HCl/pseudoephedrine (ZYRTEC-D ORAL) Take by mouth. FAMOTIDINE ORAL Take by mouth. albuterol HFA (VENTOLIN HFA) 90 mcg/actuation inhaler inhale 2 puffs by mouth as directed every 4 hours if needed for wh (more content not included)... Normal [facility] 04-22-2024 [facility] Telephone (INT[facility]) ---- SARA ONTIVEROS ([id number]) 1985 F Date Time Provider Department 04/22/24 NAVDEEP MO INTWS During your visit today, we recorded the following information about you: aLtisha Montana LPN 04/22/2024 10:52 AM Signed Sanchez/pt called to get a referral to a lung specialist. Pt was in [facility] for 3 days and d/c yesterday 04-21-24 with asthma attack and was in ICU for ventolator for 2 days. Pt to see a lung specialist with in the week. Pt has been to ER multiple times per pt/Sanchez. Please review and advise when referral is placed. Pt did not schedule a hospital follow up wants to see the specialist. Please advise pt. DADA Child Victor H, MD 04/22/2024 3:19 PM Signed ASSESSMENT/PLAN: 1. Acute respiratory failure, unspecified whether with hypoxia or hypercapnia (HCC) - ICD9: 518.81, ICD10: J96.00 (primary diagnosis) - CONSULT TO PULMONARY MEDICINE 2. Severe persistent asthma with status asthmaticus - ICD9: 493.91, ICD10: J45.52 - CONSULT TO PULMONARY MEDICINE MD Angela Tobar, Sudha Hernandez MA 04/22/2024 4:30 PM Signed Please assist patient with scheduling. LINETTE Gomezvarun SimiMaria G 04/23/2024 11:13 AM Signed Spoke with the patient she currently has no insurance, we placed a self pay referral and she will contact [facility] to get approved. Allergies As of Date: 04/22/2024 Noted Allergy Reaction PROPRANOLOL 08/26/2021 12 - Shortness of Breath Date Reviewed: 04/03/2024 Reviewed by: Yazmin Bernard LPN - Fully Assessed Reason for Visit: Referral [Other] Primary Visit Diagnosis:Acute respiratory failure, unspecified whether with hypoxia or hypercapnia (HCC) [J96.00] Other Visit Diagnosis:Severe persistent asthma with status asthmaticus [J45.52] Order(s):CONSULT TO PULMONARY MEDICINE [[id number]] Order #: [id number]: 1 Prescriptions as of 05/01/2024 - fluticasone (FLONASE) 50 mcg/actuation nasal spray Use 2 Sprays in each nostril once daily. Rinse mouth after use. - predniSONE (DELTASONE) 10 mg tablet Take FOUR tablets daily for 3 (THREE) days, then 3 (THREE) tablets daily for 3 (THREE) days, then 2 (TWO) tablets daily for 3 (THREE) days, then 1 tablet daily for 3 (THREE) days, then half tablet daily for FOUR days] - cetirizine HCl/pseudoephedrine (ZYRTEC-D ORAL) Take by mouth. - FAMOTIDINE ORAL Take by mouth. - albuterol HFA (VENTOLIN HFA) 90 mcg/actuation inhaler Inhale 2 Puffs as instructed every 4 hours as needed for wheezing/shortness of breath. inhale 2 puffs by mouth as directed every 4 hours if needed for wheezing OR SHORTNESS OF BREATH - arformoterol (BROVANA) 15 mcg/2 mL nebulizer solution Inhale 2 mL as instructed every 12 hours. - budesonide (PULMICORT) 1 mg/2 mL nebulizer solution Use 2 mL via nebulizer once daily. - ipratropium-albuter ol (DUONEB) 0.5 mg-3 mg(2.5 mg base)/3 mL nebu Inhale 3 mL as instructed every 4 hours as needed for wheezing/shortness of breath. - montelukast (SINGULAIR) 10 mg tablet Take 1 tablet by mouth daily at bedtime. - albuterol (PROVENTIL) 2.5 mg /3 mL (0.083 %) nebulizer solution inhale contents of 1 vial in nebulizer every 4 hours if needed for wheezing or shortness of breath - levonorgestrel (MIRENA) 20 mcg/24 hours (7 yrs) 52 mg IUD 1 Each by INTRAUTERINE route as directed. - Nebulizer Accessories misc Pt needs nebulzier and supplies. Dx is asthma J45.40. Problem List As Of Date 04/22/2024 Noted Resolved Tobacco dependence syndrome [F17.200] 09/22/2009 05/10/2023 Asthma, moderate persistent [J45.40] 09/22/2009 Quit smoking [Z87.891] 03/29/2012 11/19/2014 Immunization due [Z23] 03/29/2012 11/19/2014 High-risk [O09.90] 04/27/2012 09/30/2013 Rubella non-immune status [Z78.9] 04/30/2012 11/19/2014 ASCUS favor benign [WZC5125] 05/25/2012 LGSIL (low grade squamous intraepithelial dyspl*01/04/2013 08/25/2017 Anxiety [F41.9] 08/24/2017 YUNIOR (generalized anxiety disorder) [F41.1] 08/25/2021 Major depressive disorder, recurrent severe wit*08/25/2021 Chronic post-traumatic stress disorder (PTSD) [*08/25/2021 Alcohol dependence in remission (HCC) [F10.21] 05/10/2023 Cervical disc disorder with radiculopathy [M50.*09/01/2023 Acute respiratory failure (HCC) [J96.00] 04/22/2024 Severe persistent asthma with status asthmaticu*04/22/20 24 Encounter Status:Closed by LATISHA MONTANA on 05/01/24 Normal [facility] Basic Metabolic Profile (BMP )on 04-21-2024 BUN/CRE 9.5 RATIO Low 04-21 [facility] Comment on above: Performed By: #### L 500.2500, L100.0100 #### [facility] [address] [place], [address] CA,Total 8.7 mg/dL Normal 8.5-10.1 [facility] Comment on above: Performed By: #### L 500.2500, L100.0100 #### [facility] [address] [place], [address] Chloride [Moles/Vol] 108 mmol/L High 98-107 [facility] Comment on above: Performed By: #### L 500.2500, L100.0100 #### [facility] [address] [place], [address] CO2 [Moles/Vol] 26.0 mmol/L Normal 21.0-32.0 [facility] Comment on above: Performed By: #### L 500.2500, L100.0100 #### [facility] [address] [place], [address] Creatinine [Mass/Vol] 0.84 mg/dL Normal 0.55-1.02 [facility] Comment on above: Result Comment: The validity of the calculated GFR GFRAA in patients over 70 years has not been determined. Clinical correlation is essential. Performed By: #### L 500.2500, L100.0100 #### [facility] [address] [place], [address] ECRCL 92.29 ml/min Normal [facility] Comment on above: Performed By: #### L 500.2500, L100.0100 #### [facility] [address] [place], [address] EST GFR - AA 97 mL/min Normal >60 [facility] Comment on above: Result Comment: Afri can Spanish GFR Calc Performed By: #### L 500.2500, L100.0100 #### [facility] [address] [place], [address] GAP 4 Low 5-15 [facility] Comment on above: Performed By: #### L 500.2500, L100.0100 #### [facility] [address] [place], [address] GFR/1.73 sq M.predicted among non-blacks MDRD (S/P/Bld) [Vol rate/Area] 80 mL/min/{1.73_m2} Normal >60 [facility] Comment on above: Result Comment: Non- GFR Calc Performed By: #### L 500.2500, L100.0100 #### [facility] [address] [place], [address] Glucose [Mass/Vol] 162 mg/dL High 74-106 [facility] Comment on above: Result Comment: Fast ing Glucose result greater than or equal to 126 mg/dL suggests DIABETES MELLITUS per A.D.A. criteria. Performed By: #### L 500.2500, L100.0100 #### [facility] [address] [place], [address] Potassium [Moles/Vol] 3.9 mmol/L Normal 3.5-5.1 [facility] Comment on above: Performed By: #### L 500.2500, L100.0100 #### [facility] [address] [place], [address] Sodium [Moles/Vol] 138 mmol/L Normal 136-145 [facility] Comment on above: Performed By: #### L 500.2500, L100.0100 #### [facility] [address] [place], [address] Urea nitrogen [Mass/Vol] 8 mg/dL Normal 7-18 [facility] Comment on above: Performed By: #### L 500.2500, L100.0100 #### [facility] [address] [place], [address] CBC W/Diff, Automatedon 10-2 0-2024 Absolute Lymph 0.48 X10 3/uL Low 0.83-4.51 [facility] Comment on above: Performed By: #### L 500.2500, L100.0100 #### [facility] [address] [place], [address] Absolute Neut 11.0 X10 3/uL High 2.0-7.7 [facility] Comment on above: Performed By: #### L 500.2500, L100.0100 #### [facility] [address] [place], [address] Basophils/100 WBC (Bld) 0.1 % Normal 0-1 [facility] Comment on above: Performed By: #### L 500.2500, L100.0100 #### [facility] [address] [place], [address] Eosinophils/100 WBC (Bld) 0.0 % Normal 0-5 [facility] Comment on above: Performed By: #### L 500.2500, L100.0100 #### [facility] [address] [place], [address] Erythrocyte distribution width (RBC) [Ratio] 12.5 % Normal 11.6-14.6 [facility] Comment on above: Performed By: #### L 500.2500, L100.0100 #### [facility] [address] [place], [address] Hematocrit (Bld) [Volume fraction] 35.2 % Low 37-47 [facility] Comment on above: Performed By: #### L 500.2500, L100.0100 #### [facility] [address] [place], [address] Hemoglobin (Bld) [Mass/Vol] 11.9 g/dL Low 12.0-15.0 [facility] Comment on above: Performed By: #### L 500.2500, L100.0100 #### [facility] [address] [place], [address] IG% 0.400 Normal 0.0-0.9 [facility] Comment on above: Result Comment: IG% - Immature Granulocytes (promyelocytes, myelocytes and metamyelocytes) > 1% indicates that a LEFT SHIFT is Present. Performed By: #### L 500.2500, L100.0100 #### [facility] [address] [place], [address] Lymphocytes/100 WBC (Bld) 4.0 % Low 19-41 [facility] Comment on above: Performed By: #### L 500.2500, L100.0100 #### [facility] [address] [place], [address] MCH (RBC) [Entitic mass] 31.6 pg Normal 27.0-32.0 [facility] Comment on above: Performed By: #### L 500.2500, L100.0100 #### [facility] [address] [place], [address] MCHC (RBC) [Mass/Vol] 33.8 g/dL Normal 32-36 [facility] Comment on above: Performed By: #### L 500.2500, L100.0100 #### [facility] [address] [place], [address] MCV (RBC) [Entitic vol] 93.4 fL Normal 81-99 [facility] Comment on above: Performed By: #### L 500.2500, L100.0100 #### [facility] [address] [place], [address] Monocytes/100 WBC (Bld) 5.0 % Normal 0-10 [facility] Comment on above: Performed By: #### L 500.2500, L100.0100 #### [facility] [address] [place], [address] Neutrophils/100 WBC (Bld) 90.5 % High 47-70 [facility] Comment on above: Performed By: #### L 500.2500, L100.0100 #### [facility] [address] [place], [address] Nucleated RBC (Bld) [#/Vol] 0 10*3/uL Normal 0-5 [facility] Comment on above: Performed By: #### L 500.2500, L100.0100 #### [facility] [address] [place], [address] Platelet mean volume (Bld) [Entitic vol] 9.4 fL Normal 6.2-12.0 [facility] Comment on above: Performed By: #### L 500.2500, L100.0100 #### [facility] [address] [place], [address] Platelets (Bld) [#/Vol] 307 10*3/uL Normal 150-450 [facility] Comment on above: Performed By: #### L 500.2500, L100.0100 #### [facility] [address] [place], [address] RBC (Bld) [#/Vol] 3.77 10*6/uL Low 4.2-5.4 [facility] Comment on above: Performed By: #### L 500.2500, L100.0100 #### [facility] [address] [place], [address] RDW SD 43.4 fl Normal 35.1-43.9 [facility] Comment on above: Performed By: #### L 500.2500, L100.0100 #### [facility] [address] [place], [address] WBC (Bld) [#/Vol] 12.2 10*3/uL High 4.4-11.0 [facility] Comment on above: Performed By: #### L 500.2500, L100.0100 #### [facility] [address] [place], [place], [address] CRP, High Sensitivity [id number] on 04-21-2024 CRP, HIGH SENS 5.04 mg/L High 0.00-3.00 [facility] Comment on above: Result Comment: Rela tive Risk for Future Cardiovascular Event Low <1.00 Average 1.00 - 3.00 High >3.00 Performed at: [facility] [address] [id number] Warehouse Material Handler: Rafael Hamilton PhD, Phone: [phone] Performed By: #### L 6670.0982, L700.9236, L516.9663, L509.5560 ####[facility] [address] [place], [place], [address] Discharge Instructionon 04-03 Discharge Instruction [facility] Medical Records Department [address] [place] [address] Instructions for Home/Discharge Instructions 04/21/24 1545 MR#: [id number] Acct: [id number] Name: SARA ONTIVEROS Rep #: [id number] : 1985 39 From: Daniel Reed MD PCP: Dr. Navdeep Mo MD Status:ADM IN Discharge Instructions Diet Discharge Diet: No restrictions Activity Discharge Activity: Return to Normal Activity Dressing / Incision Call your doctor if you observe: Fever of 101 or Higher, Shortness of breath, Dizziness, Fainting spells, Swelling in the ankles, Chest pain and Increased palpitations (irregular heartbeat) Follow Up Care Test Results: Test results from this visit will be discussed in further detail at your follow-up appointment, if applicable. Discharge Plan Admission Admit Date/Time: 04/19/24 17:15 Attending Provider: Daniel Reed Primary Care Provider: Navdeep Mo Providers: Miguel Ángel Lisa Instructions Additional Instructions / Restrictions: If you are able to fill the budesonide and the arformoterol prescription then please discontinue your Advair until you follow-up with pulmonology in the [facility] Discharge Orders/Prescription s Prescriptions: New budesonide 0.25 mg/2 mL suspension for nebulization 0.25 mg inhalation BID 30 Days Qty: 120 0RF arformoterol 15 mcg/2 mL solution for nebulization 2 ml inhalation BID 30 Days Qty: 120 0RF prednisone 10 mg tablet 10 mg PO DAILY Qty: 32 0RF Rx Instructions: Take 4 tablets daily for 3 days then 3 tablets daily for 3 days then 2 tablets daily for 3 days then 1 tablet daily for 3 days then half tablet daily for 4 days Continued (DME) Aerochamber MV Spacer See Rx Instructions .ROUTE .MEDSUPPLY Qty: 1 0RF Rx Instructions: As directed fluticasone propion-salmeterol [Advair Diskus] 500-50 mcg/dose blister with device 1 inh INHALATION BID Qty: 60 0RF albuterol sulfate 1 PUFF inhaler 2 puff inhalation Q4H PRN PRN (Reason: Wheezing) Qty: 8.5 0RF fluticasone propionate 50 mcg/actuation spray,suspension 1 spray INTRANASAL Q12H Qty: 16 0RF albuterol sulfate [Proventil HFA] 90 mcg/actuation HFA aerosol inhaler 2 inh inhalation Q4H PRN (Reason: shortness of breath or wheezing) Qty: 8.5 1RF albuterol sulfate 2.5 mg /3 mL (0.083 %) solution for nebulization 2.5 mg inhalation Q4H PRN Qty: 25 0RF Rx Instructions: Use q4 hours and PRN for wheezing albuterol sulfate [Ventolin HFA] 90 mcg/actuation HFA aerosol inhaler 2 puff inhalation Q4H PRN PRN (Reason: Wheezing) Qty: 1 0RF Discontinued prednisone 20 mg tablet 60 mg PO DAILY Qty: 12 0RF Referrals / Follow Up: Navdeep Mo MD [Primary Care Provider] - Within 1 Week Disposition Disposition (needs filled in before D/C Order can be placed): Home, Self Care 04/21/24 0545 Daniel Reed MD CC: Dr. Miguel Ángel Lisa MD; Dr. Navdeep Mo MD Signed Normal [facility] Gram Stainon 04-21-2024 GS Acceptable Specimen? Yes (<25 Epithelial cells per/lpf) Gram Stain 2+ Gram positive cocci 2+ White Blood Cells Rare Epithelial cells Normal [facility] Comment on above: Performed By: #### L 100.0100, L500.4050 #### [facility] [address] [place], [address] Basic Metabolic Profile (BMP )on 04-20-2024 BUN/CRE 11.0 RATIO Normal 04-21 [facility] Comment on above: Performed By: #### L 100.0100, L500.2500 #### [facility] [address] [place], [address] CA,Total 8.6 mg/dL Normal 8.5-10.1 [facility] Comment on above: Performed By: #### L 100.0100, L500.2500 #### [facility] [address] [place], [address] Chloride [Moles/Vol] 105 mmol/L Normal 98-107 [facility] Comment on above: Performed By: #### L 100.0100, L500.2500 #### [facility] [address] [place], [address] CO2 [Moles/Vol] 24.0 mmol/L Normal 21.0-32.0 [facility] Comment on above: Performed By: #### L 100.0100, L500.2500 #### [facility] [address] [place], [address] Creatinine [Mass/Vol] 1.09 mg/dL High 0.55-1.02 [facility] Comment on above: Result Comment: The validity of the calculated GFR GFRAA in patients over 70 years has not been determined. Clinical correlation is essential. Performed By: #### L 100.0100, L500.2500 #### [facility] [address] [place], [address] ECRCL 73.38 ml/min Normal [facility] Comment on above: Performed By: #### L 100.0100, L500.2500 #### [facility] [address] [place], [address] EST GFR - AA 72 mL/min Normal >60 [facility] Comment on above: Result Comment: Afri can Spanish GFR Calc Performed By: #### L 100.0100, L500.2500 #### [facility] [address] [place], [address] GAP 7 Normal 5-15 [facility] Comment on above: Performed By: #### L 100.0100, L500.2500 #### [facility] [address] [place], [address] GFR/1.73 sq M.predicted among non-blacks MDRD (S/P/Bld) [Vol rate/Area] 60 mL/min/{1.73_m2} Normal >60 [facility] Comment on above: Result Comment: Non- GFR Calc Performed By: #### L 100.0100, L500.2500 #### [facility] [address] [place], [address] Glucose [Mass/Vol] 172 mg/dL High 74-106 [facility] Comment on above: Result Comment: Fast ing Glucose result greater than or equal to 126 mg/dL suggests DIABETES MELLITUS per A.D.A. criteria. Performed By: #### L 100.0100, L500.2500 #### [facility] [address] [place], [address] Potassium [Moles/Vol] 3.9 mmol/L Normal 3.5-5.1 [facility] Comment on above: Performed By: #### L 100.0100, L500.2500 #### [facility] [address] [place], [address] Sodium [Moles/Vol] 136 mmol/L Normal 136-145 [facility] Comment on above: Performed By: #### L 100.0100, L500.2500 #### [facility] [address] [place], [address] Urea nitrogen [Mass/Vol] 12 mg/dL Normal 7-18 [facility] Comment on above: Performed By: #### L 100.0100, L500.2500 #### [facility] [address] [place], [address] Blood Gases by [facility] 1019- [facility] ÓSCAR TEST N/A Normal [facility] Comment on above: Performed By: #### L 9000.0800 #### [facility] [address] [place], [address] Base excess Calc (Bld) [Moles/Vol] -2 mmol/L Normal -2 to +2 [facility] Comment on above: Performed By: #### L 9000.0800 #### [facility] [address] [place], [address] Blood Gas Type ART Normal [facility] Comment on above: Performed By: #### L 9000.0800 #### [facility] [address] [place], [address] CO2 [Moles/Vol] 24 mmol/L Normal [facility] Comment on above: Performed By: #### L 9000.0800 #### [facility] [address] [place], [address] FI02 25.0 Normal [facility] Comment on above: Performed By: #### L 9000.0800 #### [facility] [address] [place], [address] HCO3 (Bld) [Moles/Vol] 22.9 mmol/L Normal 22-26 [facility] Comment on above: Performed By: #### L 9000.0800 #### [facility] [address] [place], [address] Mode AC Normal [facility] Comment on above: Performed By: #### L 9000.0800 #### [facility] [address] [place], [address] O2 Delivery Dev Adult Vent Normal [facility] Comment on above: Performed By: #### L 9000.0800 #### [facility] [address] [place], [address] pCO2 37.8 mmHg Normal 35-45 [facility] Comment on above: Performed By: #### L 9000.0800 #### [facility] [address] [place], [address] PEEP 5 Normal [facility] Comment on above: Performed By: #### L 9000.0800 #### [facility] [address] [place], [address] pH (Bld) 7.39 [pH] Normal 7.35-7.45 [facility] Comment on above: Performed By: #### L 9000.0800 #### [facility] [address] [place], [address] PO2 69 mmHG Low 75-100 [facility] Comment on above: Performed By: #### L 9000.0800 #### [facility] [address] [place], [address] RR 18 Normal [facility] Comment on above: Performed By: #### L 9000.0800 #### [facility] [address] [place], [address] SITE L Radial Normal [facility] Comment on above: Performed By: #### L 9000.0800 #### [facility] [address] [place], [address] SO2 93 Low 95-99 [facility] Comment on above: Performed By: #### L 9000.0800 #### [facility] [address] [place], [address] Vt 400.0 mL Normal [facility] Comment on above: Performed By: #### L 9000.0800 #### [facility] [address] [place], [address] CBC W/Diff, Automatedon 10-1 Absolute Lymph 0.26 X10 3/uL Low 0.83-4.51 [facility] Comment on above: Performed By: #### L 100.0100, L500.2500 #### [facility] [address] [place], [address] Absolute Neut 13.1 X10 3/uL High 2.0-7.7 [facility] Comment on above: Performed By: #### L 100.0100, L500.2500 #### [facility] [address] [place], [address] Basophils/100 WBC (Bld) 0.1 % Normal 0-1 [facility] Comment on above: Performed By: #### L 100.0100, L500.2500 #### [facility] [address] [place], [address] Eosinophils/100 WBC (Bld) 0.0 % Normal 0-5 [facility] Comment on above: Performed By: #### L 100.0100, L500.2500 #### [facility] [address] [place], [address] Erythrocyte distribution width (RBC) [Ratio] 12.6 % Normal 11.6-14.6 [facility] Comment on above: Performed By: #### L 100.0100, L500.2500 #### [facility] [address] [place], [address] Hematocrit (Bld) [Volume fraction] 39.2 % Normal 37-47 [facility] Comment on above: Performed By: #### L 100.0100, L500.2500 #### [facility] [address] [place], [address] Hemoglobin (Bld) [Mass/Vol] 13.2 g/dL Normal 12.0-15.0 [facility] Comment on above: Performed By: #### L 100.0100, L500.2500 #### [facility] [address] [place], [address] IG% 0.300 Normal 0.0-0.9 [facility] Comment on above: Result Comment: IG% - Immature Granulocytes (promyelocytes, myelocytes and metamyelocytes) > 1% indicates that a LEFT SHIFT is Present. Performed By: #### L 100.0100, L500.2500 #### [facility] [address] [place], [address] Lymphocytes/100 WBC (Bld) 1.9 % Low 19-41 [facility] Comment on above: Performed By: #### L 100.0100, L500.2500 #### [facility] [address] [place], [address] MCH (RBC) [Entitic mass] 31.4 pg Normal 27.0-32.0 [facility] Comment on above: Performed By: #### L 100.0100, L500.2500 #### [facility] [address] [place], [address] MCHC (RBC) [Mass/Vol] 33.7 g/dL Normal 32-36 [facility] Comment on above: Performed By: #### L 100.0100, L500.2500 #### [facility] [address] [place], [address] MCV (RBC) [Entitic vol] 93.1 fL Normal 81-99 [facility] Comment on above: Performed By: #### L 100.0100, L500.2500 #### [facility] [address] [place], [address] Monocytes/100 WBC (Bld) 1.3 % Normal 0-10 [facility] Comment on above: Performed By: #### L 100.0100, L500.2500 #### [facility] [address] [place], [address] Neutrophils/100 WBC (Bld) 96.4 % High 47-70 [facility] Comment on above: Performed By: #### L 100.0100, L500.2500 #### [facility] [address] [place], [address] Nucleated RBC (Bld) [#/Vol] 0 10*3/uL Normal 0-5 [facility] Comment on above: Performed By: #### L 100.0100, L500.2500 #### [facility] [address] [place], [address] Platelet mean volume (Bld) [Entitic vol] 9.1 fL Normal 6.2-12.0 [facility] Comment on above: Performed By: #### L 100.0100, L500.2500 #### [facility] [address] [place], [address] Platelets (Bld) [#/Vol] 312 10*3/uL Normal 150-450 [facility] Comment on above: Performed By: #### L 100.0100, L500.2500 #### [facility] [address] [place], [address] RBC (Bld) [#/Vol] 4.21 10*6/uL Normal 4.2-5.4 [facility] Comment on above: Performed By: #### L 100.0100, L500.2500 #### [facility] [address] [place], [address] RDW SD 43.1 fl Normal 35.1-43.9 [facility] Comment on above: Performed By: #### L 100.0100, L500.2500 #### [facility] [address] [place], [address] WBC (Bld) [#/Vol] 13.6 10*3/uL High 4.4-11.0 [facility] Comment on above: Performed By: #### L 100.0100, L500.2500 #### [facility] [address] [place], [address] Respiratory Cultureon 2023 RESPC Mixed normal respiratory colin. No Streptococcus pneumoniae, beta-hemolytic Streptococcus or Staphylococcus aureus isolated. Normal [facility] Comment on above: Performed By: #### L 100.0100, L500.4050 #### [facility] [address] [place], [address] 12 Lead EKGon 04-19-2024 12 Lead EKG [facility] Cardiovascular Services [address] [place] [address] 12 Lead EKG 04/19/24 1512 MR#: [id number] Acct: [id number] Name: SARA ONTIVEROS Rep #: [id number] : 1985 39 From: Andrade Garzon MD Attending Dr: Dr. Daniel Reed MD Status : DIS IN Ordering Dr: Chato Lomas DO Date: 04/19/24 Location: ICU Sex: F C Admitted: 04/19/24 Test Reason : Blood Pressure : / mmHG Vent. Rate : 094 BPM Atrial Rate : 067 BPM P-R Int : 126 ms QRS Dur : 080 ms QT Int : 382 ms P-R-T Axes : 072 065 081 degrees QTc Int : 477 ms Sinus rhythm with frequent and consecutive Premature ventricular complexes Abnormal ECG Confirmed by Andrade Garzon ([id number]), supervising editor news reel DARRELL GUZMAN ([id number]) on 04/22/2024 11:57:50 AM Referred By: Confirmed By:Andrade Garzon 04/22/24 1157 Date Andrade Garzon MD CC: Dr. Chato Lomas DO; Dr. Daniel Reed MD; Dr. Navdeep Mo MD Signed Normal [facility] Basic Metabolic Profile (BMP )on 04-19-2024 BUN/CRE 14.6 RATIO Normal 04-21 [facility] Comment on above: Order Comment: 1Y Performed By: #### L 100.0100, L500.4050 #### [facility] [address] [place], [address] CA,Total 8.0 mg/dL Low 8.5-10.1 [facility] Comment on above: Order Comment: 1Y Performed By: #### L 100.0100, L500.4050 #### [facility] [address] [place], [address] Chloride [Moles/Vol] 105 mmol/L Normal 98-107 [facility] Comment on above: Order Comment: 1Y Performed By: #### L 100.0100, L500.4050 #### [facility] [address] [place], [address] CO2 [Moles/Vol] 32.0 mmol/L Normal 21.0-32.0 [facility] Comment on above: Order Comment: 1Y Performed By: #### L 100.0100, L500.4050 #### [facility] [address] [place], [address] Creatinine [Mass/Vol] 1.03 mg/dL High 0.55-1.02 [facility] Comment on above: Order Comment: 1Y Result Comment: The validity of the calculated GFR GFRAA in patients over 70 years has not been determined. Clinical correlation is essential. Performed By: #### L 100.0100, L500.4050 #### [facility] [address] [place], [address] ECRCL 77.65 ml/min Normal [facility] Comment on above: Order Comment: 1Y Performed By: #### L 100.0100, L500.4050 #### [facility] [address] [place], [address] EST GFR - AA 77 mL/min Normal >60 [facility] Comment on above: Order Comment: 1Y Result Comment: Afri can Spanish GFR Calc Performed By: #### L 100.0100, L500.4050 #### [facility] [address] [place], [address] GAP 2 Low 5-15 [facility] Comment on above: Order Comment: 1Y Performed By: #### L 100.0100, L500.4050 #### [facility] [address] [place], [address] GFR/1.73 sq M.predicted among non-blacks MDRD (S/P/Bld) [Vol rate/Area] 64 mL/min/{1.73_m2} Normal >60 [facility] Comment on above: Order Comment: 1Y Result Comment: Non- GFR Calc Performed By: #### L 100.0100, L500.4050 #### [facility] [address] [place], [address] Glucose [Mass/Vol] 153 mg/dL High 74-106 [facility] Comment on above: Order Comment: 1Y Result Comment: Fast ing Glucose result greater than or equal to 126 mg/dL suggests DIABETES MELLITUS per A.D.A. criteria. Performed By: #### L 100.0100, L500.4050 #### [facility] [address] [place], [address] Potassium [Moles/Vol] 4.2 mmol/L Normal 3.5-5.1 [facility] Comment on above: Order Comment: 1Y Result Comment: Mode rate Hemolysis, Result may be falsely increased. Performed By: #### L 100.0100, L500.4050 #### [facility] [address] [place], [address] Sodium [Moles/Vol] 139 mmol/L Normal 136-145 [facility] Comment on above: Order Comment: 1Y Performed By: #### L 100.0100, L500.4050 #### [facility] [address] [place], [address] Urea nitrogen [Mass/Vol] 15 mg/dL Normal 7-18 [facility] Comment on above: Order Comment: 1Y Performed By: #### L 100.0100, L500.4050 #### [facility] [address] [place], [address] Blood Gases by [facility] 024 ÓSCAR TEST Positive Normal [facility] Comment on above: Performed By: #### L 500.2500, L100.0100 #### [facility] [address] [place], [address] Base excess Calc (Bld) [Moles/Vol] -3 mmol/L Low -2 to +2 [facility] Comment on above: Performed By: #### L 500.2500, L100.0100 #### [facility] [address] [place], [address] Blood Gas Type ART Normal [facility] Comment on above: Performed By: #### L 500.2500, L100.0100 #### [facility] [address] [place], [address] CO2 [Moles/Vol] 25 mmol/L Normal [facility] Comment on above: Performed By: #### L 500.2500, L100.0100 #### [facility] [address] [place], [address] FI02 60.0 Normal [facility] Comment on above: Performed By: #### L 500.2500, L100.0100 #### [facility] [address] [place], [address] HCO3 (Bld) [Moles/Vol] 23.6 mmol/L Normal 22-26 [facility] Comment on above: Performed By: #### L 500.2500, L100.0100 #### [facility] [address] [place], [address] Mode AC Normal [facility] Comment on above: Performed By: #### L 500.2500, L100.0100 #### [facility] [address] [place], [address] O2 Delivery Dev Adult Vent Normal [facility] Comment on above: Performed By: #### L 500.2500, L100.0100 #### [facility] [address] [place], [address] pCO2 46.4 mmHg High 35-45 [facility] Comment on above: Performed By: #### L 500.2500, L100.0100 #### [facility] [address] [place], [address] PEEP 5 Normal [facility] Comment on above: Performed By: #### L 500.2500, L100.0100 #### [facility] [address] [place], [address] pH (Bld) 7.32 [pH] Low 7.35-7.45 [facility] Comment on above: Performed By: #### L 500.2500, L100.0100 #### [facility] [address] [place], [address] PO2 67 mmHG Low 75-100 [facility] Comment on above: Performed By: #### L 500.2500, L100.0100 #### [facility] [address] [place], [address] RR 16 Normal [facility] Comment on above: Performed By: #### L 500.2500, L100.0100 #### [facility] [address] [place], [address] SITE R Radial Normal [facility] Comment on above: Performed By: #### L 500.2500, L100.0100 #### [facility] [address] [place], [address] SO2 91 Low 95-99 [facility] Comment on above: Performed By: #### L 500.2500, L100.0100 #### [facility] [address] [place], [address] Vt 400.0 mL Normal [facility] Comment on above: Performed By: #### L 500.2500, L100.0100 #### [facility] [address] [place], [address] CBC W/Diff, Automatedon 10- Absolute Lymph 3.78 X10 3/uL Normal 0.83-4.51 [facility] Comment on above: Performed By: #### L 100.0100, L500.4050 #### [facility] [address] [place], [address] Absolute Neut 6.2 X10 3/uL Normal 2.0-7.7 [facility] Comment on above: Performed By: #### L 100.0100, L500.4050 #### [facility] [address] [place], [address] Basophils/100 WBC (Bld) 1.2 % High 0-1 [facility] Comment on above: Performed By: #### L 100.0100, L500.4050 #### [facility] [address] [place], [address] Eosinophils/100 WBC (Bld) 3.3 % Normal 0-5 [facility] Comment on above: Performed By: #### L 100.0100, L500.4050 #### [facility] [address] [place], [address] Erythrocyte distribution width (RBC) [Ratio] 12.4 % Normal 11.6-14.6 [facility] Comment on above: Performed By: #### L 100.0100, L500.4050 #### [facility] [address] [place], [address] Hematocrit (Bld) [Volume fraction] 43.3 % Normal 37-47 [facility] Comment on above: Performed By: #### L 100.0100, L500.4050 #### [facility] [address] [place], [address] Hemoglobin (Bld) [Mass/Vol] 14.4 g/dL Normal 12.0-15.0 [facility] Comment on above: Performed By: #### L 100.0100, L500.4050 #### [facility] [address] [place], [address] IG% 1.000 High 0.0-0.9 [facility] Comment on above: Result Comment: IG% - Immature Granulocytes (promyelocytes, myelocytes and metamyelocytes) > 1% indicates that a LEFT SHIFT is Present. Performed By: #### L 100.0100, L500.4050 #### [facility] [address] [place], [address] Lymphocytes/100 WBC (Bld) 33.1 % Normal 19-41 [facility] Comment on above: Performed By: #### L 100.0100, L500.4050 #### [facility] [address] [place], [address] MCH (RBC) [Entitic mass] 31.6 pg Normal 27.0-32.0 [facility] Comment on above: Performed By: #### L 100.0100, L500.4050 #### [facility] [address] [place], [address] MCHC (RBC) [Mass/Vol] 33.3 g/dL Normal 32-36 [facility] Comment on above: Performed By: #### L 100.0100, L500.4050 #### [facility] [address] [place], [address] MCV (RBC) [Entitic vol] 95.2 fL Normal 81-99 [facility] Comment on above: Performed By: #### L 100.0100, L500.4050 #### [facility] [address] [place], [address] Monocytes/100 WBC (Bld) 7.0 % Normal 0-10 [facility] Comment on above: Performed By: #### L 100.0100, L500.4050 #### [facility] [address] [place], [address] Neutrophils/100 WBC (Bld) 54.4 % Normal 47-70 [facility] Comment on above: Performed By: #### L 100.0100, L500.4050 #### [facility] [address] [place], [address] Nucleated RBC (Bld) [#/Vol] 0 10*3/uL Normal 0-5 [facility] Comment on above: Performed By: #### L 100.0100, L500.4050 #### [facility] [address] [place], [address] Platelet mean volume (Bld) [Entitic vol] 9.1 fL Normal 6.2-12.0 [facility] Comment on above: Performed By: #### L 100.0100, L500.4050 #### [facility] [address] [place], [address] Platelets (Bld) [#/Vol] 458 10*3/uL High 150-450 [facility] Comment on above: Performed By: #### L 100.0100, L500.4050 #### [facility] [address] [place], [address] RBC (Bld) [#/Vol] 4.55 10*6/uL Normal 4.2-5.4 [facility] Comment on above: Performed By: #### L 100.0100, L500.4050 #### [facility] [address] [place], [address] RDW SD 43.3 fl Normal 35.1-43.9 [facility] Comment on above: Performed By: #### L 100.0100, L500.4050 #### [facility] [address] [place], [address] WBC (Bld) [#/Vol] 11.4 10*3/uL High 4.4-11.0 [facility] Comment on above: Performed By: #### L 100.0100, L500.4050 #### [facility] [address] [place], [address] CPK Total, Creatine Kinaseon 04-19-2024 CPK TOTAL 141 U/L Normal 26-192 [facility] Comment on above: Order Comment: Comme nts: DC when propofol is d/c'dDC when propofol is d/c'd Performed By: #### L 501.3620, L501.5000 ####[facility] [address] [place], [address] Chest 1 View (Portable)on Chest 1 View (Portable) [facility] Imaging Services [address] [place] [id number] Chest 1 View (Portable) MR#: [id number] Acct: [id number] Name: SARA ONTIVEROS Rep #: [id number] : 1985 F 39 From: Christiano Magana PCP: Dr. Navdeep Mo MD Status: PRE ER Study: Chest 1 View (Portable) Date of Exam: 04/19/24 Exam# [id number] Ordering Dr: Chato Lomas DO -[id number] INDICATION: Dyspnea EXAMINATION/TECHNIQ UE: X-RAY - XR Chest 1 View COMPARISON: Prior study dated: 02/02/2024 FINDINGS: LINES/DEVICES: Endotracheal tube with its tip approximately 1 cm proximal to the pao. Nasogastric tube extends below the level of the diaphragm. The sidehole is just below the gastroesophageal junction. LUNGS: No consolidation, edema or effusion. No pneumothorax. MEDIASTINUM AND CARDIOVASCULAR STRUCTURES: Cardiac silhouette not enlarged. Central airways and mediastinal contour are unremarkable. BONES AND SOFT TISSUES: Unremarkable. RAD/Chest 1 View (Portable) IMPRESSION: 1. Endotracheal tube with its tip just above the pao. 2. No active pulmonary disease. Electronically Signed: Christiano Aden MD at 15:03 EDT , CC: Dr. Chato Lomas DO; Dr. Navdeep Mo MD Brand Strategy Manager: Signed Normal [facility] Consultation - Intens[place]iston 04-19-2024 Consultation - Real Estate Consultant [facility] Medical Records Department [address] [place] [address] Consultation - Real Estate Consultant 04/19/24 1950 MR#: [id number] Acct: [id number] Name: SARA ONTIVEROS Rep #: [id number] : 1985 39 From: North Chin MD PCP: Dr. Navdeep Mo MD Status:ADM IN Location: ICU ICU03-[address] North Chin MD on 04/19/24 at 2131 Addendum -Respiratory viral PCR pending. COVID/flu/RSV neg 04/19/242130 Cosigner Signature (if applicable): cc: Dr. Navdeep Mo MD * Signed HPI Consult Data Date of Consult: 04/19/24 HPI Narrative HPI Narrative: SARA ONTIVEROS, is a 39 F w/ severe asthma on ?chronic prednisone, anxiety, h/o tobacco use who was brought in by EMS for asthma exacerbation. Per boyfriend she apparently has been feeling ill for past few days, though he is unaware of any specific sx associated with this such as congestion, cough, fevers/chills, etc. She has not having any obvious dyspnea the past few days, but then today she apparently had severe acute respiratory distress prompting son to call EMS. She continued to be in respiratory distress with severe wheezing, becoming cyanotic in ED despite neb treatment. Therefore she was intubated and transferred to ICU. She apparently came to the ER several days ago as well for asthma exac and sent home. She has been intubated previously for this as well. Boyfriend believes she is compliant with taking her inhalers daily, and that she is also on chronic prednisone. No other significant medical issues per him. No prior known h/o vocal cord dysfunction/throat closing. She quit smoking abt a yr ago. Only occasional EtOH, no illicits per boyfriend. ROS: Unable to obtain as pt intubated [facility] Medical History Status asthmaticus Former tobacco use Anxiety Asthma Home Medications ???Medication ???Instructions ???Recorded ???Last Taken ???Type inhalational spacing device #1 ea 08/26/21 Unknown Rx (Aerochamber MV spacer) albuterol sulfate 90 mcg/actuation 2 puff inhalation Q4H PRN PRN 06/19/23 Unknown Rx aerosol inhaler Wheezing #8.5 grams fluticasone 500 mcg-salmeterol 50 1 inh inhalation BID #60 ea 06/19/23 Unknown Rx mcg/dose blistr powdr for inhalation (Advair Diskus) fluticasone propionate 50 1 spray intranasal Q12H #16 grams 06/19/23 Unknown Rx mcg/actuation nasal spray,suspension albuterol sulfate 90 mcg/actuation 2 inh inhalation Q4H PRN shortness 11/27/23 Unknown Rx aerosol inhaler (Proventil HFA) of breath or wheezing #8.5 grams cyclobenzaprine 10 mg tablet 10 mg PO Q8H PRN PRN back pain 11/27/23 Unknown History tizanidine 4 mg tablet 4 mg PO Q8H PRN PRN muscle spasm 11/27/23 Unknown History albuterol sulfate 90 mcg/actuation 2 puff inhalation Q4H PRN PRN 02/02/24 Unknown Rx aerosol inhaler (Ventolin HFA) Wheezing ##1 prednisone 20 mg tablet 60 mg (3 x 20 mg) PO DAILY #12 02/02/24 Unknown Rx TABLETS albuterol sulfate 2.5 mg/3 mL 2.5 mg (3 mL) inhalation Q4H PRN 04/10/24 Unknown Rx (0.083 %) solution for nebulization #25 vials Allergy/AdvReac Type Severity Reaction Status Date / Time propranolol (From Inderal [place]) Allergy Shortness Verified 04/19/24 14:38 of breath Family History Mother Asthma Father Diabetes Surgical History No history of previous surgery Social History household members: significant other and children Smoking Status: Former smoker how long ago did patient quit smoking: Quit cigarette tobacco 1 year prior, 1 pk/3-4 days from teen until quit. alcohol intake: current alcohol intake frequency: a few times a month substance use type: does not use Objective Data Objective Data Vital Signs: Vital Signs Last response 3 Temperature 37.7 C H 04/19/24 19:00 Temperature Source Core 04/19/24 19:00 Pulse Rate 98 04/19/24 19:00 Respiratory Rate 18 04/19/24 19:00 Respiratory Effort Labored, Accessory Muscle Use 04/19/24 15:23 Respiratory Depth Shallow 04/19/24 15:23 Respiratory Pattern Tachypnea 04/19/24 15:23 Blood Pressure 114/80 04/19/24 19:00 Blood Pressure Mean 91 04/19/24 19:00 Blood Pressure Source Monitor 04/19/24 19:00 Blood Pressure Position Semi-Fowlers 04/19/24 19:00 Blood Pressure Location Left Arm 04/19/24 19:00 Pulse Ox 100 04/19/24 19:00 Oxygen Delivery Method Mechanical Ventilator 04/19/24 19:00 Fraction of Inspired Oxygen (FIO2) 50 04/19/24 19:00 I O: I O Last 24 Hours 3 04/18/24 04/19/24 04/19/24 23:59 11:59 23:59 Intake Total 79.37 / 79.37 Balance 79.37 / 79.37 I O: Total St (more content not included)... Normal [facility] Emergency Department Summary on 04-19-2024 Emergency Department Summary [facility] Medical Records Department [address] [place] [address] Emergency Department Summary 04/19/24 MR#: [id number] Acct: [id number] Name: SARA ONTIVEROS Rep #: [id number] : 1985 39 From: Chato Lomas DO PCP: Dr. Navdeep Mo MD Status:ADM IN Location: ICU ICU03-1 HPI History of Present Illness Chief Complaint: Asthma Informant: EMS Onset/Context/Timin g Onset: Today Timing: Continuous Quality: Positive for Wheezing Relieved by: Oxygen and Albuterol Narrative Narrative: Patient presents with asthma that became worse today. EMS reports they were called for shortness of breath. EMS states the patient was hypoxic when they arrived. EMS reports patient was having tight wheezing. EMS administered a DuoNeb aerosol with minimal improvement. EMS then gave subcutaneous epinephrine with some improvement. Patient's oxygen saturations improved. However, as the patient was being carried to the ambulance, her saturations diminished again. EMS was using [id number] to help ventilate the patient on the way to the emergency department. Family states patient has been intubated in the past for her asthma. Patient is nonverbal. [facility] Medical History Status asthmaticus Former tobacco use Anxiety Asthma Home Medications ???Medication ???Instructions ???Recorded ???Last Taken ???Type inhalational spacing device #1 ea 08/26/21 Unknown Rx (Aerochamber MV spacer) albuterol sulfate 90 mcg/actuation 2 puff inhalation Q4H PRN PRN 06/19/23 Unknown Rx aerosol inhaler Wheezing #8.5 grams fluticasone 500 mcg-salmeterol 50 1 inh inhalation BID #60 ea 06/19/23 Unknown Rx mcg/dose blistr powdr for inhalation (Advair Diskus) fluticasone propionate 50 1 spray intranasal Q12H #16 grams 06/19/23 Unknown Rx mcg/actuation nasal spray,suspension albuterol sulfate 90 mcg/actuation 2 inh inhalation Q4H PRN shortness 11/27/23 Unknown Rx aerosol inhaler (Proventil HFA) of breath or wheezing #8.5 grams cyclobenzaprine 10 mg tablet 10 mg PO Q8H PRN PRN back pain 11/27/23 Unknown History tizanidine 4 mg tablet 4 mg PO Q8H PRN PRN muscle spasm 11/27/23 Unknown History albuterol sulfate 90 mcg/actuation 2 puff inhalation Q4H PRN PRN 02/02/24 Unknown Rx aerosol inhaler (Ventolin HFA) Wheezing ##1 prednisone 20 mg tablet 60 mg (3 x 20 mg) PO DAILY #12 02/02/24 Unknown Rx TABLETS albuterol sulfate 2.5 mg/3 mL 2.5 mg (3 mL) inhalation Q4H PRN 04/10/24 Unknown Rx (0.083 %) solution for nebulization #25 vials Allergy/AdvReac Type Severity Reaction Status Date / Time propranolol (From Inderal [place]) Allergy Shortness Verified 04/19/24 14:38 of breath Family History Mother Asthma Father Diabetes Surgical History No history of previous surgery Social History household members: significant other and children Smoking Status: Former smoker how long ago did patient quit smoking: Quit cigarette tobacco 1 year prior, 1 pk/3-4 days from teen until quit. alcohol intake: current alcohol intake frequency: a few times a month substance use type: does not use ROS ROS ED Review of Systems ROS Unobtainable: due to mental status EXAM Physical Exam Const Vital Signs: 04/19/24 14:38 04/19/24 14:44 04/19/24 14:55 Temperature 97.8 F Temperature Source Temporal Pulse Rate 121 H Respiratory Rate 22 H 16 Respiratory Effort Labored Accessory Muscle Use Respiratory Depth Shallow Respiratory Pattern Tachypnea Blood Pressure 158/105 H Blood Pressure Mean 122 Pulse Ox 99 Oxygen Delivery Method Ambu-Bag Fraction of Inspired Oxygen (FIO2) 30 04/19/24 15:00 04/19/24 15:07 04/19/24 15:23 Temperature Temperature Source Pulse Rate 94 90 Respiratory Rate 16 19 H Respiratory Effort Labored Accessory Muscle Use Respiratory Depth Shallow Respiratory Pattern Normal Tachypnea Blood Pressure 174/133 H Blood Pressure Mean 146 Pulse Ox 98 Oxygen Delivery Method Mechanical Ventilator Mechanical Ventilator Fraction of Inspired Oxygen (FIO2) 04/19/24 15:30 04/19/24 15:30 04/19/24 15:35 Temperature 97 F L Temperature Source Core Pulse Rate 76 Respiratory Rate 16 Respiratory Effort Respiratory Depth Respiratory Pattern Blood Pressure 138/96 H Blood Pressure Mean 110 Pulse Ox 88 93 Oxygen Delivery Method Mechanical Ventilator Mechanical Ventilator Fraction of Inspired Oxygen (FIO2) 50 30 50 04/19/24 15:53 04/19/24 15:53 04/19/24 15:57 Temperature 97.2 F (more content not included)... Normal [facility] H AND P Exam - Hospitaliston 04-19-2024 H&P Exam - Hospitalist [facility] Medical Records Department [address] [place] [address] H P Exam - Hospitalist 04/19/24 1720 MR#: [id number] Acct: [id number] Name: SARA ONTIVEROS Rep #: [id number] : 1985 39 From: Miguel Ángel [place] MD PCP: Dr. Navdeep Mo MD Status:ADM IN Location: ICU ICU03-1 HPI - General General Date of Admission: 04/19/24 Date of Service: 04/19/24 Chief Complaint: Hypoxic 56% on room air, asthma exacerbation HPI Narrative antonio BRADY a 39 F was brought to ED by EMS for increased shortness of breath, labored breathing, tripod breathing, respiratory distress, audible wheezing and turning blue. EMS was called by her son who is 11-year-old and told me in ED that her mother called her and she was struggling with breath, could not speak in sentences, was turning blue therefore she called EMS. As per her boyfriend, she is not doing well for last 3 to 4 days. She has history of asthma since her early 20s. Patient was put on 15 L oxygen nonrebreather and was given a DuoNeb and oxygen came up to 89% from 56%. In ED, patient looked very worse with shortness of breath, hypoxic, tight and wheezing and patient was intubated after not significant improvement after DuoNeb for nebulization. Patient has been intubated in the past for the asthma. She was nonverbal to the ED physician When I saw the patient she is on ventilator on propofol and fentanyl drip. [facility] Medical History Status asthmaticus Former tobacco use Anxiety Asthma Home Medications ???Medication ???Instructions ???Recorded ???Last Taken ???Type inhalational spacing device #1 ea 08/26/21 Unknown Rx (Aerochamber MV spacer) albuterol sulfate 90 mcg/actuation 2 puff inhalation Q4H PRN PRN 06/19/23 Unknown Rx aerosol inhaler Wheezing #8.5 grams fluticasone 500 mcg-salmeterol 50 1 inh inhalation BID #60 ea 06/19/23 Unknown Rx mcg/dose blistr powdr for inhalation (Advair Diskus) fluticasone propionate 50 1 spray intranasal Q12H #16 grams 06/19/23 Unknown Rx mcg/actuation nasal spray,suspension albuterol sulfate 90 mcg/actuation 2 inh inhalation Q4H PRN shortness 11/27/23 Unknown Rx aerosol inhaler (Proventil HFA) of breath or wheezing #8.5 grams cyclobenzaprine 10 mg tablet 10 mg PO Q8H PRN PRN back pain 11/27/23 Unknown History tizanidine 4 mg tablet 4 mg PO Q8H PRN PRN muscle spasm 11/27/23 Unknown History albuterol sulfate 90 mcg/actuation 2 puff inhalation Q4H PRN PRN 02/02/24 Unknown Rx aerosol inhaler (Ventolin HFA) Wheezing ##1 prednisone 20 mg tablet 60 mg (3 x 20 mg) PO DAILY #12 02/02/24 Unknown Rx TABLETS albuterol sulfate 2.5 mg/3 mL 2.5 mg (3 mL) inhalation Q4H PRN 04/10/24 Unknown Rx (0.083 %) solution for nebulization #25 vials Allergy/AdvReac Type Severity Reaction Status Date / Time propranolol (From Inderal LA) Allergy Shortness Verified 04/19/24 14:38 of breath Family History Mother Asthma Father Diabetes Surgical History No history of previous surgery Social History household members: significant other and children Smoking Status: Former smoker how long ago did patient quit smoking: Quit cigarette tobacco 1 year prior, 1 pk/3-4 days from teen until quit. alcohol intake: current alcohol intake frequency: a few times a month substance use type: does not use ROS Review of Systems ROS Unobtainable: due to encephalopathy and due to endotracheal tube Vital Signs Vital Signs Vital Signs: 04/19/24 14:38 04/19/24 14:44 04/19/24 14:55 Temperature 97.8 F Temperature Source Temporal Pulse Rate 121 H Respiratory Rate 22 H 16 Respiratory Effort Labored Accessory Muscle Use Respiratory Depth Shallow Respiratory Pattern Tachypnea Blood Pressure 158/105 H Blood Pressure Mean 122 Pulse Ox 99 Oxygen Delivery Method Ambu-Bag Fraction of Inspired Oxygen (FIO2) 30 04/19/24 15:00 04/19/24 15:07 04/19/24 15:23 Temperature Temperature Source Pulse Rate 94 90 Respiratory Rate 16 19 H Respiratory Effort Labored Accessory Muscle Use Respiratory Depth Shallow Respiratory Pattern Normal Tachypnea Blood Pressure 174/133 H Blood Pressure Mean 146 Pulse Ox 98 Oxygen Delivery Method Mechanical Ventilator Mechanical Ventilator Fraction of Inspired Oxygen (FIO2) 04/19/24 15:30 04/19/24 15:30 04/19/24 15:35 Temperature 97 F L Temperature Source Core Pulse Rate 76 Respiratory Rate 16 Respiratory Effort Respiratory Depth Respiratory Pattern Blood Pressure 138/96 H Blood Pre (more content not included)... Normal [facility] L501.4020on 04-19-2024 TROPONIN-I HS 1255 pg/mL Invalid Interpretation Code 3.0-54.0 [facility] Comment on above: Result Comment: Josh ical Result(s) Called at: 23:32:49 04/19/2024 by: Elliott Lopez. TO [place] [facility]. Results read back by same. Please Note: New Test Units and Gender Specific Reference Ranges. For more information see Policy Stat Procedure [place] High Sensitivity Troponin (TNIH) and attachments. Performed By: #### L 501.4020 ####[facility] [address] [place], [address] L501.5425on 04-19-2024 TROPONIN-I HS 35 pg/mL Normal 3.0-54.0 [facility] Comment on above: Order Comment: 1Y Result Comment: Charlene jaimes Note: New Test Units and Gender Specific Reference Ranges. For more information see Policy Stat Procedure [place] High Sensitivity Troponin (TNIH) and attachments. Performed By: #### L 100.0100, L500.4050 #### [facility] [address] [place], [address] M100.678on 04-19-2024 M100.678 Pending SARS-CoV-2 (COVID 19) Negative INFLUENZA A Negative INFLUENZA B Negative RSV PCR Negative [facility] Comment on above: Performed By: #### L 100.0100, L500.4050 #### [facility] [address] [place], [address] ,Serum,hCG Quali.on 04-19-2024 HCG, SERUM QUAL Negative Normal [facility] Comment on above: Performed By: #### L 3100.7870, L700.6800, L501.9520, L509.7000 ####[facility] [id number] [facility] [place], [place], [id number] Procalcitoninon 04-19-2024 Procalcitonin 0.25 ng/mL High 0.00-0.09 [facility] Comment on above: Result Comment: A procalcitonin (PCT) level above 2.0 ng/mL on the first day of ICU admission is associated with a high risk for progression to severe sepsis and/or septic shock. A PCT level below 0.5 ng/mL on the first day of ICU admission is associated with a low risk for progression to severe and/or septic shock. Note: Concentrations <0.5 ng/mL do not exclude an infection on account of localized infections (without systemic signs) which can be associated with such low concentrations, or a systemic infection in its initial stages (<6 hours). Furthermore, increased procalcitonin can occur without infection. PCT concentrations between 0.5 and 2.0 ng/mL should be interpreted taking into account the patient's history. It is recommended to retest PCT within 6-24 hours if any concentrations <2 ng/mL are obtained. Performed By: #### L 3100.7870, L700.6800, L501.9520, L509.7000 ####[facility] [address] [place], [place], [id number] RESPIRATORY PANEL MOLECULARo n 04-19-2024 RP PANEL Normal Reference Range = Not Detected Resp path DNA+RNA Pnl Resp SOL+probe Nucleic acid amplification test method ADENOVIRUS Not Detected INFLUENZA A Not Detected INFLUENZA A (SUBTYPE H1) Not Detected INFLUENZA A (SUBTYPE H3) Not Detected INFLUENZA B Not Detected HUMAN METAPHNEUMO Not Detected PARAINFLUENZA 1 Not Detected PARAINFLUENZA 2 Not Detected PARAINFLUENZA 3 Not Detected PARAINFLUENZA 4 Not Detected RHINOVIRUS Not Detected RSV A Not Detected RSV B Not Detected Normal [facility] Comment on above: Performed By: #### L 100.0100, L500.4050 #### [facility] [address] [place], [address] Thyroid Stim Hormone (TSH)on 04-19-2024 TSH 2.100 uIU/mL Normal 0.358-3.740 [facility] Comment on above: Performed By: #### L 3100.7870, L700.6800, L501.9520, L509.7000 ####[facility] [address] [place], [address] Triglycerideson 04-19-2024 Triglyceride [Mass/Vol] 68 mg/dL Normal [facility] Comment on above: Order Comment: Comme nts: DC when propofol is d/c'dDC when propofol is d/c'd Result Comment: The drugs N-Acetylcysteine and Metamizole may falsely depress this assay. Serum Triglycerides Reference Interval Normal <150 mg/dL Borderline high 150 - 199 mg/dL High 200 - 499 mg/dL Very High > or = 500 mg/dL Performed By: #### L 501.3620, L501.5000 ####[facility] [address] [place], [address] Urinalysis, Completeon 04-19 RBC 0-5 SEEN Normal 0-5 [facility] Comment on above: Order Comment: CLEAN CATCH Performed By: #### L 100.0100, L500.4050 #### [facility] [address] [place], [address] BACTERIA 2+ /hpf Normal None Seen [facility] Comment on above: Order Comment: CLEAN CATCH Performed By: #### L 100.0100, L500.4050 #### [facility] [address] [place], [address] CAST,HYALINE 0-5 SEEN Normal 0-5 [facility] Comment on above: Order Comment: CLEAN CATCH Performed By: #### L 100.0100, L500.4050 #### [facility] [address] [place], [address] EPI,SQUAMOUS 5-10 SEEN Normal 5-10 [facility] [facility] Comment on above: Order Comment: CLEAN CATCH Performed By: #### L 100.0100, L500.4050 #### [facility] [address] [place], [address] WBC 0-5 SEEN Normal 0-5 [facility] Comment on above: Order Comment: CLEAN CATCH Performed By: #### L 100.0100, L500.4050 #### [facility] [address] [place], [address] Mucus Ql (Urine sed) 0 SEEN Normal [facility] Comment on above: Order Comment: CLEAN CATCH Performed By: #### L 100.0100, L500.4050 #### [facility] [address] [place], [address] Emergency Department Summary on 04-10-2024 Emergency Department Summary [facility] Medical Records Department [address] [place] [address] Emergency Department Summary 04/10/24 MR#: [id number] Acct: [id number] Name: SARA ONTIVEROS Rep #: [id number] : 1985 39 From: Bill Bowen MD PCP: Dr. Navdeep Mo MD Status:REG ER Location: ED HPI History of Present Illness Chief Complaint: Asthma Informant: patient Onset/Context/Timin g Onset: Today Timing: Continuous Quality: Positive for Wheezing Current Severity: Moderate Maximum Severity: Moderate Worsened by: Coughing Relieved by: Albuterol Associated Symptoms cough Chest Pain: Positive for None Narrative Narrative: 39-year-old female history of asthma has a inhaler or nebulizer at home. Currently not on steroids. Has had URI symptoms with nonproductive cough last several days today started having increasing difficulty breathing with wheezing. Denies any fever. No vomiting. No hemoptysis. No leg pain or swelling. No history of DVT or PE risk factors. No hemoptysis. PE Risk Factors: Negative for Cancer, OCP + Smoking + > 35, Prior DVT or PE, Recent immobilization, Recent surgery or Recent travel Prior similar symptoms: Yes Recent Illness/Hospitaliza tion: No PFSH PFSH Medical History Status asthmaticus Former tobacco use Anxiety Asthma Home Medications ???Medication ???Instructions ???Recorded ???Last Taken ???Type inhalational spacing device #1 ea 08/26/21 Unknown Rx (Aerochamber MV spacer) albuterol sulfate 90 mcg/actuation 2 puff inhalation Q4H PRN PRN 06/19/23 Unknown Rx aerosol inhaler Wheezing #8.5 grams fluticasone 500 mcg-salmeterol 50 1 inh inhalation BID #60 ea 06/19/23 Unknown Rx mcg/dose blistr powdr for inhalation (Advair Diskus) fluticasone propionate 50 1 spray intranasal Q12H #16 grams 06/19/23 Unknown Rx mcg/actuation nasal spray,suspension albuterol sulfate 90 mcg/actuation 2 inh inhalation Q4H PRN shortness 11/27/23 Unknown Rx aerosol inhaler (Proventil HFA) of breath or wheezing #8.5 grams cyclobenzaprine 10 mg tablet 10 mg PO Q8H PRN PRN back pain 11/27/23 Unknown History tizanidine 4 mg tablet 4 mg PO Q8H PRN PRN muscle spasm 11/27/23 Unknown History albuterol sulfate 90 mcg/actuation 2 puff inhalation Q4H PRN PRN 02/02/24 Unknown Rx aerosol inhaler (Ventolin HFA) Wheezing ##1 prednisone 20 mg tablet 60 mg (3 x 20 mg) PO DAILY #12 02/02/24 Unknown Rx TABLETS albuterol sulfate 2.5 mg/3 mL 2.5 mg (3 mL) inhalation Q4H PRN 04/10/24 Unknown Rx (0.083 %) solution for nebulization #25 vials prednisone 20 mg tablet 40 mg (2 x 20 mg) PO DAILY asthma 04/10/24 Unknown Rx 7 days #14 tabs Allergy/AdvReac Type Severity Reaction Status Date / Time propranolol (From Inderal LA) Allergy Shortness Verified 04/10/24 19:52 of breath Family History Mother Asthma Father Diabetes Surgical History No history of previous surgery Social History household members: significant other and children Smoking Status: Former smoker how long ago did patient quit smoking: Quit cigarette tobacco 1 year prior, 1 pk/3-4 days from teen until quit. alcohol intake: current alcohol intake frequency: a few times a month substance use type: does not use ROS ROS ED ROS Narrative Recent URI. Wheezing. Constitutional Constitutional ED: Denies chills or fever(s) Eyes Eyes: Denies blurry vision ENT ENT ED: Denies ear pain Cardiovascular Cardiovascular: Denies chest pain Respiratory/Chest Respiratory/Chest: Reports cough and dyspnea Gastrointestinal Gastrointestinal: Denies abdominal pain, diarrhea, nausea or vomiting Genitourinary Genitourinary ED: Denies dysuria or hematuria Musculoskeletal Musculoskeletal: Denies arthralgias Integumentary Denies abscess Neurologic Neurologic: Denies headache(s) Psychiatric Psychiatric: Denies anxiety Endocrine Endocrinology: Denies cold intolerance Hematologic/Lymphat ic Hematologic/Lymphat ic: Denies easy bleeding, easy bruising or lymphadenopathy Allergic/Immunologi c Allergic/Immunologi c ED: Denies mouth swelling, tongue swelling or urticaria EXAM Physical Exam Narrative Exam Narrative: 39-year-old female vital signs are stable except she is tachycardic at 115 respiratory rate 28. H EENT exam unremarkable. Neck nontender. No JVD. No lymphadenopathy. Lungs prolonged expiratory p hase bilaterally. Inspiratory and expiratory wheezing bilaterally. More so expiratory. No rales or rhonchi. Equal symmetrical. Heart tachycardic 115 no murmur. Chest wall and ribs nontender. No subcu air. Abdomen soft nontender. Back nontender. Movin (more content not included)... Normal [facility] CNOVon 04-03-2024 CNOV Office Visit ([facility]) ---- SARA ONTIVEROS ([id number]) 1985 F Date Time Provider Department 04/03/24 3:30 PM CALISTA LEE [facility] During your visit today, we recorded the following information about you: Temperature Pulse Respiration Blood pressure 98.8 degrees 90/minute 18/minute 128/82 Weight 80.2 kg Calista Lee APRN.DOCUMENTATION CLERK 04/03/2024 3:54 PM Signed Subjective HPI HPI Sara Ontiveros is a 39 year old female who presents today for CC of cough, sob, wheezing. This started todya. Has tried asthma nebulizer. Symptoms are worsened by activity. Risk factors hx of severe asthma. Nonsmoker. Denies possibility of being . .Patient presents with: Cough: Cough, chest congestion and SOB-always has these symptoms but today much worse 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 (Deisi Rodriguez MD) YUNIOR (generalized anxiety disorder) 08/25/2021 High-risk 04/27/2012 LGSIL (low grade squamous intraepithelial dysplasia) 01/04/2013 Tobacco dependence syndrome 09/22/2009 Trauma 2008 DISLOCATED KNEE, Right PAST SURGICAL HISTORY Procedure Laterality Date NONE ALLERGIES Propranolol MEDICATIONS albuterol HFA (PROVENTIL HFA, VENTOLIN HFA) 90 mcg/actuation inhaler Inhale 2 Puffs as instructed every 6 hours as needed for wheezing/shortness of breath. albuterol HFA (PROAIR HFA) 90 mcg/actuation inhaler Inhale 2 Puffs as instructed every 6 hours as needed. gabapentin (NEURONTIN) 300 mg capsule Take 1 capsule by mouth three times a day for 90 days. albuterol HFA (VENTOLIN HFA) 90 mcg/actuation inhaler inhale 2 puffs by mouth as directed every 4 hours if needed for wheezing OR SHORTNESS OF BREATH fluticasone (FLONASE) 50 mcg/actuation nasal spray Use 2 Sprays in each nostril once daily. Rinse mouth after use. albuterol (PROVENTIL) 2.5 mg /3 mL (0.083 %) nebulizer solution inhale contents of 1 vial in nebulizer every 4 hours if needed for wheezing or shortness of breath fluticasone-salmete rol (ADVAIR DISKUS) 500-50 mcg/dose dsdv Inhale 1 Puff as instructed twice daily. Rinse and gargle mouth with water after use. levonorgestrel (MIRENA) 20 mcg/24 hours (7 yrs) 52 mg IUD 1 Each by INTRAUTERINE route as directed. Nebulizer Accessories [facility] [place] Pt needs nebulzier and supplies. Dx is asthma J45.40. predniSONE (DELTASONE) 10 mg tablet Take 6 tabs today, then 4 tabs daily for 2 days, then 2 tabs daily for 3 days, then 1 tab daily for 3 days with food. umeclidinium (INCRUSE ELLIPTA) 62.5 mcg/actuation inhaler Inhale 1 Puff as instructed once daily. (Patient not taking: Reported on 01/06/2024) naltrexone 50 mg tablet Take 1 tablet by mouth once daily. Prescribed by psychiatry at [facility] (Patient not taking: Reported on 01/06/2024) diphenhydrAMINE (BENADRYL) 25 mg capsule Take 1 capsule by mouth twice daily. (Patient not taking: Reported on 01/06/2024) montelukast (SINGULAIR) 10 mg tablet Take 1 tablet by mouth daily at bedtime. (Patient not taking: Reported on 01/06/2024) FAMILY HISTORY Problem Relation Age of Onset Anxiety disorder Mother Depression Mother Asthma Mother Diabetes Father Hypertension Father Diabetes Paternal Grandfather Hypertension Paternal Grandfather Social History Tobacco Use Smoking status: Former Current packs/day: 0.00 Average packs/day: 0.3 packs/day for 18.5 years (5.6 ttl pk-yrs) Types: Cigarettes Start date: 11/08/2003 Quit date: 05/10/2022 Years since quittin.9 Smokeless tobacco: Never Vaping Use Vaping status: Never Used Substance Use Topics Alcohol use: Yes Comment: occasionally Drug use: No Review of Systems Constitutional: Negative for fever. HENT: Negative for congestion, ear pain, nosebleeds and sore throat. Respiratory: Positive for cough, shortness of breath and wheezing. Cardiovascular: Negative for chest pain. Musculoskeletal: Negative for neck pain. Skin: Negative for itching and rash. Objective Blood pressure 128/82, pulse 90, temperature 37.1 ?C (98.8 ?F), temperature source Tympanic, resp. rate 18, weight 80.2 kg (176 lb 12.9 oz), SpO2 100%. Physical Exam Constitutional: General: She is not in acute distress. Appearance: She is not toxic-appearing or diaphoretic. HENT: Head: Normocephalic and atraumatic. Cardiovascular: Rate and Rhythm: Normal rate and regular rhythm. Heart sounds: Normal heart sounds, S1 normal and S2 normal. Pulmonary: Effort: Pulmonary effort is normal. Breath sounds: Wheezing (scattered throughout) present. No decreased breath sounds, rhonchi or rales. Neurological: Mental Status: She is alert and oriented to person, place, and time. Gait: Gait is intact. ASSESSMENT/PLAN: 1. Moderate persistent asthmatic bronchitis with acute exacerbation - ICD9: 493.92 (more content not included)... Normal [facility] Basic Metabolic Profile (BMP )on 02-02-2024 BUN/CRE 11.0 RATIO Normal 10-20 [facility] Comment on above: Performed By: #### L 500.2500, L100.0100 #### [facility] [address] [place], [address] CA,Total 8.7 mg/dL Normal 8.5-10.1 [facility] Comment on above: Performed By: #### L 500.2500, L100.0100 #### [facility] [address] [place], [address] Chloride [Moles/Vol] 111 mmol/L High 98-107 [facility] Comment on above: Performed By: #### L 500.2500, L100.0100 #### [facility] [address] [place], [address] CO2 [Moles/Vol] 24.0 mmol/L Normal 21.0-32.0 [facility] Comment on above: Performed By: #### L 500.2500, L100.0100 #### [facility] [address] [place], [address] Creatinine [Mass/Vol] 0.82 mg/dL Normal 0.55-1.02 [facility] Comment on above: Result Comment: The validity of the calculated GFR GFRAA in patients over 70 years has not been determined. Clinical correlation is essential. Performed By: #### L 500.2500, L100.0100 #### [facility] [address] [place], [address] ECRCL 95.97 ml/min Normal [facility] Comment on above: Performed By: #### L 500.2500, L100.0100 #### [facility] [address] [place], [address] EST GFR - AA 101 mL/min Normal >60 [facility] Comment on above: Result Comment: Afri can Spanish GFR Calc Performed By: #### L 500.2500, L100.0100 #### [facility] [address] [place], [address] GAP 5 Normal 5-15 [facility] Comment on above: Performed By: #### L 500.2500, L100.0100 #### [facility] [address] [place], [address] GFR/1.73 sq M.predicted among non-blacks MDRD (S/P/Bld) [Vol rate/Area] 83 mL/min/{1.73_m2} Normal >60 [facility] Comment on above: Result Comment: Non- GFR Calc Performed By: #### L 500.2500, L100.0100 #### [facility] [address] [place], [address] Glucose [Mass/Vol] 96 mg/dL Normal 74-106 [facility] Comment on above: Performed By: #### L 500.2500, L100.0100 #### [facility] [address] [place], [address] Potassium [Moles/Vol] 4.3 mmol/L Normal 3.5-5.1 [facility] Comment on above: Performed By: #### L 500.2500, L100.0100 #### [facility] [address] [place], [address] Sodium [Moles/Vol] 140 mmol/L Normal 136-145 [facility] Comment on above: Performed By: #### L 500.2500, L100.0100 #### [facility] [address] [place], [address] Urea nitrogen [Mass/Vol] 9 mg/dL Normal 7-18 [facility] Comment on above: Performed By: #### L 500.2500, L100.0100 #### [facility] [address] [place], [address] CBC W/Diff, Automatedon 08-0 2-4 Absolute Lymph 2.84 X10 3/uL Normal 0.83-4.51 [facility] Comment on above: Performed By: #### L 500.2500, L100.0100 #### [facility] [address] [place], [address] Absolute Neut 3.7 X10 3/uL Normal 2.0-7.7 [facility] Comment on above: Performed By: #### L 500.2500, L100.0100 #### [facility] [address] [place], [address] Basophils/100 WBC (Bld) 1.5 % High 0-1 [facility] Comment on above: Performed By: #### L 500.2500, L100.0100 #### [facility] [address] [place], [address] Eosinophils/100 WBC (Bld) 7.3 % High 0-5 [facility] Comment on above: Performed By: #### L 500.2500, L100.0100 #### [facility] [address] [place], [address] Erythrocyte distribution width (RBC) [Ratio] 12.7 % Normal 11.6-14.6 [facility] Comment on above: Performed By: #### L 500.2500, L100.0100 #### [facility] [address] [place], [address] Hematocrit (Bld) [Volume fraction] 41.9 % Normal 37-47 [facility] Comment on above: Performed By: #### L 500.2500, L100.0100 #### [facility] [address] [place], [address] Hemoglobin (Bld) [Mass/Vol] 14.1 g/dL Normal 12.0-15.0 [facility] Comment on above: Performed By: #### L 500.2500, L100.0100 #### [facility] [address] [place], [address] IG% 0.300 Normal 0.0-0.9 [facility] Comment on above: Result Comment: IG% - Immature Granulocytes (promyelocytes, myelocytes and metamyelocytes) > 1% indicates that a LEFT SHIFT is Present. Performed By: #### L 500.2500, L100.0100 #### [facility] [address] [place], [address] Lymphocytes/100 WBC (Bld) 35.8 % Normal 19-41 [facility] Comment on above: Performed By: #### L 500.2500, L100.0100 #### [facility] [address] [place], [address] MCH (RBC) [Entitic mass] 30.9 pg Normal 27.0-32.0 [facility] Comment on above: Performed By: #### L 500.2500, L100.0100 #### [facility] [address] [place], [address] MCHC (RBC) [Mass/Vol] 33.7 g/dL Normal 32-36 [facility] Comment on above: Performed By: #### L 500.2500, L100.0100 #### [facility] [address] [place], [address] MCV (RBC) [Entitic vol] 91.9 fL Normal 81-99 [facility] Comment on above: Performed By: #### L 500.2500, L100.0100 #### [facility] [address] [place], [address] Monocytes/100 WBC (Bld) 8.2 % Normal 0-10 [facility] Comment on above: Performed By: #### L 500.2500, L100.0100 #### [facility] [address] [place], [address] Neutrophils/100 WBC (Bld) 46.9 % Low 47-70 [facility] Comment on above: Performed By: #### L 500.2500, L100.0100 #### [facility] [address] [place], [address] Nucleated RBC (Bld) [#/Vol] 0 10*3/uL Normal 0-5 [facility] Comment on above: Performed By: #### L 500.2500, L100.0100 #### [facility] [address] [place], [address] Platelet mean volume (Bld) [Entitic vol] 9.2 fL Normal 6.2-12.0 [facility] Comment on above: Performed By: #### L 500.2500, L100.0100 #### [facility] [address] [place], [address] Platelets (Bld) [#/Vol] 414 10*3/uL Normal 150-450 [facility] Comment on above: Performed By: #### L 500.2500, L100.0100 #### [facility] [address] [place], [address] RBC (Bld) [#/Vol] 4.56 10*6/uL Normal 4.2-5.4 [facility] Comment on above: Performed By: #### L 500.2500, L100.0100 #### [facility] [address] [place], [address] RDW SD 42.5 fl Normal 35.1-43.9 [facility] Comment on above: Performed By: #### L 500.2500, L100.0100 #### [facility] [address] [place], [address] WBC (Bld) [#/Vol] 7.9 10*3/uL Normal 4.4-11.0 [facility] Comment on above: Performed By: #### L 500.2500, L100.0100 #### [facility] [address] [place], [address] Chest 1 View (Portable)on Chest 1 View (Portable) [facility] Imaging Services [address] [place] [address] Chest 1 View (Portable) MR#: [id number] Acct: [id number] Name: SARA ONTIVEROS Rep #: [id number] : 1985 F 38 From: Angelo dupree MD PCP: Dr. Navdeep Mo MD Status: [facility] ER Study: Chest 1 View (Portable) Date of Exam: 02/02/24 Exam# [id number] Ordering Dr: Mick Martinez DO -[id number] INDICATION: dyspnea EXAMINATION/TECHNIQ UE: X-RAY - XR Chest 1 View COMPARISON: Prior study dated: 07/30/2023 FINDINGS: LINES/DEVICES: None. LUNGS: The lungs are well expanded. No consolidation, edema or effusion. No pneumothorax. MEDIASTINUM AND CARDIOVASCULAR STRUCTURES: Cardiac silhouette not enlarged. Central airways and mediastinal contour are unremarkable. BONES AND SOFT TISSUES: No acute abnormality. RAD/Chest 1 View (Portable) IMPRESSION: No acute pulmonary finding. Electronically Signed: Angelo Rojas MD at 4:54 EDT , CC: Dr. Mick Martinez DO; Dr. Navdeep Mo MD Brand Strategy Manager: Signed Normal [facility] Emergency Department Summary on 02-02-2024 Emergency Department Summary [facility] Medical Records Department [address] [place] [address] Emergency Department Summary 02/02/24 MR#: [id number] Acct: [id number] Name: SARA ONTIVEROS Rep #: [id number] : 1985 38 From: Mick Reece PCP: Dr. Navdeep Mo MD Status:REG ER Location: ED HPI History of Present Illness Chief Complaint: Asthma [facility] Medical History (Updated 02/02/24 @ 05:[address] Mick Martinez DO) Status asthmaticus Former tobacco use Anxiety Asthma Home Medications ???Medication ???Instructions ???Recorded ???Last Taken ???Type inhalational spacing device #1 ea 08/26/21 Unknown Rx (Aerochamber MV spacer) albuterol sulfate 90 mcg/actuation 2 puff inhalation Q4H PRN PRN 06/19/23 Unknown Rx aerosol inhaler Wheezing #8.5 grams fluticasone 500 mcg-salmeterol 50 1 inh inhalation BID #60 ea 06/19/23 Unknown Rx mcg/dose blistr powdr for inhalation (Advair Diskus) fluticasone propionate 50 1 spray intranasal Q12H #16 grams 06/19/23 Unknown Rx mcg/actuation nasal spray,suspension albuterol sulfate 90 mcg/actuation 2 inh inhalation Q4H PRN shortness 11/27/23 Unknown Rx aerosol inhaler (Proventil HFA) of breath or wheezing #8.5 grams cyclobenzaprine 10 mg tablet 10 mg PO Q8H PRN PRN back pain 11/27/23 Unknown History tizanidine 4 mg tablet 4 mg PO Q8H PRN PRN muscle spasm 11/27/23 Unknown History albuterol sulfate 90 mcg/actuation 2 puff inhalation Q4H PRN PRN 02/02/24 Unknown Rx aerosol inhaler (Ventolin HFA) Wheezing ##1 prednisone 20 mg tablet 60 mg (3 x 20 mg) PO DAILY #12 02/02/24 Unknown Rx TABLETS Allergy/AdvReac Type Severity Reaction Status Date / Time propranolol (From Inderal LA) Allergy Shortness Verified 02/02/24 03:42 of breath Family History Mother Asthma Father Diabetes Surgical History No history of previous surgery Social History household members: significant other and children Smoking Status: Former smoker how long ago did patient quit smoking: Quit cigarette tobacco 1 year prior, 1 pk/3-4 days from teen until quit. alcohol intake: current alcohol intake frequency: a few times a month substance use type: does not use EXAM Physical Exam Const Vital Signs: 02/02/24 03:41 02/02/24 03:48 02/02/24 03:52 Temperature 98.5 F Temperature Source Oral Pulse Rate 95 93 Respiratory Rate 27 H 18 Respiratory Effort Short of Breath Labored Accessory Muscle Use Respiratory Pattern Normal Blood Pressure 149/98 H Blood Pressure Mean 115 Pulse Ox 97 Oxygen Delivery Method 02/02/24 04:41 02/02/24 05:00 Temperature Temperature Source Pulse Rate 90 90 Respiratory Rate 18 20 H Respiratory Effort Respiratory Pattern Blood Pressure 136/103 H 139/72 H Blood Pressure Mean 114 94 Pulse Ox 94 96 Oxygen Delivery Method Room Air Room Air MDM MDM MDM Narrative Medical decision making narrative: Interventions / MDM: Differential diagnosis: Asthma exacerbation Diagnosis considered but do not suspect: Pneumothorax, pneumonia however chest x-ray negative. My EKG interpretation: N/A Imaging independently reviewed and interpreted by myself: 1 view chest x-ray: No acute process. External documents reviewed: N/A Test considered but not ordered:N/A ED course: Patient increasing tachypnea with wheezing asthma history slight cough. DuoNeb additional albuterol ordered Solu-Medrol IV. Basic labs were obtained. Chest x-ray ordered. 0430: Clinically improving however on reevaluation there is still some wheezing lower lobes. Additional aerosol treatments were given. Chest x-ray negative baseline labs negative. 0530: Clinically improved ambulated with pulse ox maintained at 94%. Considered admission however symptoms significantly improved and stable with ambulation. Will refill her inhaler. Additional 4 days of steroids for burst treatment for exacerbation. Outpatient follow-up. Return precautions. Re-evaluation: stable Disposition discussed with patient/family/sign ificant other: Patient Case discussed with consulting clinician: N/A This note was generated with Intellistream dictation software. It may contain incorrect words, spelling, and punctuation that were not noted in checking the note before signing. Lab Data Attestation: I reviewed the patient's lab results. Labs: Laboratory Results - last 24 hr 02/02/24 03:50 WBC 7.9 RBC 4.56 Hgb 14.1 Hct 41.9 MCV 91.9 MCH 30.9 MCHC 33.7 RDW Std Deviation 42.5 RDW Coeff of Brittney 12.7 Plt Count 414 MPV 9.2 Immature Gran % (Auto) 0.300 Neut % (A (more content not included)... Normal [facility] Emergency Department Summary on 11-27-2023 Emergency Department Summary [facility] Medical Records Department [address] [place] [address] Emergency Department Summary 11/27/23 MR#: [id number] Acct: [id number] Name: SARA ONTIVEROS Rep #: [id number] : 1985 38 From: Bill Bowen MD PCP: Dr. Navdeep Mo MD Status:DEP ER Location: ED HPI History of Present Illness Chief Complaint: Asthma Informant: patient Onset/Context/Lucas bustos Onset: Today Context: gradual Timing: Continuous Quality: Positive for Wheezing Current Severity: Moderate Maximum Severity: Moderate Worsened by: Nothing Relieved by: Nothing Associated Symptoms Negative for cough Chest Pain: Positive for None Narrative Narrative: Bhaqocv-ibja-oce female history of asthma complaining of shortness of breath and wheezing consistent with her prior asthma flares. No chest pain. No fever or cough. Using her inhalers at home without relief. Currently not on any steroids. PE Risk Factors: Negative for Cancer, OCP + Smoking + > 35, Prior DVT or PE, Recent immobilization, Recent surgery or Recent travel Prior similar symptoms: Yes Recent Illness/Hospitaliza tion: No PFSH [facility] Medical History Former tobacco use Anxiety Asthma Home Medications ???Medication ???Instructions ???Recorded ???Last Taken ???Type inhalational spacing device #1 ea 08/26/21 Unknown Rx (Aerochamber MV spacer) albuterol sulfate 90 mcg/actuation 2 puff inhalation Q4H PRN PRN 06/19/23 Unknown Rx aerosol inhaler Wheezing #8.5 grams fluticasone 500 mcg-salmeterol 50 1 inh inhalation BID #60 ea 06/19/23 Unknown Rx mcg/dose blistr powdr for inhalation (Advair Diskus) fluticasone propionate 50 1 spray intranasal Q12H #16 grams 06/19/23 Unknown Rx mcg/actuation nasal spray,suspension albuterol sulfate 90 mcg/actuation 2 inh inhalation Q4H PRN shortness 11/27/23 Unknown Rx aerosol inhaler (Proventil HFA) of breath or wheezing #8.5 grams cyclobenzaprine 10 mg tablet 10 mg PO Q8H PRN PRN back pain 11/27/23 Unknown History diclofenac sodium 75 mg 75 mg PO BID 11/27/23 Unknown History tablet,delayed release prednisone 20 mg tablet 40 mg (2 x 20 mg) PO DAILY 7 days 11/27/23 Unknown Rx #14 tabs prednisone 20 mg tablet 40 mg (2 x 20 mg) PO DAILY 7 days 11/27/23 Unknown Rx #14 tabs tizanidine 4 mg tablet 4 mg PO Q8H PRN PRN muscle spasm 11/27/23 Unknown History Allergy/AdvReac Type Severity Reaction Status Date / Time propranolol (From Inderal LA) Allergy Shortness Verified 07/30/23 19:15 of breath Family History Mother Asthma Father Diabetes Surgical History No history of previous surgery Social History household members: significant other and children Smoking Status: Former smoker how long ago did patient quit smoking: Quit cigarette tobacco 1 year prior, 1 pk/3-4 days from teen until quit. alcohol intake: current alcohol intake frequency: a few times a month substance use type: does not use ROS ROS ED ROS Narrative Shortness of breath and wheezing. Review of Systems ROS Unobtainable: Denies due to encephalopathy Constitutional Constitutional ED: Denies chills or fever(s) Eyes Eyes: Denies blurry vision Cardiovascular Cardiovascular: Denies chest pain or palpitations Respiratory/Chest Respiratory/Chest: Reports dyspnea; Denies cough Gastrointestinal Gastrointestinal: Denies abdominal pain, constipation, diarrhea, melena, nausea or vomiting Genitourinary Genitourinary ED: Denies dysuria or hematuria Musculoskeletal Musculoskeletal: Denies arthralgias, back pain or myalgias Integumentary Denies abscess or Abrasions Neurologic Neurologic: Denies headache(s) Psychiatric Psychiatric: Denies anxiety or depression Endocrine Endocrinology: Denies cold intolerance Hematologic/Lymphat ic Hematologic/Lymphat ic: Denies easy bleeding or easy bruising Allergic/Immunologi c Allergic/Immunologi c ED: Denies mouth swelling, tongue swelling or urticaria EXAM Physical Exam Narrative Exam Narrative: 38-year-old female vital signs are stable pulse ox 99% on room air. Mild respiratory distress. H EENT exam unremarkable. Mytrex members. Neck nontender. No JVD. No lymphadenopathy. Lungs expiratory wheezing throughout. Prolonged expiratory phase. No rales or rhonchi. Equal symmetrical. Heart regular rhythm rate about 80 no murmur. Chest wall and ribs nontender. Abdomen soft nontender. Back nontender. Moving all 4 extremities. 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 Normal dorsi plantarflexion. Calves are nontender without edema or cords. Neurologically she is awake and alert no focal motor deficits. Exam consistent with as (more content not included)... Normal [facility] CNOVon 08-11-2023 CNOV Office Visit (SPAGWO) ---- SARA ONTIVEROS ([id number]) 1985 F Date Time Provider Department 08/11/23 10:00 AM ELI CRUZ During your visit today, we recorded the following information about you: Pulse Respiration 100/minute 16/minute Eli Cruz APRN.CNP 08/11/2023 12:53 PM Signed [facility] Today's Date: 08/11/2023 Name: Sara Ontiveros : 1985 Purpose: New Patient Consultation Chief complaint: Neck pain left arm pain Referring Clinician: Lidia Peraza CNP Pertinent Past Medical History: Asthma, Depression, PTSD, anxiety, Alcohol dependence (remission) Pertinent Past Surgeries: none History of Present Illness (HPI): 08/10/2023 - Initial HPI (Obtained by Eli Cruz CNP). DURATION AND ONSET: The pain complaint has been present for approximately 4 months. The pain had a sudden onset. The mechanism of injury is unknown. RED FLAG SYMPTOMS: left arm weakness and numbness or tingling in her fingers. PAIN DESCRIPTION: Timing: Constant Character: Dull, Sharp, Shooting, Throbbing pt states she feels it is like a chetan horse going down her left arm Primary Location: neck and left and trapezius region Radiation: down the left arm into all fingers. Exacerbating factors: lifting over her head, Relieving factors: Repositioning/Mejia ing positions, Medications, Heat Interferes with: everything Patient reporting approximately 4 months ago she woke up with the pain in her left upper shoulder neck with radiation going down her arm. Patient states she does not remember hurting herself. Patient states this pain has been like a charley horse feeling going down her arms. Patient stating that she did go to the ER and they did do a CT scan, did give her lidocaine, and some medication which did help short-term. 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 Patient states it is a constant pain in her left shoulder arm and neck. Patient has not had physical therapy. Patient was on gabapentin for issues for psych but she has been taking them as needed as she is not gone back to get her prescription. Patient has not had physical therapy. Patient states currently she is having a difficult time with her activities of daily living due to the pain. Current Pain Medications: Neuropathics: gabapentin ( taking for depression) pt reports not on a regular bases NSAIDS: ibuprofen Muscle Relaxants: cyclobenzaprine Topicals: Other Prescription or OTC Pain Medications: tylenol Opioids (when applicable): Greenlight Questionnaire GREENLIGHT Completed Date 08/11/2023 Opioid Risk Tool Opiod Risk Tool Date Completed 08/11/2023 Comments 2 YUNIOR-7 Anxiety Score 0 Completed Date 08/11/2023 PHQ9P Score 9 Completed Date 08/11/2023 Anti-depressants or Mood-Stabilizers: None Anti-Coagulants: None Therapies Attended (Current or Most Recent): No Current Therapies ___ Treatment History: PAIN PROCEDURES: DATE PROCEDURE IMPROVEMENT To date, no interventional pain management procedures performed at this practice. MEDICATIONS Taken TO DATE (for the chief complaint(s)): Neuropathics: Neurontin (Gabapentin) NSAIDS: Motrin (Ibuprofen) Muscle Relaxants: Flexeril (Cyclobenzaprine) Topicals: Lidocaine Patch, Voltaren (Gel) Other Prescription or OTC Pain Medications: Tylenol (Acetaminophen) Opioids: None ____ Data Reviewed Today: Allergies: ALLERGIES Allergen Reactions Propranolol Shortness of Breath Social History Tobacco Use Smoking status: Former Packs/day: 0.30 Years: 16.00 Additional pack years: 0.00 Total pack years: 4.80 Types: Cigarettes Start date: 11/08/2003 Quit date: 05/10/2022 Years since quittin.2 Smokeless tobacco: Never Vaping Use Vaping Use: Never used Substance Use Topics Alcohol use: Yes Comment: occasionally Drug use: No INTAKE PAIN ASSESSMENT 07/14/2023 08/09/2023 Are you having pain associated with your visit today? - Yes, Provider notified Pain Scales - - Pain Level 5 10 Pain Location Shoulder-Left Arm-Left Description - Aching;Cramping;Num bness;Pressure;Sore ;Tingling Duration Amount of Time - 2 Duration Units - Months Frequency - Continuous Intervention/Comfor t measure - Medication;Repositi on;Heat;Pillow support;Rocking/hol ding Comments - The pain is in the upper left side of my back, neck, and down the entire arm. It feels like knots or the worst cramps that will not give up. My fingers feel numb or they'll tingle like they've fallen asleep. Pain Assessment Reassessment - Compliance: PDMP website checked and (more content not included)... Normal [facility] Absolute lymphocyte countOrd ered By: Amilcar Byrnes on 07-30-2023 Lymphocytes Auto (Unsp spec) [#/Vol] 1.06 10*3/uL 0.83-4.51 [facility] Automated lymphocyte count a s percentage of total leukocytesOrdered By: Amilcar Byrnes on 07-30-2023 Lymphocytes/100 WBC Auto (Unsp spec) 14.3 % 19-41 [facility] Basic Metabolic Profile (BMP )on 07-30-2023 BUN/CRE 9.9 RATIO Low 10-20 [facility] Comment on above: Performed By: #### L 100.0100, L500.2500 ####[facility] [address] [place], [address] CA,Total 8.7 mg/dL Normal 8.5-10.1 [facility] Comment on above: Performed By: #### L 100.0100, L500.2500 ####[facility] [address] [place], [address] Chloride [Moles/Vol] 112 mmol/L High 98-107 [facility] Comment on above: Performed By: #### L 100.0100, L500.2500 ####[facility] [address] [place], [address] CO2 [Moles/Vol] 26.0 mmol/L Normal 21.0-32.0 [facility] Comment on above: Performed By: #### L 100.0100, L500.2500 ####[facility] [address] [place], [address] Creatinine [Mass/Vol] 0.91 mg/dL Normal 0.55-1.02 [facility] Comment on above: Result Comment: The validity of the calculated GFR GFRAA in patients over 70 years has not been determined. Clinical correlation is essential. Performed By: #### L 100.0100, L500.2500 ####[facility] [address] [place], [address] ECRCL 87.93 ml/min Normal [facility] Comment on above: Performed By: #### L 100.0100, L500.2500 ####[facility] [address] [place], [address] EST GFR - AA 89 mL/min Normal >60 [facility] Comment on above: Result Comment: Afri can Spanish GFR Calc Performed By: #### L 100.0100, L500.2500 ####[facility] [address] [place], [address] GAP 3 Low 5-15 [facility] Comment on above: Performed By: #### L 100.0100, L500.2500 ####[facility] [address] [place], [address] GFR/1.73 sq M.predicted among non-blacks MDRD (S/P/Bld) [Vol rate/Area] 74 mL/min/{1.73_m2} Normal >60 [facility] Comment on above: Result Comment: Non- GFR Calc Performed By: #### L 100.0100, L500.2500 ####[facility] [address] [place], [address] Glucose [Mass/Vol] 146 mg/dL High 74-106 [facility] Comment on above: Result Comment: Fast ing Glucose result greater than or equal to 126 mg/dL suggests DIABETES MELLITUS per A.D.A. criteria. Performed By: #### L 100.0100, L500.2500 ####[facility] [address] [place], [address] Potassium [Moles/Vol] 3.8 mmol/L Normal 3.5-5.1 [facility] Comment on above: Performed By: #### L 100.0100, L500.2500 ####[facility] [address] [place], [address] Sodium [Moles/Vol] 141 mmol/L Normal 136-145 [facility] Comment on above: Performed By: #### L 100.0100, L500.2500 ####[facility] [address] [place], [address] Urea nitrogen [Mass/Vol] 9 mg/dL Normal 7-18 [facility] Comment on above: Performed By: #### L 100.0100, L500.2500 ####[facility] [address] [place], [address] Basophil percentageOrdered B y: Amilcar Byrnes on 07-30-2023 Basophils/100 WBC (Bld) 0.8 % 0-1 [facility] Chloride [Moles/Vol] 112 mmol/L 98-107 [facility] Eosinophils/100 WBC (Bld) 2.8 % 0-5 [facility] Glucose [Mass/Vol] 146 mg/dL 74-106 [facility] Comment on above: Fasting Glucose resu lt greater than or equal to 126 mg/dL suggests DIABETES MELLITUS per A.D.A. criteria. Hemoglobin (Bld) [Mass/Vol] 12.9 g/dL 12.0-15.0 [facility] Monocytes/100 WBC (Bld) 2.8 % 0-10 [facility] Neutrophils (Bld) [#/Vol] 5.8 10*3/uL 2.0-7.7 [facility] Neutrophils/100 WBC (Bld) 78.9 % 47-70 [facility] Potassium [Moles/Vol] 3.8 mmol/L 3.5-5.1 [facility] Sodium [Moles/Vol] 141 mmol/L 136-145 [facility] WBC (Bld) [#/Vol] 7.4 10*3/uL 4.4-11.0 [facility] CBC W/Diff, Automatedon 07-04 Absolute Lymph 1.06 X10 3/uL Normal 0.83-4.51 [facility] Comment on above: Performed By: #### L 100.0100, L500.2500 ####[facility] [address] [place], [address] Absolute Neut 5.8 X10 3/uL Normal 2.0-7.7 [facility] Comment on above: Performed By: #### L 100.0100, L500.2500 ####[facility] [address] [place], [address] Basophils/100 WBC (Bld) 0.8 % Normal 0-1 [facility] Comment on above: Performed By: #### L 100.0100, L500.2500 ####[facility] [address] [place], [address] Eosinophils/100 WBC (Bld) 2.8 % Normal 0-5 [facility] Comment on above: Performed By: #### L 100.0100, L500.2500 ####[facility] [address] [place], [address] Erythrocyte distribution width (RBC) [Ratio] 12.7 % Normal 11.6-14.6 [facility] Comment on above: Performed By: #### L 100.0100, L500.2500 ####[facility] [address] [place], [address] Hematocrit (Bld) [Volume fraction] 39.5 % Normal 37-47 [facility] Comment on above: Performed By: #### L 100.0100, L500.2500 ####[facility] [address] [place], [address] Hemoglobin (Bld) [Mass/Vol] 12.9 g/dL Normal 12.0-15.0 [facility] Comment on above: Performed By: #### L 100.0100, L500.2500 ####[facility] [address] [place], [address] IG% 0.400 Normal 0.0-0.9 [facility] Comment on above: Result Comment: IG% - Immature Granulocytes (promyelocytes, myelocytes and metamyelocytes) > 1% indicates that a LEFT SHIFT is Present. Performed By: #### L 100.0100, L500.2500 ####[facility] [address] [place], [address] Lymphocytes/100 WBC (Bld) 14.3 % Low 19-41 [facility] Comment on above: Performed By: #### L 100.0100, L500.2500 ####[facility] [address] [place], [address] MCH (RBC) [Entitic mass] 30.6 pg Normal 27.0-32.0 [facility] Comment on above: Performed By: #### L 100.0100, L500.2500 ####[facility] [address] [place], [address] MCHC (RBC) [Mass/Vol] 32.7 g/dL Normal 32-36 [facility] Comment on above: Performed By: #### L 100.0100, L500.2500 ####[facility] [address] [place], [address] MCV (RBC) [Entitic vol] 93.6 fL Normal 81-99 [facility] Comment on above: Performed By: #### L 100.0100, L500.2500 ####[facility] [address] [place], [address] Monocytes/100 WBC (Bld) 2.8 % Normal 0-10 [facility] Comment on above: Performed By: #### L 100.0100, L500.2500 ####[facility] [address] [place], [address] Neutrophils/100 WBC (Bld) 78.9 % High 47-70 [facility] Comment on above: Performed By: #### L 100.0100, L500.2500 ####[facility] [address] [place], [address] Nucleated RBC (Bld) [#/Vol] 0 10*3/uL Normal 0-5 [facility] Comment on above: Performed By: #### L 100.0100, L500.2500 ####[facility] [address] [place], [address] Platelet mean volume (Bld) [Entitic vol] 9.1 fL Normal 6.2-12.0 [facility] Comment on above: Performed By: #### L 100.0100, L500.2500 ####[facility] [address] [place], [address] Platelets (Bld) [#/Vol] 322 10*3/uL Normal 150-450 [facility] Comment on above: Performed By: #### L 100.0100, L500.2500 ####[facility] [address] [place], [address] RBC (Bld) [#/Vol] 4.22 10*6/uL Normal 4.2-5.4 [facility] Comment on above: Performed By: #### L 100.0100, L500.2500 ####[facility] [address] [place], [address] RDW SD 43.3 fl Normal 35.1-43.9 [facility] Comment on above: Performed By: #### L 100.0100, L500.2500 ####[facility] [address] [place], [address] WBC (Bld) [#/Vol] 7.4 10*3/uL Normal 4.4-11.0 [facility] Comment on above: Performed By: #### L 100.0100, L500.2500 ####[facility] [address] [place], [address] Chest 1 View (Portable)on Chest 1 View (Portable) [facility] Imaging Services [address] [place] [address] Chest 1 View (Portable) MR#: [id number] Acct: [id number] Name: SARA ONTIVEROS Rep #: [id number] : 1985 F 38 From: Andrade Alvarado DO PCP: Dr. Navdeep Mo MD Status: [facility] ER Study: Chest 1 View (Portable) Date of Exam: 07/30/23 Exam# [id number] Ordering Dr: Amilcar Byrnes MD -[id number] INDICATION: cough EXAMINATION/TECHNIQ UE: X-RAY - XR Chest 1 View COMPARISON: July 06, 2019 chest x-ray and June 18, 2023 chest x-ray FINDINGS: LINES/DEVICES: None. LUNGS: Symmetric, increased lung volumes likely representing air trapping. Central airways are normal in appearance. No hyperlucency to suggest emphysematous changes. No consolidation, pleural effusion or nodule. No reticulations. No pneumothorax. MEDIASTINUM AND CARDIOVASCULAR STRUCTURES: Normal size and contour of the cardiomediastinal silhouette. No evidence of pulmonary vascular congestion. BONES AND SOFT TISSUES: No fracture or focal osseous lesion. RAD/Chest 1 View (Portable) IMPRESSION: Increased lung volumes suggesting air trapping, without appreciable peribronchial thickening. No pulmonary hyperlucency to suggest emphysema. Electronically Signed: Andrade Alvarado DO at 20:36 EST , CC: Dr. Amilcar Byrnes MD; Dr. Navdeep Mo MD Brand Strategy Manager: Signed Normal [facility] Determination of erythrocyte mean corpuscular volume (MCV)Ordered By: Aimlcar Byrnes on 07-30-2023 MCV (RBC) [Entitic vol] 93.6 fL 81-99 [facility] Emergency Department Summary on 07-30-2023 Emergency Department Summary [facility] Medical Records Department [address] [place] [address] Emergency Department Summary 07/30/23 MR#: [id number] Acct: [id number] Name: SARA ONTIVEROS Rep #: [id number] : 1985 38 From: Amilcar Byrnes MD PCP: Dr. Navdeep Mo MD Status:REG ER Location: ED HPI History of Present Illness Chief Complaint: Shortness of Breath Informant: patient Narrative Narrative: Patient presents with some cough and wheezing. She states this really all just started today. She has had subjective fever. Little bit of myalgias. A little bit of congestion sore throat. She started coughing but no productivity. She is now wheezing. She does have some moderate asthma. She generally has been reasonably well-controlled but did have some more exacerbations recently. She was actually admitted to ICU for status asthmaticus a little over a month ago. But she did well within about a day. That was her last steroid dose. She is not having chest pain. [facility] Medical History Anxiety Asthma Former tobacco use Home Medications inhalational spacing device (Aerochamber MV spacer) #1 ea 08/26/21 [Rx Last Taken Unknown] albuterol sulfate 2.5 mg/3 mL (0.083 %) solution for nebulization 2.5 mg (3 mL) inhalation Q4HWA.RT PRN Shortness Of Breath #180 mL 06/19/23 [Rx Last Taken Unknown] albuterol sulfate 90 mcg/actuation aerosol inhaler 2 puff inhalation Q4H PRN PRN Wheezing #8.5 grams 06/19/23 [Rx Last Taken Unknown] fluticasone 500 mcg-salmeterol 50 mcg/dose blistr powdr for inhalation (Advair Diskus) 1 inh inhalation BID #60 ea 06/19/23 [Rx Last Taken Unknown] fluticasone propionate 50 mcg/actuation nasal spray,suspension 1 spray intranasal Q12H #16 grams 06/19/23 [Rx Last Taken Unknown] montelukast 10 mg tablet 10 mg PO DAILY #30 tabs 06/19/23 [Rx Last Taken Unknown] prednisone 20 mg tablet 40 mg (2 x 20 mg) PO DAILY #10 tabs 06/19/23 [Rx Last Taken Unknown] prednisone 20 mg tablet 60 mg (3 x 20 mg) PO DAILY #15 TABLETS 07/30/23 [Rx Last Taken Unknown] umeclidinium 62.5 mcg/actuation blister powder for inhalation (Incruse Ellipta) 1 inh inhalation Q24H 07/30/23 [History Last Taken Unknown] Allergy/AdvReac Type Severity Reaction Status Date / Time propranolol [From Inderal LA] Allergy Shortness Verified 07/30/23 19:15 of breath Family History Mother Asthma Father Diabetes Surgical History No history of previous surgery Social History household members: significant other and children Smoking Status: Former smoker how long ago did patient quit smoking: Quit cigarette tobacco 1 year prior, 1 pk/3-4 days from teen until quit. alcohol intake: current alcohol intake frequency: a few times a month substance use type: does not use ROS ROS ED ROS Narrative A complete review of systems was performed and is negative except as documented in the history of present illness. Some specific details below. Constitutional: Possible mild fevers today. EYE: No discharge, visual complaints, or pain. ENT: No difficulty swallowing. No swelling. No pain. No reflux symptoms. CV: No chest pain or syncope. No palpitations. Respiratory: See history of present illness. GI: No abdominal pain. No nausea vomiting diarrhea. No blood in stool. : No frequency dysuria or hematuria. Musculoskeletal: No recent trauma. Mild myalgias Skin: No rash. Nondiaphoretic. Neuro: No weakness or numbness. Endocrine: No polyuria or polydipsia. EXAM Physical Exam Narrative Exam Narrative: CONSTITUTIONAL: Patient is nontoxic in appearance. The patient looks comfortable. Work of breathing looks slightly increased. HEENT: No notable trauma. Mucous membranes moist. No swelling. No nasal drainage. EYES: No conjunctival injection. No proptosis. NECK:No JVD. No stridor. CARDIOVASCULAR: Mildly tachycardic rate. Regular rhythm. No notable murmur. No JVD. RESPIRATORY: No respiratory distress. Breathing is slightly increased but she is air able to carry on normal conversation. She does have expiratory wheezing that is mild throughout. But she seems to be moving good volumes. Saturations are normal at 99% on room air showing no hypoxia. GASTROINTESTINAL: Not distended. Bowel sounds are normal. No tenderness. No guarding. No rebound. No palpable mass. No bruit is heard. GENITOURINARY: No CVA tenderness. MUSCULOSKELETAL: Atraumatic. No peripheral edema. No cord. No tenderness. NEUROLOGICAL: Patient is alert and appropriate. SKIN: No noted rashes. No diaphoresis. PSYCHIATRIC: Patient is calm. Mood is appropriate. Const Vital Signs: 07/30/23 19:15 07/30/23 19:25 07/30/23 19:28 Temperature 98.1 F Temperature (more content not included)... Normal [facility] [facility] Erythrocyte distribution wid th ratioOrdered By: Amilcar Byrnes on 07-30-2023 Erythrocyte distribution width (RBC) [Ratio] 12.7 % 11.6-14.6 [facility] Erythrocyte distribution wid th standard deviationOrdered By: Amilcar Byrnes on 07-30-2023 Erythrocyte distribution width (RBC) [Entitic vol] 43.3 fL 35.1-43.9 [facility] Hematocrit Auto (Bld) [Volum e fraction]Ordered By: Amilcar Byrnes on 07-30-2023 Hematocrit (Bld) [Volume fraction] 39.5 % 37-47 [facility] Immature granulocytes/100 WB C Auto (Bld)Ordered By: Amilcar Byrnes on 07-30-2023 Immature granulocytes/100 WBC (Bld) 0.400 % 0.0-0.9 [facility] Comment on above: IG% - Immature Granu locytes (promyelocytes, myelocytes and metamyelocytes) > 1% indicates that a LEFT SHIFT is Present. Laboratory - Chemistry and C hemistry - challengeOrdered By: Amilcar Byrnes on 07-30-2023 CO2 [Moles/Vol] 26.0 mmol/L 21.0-32.0 [facility] Urea nitrogen/Creatinine [Mass ratio] 9.9 mg/mg 10-20 [facility] Laboratory - Hematology and Cell countsOrdered By: Amilcar Byrnes on 07-30-2023 MCH (RBC) [Entitic mass] 30.6 pg 27.0-32.0 [facility] MCHC (RBC) [Mass/Vol] 32.7 g/dL 32-36 [facility] Nucleated RBC/100 WBC (Bld) [Ratio] 0 % 0-5 [facility] Platelets (Bld) [#/Vol] 322 10*3/uL 150-450 [facility] Laboratory - Microbiology an d Antimicrobial susceptibilityOrdered By: Amilcar Byrnes on 07-30-2023 SARS-CoV-2 (COVID-19) RNA SOL+probe Ql (Unsp spec) [facility] M100.678on 07-30-2023 M100.678 SARS-CoV-2 (COVID 19) Negative INFLUENZA A Negative INFLUENZA B Negative RSV PCR Negative Normal [facility] Comment on above: Performed By: #### L 100.0100, L500.4050 #### [facility] Laboratory [facility] [place], [address] No Panel InformationOrdered By: Amilcar Byrnes on 07-30-2023 Estimated Creatinine Clearance Calc 87.93 ml/min [facility] Estimated GFR (MDRD) Amer 89 mL/min >60 [facility] Comment on above: GFR Calc Estimated GFR (MDRD) Non-Af Amer 74 mL/min >60 [facility] Comment on above: Non- GFR Calc Platelet mean volume Harry-Ec ker (Bld) [Entitic vol]Ordered By: Amilcar Byrnes on 07-30-2023 Platelet mean volume (Bld) [Entitic vol] 9.1 fL 6.2-12.0 [facility] RBC Auto (Bld) [#/Vol]Ordere d By: Amilcar Byrnes on 07-30-2023 RBC (Bld) [#/Vol] 4.22 10*6/uL 4.2-5.4 [facility] Serum or plasma calcium misty urement (mass/volume)Ordered By: Amilcar Byrnes on 07-30-2023 Calcium [Mass/Vol] 8.7 mg/dL 8.5-10.1 [facility] Serum or plasma creatinine m easurement (mass/volume)Ordered By: Amilcar Byrnes on 07-30-2023 Creatinine [Mass/Vol] 0.91 mg/dL 0.55-1.02 [facility] Comment on above: The validity of the calculated GFR & GFRAA in patients over 70 years has not been determined. Clinical correlation is essential. Serum or plasma urea nitroge n measurement (mass/volume)Ordered By: Amilcar Byrnes on 07-30-2023 Urea nitrogen [Mass/Vol] 9 mg/dL 7-18 [facility] Thin prep Papanicolaou smear with manual screeningOrdered By: Amilcar Byrnes on 07-30-2023 Thin prep Papanicolaou smear with manual screening 3 5-15 [facility] ALLIED HEALTHon 07-14-2023 ALLIED HEALTH HNO ID: [id number] Author: ADELITA JACOBSEN, CT Service: Radiology Author Type: Technologist Type: Allied Health Filed: 07/14/2023 15:43 Note Text: Radiology Service Progress Note PATIENT NAME: Sara Ontiveros DATE OF SERVICE: July 14, 2023 TIME: 3:42 PM PATIENT IDENTITY VERIFICATION COMPLETED USING TWO (2) IDENTIFIERS: Name and Date of confirmed by patient verbally. FALL SCREENING: Has the patient had 2 falls in the last year or 1 fall with injury or currently using an Ambulatory Assistive Device (Walker, Cane, Wheelchair, Crutches, etc.)? Emergency Room Patient: Screened in ED PATIENT GENDER DATA: Female. status: : No status: NO. PATIENT RELEVANT IMPLANT DATA REVIEWED: Not Applicable RADIOLOGY DEPARTMENT: CT; Exam(s) Completed: CSP PERIPHERAL IV DATA: Not applicable SIGNED BY: BETHEL Rojo July 14, 2023 3:42 PM Normal [facility] CT CERVICAL SPINE WO IVCONon 07-14-2023 CT CERVICAL SPINE WO IVCON * * *Final Report* * * DATE OF EXAM: Jul 14 2023 3:41PM [facility] 0505 - CT CERVICAL SPINE WO IVCON / PROCEDURE REASON: Spinal stenosis, cervical * * * * Physician Interpretation * * * * EXAMINATION: CT CERVICAL SPINE WO IVCON CLINICAL HISTORY: Spinal stenosis, cervical TECHNIQUE: Spiral, high resolution axial unenhanced images were obtained from the skull base to the cervicothoracic junction with sagittal and coronal planar reconstructions. MQ: [id number] CT Radiation dose: Integrated CT Dose-Length Product (DLP) for this visit = 181.68 mGy*cm CT Dose Reduction Employed: Automated exposure control(AEC) and iterative recon COMPARISON: None. RESULT: Counting reference: Craniocervical junction. Anatomic Variants: None. Medical Device Assembler (topogram) images: No additional findings. Alignment: Reversal of the cervical lordosis. Craniocervical junction: Craniocervical junction is normal. Osseous structures/fracture : No evidence of a lytic or blastic process in the visualized spine. No evidence of acute or chronic fracture. Mild disc space narrowing at C6-7. Cervical soft tissues: The paraspinal soft tissues are within normal limits. Degenerative changes: Mild degenerative changes. IMPRESSION: No acute findings in the cervical spine. Mild degenerative changes. Anatomic Variant: None. Assume 7 cervical vertebrae with counting from the craniocervical junction. Brand Strategy Manager: PSCB Transcribe Date/Time: Jul 14 2023 4:09P Dictated by : VANESSA SUBRAMANIAN MD This examination was interpreted and the report reviewed and electronically signed by: VANESSA SUBRAMANIAN MD on Jul 14 2023 4:12PM EST [id number] Normal [facility] ED NOTEon 07-14-2023 ED NOTE HNO ID: [id number] Author: MALLORY WILKES, RN Service: Emergency Medicine Author Type: Registered Nurse Type: ED Notes Filed: 07/14/2023 17:14 Note Text: Patient is alert and oriented, denies any questions/concerns at this time. Patient verbalizes understanding of d/c instructions, medications and follow up care. Patient ambulates from department at this time. Normal [facility] ED PROV NOTEon 07-14-2023 ED PROV NOTE HNO ID: [id number] Author: KELSEY DEE DO Service: Emergency Medicine Author Type: Physician Type: ED Provider Notes Filed: 07/14/2023 18:16 Note Text: ED Provider Note Patient Name: Sara Ontiveros : 1985 SERVICE DATE: 07/14/23 History Patient presents with: Arm Pain Neck Pain 38-year-old female presents with left-sided neck and left upper extremity pain. Patient states that for about a month and a half now she has been having this discomfort. She says that initially started after sleeping wrong. She been having pain to her left upper back, left neck down her left arm. Says that it is a shooting pain. Does have pain with movement. Says it seems to shoot from her periscapular region to her neck and down her arm. Has tingling in her hand most prominently in her middle 3 fingers. Says that cold makes it worse. She also has pain to her left proximal arm as well. 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 Denies any trauma. She has been on 2 courses of steroids since starting which has not helped her symptoms. 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 (Deisi Rodriguez MD) YUNIOR (generalized anxiety disorder) 08/25/2021 High-risk 04/27/2012 LGSIL (low grade squamous intraepithelial dysplasia) 01/04/2013 Tobacco dependence syndrome 09/22/2009 Trauma 2008 DISLOCATED KNEE, Right PAST SURGICAL HISTORY Procedure Laterality Date NONE FAMILY HISTORY Problem Relation Age of Onset [...] Vaping Use Vaping Use: Never used Substance and Sexual Activity Alcohol use: Yes Comment: occasionally Drug use: No Sexual activity: Yes Partners: Male control/protection: Condom ALLERGIES Allergen Reactions Propranolol Shortness of Breath Review of Systems Musculoskeletal: Positive for neck pain. Left arm pain Neurological: Left upper extremity paresthesias Physical Exam Vitals [07/14/23 1511] BP Pulse Temp Temp src Resp SpO2 Weight Height 134/84 (!) 97 36.5 ?C (97.7 ?F) Temporal 16 100 % 77.1 kg (170 lb) 1.626 m (5' 4) Physical Exam Vitals and nursing note reviewed. Constitutional: General: She is not in acute distress. Appearance: Normal appearance. She is not ill-appearing. HENT: Head: Normocephalic and atraumatic. Cardiovascular: Rate and Rhythm: Normal rate and regular rhythm. Pulmonary: Effort: Pulmonary effort is normal. No respiratory distress. Musculoskeletal: General: No deformity. Comments: Radial, ulnar and median nerve motor and sensation intact. She does have some paresthesias to her middle 3 fingers. Radial pulse intact. Negative Tinel and Phalen sign. Slight pain around olecranon. No pain or fullness into axillary region. She has some mild midline tenderness to her cervical spine with left-sided cervical paraspinal muscle tenderness. Also has areas of point tenderness and increased muscle tension in her periscapular region and along the trapezius. Does have a positive Spurling sign to the left. Neurological: General: No focal deficit present. Mental Status: She is alert. Mental status is at baseline. Diagnostic Testing ED Labs Ordered and Reviewed - No data to display Procedures ED Course / Clinical Impression Clinical Impressions as of 07/14/23 1813 Cervical radiculopathy Strain of neck muscle, subsequent encounter MDM / Disposition / Plan Patient evaluated for left-sided arm and neck pain. Has been going on for a month and a half. No trauma. I suspect a cervical radiculopathy. She does have areas of increased muscle tension in her neck and reproducible tenderness in this area. Given length of symptoms and lack of imaging CT neck will be obtained as well as x-ray of left shoulder and left humerus. Imaging was unremarkable. She did have some improvement with Toradol. She does have some areas of point tenderness over her back and lateral neck. Discussed doing trigger point injections for these. Discussed risks and benefits. Patient was in verbal agreement with this. 3 areas on her back were selected. Area near the spine of the scapula, her lateral trapezius and lower lateral left neck on her paraspinal muscles with areas of most tenderness. The tears were cleaned with alcohol. Provided approximate 3 cc of lidocaine to these areas. On reevaluation patient had significant proving of her symptom (more content not included)... Normal [facility] XR HUMERUS 2V AP/LAT LTon XR HUMERUS 2V AP/LAT LT * * *Final Repor t* * * DATE OF EXAM: Jul 14 2023 3:47PM LDX 5354 - XR HUMERUS 2V AP/LAT LT / PROCEDURE REASON: Other * * * * Physician Interpretation * * * * LEFT SHOULDER X-RAY SERIES CLINICAL HISTORY: Worsening pain left shoulder over last 2 weeks, no known injury TECHNIQUE: AP, Grashey and lateral scapular Y-view COMPARISON: None available. RESULT: No fracture or malalignment. Joint spaces and articular surfaces are preserved. LEFT HUMERUS X-RAY SERIES TECHNIQUE: AP and lateral views. COMPARISON: None available. RESULT: No fracture or malalignment. Joint spaces and articular surfaces are preserved. IMPRESSION: Left shoulder: Negative. Left humerus: Negative. Brand Strategy Manager: PSCEmanuel Transcribe Date/Time: Jul 14 2023 4:14P Dictated by : FADIA JENSEN MD This examination was interpreted and the report reviewed and electronically signed by: FADIA JENSEN MD on Jul 14 2023 4:16PM EST [id number] Normal [facility] XR SHLDR >/=3V AP/ANGELES AP/OTH R LTon 07-14-2023 XR SHLDR >/=3V AP/ANGELES AP/OTHR LT * * *Final Report* * * DATE OF EXAM: Jul 14 2023 3:47PM LDX 5252 - XR SHLDR >/=3V AP/ANGELES AP/OTHR LT / PROCEDURE REASON: Other * * * * Physician Interpretation * * * * LEFT SHOULDER X-RAY SERIES CLINICAL HISTORY: Worsening pain left shoulder over last 2 weeks, no known injury TECHNIQUE: AP, Grashey and lateral scapular Y-view COMPARISON: None available. RESULT: No fracture or malalignment. Joint spaces and articular surfaces are preserved. LEFT HUMERUS X-RAY SERIES TECHNIQUE: AP and lateral views. COMPARISON: None available. RESULT: No fracture or malalignment. Joint spaces and articular surfaces are preserved. IMPRESSION: Left shoulder: Negative. Left humerus: Negative. Brand Strategy Manager: PSCEmanuel Transcribe Date/Time: Jul 14 2023 4:14P Dictated by : FADIA JENSEN MD This examination was interpreted and the report reviewed and electronically signed by: FADIA JENSEN MD on Jul 14 2023 4:16PM EST [id number] Normal [facility] Absolute lymphocyte countOrd ered By: Sara Celestin on 06-19-2023 Lymphocytes Auto (Unsp spec) [#/Vol] 0.29 10*3/uL 0.83-4.51 [facility] Basophil percentageOrdered B y: Sara Celestin on 06-19-2023 Basophils/100 WBC (Bld) 0.1 % 0-1 [facility] Bilirubin [Mass/Vol] 0.30 mg/dL 0.20-1.00 [facility] Comment on above: For patients on eltr ombopag therapy, use of Dimension [place] TBIL is not recommended. Chloride [Moles/Vol] 114 mmol/L 98-107 [facility] Eosinophils/100 WBC (Bld) 0.0 % 0-5 [facility] Glucose [Mass/Vol] 205 mg/dL 74-106 [facility] Comment on above: Glucose result great er than or equal to 200 mg/dLsuggests DIABETES MELLITUS per A.D.A. criteria. Neutrophils (Bld) [#/Vol] 8.4 10*3/uL 2.0-7.7 [facility] Neutrophils/100 WBC (Bld) 95.5 % 47-70 [facility] Potassium [Moles/Vol] 4.2 mmol/L 3.5-5.1 [facility] Comment on above: Moderate Hemolysis, Result may be falsely increased. Protein [Mass/Vol] 5.8 g/dL 6.4-8.2 [facility] Sodium [Moles/Vol] 142 mmol/L 136-145 [facility] WBC (Bld) [#/Vol] 8.8 10*3/uL 4.4-11.0 [facility] Blood erythrocytes count (nu mber/volume)Ordered By: Sara Sabi on 06-19-2023 RBC (Bld) [#/Vol] 3.67 10*6/uL 4.2-5.4 [facility] Blood hemoglobin measurement (mass/volume)Ordered By: Sara Celestin on 06-19-2023 Hemoglobin (Bld) [Mass/Vol] 11.4 g/dL 12.0-15.0 [facility] Blood lymphocytes/100 leukoc ytesOrdered By: Sara Sabi on 06-19-2023 Lymphocytes/100 WBC (Bld) 3.3 % 19-41 [facility] Blood manual differential co mment interpretation (narrative result)Ordered By: Sara Celestin on 06-19-2023 Manual differential comment Massimo (Bld) [Interp] SCANNED [facility] Blood monocytes/100 leukocyt esOrdered By: Sara Sabi on 06-19-2023 Monocytes/100 WBC (Bld) 0.8 % 0-10 [facility] Blood platelet mean volumeOr dered By: Sara Celestin on 06-19-2023 Platelet mean volume (Bld) [Entitic vol] 10.0 fL 6.2-12.0 [facility] CBC W/Diff, Automatedon - SMEAR COMMENT SCANNED Normal [facility] Comment on above: Performed By: #### L 100.0100, L500.4050 #### [facility] Laboratory [address] [place], [address] Comprehensive Metabolic Prof ilon 06-19-2023 Albumin [Mass/Vol] 2.8 g/dL Low 3.2-5.0 [facility] Comment on above: Performed By: #### L 100.0100, L500.4050 #### [facility] [address] [place], [address] Albumin/Globulin [Mass ratio] 0.9 {ratio} Normal 0.9-2.4 [facility] Comment on above: Performed By: #### L 100.0100, L500.4050 #### [facility] [address] [place], [address] ALK P 32 U/L Low 45-117 [facility] Comment on above: Performed By: #### L 100.0100, L500.4050 #### [facility] [address] [place], [address] ALT [Catalytic activity/Vol] 12 U/L Low 13-56 [facility] Comment on above: Performed By: #### L 100.0100, L500.4050 #### [facility] [address] [place], [address] AST [Catalytic activity/Vol] 29 U/L Normal 15-37 [facility] Comment on above: Result Comment: Mode rate Hemolysis, Result may be falsely increased. Performed By: #### L 100.0100, L500.4050 #### [facility] [address] [place], [address] Bilirubin [Mass/Vol] 0.30 mg/dL Normal 0.20-1.00 [facility] Comment on above: Result Comment: For patients on eltrombopag therapy, use of Dimension [place] TBIL is not recommended. Performed By: #### L 100.0100, L500.4050 #### [facility] [address] [place], [address] BUN/CRE 10.1 RATIO Normal 10-20 [facility] Comment on above: Performed By: #### L 100.0100, L500.4050 #### [facility] [address] [place], [address] CA,Total 6.8 mg/dL Low 8.5-10.1 [facility] Comment on above: Performed By: #### L 100.0100, L500.4050 #### [facility] [address] [place], [address] Chloride [Moles/Vol] 114 mmol/L High 98-107 [facility] Comment on above: Performed By: #### L 100.0100, L500.4050 #### [facility] [address] [place], [address] CO2 [Moles/Vol] 20.0 mmol/L Low 21.0-32.0 [facility] Comment on above: Performed By: #### L 100.0100, L500.4050 #### [facility] [address] [place], [address] Creatinine [Mass/Vol] 0.79 mg/dL Normal 0.55-1.02 [facility] Comment on above: Result Comment: The validity of the calculated GFR GFRAA in patients over 70 years has not been determined. Clinical correlation is essential. Performed By: #### L 100.0100, L500.4050 #### [facility] [address] [place], [address] ECRCL 84.19 ml/min Normal [facility] Comment on above: Performed By: #### L 100.0100, L500.4050 #### [facility] [address] [place], [address] EST GFR - AA 105 mL/min Normal >60 [facility] Comment on above: Result Comment: Afri can Spanish GFR Calc Performed By: #### L 100.0100, L500.4050 #### [facility] [address] [place], [address] GAP 8 Normal 5-15 [facility] Comment on above: Performed By: #### L 100.0100, L500.4050 #### [facility] [address] [place], [address] GFR/1.73 sq M.predicted among non-blacks MDRD (S/P/Bld) [Vol rate/Area] 87 mL/min/{1.73_m2} Normal >60 [facility] Comment on above: Result Comment: Non- GFR Calc Performed By: #### L 100.0100, L500.4050 #### [facility] [address] [place], [address] Globulin (S) [Mass/Vol] 3.0 g/dL Normal 2.2-4.2 [facility] Comment on above: Performed By: #### L 100.0100, L500.4050 #### [facility] [address] [place], [address] Glucose [Mass/Vol] 205 mg/dL High 74-106 [facility] Comment on above: Result Comment: Gluc ose result greater than or equal to 200 mg/dL suggests DIABETES MELLITUS per A.D.A. criteria. Performed By: #### L 100.0100, L500.4050 #### [facility] [address] [place], [address] Potassium [Moles/Vol] 4.2 mmol/L Normal 3.5-5.1 [facility] Comment on above: Result Comment: Mode rate Hemolysis, Result may be falsely increased. Performed By: #### L 100.0100, L500.4050 #### [facility] [address] [place], [address] Sodium [Moles/Vol] 142 mmol/L Normal 136-145 [facility] Comment on above: Performed By: #### L 100.0100, L500.4050 #### [facility] [address] [place], [address] T PROT 5.8 g/dL Low 6.4-8.2 [facility] Comment on above: Performed By: #### L 100.0100, L500.4050 #### [facility] [address] [place], [address] Urea nitrogen [Mass/Vol] 8 mg/dL Normal - [facility] Comment on above: Performed By: #### L 100.0100, L500.4050 #### [facility] [address] [place], [address] Consultation - Intensiviston 06-19-2023 Consultation - Real Estate Consultant [facility] Medical Records Department [address] [place] [address] Consultation - Real Estate Consultant 06/19/23 0722 MR#: [id number] Acct: [id number] Name: SARA ONTIVEROS Rep #: [id number] : 1985 38 From: You Fox MD PCP: Dr. Navdeep Mo MD Status:DIS IN Location: ICU ICU04-1 Assessment Plan Assessment/Plan (1) Asthma with status asthmaticus: QUALIFIERS: Asthma severity: moderate Asthma persistence: persistent Qualified Code(s): J45.42 - Moderate persistent asthma with status asthmaticus PLAN: Plan RECOMMENDATIONS: 1. Okay to transition to p.o. prednisone 2. Social work to help with maintenance medications 3. Walking oximetry prior to discharge 4. Follow-up in pulmonary office in 2 weeks for baseline PFTs 5. Likely okay to transition to MedSurg status IMPRESSIONS: 1. Status asthmaticus secondary to noncompliance Clinical suspicion is for status asthmaticus secondary to inability to comply with medication secondary to insurance issues. Patient has not been using her maintenance medications appropriately, trying to get them to last. Patient responded very quickly. Low clinical suspicion for URI precipitated exacerbation, but patient could be treated for 5 days with p.o. prednisone. Patient will need a walking oximetry prior to discharge. Patient would benefit from following up in pulmonary as she may require Biologics. Patient is reporting 2-3 ER visits despite maximum inhaled steroids. Will need to address the social issues before patient can be discharged or she does run a high risk of readmission. HPI Consult Data Date of Consult: 06/19/23 HPI Narrative Reason for Consultation: Uncontrolled asthma HPI Narrative: SARA ONTIVEROS is a 38 F, with past medical history listed below, who presents to [facility] on 06/18/2023 secondary to a severe asthma attack. Patient reportedly has a long history of asthma that was relatively controlled previously. Patient states that over the last 4 to 5 days she has felt like she was developing an asthma attack. Unfortunately, patient does not have insurance and has been rationing her baseline Advair and was unable to get control. Patient had attempted albuterol with little to no success. On presentation to the ER, patient was tachycardic at 132 bpm and breathing 40 breaths/min. Patient was requiring a nonrebreather. Laboratory workup showed a white blood cell count of 10.5, hemoglobin of 12.6 and platelet count of 430. Patient was noted to have 4.8% eosinophils. Chemistry showed an elevated bicarbonate of 28 with normal renal function and a glucose of 128. Troponin was negative. Patient did have a VBG showing a pH of 7.21. No ABG was obtained. Patient was attempted on BiPAP, but this made her overall condition worse. Patient was given nebulized medications terbutaline, epinephrine and Solu-Medrol. Patient responded well and was admitted to the intensive care unit for possible need for intubation. Viral panels were sent. Overnight in the intensive care unit, patient has significantly improved. Patient is requiring only 2 L/min and is saturating 98%. Patient states she has a long history of asthma and was doing well until recently. Patient has been on Advair and relatively controlled, but lost her insurance several months ago. Patient states she has been trying to make her Advair last by using it every other day. Patient states she has not seen a digital imaging specialist in the past. Patient states that when she does have her medications she is typically presenting to the ER 2-3 times per year at most. Patient has been intubated for asthma previously. Review of systems otherwise negative from a constitutional, HEENT, respiratory, cardiovascular, GI, genitourinary, musculoskeletal, skin, neurologic, psychiatric and hematologic system unless stated above. PFSH Medical History Anxiety Asthma Former tobacco use Home Medications albuterol sulfate 90 mcg/actuation aerosol inhaler 2 puff inhalation Q4H PRN PRN Wheezing 07/06/19 [History Last Taken Unknown] albuterol sulfate 2.5 mg/3 mL (0.083 %) solution for nebulization 2.5 mg inhalation Q4HWA.RT PRN Shortness Of Breath 01/16/20 [History Last Taken Unknown] fluticasone 500 mcg-salmeterol 50 mcg/dose blistr powdr for inhalation (Advair Diskus) 1 inh inhalation BID 05/15/21 [History Last Taken Unknown] montelukast 10 mg tablet 10 mg PO DAILY 05/15/21 [History Last Taken Unknown] inhalational spacing device (Aerochamber MV spacer) #1 ea 08/26/21 [Rx Last Taken Unknown] fluticasone propionate 50 mcg/actuation nasal spray,suspension 1 spray intranasal Q12H 06/18/23 [History Last Taken Unknown] Allergy/AdvReac Type Severity Reaction Status Date / Time propranolol [From Inderal LA] Allergy Shortness Verified 06/18/23 22:56 of breath Family History (Review (more content not included)... Normal [facility] Determination of erythrocyte mean corpuscular volume (MCV)Ordered By: Sara Celestin on 06-19-2023 MCV (RBC) [Entitic vol] 95.9 fL 81-99 [facility] Hematocrit Auto (Bld) [Volum e fraction]Ordered By: Sara Celestin on 06-19-2023 Hematocrit (Bld) [Volume fraction] 35.2 % 37-47 [facility] Laboratory - Chemistry and C hemistry - challengeOrdered By: Sara Celestin on 06-19-2023 ALP [Catalytic activity/Vol] 32 U/L 45-117 [facility] ALT [Catalytic activity/Vol] 12 U/L 13-56 [facility] CO2 [Moles/Vol] 20.0 mmol/L 21.0-32.0 [facility] Globulin (S) [Mass/Vol] 3.0 g/dL 2.2-4.2 [facility] Urea nitrogen/Creatinine [Mass ratio] 10.1 mg/mg 10-20 [facility] Laboratory - Hematology and Cell countsOrdered By: Sara Celestin on 06-19-2023 Erythrocyte distribution width (RBC) [Entitic vol] 42.7 fL 35.1-43.9 [facility] Erythrocyte distribution width (RBC) [Ratio] 12.0 % 11.6-14.6 [facility] Immature granulocytes/100 WBC (Bld) 0.300 % 0.0-0.9 [facility] Comment on above: IG% - Immature Granu locytes (promyelocytes, myelocytes and metamyelocytes) > 1% indicates that a LEFT SHIFT is Present. MCH (RBC) [Entitic mass] 31.1 pg 27.0-32.0 [facility] Nucleated RBC/100 WBC (Bld) [Ratio] 0 % 0-5 [facility] M101.0111on 06-19-2023 M101.0111 *Negative results from patients with symptom onset beyond five days should be treated as presumptive and confirmed by a molecular assay if clinically necessary. Negative results should not be used as the sole basis for treatment or for patient management. FLUABV+SARS-CoV2 Ag Pnl Up resp IA.rapid *Positive results do not differentiate between SARS-CoV and SARS-CoV-2. FLUABV+SARS-CoV2 Ag Pnl Up resp IA.rapid Negative Influenza results should be confirmed with FLU PANEL MOLECULAR if indicated. FLUABV+SARS-CoV2 Ag Pnl Up resp IA.rapid * This test has not been FDA cleared or approved; the test has been authorized by FDA under an Emergency Use Authorization (EAU) for use by laboratories certified under CLIA that meet the requirements to perform moderate, high, or waived complexity tests. FLUABV+SARS-CoV2 Ag Pnl Up resp IA.rapid Normal Reference Range: Negative Shu, ULISES method SARS-CoV-2 (COVID 19) Negative Influenza Ag, Direct NEGATIVE for Influenza A/B Antigen (See Note) Normal [facility] Comment on above: Performed By: #### L 100.0100, L500.4050 #### [facility] Laboratory [facility] [place], [address] MCHC Auto (RBC) [Mass/Vol]Or dered By: Sara Celestin on 06-19-2023 MCHC (RBC) [Mass/Vol] 32.4 g/dL 32-36 [facility] No Panel InformationOrdered By: Sara Celestin on 06-19-2023 Estimated Creatinine Clearance Calc 84.19 ml/min [facility] Estimated GFR (MDRD) Amer 105 mL/min >60 [facility] Comment on above: GFR Calc Estimated GFR (MDRD) Non-Af Amer 87 mL/min >60 [facility] Comment on above: Non- GFR Calc Platelets bldOrdered By: Suma costello White on 06-19-2023 Platelets (Bld) [#/Vol] 263 10*3/uL 150-450 [facility] Procalcitoninon 06-19-2023 Procalcitonin < 0.04 Normal 0.00-0.09 [facility] Comment on above: Result Comment: A procalcitonin (PCT) level above 2.0 ng/mL on the first day of ICU admission is associated with a high risk for progression to severe sepsis and/or septic shock. A PCT level below 0.5 ng/mL on the first day of ICU admission is associated with a low risk for progression to severe and/or septic shock. Note: Concentrations <0.5 ng/mL do not exclude an infection on account of localized infections (without systemic signs) which can be associated with such low concentrations, or a systemic infection in its initial stages (<6 hours). Furthermore, increased procalcitonin can occur without infection. PCT concentrations between 0.5 and 2.0 ng/mL should be interpreted taking into account the patient's history. It is recommended to retest PCT within 6-24 hours if any concentrations <2 ng/mL are obtained. Performed By: #### L 100.0100, L500.4050 #### [facility] Laboratory [address] [facility] [place], [address] RESPIRATORY PANEL MOLECULARo n 06-19-2023 RP PANEL Normal Reference Range = Not Detected Resp path DNA+RNA Pnl Resp SOL+probe Nucleic acid amplification test method ADENOVIRUS Not Detected INFLUENZA A Not Detected INFLUENZA A (SUBTYPE H1) Not Detected INFLUENZA A (SUBTYPE H3) Not Detected INFLUENZA B Not Detected HUMAN METAPHNEUMO Not Detected PARAINFLUENZA 1 Not Detected PARAINFLUENZA 2 Not Detected PARAINFLUENZA 3 Not Detected PARAINFLUENZA 4 Not Detected RHINOVIRUS Not Detected RSV A Not Detected RSV B Not Detected Normal [facility] Comment on above: Performed By: #### M 100.638 ####[facility] [address] [place], [place], [id number] Serum or plasma albumin misty urement (mass/volume)Ordered By: [facility] on 06-19-2023 Albumin [Mass/Vol] 2.8 g/dL 3.2-5.0 [facility] Serum or plasma albumin/glob ulin mass ratioOrdered By: [facility] on 06-19-2023 Albumin/Globulin [Mass ratio] 0.9 {ratio} 0.9-2.4 [facility] Serum or plasma calcium misty urement (mass/volume)Ordered By: [facility] on 06-19-2023 Calcium [Mass/Vol] 6.8 mg/dL 8.5-10.1 [facility] Serum or plasma creatinine m easurement (mass/volume)Ordered By: [facility] on 06-19-2023 Creatinine [Mass/Vol] 0.79 mg/dL 0.55-1.02 [facility] Comment on above: The validity of the calculated GFR & GFRAA in patients over 70 years has not been determined. Clinical correlation is essential. Serum or plasma urea nitroge n measurement (mass/volume)Ordered By: [facility] on 06-19-2023 Urea nitrogen [Mass/Vol] 8 mg/dL 01-17 [facility] Serum procalcitonin measurem entOrdered By: [facility] 06-19-2023 Procalcitonin [Mass/Vol] ng/mL 0.00-0.09 [facility] Comment on above: A procalcitonin (PCT ) level above 2.0 ng/mL on the first day of ICU admission is associated with a high risk for progression to severe sepsis and/or septic shock. A PCT level below 0.5 ng/mL on the first day of ICU admission is associated with a low risk for progression to severe and/or septic shock. Note: Concentrations <0.5 ng/mL do not exclude an infection on account of localized infections (without systemic signs) which can be associated with such low concentrations, or a systemic infection in its initial stages (<6 hours). Furthermore, increased procalcitonin can occur without infection. PCT concentrations between 0.5 and 2.0 ng/mL should be interpreted taking into account the patient's history. It is recommended to retest PCT within 6-24 hours if any concentrations <2 ng/mL are obtained. Thin prep Papanicolaou smear with manual screeningOrdered By: Sara Sabi on 06-19-2023 Thin prep Papanicolaou smear with manual screening 29 U/L 15-37 [facility] Comment on above: Moderate Hemolysis, Result may be falsely increased. Thin prep Papanicolaou smear with manual screening 8 5-15 [facility] 12 Lead EKGon 06-18-2023 12 Lead EKG [facility] Cardiovascular Services [address] [place] [address] 12 Lead EKG 06/18/23 2325 MR#: [id number] Acct: [id number] Name: SARA ONTIVEROS Rep #: [id number] : 1985 38 From: Shane Welsh MD Attending Dr: Dr. Gregorio Mosley MD Status: DIS IN Ordering Dr: Saji Noonan MD Date: 06/18/23 Location: ICU Sex: F C Admitted: 06/18/23 Test Reason : SOB Blood Pressure : / mmHG Vent. Rate : 129 BPM Atrial Rate : 129 BPM P-R Int : 124 ms QRS Dur : 074 ms QT Int : 296 ms P-R-T Axes : 067 060 066 degrees QTc Int : 433 ms Sinus tachycardia Otherwise normal ECG Confirmed by GAUDENCIO LIVINGSTON, SHANE ([id number]), supervising editor news reel DARRELL GUZMAN ([id number]) on 06/19/2023 1:08:26 PM Referred By: Saji Noonan Confirmed By:SHANE WELSH MD 06/19/23 1308 Date Shane Welsh MD CC: Dr. Saji Noonan MD; Dr. Gregorio Mosley MD; Dr. Navdeep Mo MD Signed Normal [facility] Absolute lymphocyte countOrd ered By: Saji Noonan on 06-18-2023 Lymphocytes Auto (Unsp spec) [#/Vol] 3.55 10*3/uL 0.83-4.51 [facility] Automated blood hematocrit ( percentage)Ordered By: Saji Noonan on 06-18-2023 Hematocrit (Bld) [Volume fraction] 39.5 % Normal 37-47 [facility] Comment on above: Performed By: #### L 100.0100, L500.4050 #### [facility] Laboratory [address] [place], [address] Basic Metabolic Profile (BMP )on 06-18-2023 BUN/CRE 11.9 RATIO Normal 10-20 [facility] Comment on above: Order Comment: 'TROP ' Serial specimen #1, #2 or #3: 1 Performed By: #### L 100.0100, L500.4050 #### [facility] [address] [place], [address] CA,Total 8.5 mg/dL Normal 8.5-10.1 [facility] Comment on above: Order Comment: 'TROP ' Serial specimen #1, #2 or #3: 1 Performed By: #### L 100.0100, L500.4050 #### [facility] [address] [place], [address] ECRCL 79.18 ml/min Normal [facility] Comment on above: Order Comment: 'TROP ' Serial specimen #1, #2 or #3: 1 Performed By: #### L 100.0100, L500.4050 #### [facility] [address] [place], [address] EST GFR - AA 98 mL/min Normal >60 [facility] Comment on above: Order Comment: 'TROP ' Serial specimen #1, #2 or #3: 1 Result Comment: Afri can Spanish GFR Calc Performed By: #### L 100.0100, L500.4050 #### [facility] [address] [place], [address] GAP 2 Low 5-15 [facility] Comment on above: Order Comment: 'TROP ' Serial specimen #1, #2 or #3: 1 Performed By: #### L 100.0100, L500.4050 #### [facility] [address] [place], [address] GFR/1.73 sq M.predicted among non-blacks MDRD (S/P/Bld) [Vol rate/Area] 81 mL/min/{1.73_m2} Normal >60 [facility] Comment on above: Order Comment: 'TROP ' Serial specimen #1, #2 or #3: 1 Result Comment: Non- GFR Calc Performed By: #### L 100.0100, L500.4050 #### [facility] [address] [place], [address] Basic Metabolic Profile (BMP )Ordered By: Saji Noonan on 06-18-2023 CO2 [Moles/Vol] 28.0 mmol/L Normal 21.0-32.0 [facility] Comment on above: Order Comment: 'TROP ' Serial specimen #1, #2 or #3: 1 Performed By: #### L 100.0100, L500.4050 #### [facility] [address] [place], [address] Basophil percentageOrdered B y: Saji Noonan on 06-18-2023 Chloride [Moles/Vol] 111 mmol/L High 98-107 [facility] Comment on above: Order Comment: 'TROP ' Serial specimen #1, #2 or #3: 1 Performed By: #### L 100.0100, L500.4050 #### [facility] [address] [place], [address] Glucose [Mass/Vol] 128 mg/dL High 74-106 [facility] Comment on above: Fasting Glucose resu lt greater than or equal to 126 mg/dL suggests DIABETES MELLITUS per A.D.A. criteria. Order Comment: 'TROP ' Serial specimen #1, #2 or #3: 1 Result Comment: Fast ing Glucose result greater than or equal to 126 mg/dL suggests DIABETES MELLITUS per A.D.A. criteria. Performed By: #### L 100.0100, L500.4050 #### [facility] [address] [place], [address] Potassium [Moles/Vol] 3.7 mmol/L Normal 3.5-5.1 [facility] Comment on above: Order Comment: 'TROP ' Serial specimen #1, #2 or #3: 1 Performed By: #### L 100.0100, L500.4050 #### [facility] [address] [place], [address] Sodium [Moles/Vol] 141 mmol/L Normal 136-145 [facility] Comment on above: Order Comment: 'TROP ' Serial specimen #1, #2 or #3: 1 Performed By: #### L 100.0100, L500.4050 #### [facility] [address] [place], [address] Basophils/100 WBC (Bld) 1.1 % High 0-1 [facility] Comment on above: Performed By: #### L 100.0100, L500.4050 #### [facility] [address] [place], [address] Eosinophils/100 WBC (Bld) 4.8 % Normal 0-5 [facility] Comment on above: Performed By: #### L 100.0100, L500.4050 #### [facility] [address] [place], [address] Neutrophils/100 WBC (Bld) 51.9 % Normal 47-70 [facility] Comment on above: Performed By: #### L 100.0100, L500.4050 #### [facility] [address] [place], [address] WBC (Bld) [#/Vol] 10.5 10*3/uL Normal 4.4-11.0 [facility] Comment on above: Performed By: #### L 100.0100, L500.4050 #### [facility] [address] [place], [address] Neutrophils (Bld) [#/Vol] 5.4 10*3/uL 2.0-7.7 [facility] Blood erythrocytes count (nu mber/volume)Ordered By: Saji Noonan on 06-18-2023 RBC (Bld) [#/Vol] 4.08 10*6/uL Low 4.2-5.4 [facility] Comment on above: Performed By: #### L 100.0100, L500.4050 #### [facility] [address] [place], [address] Blood hemoglobin measurement (mass/volume)Ordered By: Saji Noonan on 06-18-2023 Hemoglobin (Bld) [Mass/Vol] 12.6 g/dL Normal 12.0-15.0 [facility] Comment on above: Performed By: #### L 100.0100, L500.4050 #### [facility] [address] [place], [address] Blood lymphocytes/100 leukoc ytesOrdered By: Saji Noonan on 06-18-2023 Lymphocytes/100 WBC (Bld) 33.9 % Normal 19-41 [facility] Comment on above: Performed By: #### L 100.0100, L500.4050 #### [facility] [address] [place], [address] Blood monocytes/100 leukocyt esOrdered By: Saji Noonan on 06-18-2023 Monocytes/100 WBC (Bld) 7.9 % Normal 0-10 [facility] Comment on above: Performed By: #### L 100.0100, L500.4050 #### [facility] [address] [place], [address] Blood platelet mean volumeOr dered By: Saji Noonan on 06-18-2023 Platelet mean volume (Bld) [Entitic vol] 9.3 fL Normal 6.2-12.0 [facility] Comment on above: Performed By: #### L 100.0100, L500.4050 #### [facility] [address] [place], [address] CBC W/Diff, Automatedon 06-02 Absolute Lymph 3.55 X10 3/uL Normal 0.83-4.51 [facility] Comment on above: Performed By: #### L 100.0100, L500.4050 #### [facility] [address] [place], [address] Absolute Neut 5.4 X10 3/uL Normal 2.0-7.7 [facility] Comment on above: Performed By: #### L 100.0100, L500.4050 #### [facility] [address] [place], [address] IG% 0.400 Normal 0.0-0.9 [facility] Comment on above: Result Comment: IG% - Immature Granulocytes (promyelocytes, myelocytes and metamyelocytes) > 1% indicates that a LEFT SHIFT is Present. Performed By: #### L 100.0100, L500.4050 #### [facility] [address] [place], [address] Nucleated RBC (Bld) [#/Vol] 0 10*3/uL Normal 0-5 [facility] Comment on above: Performed By: #### L 100.0100, L500.4050 #### [facility] [address] [place], [address] RDW SD 43.0 fl Normal 35.1-43.9 [facility] Comment on above: Performed By: #### L 100.0100, L500.4050 #### [facility] [address] [place], [address] CBC W/Diff, AutomatedOrdered By: Saji Noonan on 06-18-2023 Erythrocyte distribution width (RBC) [Ratio] 12.1 % Normal 11.6-14.6 [facility] Comment on above: Performed By: #### L 100.0100, L500.4050 #### [facility] [address] [place], [address] MCH (RBC) [Entitic mass] 30.9 pg Normal 27.0-32.0 [facility] Comment on above: Performed By: #### L 100.0100, L500.4050 #### [facility] [address] [place], [address] Chest 1 View (Portable)on Chest 1 View (Portable) [facility] Imaging Services [address] [place] [address] Chest 1 View (Portable) MR#: [id number] Acct: [id number] Name: SARA ONTIVEROS Rep #: [id number] : 1985 F 38 From: Onel Connor MD PCP: Dr. Navdeep Mo MD Status: ADM IN Study: Chest 1 View (Portable) Date of Exam: 06/18/23 Exam# [id number] Ordering Dr: Saji Noonan MD -[id number] 2 EXAM: XR CHEST, 1 VIEW CLINICAL INDICATION: sob TECHNIQUE: Frontal view of the chest. COMPARISON: No relevant prior studies available. FINDINGS: LUNGS AND PLEURAL SPACES: Unremarkable. No consolidation or edema. No pneumothorax. No effusion. HEART: Unremarkable. Cardiac silhouette not enlarged. MEDIASTINUM: Central airways and mediastinal contour are unremarkable. BONES/JOINTS: Unremarkable. No acute fracture. SOFT TISSUES: Unremarkable. RAD/Chest 1 View (Portable) IMPRESSION: No radiographic evidence of acute cardiopulmonary disease. Electronically Signed: Onel Connor MD at 0:25 EST , CC: Dr. Saji Noonan MD; Dr. Navdeep Mo MD Brand Strategy Manager: Signed Normal [facility] Determination of erythrocyte mean corpuscular volume (MCV)Ordered By: Saji Noonan on 06-18-2023 MCV (RBC) [Entitic vol] 96.8 fL Normal 81-99 [facility] Comment on above: Performed By: #### L 100.0100, L500.4050 #### [facility] [address] [place], [address] Emergency Department Summary on 06-18-2023 Emergency Department Summary [facility] Medical Records Department [address] [place] [address] Emergency Department Summary 06/18/23 MR#: [id number] Acct: [id number] Name: SARA ONTIVEROS Rep #: [id number] : 1985 38 From: Saji Noonan MD PCP: Dr. Navdeep Mo MD Status:ADM IN Location: ICU ICU04-1 HPI History of Present Illness Chief Complaint: Shortness of Breath Informant: patient and EMS Narrative Narrative: Patient having a severe asthma attack. She has been intubated and in the ICU for this before. History is very limited due to acuity, the patient states please, I cannot talk when asked most questions. Unknown how long this has been going on. [facility] Medical History Anxiety Asthma Home Medications albuterol sulfate 90 mcg/actuation aerosol inhaler 2 puff inhalation Q4H PRN PRN Wheezing 07/06/19 [History Last Taken Unknown] albuterol sulfate 2.5 mg/3 mL (0.083 %) solution for nebulization 2.5 mg inhalation Q4HWA.RT PRN Shortness Of Breath 01/16/20 [History Last Taken Unknown] fluticasone 500 mcg-salmeterol 50 mcg/dose blistr powdr for inhalation (Advair Diskus) 1 inh inhalation BID 05/15/21 [History Last Taken Unknown] montelukast 10 mg tablet 10 mg PO DAILY 05/15/21 [History Last Taken Unknown] inhalational spacing device (Aerochamber MV spacer) #1 ea 08/26/21 [Rx Last Taken Unknown] fluticasone propionate 50 mcg/actuation nasal spray,suspension 1 spray intranasal Q12H 06/18/23 [History Last Taken Unknown] Allergy/AdvReac Type Severity Reaction Status Date / Time propranolol [From Inderal LA] Allergy Shortness Verified 06/18/23 22:56 of breath Social History household members: significant other Smoking Status: Former smoker substance use type: does not use ROS ROS ED Review of Systems ROS Unobtainable: other Details: Limited due to acuity Respiratory/Chest Respiratory/Chest: Reports dyspnea EXAM Physical Exam Const Vital Signs: 06/18/23 22:56 06/18/23 23:04 06/18/23 23:49 Temperature 97.6 F L Temperature Source Temporal Pulse Rate 132 H 116 H Respiratory Rate 40 H 19 H Respiratory Effort Short of Breath Labored Accessory Muscle Use Respiratory Depth Shallow Respiratory Pattern Grunting Blood Pressure 123/90 H 137/84 H Blood Pressure Mean 101 101 Pulse Ox 100 96 Oxygen Delivery Method Non-Rebreather Oxygen Flow Rate (L/min) 15 06/18/23 23:05 Temperature Temperature Source Pulse Rate 129 H Respiratory Rate 30 H Respiratory Effort Respiratory Depth Respiratory Pattern Tachypnea Blood Pressure Blood Pressure Mean Pulse Ox Oxygen Delivery Method Oxygen Flow Rate (L/min) Positive well nourished and well developed Constitutional Narrative: Acute respiratory distress General Appearance ED: well developed HEENT Reports moist mucous membranes normocephalic and atraumatic Eyes PERRL and EOMs intact bilaterally Neck full ROM, supple and no JVD Resp Resp Narrative: Acute respiratory distress with expiratory wheezes throughout but sounds tight. Breath sounds symmetric bilaterally. Cardio regular rate, regular rhythm and no murmurs GI non-tender and non-distended Auscultation: normoactive bowel sounds Palpation: soft Back/Spine no CVA tenderness General Back: other FROM Extremity normal to inspection General Extremety ED: Negative for edema, pulses abnormal or tenderness General Extremity: Negative for edema or pulses abnormal Neuro oriented x3, CN's II-XII intact bilaterally and no sensory deficits noted Sensorium / Orientation: awake and alert Motor Exam: strength 5/5 throughout Psych Attitude: No agitated Mood Affect: anxious Skin no rashes or lesions noted and no wounds MDM MDM MDM Narrative Medical decision making narrative: Recommended BiPAP at this patient struggling to breathe with, and in acute respiratory distress but she declined saying that she has had that before and been admitted to the ICU with asthma before like this, and the BiPAP is made things worse. She is in distress but holding her own right now so we treated her medically and it did result in drastic improvement, using nebulizer treatments, terbutaline, epinephrine, she received Solu-Medrol prior to arrival by EMS 125 mg. Magnesium sulfate ordered and yet to be infused. On reexamination she is doing much better and is able to converse better. She is tired but she agrees that she can continue like this without being intubated right now, but I would still admit her to the ICU. Discussed with hospitalist, and I reviewed her 1 view chest x-ray which shows no pneumonia or pneumothorax on my interpretation, SHELDON gao (more content not included)... Normal [facility] H AND P Exam - Hospitaliston 06-18-2023 H&P Exam - Hospitalist [facility] Medical Records Department [address] [place] [address] H P Exam - Hospitalist 06/18/23 2354 MR#: [id number] Acct: [id number] Name: SARA ONTIVEROS Rep #: [id number] : 1985 38 From: Sara Celestin MD PCP: Dr. Navdeep Mo MD Status:ADM IN Location: ICU ICU04-1 HPI - General General Date of Admission: 06/18/23 Date of Service: 06/18/23 Chief Complaint: Dyspnea, wheezing, increased work of breathing, respiratory distress. HPI Narrative The patient is a 38 y/o F w/ PMHx: Asthma w/ allergic rhinitis, Anxiety who presents to the [facility] ED on 06/18/23 with 3 of onset dyspnea worsening over the last 3 days with chest tightness and wheezing with no recent upper respiratory infection or symptoms or any ill contacts in the home but not improving despite usage of home nebulizer treatments prompting eventual EMS call and transition to the ED. On route to the ED they did attempt BiPAP but because of claustrophobia and anxiety patient was unable to tolerate it. She does report allergies to cats and does have several cats but is never seek at allergy treatment. She does not currently have a digital imaging specialist but notes that they have discussed this and that she would likely benefit but she has been anxious about it. Workup in the ED included T97.6, heart rate 132, BP 123/90, respiratory rate 40, 100% on room air, CBC with WBC 10.5, hemoglobin 12.6, platelet 430 without marked shift, VBG with pH 7.21, pO2 105, O2 96% on a nonrebreather, BMP with glucose 128 otherwise not marked appearing, troponin 5, chest x-ray on review with no acute cardiopulmonary findings but final read pending per radiology, EKG with sinus tachycardia with no acute evidence of ischemia, COVID and influenza antigen pending per ED physician. In the ED patient administered terbutaline 0.25 subcu x 1, Solu-Medrol 125 mg IV x 1, magnesium 2 g IV x 1, DuoNeb therapy as well as epi 0.3 mg IM x 1 treatment in addition to a 1 L normal saline bolus. In the ED the physician did encourage patient to utilize BiPAP however she declined but fortunately slowly improved. Did discuss potential need for future BiPAP in the ED with patient just in case she declined again and following lengthy discussion she would be amenable to trying potentially with Precedex drip. PFSH Medical History Anxiety Asthma Former tobacco use Home Medications albuterol sulfate 90 mcg/actuation aerosol inhaler 2 puff inhalation Q4H PRN PRN Wheezing 07/06/19 [History Last Taken Unknown] albuterol sulfate 2.5 mg/3 mL (0.083 %) solution for nebulization 2.5 mg inhalation Q4HWA.RT PRN Shortness Of Breath 01/16/20 [History Last Taken Unknown] fluticasone 500 mcg-salmeterol 50 mcg/dose blistr powdr for inhalation (Advair Diskus) 1 inh inhalation BID 05/15/21 [History Last Taken Unknown] montelukast 10 mg tablet 10 mg PO DAILY 05/15/21 [History Last Taken Unknown] inhalational spacing device (Aerochamber MV spacer) #1 ea 08/26/21 [Rx Last Taken Unknown] fluticasone propionate 50 mcg/actuation nasal spray,suspension 1 spray intranasal Q12H 06/18/23 [History Last Taken Unknown] Allergy/AdvReac Type Severity Reaction Status Date / Time propranolol [From Inderal LA] Allergy Shortness Verified 06/18/23 22:56 of breath Family History (Updated 06/19/23 @ 00:[address] Sara Celestin MD) Mother Asthma Father Diabetes Surgical History (Updated 06/19/23 @ 00:[address] Sara Celestin MD) No history of previous surgery Social History (Updated 06/19/23 @ 00:[address] Sara Celestin MD) household members: significant other and children Smoking Status: Former smoker how long ago did patient quit smoking: Quit cigarette tobacco 1 year prior, 1 pk/3-4 days from teen until quit. alcohol intake: current alcohol intake frequency: a few times a month substance use type: does not use ROS ROS Narrative Admission Review of Systems: CONSTITUTIONAL: No weight loss, fever, chills, + weakness or fatigue. HEENT: Eyes: No visual loss, blurred vision, double vision or yellow sclerae. Ears, Nose, Throat: No hearing loss, sneezing, congestion, runny nose or sore throat. SKIN: No rash or itching, lesions, wounds. CARDIOVASCULAR: No chest pain, chest pressure or chest discomfort, palpitations, edema, orthopnea, syncopal events. RESPIRATORY: + Shortness of breath, wheezing, respiratory distress. No recent cough or marked sputum, hemoptysis. GASTROINTESTINAL: No anorexia, nausea, vomiting or diarrhea, abdominal pain, melena, BRBPR. GENITOURINARY: No dysuria, frequency, urgency or retention. NEUROLOGICAL: No headache, dizziness, syncope, paralysis, ataxia, numbness or tingling in the extre mities, focal weakness, change in bowel or bladder control, seizure. MUSCULOSKELETAL: No muscle, back pain, joint pain or stiffness. HEMATOLOGIC: No anemia, bleedi (more content not included)... Normal [facility] HCO3 (BldA) [Moles/Vol]Order ed By: Saji Noonan on 06-18-2023 HCO3 (Bld) [Moles/Vol] 26 mmol/L [facility] Influenza virus A and B and SARS-CoV-2 (COVID-19) Ag panel - Upper respiratory specimOrdered By: Saji Noonan on 06-18-2023 SARS-CoV-2 (COVID-19) RNA SOL+probe Ql (Resp) [facility] L501.4020on 06-18-2023 TROPONIN-I HS 5 pg/mL Normal 3.0-54.0 [facility] Comment on above: Order Comment: 'TROP ' Serial specimen #1, #2 or #3: 1 Result Comment: Charlene jaimes Note: New Test Units and Gender Specific Reference Ranges. For more information see Policy Stat Procedure [place] High Sensitivity Troponin (TNIH) and attachments. Performed By: #### L 100.0100, L500.4050 #### [facility] [address] [place], [place], [id number] Laboratory - Chemistry and C hemistry - challengeOrdered By: Saji Noonan on 06-18-2023 CO2 [Moles/Vol] 28 mmol/L 23- [facility] Urea nitrogen/Creatinine [Mass ratio] 11.9 mg/mg 10-20 [facility] Laboratory - Hematology and Cell countsOrdered By: Saji Noonan on 06-18-2023 Erythrocyte distribution width (RBC) [Entitic vol] 43.0 fL 35.1-43.9 [facility] Immature granulocytes/100 WBC (Bld) 0.400 % 0.0-0.9 [facility] Comment on above: IG% - Immature Granu locytes (promyelocytes, myelocytes and metamyelocytes) > 1% indicates that a LEFT SHIFT is Present. Nucleated RBC/100 WBC (Bld) [Ratio] 0 % 0-5 [facility] MCHC [Mass/volume] by Automa carlo countOrdered By: Saji Noonan on 06-18-2023 MCHC (RBC) [Mass/Vol] 31.9 g/dL Low 32-36 [facility] Comment on above: Performed By: #### L 100.0100, L500.4050 #### [facility] [address] [place], [place], [id number] No Panel InformationOrdered By: Saji Noonan on 06-18-2023 Bed Mix Venous Bld PCO2 at Pat Temp 64.8 mmHg 41-51 [facility] Blood Gas Oxygen Percent 100.0 [facility] Blood Gas Sample Site Not entered [facility] Blood Gas Specimen Type MIHAI W [facility] Oxygen Delivery Device NRB [facility] Venous Blood Base Excess -2 mmol/L -1.0-3.5 [facility] Estimated Creatinine Clearance Calc 79.18 ml/min [facility] Estimated GFR (MDRD) Amer 98 mL/min >60 [facility] Comment on above: GFR Calc Estimated GFR (MDRD) Non-Af Amer 81 mL/min >60 [facility] Comment on above: Non- GFR Calc Troponin I High Sensitivity 5 pg/mL 3.0-54.0 [facility] Comment on above: Please Note: New Prema t Units and Gender Specific Reference Ranges. For more information see Policy Stat Procedure [place] High Sensitivity Troponin (TNIH) and attachments. PO2 venousOrdered By: Mandeep Noonan on 06-18-2023 Oxygen (BldV) [Partial pressure] 105 mm[Hg] 25-40 [facility] Platelets bldOrdered By: Lynn Noonan on 06-18-2023 Platelets (Bld) [#/Vol] 430 10*3/uL Normal 150-450 [facility] Comment on above: Performed By: #### L 100.0100, L500.4050 #### [facility] [address] [place], [address] Respiratory pathogens detect ion panel by molecular detection methodOrdered By: Sara Celestin on 06-18-2023 Respiratory pathogens DNA and RNA panel SOL+probe (Resp) [facility] Serum or plasma calcium misty urement (mass/volume)Ordered By: Saji Noonan on 06-18-2023 Calcium [Mass/Vol] 8.5 mg/dL 8.5-10.1 [facility] Serum or plasma creatinine m easurement (mass/volume)Ordered By: Saji Noonan on 06-18-2023 Creatinine [Mass/Vol] 0.84 mg/dL Normal 0.55-1.02 [facility] Comment on above: The validity of the calculated GFR & GFRAA in patients over 70 years has not been determined. Clinical correlation is essential. Order Comment: 'TROP ' Serial specimen #1, #2 or #3: 1 Result Comment: The validity of the calculated GFR GFRAA in patients over 70 years has not been determined. Clinical correlation is essential. Performed By: #### L 100.0100, L500.4050 #### [facility] [address] [place], [address] Serum or plasma urea nitroge n measurement (mass/volume)Ordered By: Saji Noonan on 06-18-2023 Urea nitrogen [Mass/Vol] 10 mg/dL Normal 7-18 [facility] Comment on above: Order Comment: 'TROP ' Serial specimen #1, #2 or #3: 1 Performed By: #### L 100.0100, L500.4050 #### [facility] [address] [place], [address] Thin prep Papanicolaou smear with manual screeningOrdered By: Saji Noonan on 06-18-2023 Thin prep Papanicolaou smear with manual screening 2 5-15 [facility] Upper respiratory specimen i nfluenza A virus, influenza B virus, and severe acute respiratory syndromOrdered By: Saji Noonan on 06-18-2023 Upper respiratory specimen influenza A virus, influenza B virus, and severe acute respiratory syndrom [facility] Venous Blood Gason 3 Blood Gas Type MIHAI Normal [facility] Comment on above: Performed By: #### L 500.2500, L100.0100 #### [facility] [address] [place], [address] CO2 [Moles/Vol] 28 mmol/L Normal 23-33 [facility] Comment on above: Performed By: #### L 500.2500, L100.0100 #### [facility] [address] [place], [address] FI02 100.0 Normal [facility] Comment on above: Performed By: #### L 500.2500, L100.0100 #### [facility] [address] [place], [address] HCO3 (Bld) [Moles/Vol] 26 mmol/L Normal 22-26 [facility] Comment on above: Performed By: #### L 500.2500, L100.0100 #### [facility] [address] [place], [address] O2 Delivery Dev NRB Normal [facility] Comment on above: Performed By: #### L 500.2500, L100.0100 #### [facility] [address] [place], [address] SITE Not entered Normal [facility] Comment on above: Performed By: #### L 500.2500, L100.0100 #### [facility] [address] [place], [address] VBG BE -2 mmol/L Low -1.0-3.5 [facility] Comment on above: Performed By: #### L 500.2500, L100.0100 #### [facility] [address] [place], [address] VBG pCO2 64.8 mmHg High 41-51 [facility] Comment on above: Performed By: #### L 500.2500, L100.0100 #### [facility] [address] [place], [address] VBG pH 7.21 Low 7.32-7.42 [facility] Comment on above: Performed By: #### L 500.2500, L100.0100 #### [facility] [address] [place], [address] VBG PO2 105 mmHg High 25-40 [facility] Comment on above: Performed By: #### L 500.2500, L100.0100 #### [facility] [address] [place], [address] VBG SO2 96 High 50-70 [facility] Comment on above: Performed By: #### L 500.2500, L100.0100 #### [facility] [address] [place], [address] Vital signsOrdered By: Izabella Noonan on 06-18-2023 Oxygen saturation in Blood 96 % 50-70 [facility] pH measurementOrdered By: Alysia Noonan on 06-18-2023 pH (Unsp spec) 7.21 [pH] 7.32-7.42 [facility] Vital Signs Date Time Vital Sign Value Performing Clinician Faci lity 07-26-2024 11:17-0500 Body mass index (BMI) [Ratio] 30.95 kg/m2 Roselyn Zamorano MD Work Phone: [facility] 07-26-2024 11:17-0500 Body weight 81.8 kg Roselyn Zamorano MD Work Phone: [facility] 07-26-2024 11:17-0500 Diastolic blood pressure 75 mm[Hg] Roselyn Zamorano MD Work Phone: [facility] 07-26-2024 11:17-0500 Heart rate 91 /min Roselyn Zamorano MD Work Phone: [facility] 07-26-2024 11:17-0500 SaO2% (BldA) [Mass fraction] 98 % Roselyn Zamorano MD Work Phone: [facility] 07-26-2024 11:17-0500 Systolic blood pressure 116 mm[Hg] Roselyn Zamorano MD Work Phone: [facility] 06-13-2024 10:54-0500 Body mass index (BMI) [Ratio] 30.8 kg/m2 Nilson Wdasworth MD Work Phone: [facility] 06-13-2024 10:54-0500 Body weight 81.4 kg Nilson Wadsworth MD Work Phone: [facility] 06-13-2024 10:54-0500 Diastolic blood pressure 85 mm[Hg] Nilson Wadsworth MD Work Phone: [facility] 06-13-2024 10:54-0500 Heart rate 83 /min Nilson Wadsworth MD Work Phone: [facility] 06-13-2024 10:54-0500 SaO2% (BldA) [Mass fraction] 98 % Nilson Wadsworth MD Work Phone: [facility] 06-13-2024 10:54-0500 Systolic blood pressure 124 mm[Hg] Nilson Wadsworth MD Work Phone: [facility] 04-26-2024 09:51-0400 Body mass index (BMI) [Ratio] 31.64 kg/m2 Navdeep Mo MD Work Phone: [facility] 04-26-2024 09:51-0400 Body temperature 98.2 [degF] Navdeep Mo MD Work Phone: [facility] 04-26-2024 09:51-0400 Body weight 83.6 kg Navdeep Mo MD Work Phone: [facility] 04-26-2024 09:51-0400 Diastolic blood pressure 62 mm[Hg] Navdeep Mo MD Work Phone: [facility] 04-26-2024 09:51-0400 Heart rate 85 /min Navdeep Mo MD Work Phone: [facility] 04-26-2024 09:51-0400 Respiratory rate 16 /min Navdeep Mo MD Work Phone: [facility] 04-26-2024 09:51-0400 SaO2% (BldA) [Mass fraction] 99 % Navdeep Mo MD Work Phone: [facility] 04-26-2024 09:51-0400 Systolic blood pressure 110 mm[Hg] Navdeep Mo MD Work Phone: [facility] 04-24-2024 13:23-0400 Body mass index (BMI) [Ratio] 31.64 kg/m2 Roselyn Zamorano MD Work Phone: [facility] 04-24-2024 13:23-0400 Body weight 83.6 kg Roselyn Zamorano MD Work Phone: [facility] 04-24-2024 13:23-0400 Diastolic blood pressure 77 mm[Hg] Roselyn Zamorano MD Work Phone: [facility] 04-24-2024 13:23-0400 Heart rate 85 /min Roselyn Zamorano MD Work Phone: [facility] 04-24-2024 13:23-0400 SaO2% (BldA) [Mass fraction] 100 % Roselyn Zamorano MD Work Phone: [facility] 04-24-2024 13:23-0400 Systolic blood pressure 115 mm[Hg] Roselyn Zamorano MD Work Phone: [facility] 04-03-2024 15:13-0400 Body mass index (BMI) [Ratio] 30.35 kg/m2 Calista Jesus SUPERVISOR RIVETING.DOCUMENTATION CLERK Work Phone: [facility] 04-03-2024 15:13-0400 Body temperature 98.8 [degF] Calista Jesus SUPERVISOR RIVETING.DOCUMENTATION CLERK Work Phone: [facility] 04-03-2024 15:13-0400 Body weight 80.2 kg Calista Jesus SUPERVISOR RIVETING.DOCUMENTATION CLERK Work Phone: [facility] 04-03-2024 15:13-0400 Diastolic blood pressure 82 mm[Hg] Calista Jesus SUPERVISOR RIVETING.DOCUMENTATION CLERK Work Phone: [facility] 04-03-2024 15:13-0400 Heart rate 90 /min Calista Jesus SUPERVISOR RIVETING.DOCUMENTATION CLERK Work Phone: [facility] 04-03-2024 15:13-0400 Respiratory rate 18 /min Calista Jesus SUPERVISOR RIVETING.DOCUMENTATION CLERK Work Phone: [facility] 04-03-2024 15:13-0400 SaO2% (BldA) [Mass fraction] 100 % Calista Jesus SUPERVISOR RIVETING.DOCUMENTATION CLERK Work Phone: [facility] 04-03-2024 15:13-0400 Systolic blood pressure 128 mm[Hg] Calista Jesus SUPERVISOR RIVETING.DOCUMENTATION CLERK Work Phone: [facility] 01-06-2024 15:16-0400 Body mass index (BMI) [Ratio] 30.58 kg/m2 Sherita Salazar APRN.DOCUMENTATION CLERK Work Phone: [facility] 01-06-2024 15:16-0400 Body temperature 98.2 [degF] Sherita Salazar APRN.DOCUMENTATION CLERK Work Phone: [facility] 01-06-2024 15:16-0400 Body weight 80.8 kg Sherita Salazar APRN.DOCUMENTATION CLERK Work Phone: [facility] 01-06-2024 15:16-0400 Diastolic blood pressure 76 mm[Hg] Sherita Salazar APRN.DOCUMENTATION CLERK Work Phone: [facility] 01-06-2024 15:16-0400 Heart rate 90 /min Sherita Salazar APRN.DOCUMENTATION CLERK Work Phone: [facility] 01-06-2024 15:16-0400 Respiratory rate 21 /min Sherita Salazar APRN.DOCUMENTATION CLERK Work Phone: [facility] 01-06-2024 15:16-0400 SaO2% (BldA) [Mass fraction] 97 % Sherita Salazar APRN.DOCUMENTATION CLERK Work Phone: [facility] 01-06-2024 15:16-0400 Systolic blood pressure 112 mm[Hg] Sherita Salazar APRN.DOCUMENTATION CLERK Work Phone: [facility] 10-27-2023 18:40-0400 Body mass index (BMI) [Ratio] 30.54 kg/m2 Brien Frazier APRN.DOCUMENTATION CLERK Work Phone: [facility] 10-27-2023 18:40-0400 Body temperature 98.2 [degF] Brien Frazier APRN.DOCUMENTATION CLERK Work Phone: [facility] 10-27-2023 18:40-0400 Body weight 80.7 kg Brien Frazier APRN.DOCUMENTATION CLERK Work Phone: [facility] 10-27-2023 18:40-0400 Diastolic blood pressure 67 mm[Hg] Brien [facility] SUPERVISOR RIVETING.DOCUMENTATION CLERK Work Phone: [facility] 10-27-2023 18:40-0400 Heart rate 91 /min Brien [facility] SUPERVISOR RIVETING.DOCUMENTATION CLERK Work Phone: [facility] 10-27-2023 18:40-0400 Respiratory rate 20 /min [facility] SUPERVISOR RIVETING.DOCUMENTATION CLERK Work Phone: [facility] 10-27-2023 18:40-0400 SaO2% (BldA) [Mass fraction] 100 % [facility] SUPERVISOR RIVETING.DOCUMENTATION CLERK Work Phone: [facility] 10-27-2023 18:40-0400 Systolic blood pressure 115 mm[Hg] Brien [facility] SUPERVISOR RIVETING.DOCUMENTATION CLERK Work Phone: [facility] 08-11-2023 10:04-0500 Heart rate 100 /min Eli Prebish SUPERVISOR RIVETING.DOCUMENTATION CLERK Work Phone: [facility] 08-11-2023 10:04-0500 Respiratory rate 16 /min Eli Prebish SUPERVISOR RIVETING.DOCUMENTATION CLERK Work Phone: [facility] 08-11-2023 10:04-0500 SaO2% (BldA) [Mass fraction] 99 % Eli Prebish SUPERVISOR RIVETING.DOCUMENTATION CLERK Work Phone: [facility] 07-30-2023 21:14-0500 Diastolic blood pressure 87 mm[Hg] Dr. Navdeep Mo Work Phone: [facility] 07-30-2023 21:14-0500 Heart rate 100 /min Dr. Navdeep Mo Work Phone: [facility] 07-30-2023 21:14-0500 Respiratory rate 22 /min Dr. Navdeep Mo Work Phone: [facility] 07-30-2023 21:14-0500 SaO2% (BldA) [Mass fraction] 100 % Dr. Navdeep Mo Work Phone: [facility] 07-30-2023 21:14-0500 Systolic blood pressure 132 mm[Hg] Dr. Navdeep Mo Work Phone: 0(798)076-836988 [place] [address] 07-30-2023 19:15-0500 Body height 162.[address] Navdeep Mo Work Phone: 5(609)304-967288 [place] [address] 07-30-2023 19:15-0500 Body mass index (BMI) [Ratio] 31.1 kg/m2 Dr. Navdeep Mo Work Phone: 7(798)[phone] [place] [address] 07-30-2023 19:15-0500 Body temperature 98.1 [degF] Dr. Navdeep Mo Work Phone: 2(500)580-825488 [place] [address] 07-30-2023 19:15-0500 Body weight 82.[address] Navdeep Mo Work Phone: 7(417)411-066288 [place] [address] 06-19-2023 11:15-0500 Heart rate 84 /min Dr. Navdeep Mo Work Phone: 8(646)864-687488 [place] [address] 06-19-2023 11:15-0500 Respiratory rate 15 /min Dr. Navdeep Mo Work Phone: 8(824)996-382788 [place] [address] 06-19-2023 11:00-0500 Body temperature 96.5 [degF] Dr. Navdeep Mo Work Phone: 4(633)[phone] [place] [address] 06-19-2023 11:00-0500 Diastolic blood pressure 68 mm[Hg] Dr. Navdeep Mo Work Phone: 2(542)[phone] [place] [address] 06-19-2023 11:00-0500 SaO2% (BldA) [Mass fraction] 95 % Dr. Navdeep Mo Work Phone: 4(094)[phone] [place] [address] 06-19-2023 11:00-0500 Systolic blood pressure 109 mm[Hg] Dr. Navdeep Mo Work Phone: 0(685)[phone] [place] [address] 06-19-2023 10:00-0500 Inhaled oxygen flow rate 2 L/min Dr. Navdeep Mo Work Phone: 1(072)[phone] [place] [address] 06-19-2023 05:04-0500 Body mass index (BMI) [Ratio] 30.2 kg/m2 Dr. Navdeep Mo Work Phone: [facility] 06-19-2023 05:04-0500 Body weight [address] Navdeep Mo Work Phone: [facility] 06-19-2023 00:39-0500 Body height 162.[address] Navdeep Mo Work Phone: [facility] 06-19-2023 00:00-0500 Diastolic blood pressure 81 mm[Hg] [facility] 06-19-2023 00:00-0500 Heart rate 105 /min [facility] 06-19-2023 00:00-0500 Inhaled oxygen flow rate 2 L/min [facility] 06-19-2023 00:00-0500 Respiratory rate 14 /min [facility] 06-19-2023 00:00-0500 SaO2% (BldA) [Mass fraction] 99 % [facility] 06-19-2023 00:00-0500 Systolic blood pressure 124 mm[Hg] [facility] 06-18-2023 22:56-0500 Body height 162.56 cm [facility] 06-18-2023 22:56-0500 Body mass index (BMI) [Ratio] 31.6 kg/m2 [facility] 06-18-2023 22:56-0500 Body temperature 97.6 [degF] [facility] 06-18-2023 22:56-0500 Body weight 83.6 kg [facility] 04-12-2023 22:56-0400 Heart rate 78 /min [facility] 04-12-2023 22:56-0400 Respiratory rate 18 /min [facility] 04-12-2023 22:44-0400 Diastolic blood pressure 60 mm[Hg] [facility] 04-12-2023 22:44-0400 SaO2% (BldA) [Mass fraction] 97 % [facility] 04-12-2023 22:44-0400 Systolic blood pressure 102 mm[Hg] [facility] 04-12-2023 20:53-0400 Body height 162.56 cm [facility] 04-12-2023 20:53-0400 Body mass index (BMI) [Ratio] 28.6 kg/m2 [facility] 04-12-2023 20:53-0400 Body temperature 98 [degF] [facility] 04-12-2023 20:53-0400 Body weight 75.74 kg [facility] 10-06-2022 21:01-0400 Heart rate 115 /min [facility] 10-06-2022 21:01-0400 Respiratory rate 16 /min [facility] 10-06-2022 21:01-0400 SaO2% (BldA) [Mass fraction] 97 % [facility] 10-06-2022 18:03-0400 Body height 162.56 cm [facility] 10-06-2022 18:03-0400 Body mass index (BMI) [Ratio] 25.7 kg/m2 [facility] 10-06-2022 18:03-0400 Body temperature 98.9 [degF] [facility] 10-06-2022 18:03-0400 Body weight 68.03 kg [facility] 10-06-2022 18:03-0400 Diastolic blood pressure 76 mm[Hg] [facility] 10-06-2022 18:03-0400 Systolic blood pressure 132 mm[Hg] [facility] 05-24-2022 21:09-0500 Diastolic blood pressure 74 mm[Hg] [facility] Work Phone: 05-24-2022 21:09-0500 Heart rate 74 /min [facility] Work Phone: 05-24-2022 21:09-0500 Respiratory rate 16 /min [facility] Work Phone: 05-24-2022 21:09-0500 SaO2% (BldA) [Mass fraction] 98 % [facility] Work Phone: 05-24-2022 21:09-0500 Systolic blood pressure 124 mm[Hg] [facility] Work Phone: 05-24-2022 19:19-0500 Body height 162.56 cm [facility] Work Phone: 05-24-2022 19:19-0500 Body mass index (BMI) [Ratio] 29.2 kg/m2 [facility] Work Phone: 05-24-2022 19:19-0500 Body temperature 97.8 [degF] [facility] Work Phone: 05-24-2022 19:19-0500 Body weight 77.11 kg [facility] Work Phone: 04-20-2022 18:17-0400 Body temperature 98.6 [degF] Brien Karin SUPERVISOR RIVETING.DOCUMENTATION CLERK Work Phone: [facility] 04-20-2022 18:17-0400 Body weight 77.75 kg Brien Frazier SUPERVISOR RIVETING.DOCUMENTATION CLERK Work Phone: [facility] 04-20-2022 18:17-0400 Diastolic blood pressure 78 mm[Hg] Brien Frazier SUPERVISOR RIVETING.DOCUMENTATION CLERK Work Phone: [facility] 04-20-2022 18:17-0400 Heart rate 98 /min Brien Frazier SUPERVISOR RIVETING.DOCUMENTATION CLERK Work Phone: [facility] 04-20-2022 18:17-0400 Respiratory rate 21 /min Brien Frazier SUPERVISOR RIVETING.DOCUMENTATION CLERK Work Phone: [facility] 04-20-2022 18:17-0400 SaO2% (BldA) [Mass fraction] 97 % Brien Frazier SUPERVISOR RIVETING.DOCUMENTATION CLERK Work Phone: [facility] 04-20-2022 18:17-0400 Systolic blood pressure 112 mm[Hg] Brien Frazier SUPERVISOR RIVETING.DOCUMENTATION CLERK Work Phone: [facility] 01-23-2022 00:22-0400 Diastolic blood pressure 72 mm[Hg] [facility] Work Phone: 01-23-2022 00:22-0400 Heart rate 64 /min [facility] Work Phone: 01-23-2022 00:22-0400 Respiratory rate 16 /min [facility] Work Phone: 01-23-2022 00:22-0400 SaO2% (BldA) [Mass fraction] 96 % [facility] Work Phone: 01-23-2022 00:22-0400 Systolic blood pressure 106 mm[Hg] [facility] Work Phone: 01-22-2022 23:10-0400 Body height 162.56 cm [facility] Work Phone: 01-22-2022 23:10-0400 Body mass index (BMI) [Ratio] 28 kg/m2 [facility] Work Phone: 01-22-2022 23:10-0400 Body temperature 97.3 [degF] [facility] Work Phone: 01-22-2022 23:10-0400 Body weight 74.3 kg [facility] Work Phone: Encounters Encounter Date Encounter Type Care Provider Facility Start: 01-27-2025 End: 01-29-2025 Telephone encounter Nilson Wadsworth MD Work Phone: Allergy Comment on above: PA FOR DUPIXENT Start: 01-22-2025 End: 01-22-2025 ambulatory Nilson Wadsworth MD Work Phone: Allergy Comment on above: This is getting ridi culous Start: 01-20-2025 End: 01-22-2025 ambulatory Nilson Wadsworth MD Work Phone: Allergy Comment on above: Checking In Start: 01-20-2025 End: 01-22-2025 Patient encounter procedure Nilson Wadsworth MD Work Phone: Allergy Comment on above: Need a referral Start: 01-15-2025 End: 01-20-2025 Telephone encounter Nilson Wadsworth MD Work Phone: Allergy Start: 10-03-2024 End: 10-03-2024 Telephone encounter Roselyn Zamorano MD Work Phone: Pulmonary Medicine Start: 10-02-2024 End: 10-07-2024 Refill Roselyn Zamorano MD Work Phone: Pulmonary Medicine Comment on above: Refill Request Start: 08-16-2024 End: 08-16-2024 ambulatory Nilson Wadsworth MD Work Phone: Allergy Comment on above: Dupixent injections Start: 07-26-2024 End: 07-26-2024 ambulatory ROSELYN ZAMORANO Facility:[facility] Start: 07-26-2024 End: 07-26-2024 Patient encounter procedure Roselyn Zamorano MD Work Phone: Pulmonary Medicine Comment on above: Severe persistent as thma without complication (Primary Dx); SOB (shortness of breath); Ex-smoker; History of environmental allergies; Gastroesophageal reflux disease, unspecified whether esophagitis present Start: 07-23-2024 End: 07-23-2024 ambulatory [facility] Comment on above: Dupixent Start: 07-23-2024 End: 07-23-2024 E-mail encounter from caregiver [facility] Start: 07-23-2024 End: 07-23-2024 Telephone encounter Nilson Wadsworth MD Work Phone: Allergy Start: 07-08-2024 End: 07-08-2024 Refill Nilson Wadsworth MD Work Phone: Allergy Comment on above: Refill Request Start: 06-13-2024 End: 07-08-2024 Telephone encounter Nilson Wadsworth MD Work Phone: Allergy Comment on above: dupixent start Start: 06-13-2024 End: 06-13-2024 ambulatory Mayra Santana [facility] Pulmonary Medicine Comment on above: Spirometry Start: 06-13-2024 End: 06-13-2024 Patient encounter procedure Pulm Fct Lab [facility] Work Phone: Pulmonary Medicine Comment on above: SPP Inflammatory Con ditions - Treatment Referral (Dupixent) Allergic rhinitis du e to animal (cat) (dog) hair and dander (Primary Dx); Uncontrolled persistent asthma; Allergic rhinitis due to dust mite; Eosinophilic asthma Start: 06-07-2024 End: 06-07-2024 ambulatory ROSELYN ZAMORANO Facility:[facility] Start: 05-20-2024 End: 05-22-2024 Refill Roselyn Zamorano MD Work Phone: Pulmonary Medicine Comment on above: Refill Request Start: 05-03-2024 End: 05-03-2024 Refill Roselyn Zamorano MD Work Phone: Pulmonary Medicine Comment on above: Refill Request Start: 04-26-2024 End: 04-26-2024 ambulatory NAVDEEP MO Facility:[facility] Start: 04-26-2024 End: 04-26-2024 Patient encounter procedure Navdeep Mo MD Work Phone: [facility] Comment on above: Severe persistent as thma with status asthmaticus (Primary Dx); YUNIOR (generalized anxiety disorder); Major depressive disorder, recurrent severe without psychotic features (HCC); Alcohol dependence in remission (HCC) Start: 04-24-2024 End: 04-24-2024 ambulatory NAVDEEP MO Facility:[facility] Start: 04-24-2024 End: 04-24-2024 Patient encounter procedure Roselyn Zamorano MD Work Phone: Pulmonary Medicine Comment on above: Uncontrolled persist ent asthma (Primary Dx); SOB (shortness of breath); History of environmental allergies; Ex-smoker; Gastroesophageal reflux disease, unspecified whether esophagitis present Start: 04-23-2024 End: 04-24-2024 Refill Lidia Peraza APRN.CNP Work Phone: [facility] Comment on above: Refill Request Start: 04-22-2024 End: 05-01-2024 Telephone encounter Navdeep Mo MD Work Phone: [facility] [place] Comment on above: Referral Start: 04-19-2024 ambulatory Miguel Ángel Lisa Facility: [facility] Start: 04-19-2024 End: 04-21-2024 Evaluation and management of inpatient Daniel Reed Facility:[facility] Start: 04-10-2024 End: 04-10-2024 Emergency department patient visit Bill Bowen Facility:[facility] Start: 04-03-2024 End: 04-03-2024 ambulatory NAVDEEP MO Facility:[facility] Start: 04-03-2024 End: 04-04-2024 Patient encounter procedure Calista Lee SUPERVISOR RIVETING.DOCUMENTATION CLERK Work Phone: [facility] Comment on above: Moderate persistent asthmatic bronchitis with acute exacerbation (Primary Dx) Refill Request Start: 02-21-2024 End: 2024 ambulatory Pham Patten SUPERVISOR RIVETING.DOCUMENTATION CLERK Work Phone: Psychiatry Comment on above: Mental Health Treatm ent Asthma Treatment Start: 02-02-2024 End: 02-02-2024 Emergency department patient visit Mick Martinez Facility:[facility] Start: 01-06-2024 End: 01-06-2024 Patient encounter procedure Sherita Salazar SUPERVISOR RIVETING.DOCUMENTATION CLERK Work Phone: [facility] Comment on above: Mild intermittent as thma without complication (Primary Dx) Start: 11-27-2023 End: 11-27-2023 Emergency department patient visit Bill Bowen Facility:[facility] Start: 10-27-2023 End: 10-27-2023 Office outpatient visit 25 minutes rBien Frazier SUPERVISOR RIVETING.DOCUMENTATION CLERK Work Phone: [facility] Comment on above: Moderate persistent asthma with acute exacerbation (Primary Dx) Start: 10-13-2023 End: 10-13-2023 ambulatory NAVDEEP MO Facility:[facility] Start: 10-13-2023 End: 10-13-2023 ambulatory Eli Cruz SUPERVISOR RIVETING.DOCUMENTATION CLERK Work Phone: [facility] Comment on above: Cervical radicular p ain (Primary Dx); Numbness and tingling in left hand; Degeneration of intervertebral disc of cervical spine without disc herniation; Spinal stenosis of cervical region Start: 10-13-2023 End: 10-13-2023 Telemedicine consultation with patient Eli Serranodarlyn PIEDRADOCUMENTATION CLERK Work Phone: [address] Start: 09-22-2023 End: 09-22-2023 OT/PT/Speech Visit Diana Mulleradrianna PRODUCT SAFETY CONSULTANT Work Phone: [facility] Comment on above: Cervical disc disord er with radiculopathy (Primary Dx) Start: 09-15-2023 End: 09-15-2023 OT/PT/Speech Visit Aaron Dia PT Work Phone: [facility] Comment on above: Cervical disc disord er with radiculopathy (Primary Dx) Start: 09-08-2023 End: 09-08-2023 OT/PT/Speech Visit Diana Wilfredo PRODUCT SAFETY CONSULTANT Work Phone: [facility] Comment on above: Cervical disc disord er with radiculopathy (Primary Dx) Start: 09-01-2023 End: 09-01-2023 OT/PT/Speech Visit Sayda Fontana PT, DPT [facility] Comment on above: Cervical disc disord er with radiculopathy (Primary Dx) Start: 08-11-2023 End: 08-11-2023 ambulatory SELF Facility:[facility] Start: 08-11-2023 End: 08-11-2023 Office outpatient new 45 minutes Eli Ewingprema PIEDRADOCUMENTATION CLERK Work Phone: [facility] Comment on above: Degeneration of inte rvertebral disc of cervical spine without disc herniation (Primary Dx); Cervical radicular pain; Numbness and tingling in left hand Start: 07-30-2023 End: 07-30-2023 Emergency department patient visit Dr. Navdeep Mo Work Phone: [facility] Work Phone: Start: 07-14-2023 Emergency department patient visit NAVDEEP MO Facility:[facility] Start: 06-19-2023 Non-patient / Non-visit Dr. Sonya Mo Work Phone: [facility] Work Phone: Start: 06-19-2023 Non-patient / Non-visit Dr. Sonya Mo Work Phone: [facility] Start: 06-18-2023 ambulatory [facility] Facility :[facility] Start: 06-18-2023 End: 06-19-2023 Evaluation and management of inpatient [facility] Work Phone: Start: 05-11-2023 Telephone encounter Navdeep jennings MD Work Phone: [facility] [place] Comment on above: Insurance Authorizat ion (Trelegy ellipta ) Start: 04-12-2023 End: 04-12-2023 Emergency department patient visit [facility] Work Phone: Start: 03-15-2023 Refill Lidia Mcmahan SUPERVISOR RIVETING .DOCUMENTATION CLERK Work Phone: [facility] [place] Comment on above: Refill Request Start: 10-06-2022 End: 10-06-2022 Emergency department patient visit [facility] Start: 05-24-2022 End: 05-24-2022 Emergency department patient visit [facility] Start: 04-20-2022 End: 04-20-2022 Patient encounter procedure Brien Frazier SUPERVISOR RIVETING.DOCUMENTATION CLERK Work Phone: [facility] Comment on above: Moderate persistent asthma with exacerbation (Primary Dx) Start: 03-04-2022 Refill Pham brandon SUPERVISOR RIVETING.DOCUMENTATION CLERK Work Phone: Psychiatry Comment on above: Refill Request Start: 01-28-2022 End: 01-28-2022 [facility] Pham Patten SUPERVISOR RIVETING.DOCUMENTATION CLERK Work Phone: Psychiatry Comment on above: Chronic post-traumat ic stress disorder (PTSD) (Primary Dx); YUNIOR (generalized anxiety disorder); Recurrent major depressive disorder, in partial remission (HCC); Nicotine use Start: 01-22-2022 End: 01-23-2022 Emergency department patient visit [facility] Start: 12-31-2021 End: 12-31-2021 ambulatory Respiratory Therapist [facility] Work Phone: Pulmonary Medicine Comment on above: Spirometry Start: 12-31-2021 End: 12-31-2021 Patient encounter procedure Respiratory Therapist [facility] Work Phone: [facility] Start: 12-10-2021 Telephone encounter Navdeep jennings MD Work Phone: [facility] [place] Comment on above: Insurance Authorizat ion Start: 12-06-2021 Refill Lidia Older SUPERVISOR RIVETING .DOCUMENTATION CLERK Work Phone: [facility] [place] Comment on above: Refill Request Start: 11-26-2021 End: 11-26-2021 [facility] Pham J Rajguru SUPERVISOR RIVETING.DOCUMENTATION CLERK Work Phone: Psychiatry Comment on above: Chronic post-traumat ic stress disorder (PTSD) (Primary Dx); YUNIOR (generalized anxiety disorder); Major depressive disorder, recurrent episode, moderate (HCC); Nicotine use Start: 11-01-2021 Refill Navdeep gibbs MD Work Phone: [facility] [place] Comment on above: Refill Request Start: 10-12-2021 Refill Lidia Older SUPERVISOR RIVETING .DOCUMENTATION CLERK Work Phone: [facility] [place] Comment on above: Refill Request Opened In Error Start: 10-01-2021 End: 10-01-2021 [facility] Pham J Rajguru SUPERVISOR RIVETING.DOCUMENTATION CLERK Work Phone: Psychiatry Comment on above: YUNOIR (generalized anx iety disorder) (Primary Dx); Chronic post-traumatic stress disorder (PTSD); Major depressive disorder, recurrent episode, moderate (HCC); Encounter for long-term (current) use of medications After Visit Summary Start: 02-17-2017 End: 02-17-2017 [facility] Procedures Date Procedure Procedure Detail Performing Clinician Start: 06-13-2024 INHALANT 32 ALLERGEN SKIN TEST Nilson Wadsworth MD Work Phone: Start: 06-13-2024 Nitric oxide gas determination Roselyn Zamorano MD Work Phone: Start: 06-13-2024 Co diffusing capacity Demetrius Zamorano MD Work Phone: Start: 07-30-2023 Plain chest X-ray Dr. Carrie Mo Work Phone: Start: 07-30-2023 SARS-CoV-2, Influenz a & RSV (PCR) Dr. Navdeep Mo Work Phone: Start: 06-18-2023 Plain chest X-ray Start: 06-18-[address] Navdeep Mo Work Phone: Start: 06-18-2023 SARS-CoV-2 & FLU Ant igen (Rapid) Start: 06-18-[address] Navdeep Mo Work Phone: Start: 01-22-2022 CT cervical spine wi thout contrast Start: 01-22-2022 CT of head without contrast Plan of Treatment Date Care Activity Detail Author Start: 05-14-2026 HPV TESTING HPV TESTING [facility] Start: 05-14-2026 PAP TESTING PAP TESTING [facility] Start: 05-14-2026 Screening for malign ant neoplasm of cervix [facility] Start: 04-26-2025 Annual PCP Team [employer] Casting Machine Setup Operator iveth Disease Visit Annual PCP Team Chronic Disease Visit [facility] Start: 04-26-2025 Covid-19 Vaccine ( season) Covid-19 Vaccine ( season) [facility] Comment on above: Postponed from 03/03 (Declined at this time) Start: 03-03-2025 Influenza vaccination Influenza Vacc ine (#1) [facility] Start: 12-30-2024 Influenza vaccination Influenza Vacc ine (#1) [facility] Comment on above: Postponed from 03/03 (Declined at this time) Start: 10-12-2024 End: 07-14-2025 NITRIC OXIDE, EXHALED NITRIC OXIDE, EXHALED PFT Routine Uncontrolled persistent asthma Expected: 10/12/2024 (Approximate), Expires: 07/14/2025 [facility] Comment on above: Expected: 10/12/2024 (Approximate), Expires: 07/14/2025 Start: 10-12-2024 End: 07-13-2025 SPIROMETRY - BASELINE AND POST DILATOR SPIROMETRY - BASELINE AND POST DILATOR PFT Routine Uncontrolled persistent asthma Expected: 10/12/2024 (Approximate), Expires: 07/13/2025 [facility] Work Phone: Comment on above: Expected: 10/12/2024 (Approximate), Expires: 07/13/2025 Start: 09-27-2024 End: 09-27-2024 Patient encounter procedure 09/27/2024 9:00 AM EDT Office Visit [facility] [place] [address] [place] [address] Navdeep Mo MD [address] [place] [address] 5 month follow up [facility] [place] Comment on above: 5 month follow up Start: 07-26-2024 End: 07-26-2024 Patient encounter procedure 07/26/2024 11:00 AM EST Office Visit Pulmonary Medicine [address] [address] Roselyn Zamorano MD [address] [place] [address] 3 month follow up Pulmonary Medicine Comment on above: 3 month follow up Start: 07-05-2024 Annual PCP Team [employer] Machine Setup Operator iveth Disease Visit Annual PCP Team Chronic Disease Visit [facility] Start: 06-13-2024 End: 06-13-2024 Patient encounter procedure 06/13/2024 10:30 AM EST Office Visit Allergy [address] [address] Nilson Wadsworth MD [address] [place] [address] Uncontrolled persistent asthma [J45.998] Allergy Comment on above: Uncontrolled persist ent asthma [J45.998] Start: 06-13-2024 End: 06-13-2024 ambulatory Pulmonary Medicine Comment on above: SOB (shortness of br eath) [R06.02] Start: 05-10-2024 Annual PCP Team R[employer] Casting Machine Setup Operator iveth Disease Visit Annual PCP Team Chronic Disease Visit [facility] Start: 05-10-2024 Covid-19 Vaccine (#1) Covid-19 Vacci ne (#1) [facility] Comment on above: Postponed from 08/26 (Declined at this time) Start: 05-10-2024 Covid-19 Vaccine () Covid-19 Vaccine () [facility] Comment on above: Postponed from 03/03 (Declined at this time) Start: 05-10-2024 Hepatitis B Vaccine (1 of 3 - 19+ 3-dose series) Hepatitis B Vaccine (1 of 3 - 19+ 3-dose series) [facility] Comment on above: Postponed from 02/23 (Declined at this time) Start: 05-10-2024 Hepatitis B Vaccine (1 of 3 - 3-dose series) Hepatitis B Vaccine (1 of 3 - 3-dose series) [facility] Comment on above: Postponed from 02/23 (Declined at this time) Start: 05-10-2024 Pneumococcal vaccination [facility] Comment on above: Postponed from 09/30 (Declined at this time) Start: 05-10-2024 Urine microalbumin profile DTaP,Tdap,Td Vaccine (2 - Td or Tdap) [facility] Comment on above: Postponed from 10/02 (Declined at this time) Start: 04-26-2024 End: 04-26-2024 Patient encounter procedure 04/26/2024 9:40 AM EDT Office Visit [facility] [address] [place] [address] Navdeep Mo MD [address] [place] [address] follow up [facility] Comment on above: follow up Start: 04-24-2024 End: 07-24-2024 CBC W Auto Differential panel - Blood COMPLETE BLOOD COUNT AND DIFFERENTIAL Lab Routine Uncontrolled persistent asthma Expected: 04/24/2024, Expires: 07/24/2024 [facility] Comment on above: Expected: 04/24/2024 , Expires: 07/24/2024 Start: 04-24-2024 End: 07-24-2024 IgE [Units/volume] in Serum or Plasma IMMUNOGLOBULIN E Lab Routine Uncontrolled persistent asthma Expected: 04/24/2024, Expires: 07/24/2024 [facility] Comment on above: Expected: 04/24/2024 , Expires: 07/24/2024 Start: 04-24-2024 End: 04-24-2024 Patient encounter procedure 04/24/2024 1:00 PM EDT Office Visit Pulmonary Medicine [address] [id number] Roselyn Zamorano MD [address] [place], [place] [id number] Acute respiratory failure, unspecified whether with hypoxia or hypercapnia (HCC) [J96.00] Pulmonary Medicine Comment on above: Acute respiratory fa ilure, unspecified whether with hypoxia or hypercapnia (HCC) [J96.00] Start: 03-03-2024 Covid-19 Vaccine ( season) Covid-19 Vaccine ( season) [facility] Start: 03-03-[address] [facility] Start: 12-31-2023 Influenza vaccination Influenza Vacc ine (#1) [facility] Comment on above: Postponed from 03/03 (Declined at this time) Start: 07-30-2023 [facility] Start: 07-30-2023 [facility] Start: 06-19-2023 Patient discharge [facility] Start: 06-19-2023 [facility] Start: 06-19-2023 Care planning and pr oblem solving actions [facility] Start: 06-19-2023 Referral to service [facility] Start: 06-19-2023 Consultation [facility] Start: 06-19-2023 Respiratory secretio n precautions [facility] Start: 06-19-2023 Following clinical pathway protocol [facility] Start: 06-19-2023 Assessment of risk o f venous thromboembolism [facility] Start: 06-19-2023 Continuous pulse oximetry [facility] Start: 06-19-2023 Inhalation therapy procedure [facility] Start: 06-19-2023 Insertion of cathete r into peripheral vein [facility] Start: 06-19-2023 Introduction of urin hitesh catheter [facility] Start: 06-19-2023 Measuring intake and output [facility] Start: 06-19-2023 Oxygen therapy [facility] Start: 06-19-2023 Providing care accor ding to standard [facility] Start: 06-19-2023 Provision of activit y privileges [facility] Start: 06-19-2023 Referral to service [facility] Start: 06-19-2023 Vital signs measurements [facility] Start: 06-19-2023 End: 06-19-2023 [facility] Start: 06-18-2023 Respiratory pathogen s DNA and RNA panel - Respiratory specimen by SOL with probe detection [facility] Start: 06-18-2023 Verification routine [facility] Start: 06-18-2023 Admission procedure [facility] Start: 06-18-2023 Hospital admission, emergency, from emergency room, medical nature [facility] Start: 04-12-2023 [facility] Start: 03-03-2023 Influenza vaccination Influenza Vacc ine (#1) [facility] Start: 12-03-2022 ANNUAL PCP TEAM MICA MINER IVETH DISEASE VISIT ANNUAL PCP TEAM CHRONIC DISEASE VISIT [facility] Start: 12-03-2022 COVID-19 VACCINE (#1) COVID-19 VACCI NE (#1) [facility] Comment on above: Postponed from 02/23 (Declined at this time) Postponed from 08/26 (Declined at this time) Start: 12-03-2022 PNEUMOCOCCAL (2 - PCV) PNEUMOCOCCAL (2 - PCV) [facility] Comment on above: Postponed from 09/30 (Declined at this time) Start: 10-02-2022 Urine microalbumin profile [facility] Start: 03-03-2022 Influenza vaccination C [facility] Start: 10-01-2021 End: 12-01-2021 CBC panel - Blood by Automated count CBC Lab Routine YUNIOR (generalized anxiety disorder) Major depressive disorder, recurrent episode, moderate (HCC) Expected: 10/01/2021, Expires: 12/01/2021 [facility] Work Phone: Comment on above: Expected: 10/01/2021 , Expires: 12/01/2021 Start: 10-01-2021 End: 12-01-2021 Comprehensive metabolic 2000 panel - Serum or Plasma COMP METABOLIC PANEL Lab Routine YUNIOR (generalized anxiety disorder) Major depressive disorder, recurrent episode, moderate (HCC) Expected: 10/01/2021, Expires: 12/01/2021 [facility] Work Phone: Comment on above: Expected: 10/01/2021 , Expires: 12/01/2021 Start: 10-01-2021 End: 12-01-2021 Hemoglobin A1c/Hemoglobin.total in Blood HGB A1C Lab Routine Encounter for long-term (current) use of medications Expected: 10/01/2021, Expires: 12/01/2021 [facility] Work Phone: Comment on above: Expected: 10/01/2021 , Expires: 12/01/2021 Start: 10-01-2021 End: 12-01-2021 LIPID PANEL BASIC LIPID PANEL BASIC Lab Routine Encounter for long-term (current) use of medications Expected: 10/01/2021, Expires: 12/01/2021 [facility] Work Phone: Comment on above: Expected: 10/01/2021 , Expires: 12/01/2021 Start: 10-01-2021 End: 12-01-2021 Thyrotropin [Units/volume] in Serum or Plasma TSH BLD Lab Routine YUNIOR (generalized anxiety disorder) Major depressive disorder, recurrent episode, moderate (HCC) Expected: 10/01/2021, Expires: 12/01/2021 [facility] Work Phone: Comment on above: Expected: 10/01/2021 , Expires: 12/01/2021 Start: 10-01-2021 End: 12-01-2021 VITAMIN B12 BLOOD VITAMIN B12 BLOOD Lab Routine YUNIOR (generalized anxiety disorder) Major depressive disorder, recurrent episode, moderate (HCC) Expected: 10/01/2021, Expires: 12/01/2021 [facility] Work Phone: Comment on above: Expected: 10/01/2021 , Expires: 12/01/2021 Start: 10-01-2021 End: 12-01-2021 VITAMIN D 25 HYDROXY VITAMIN D 25 HYDROXY Lab Routine YUNIOR (generalized anxiety disorder) Major depressive disorder, recurrent episode, moderate (HCC) Expected: 10/01/2021, Expires: 12/01/2021 [facility] Work Phone: Comment on above: Expected: 10/01/2021 , Expires: 12/01/2021 Start: 09-01-2021 ANNUAL PCP TEAM MICA MINER IVETH DISEASE VISIT ANNUAL PCP TEAM CHRONIC DISEASE VISIT [facility] Start: 04-27-2017 HPV TESTING HPV TESTING [facility] Start: 09-30-2014 PNEUMOCOCCAL (2 - PCV) PNEUMOCOCCAL (2 - PCV) [facility] Start: 09-30-2014 Pneumococcal vaccination [facility] Start: 2005 Hepatitis B Vaccine (1 of 3 - 19+ 3-dose series) Hepatitis B Vaccine (1 of 3 - 19+ 3-dose series) [facility] Start: 1991 COVID-19 VACCINE (#1) COVID-19 VACCI NE (#1) [facility] Start: 1991 COVID-19 VACCINE (1) COVID-19 VACCIN E (1) [facility] Start: 1986 Covid-19 Vaccine (#1) Covid-19 Vacci ne (#1) [facility] Start: 1986 HEPATITIS B (1 of 3 - 3-dose series) HEPATITIS B (1 of 3 - 3-dose series) [facility] Start: 1986 Hepatitis B Vaccine (1 of 3 - 3-dose series) Hepatitis B Vaccine (1 of 3 - 3-dose series) [facility] End: 05-25-2025 LUNG DIFFUSION CAPACITY (DLCO) LUNG DIFFUSION CAPACITY (DLCO) PFT Routine SOB (shortness of breath) 1 Occurrences starting 04/24/2024 until 05/25/2025 [facility] Comment on above: 1 Occurrences starti ng 04/24/2024 until 05/25/2025 LUNG DIFFUSION CAPAC ITY (DLCO) LUNG DIFFUSION CAPACITY (DLCO) PFT Routine SOB (shortness of breath) 06/13/2024 9:43 AM [facility] Work Phone: End: 11-11-2024 MR Cervical spine WO contrast MRI CERVICAL SPINE WO IVCON Radiology Routine Spinal stenosis of cervical region 1 Occurrences starting 10/13/2023 until 11/11/2024 [facility] Work Phone: Comment on above: 1 Occurrences starti ng 10/13/2023 until 11/11/2024 End: 05-25-2025 NITRIC OXIDE, EXHALED NITRIC OXIDE, EXHALED PFT Routine SOB (shortness of breath) 1 Occurrences starting 04/24/2024 until 05/25/2025 [facility] Comment on above: 1 Occurrences starti ng 04/24/2024 until 05/25/2025 End: 08-25-2025 NITRIC OXIDE, EXHALED NITRIC OXIDE, EXHALED PFT Routine SOB (shortness of breath) 1 Occurrences starting 07/26/2024 until 08/25/2025 [facility] Work Phone: Comment on above: 1 Occurrences starti ng 07/26/2024 until 08/25/2025 Patient Education [facility] Work Phone: Patient referral [facility] Work Phone: End: 05-25-2025 SPIROMETRY - BASELINE AND POST DILATOR SPIROMETRY - BASELINE AND POST DILATOR PFT Routine SOB (shortness of breath) 1 Occurrences starting 04/24/2024 until 05/25/2025 [facility] Work Phone: Comment on above: 1 Occurrences starti ng 04/24/2024 until 05/25/2025 SPIROMETRY - BASELIN E AND POST DILATOR SPIROMETRY - BASELINE AND POST DILATOR PFT Routine SOB (shortness of breath) 06/13/2024 9:43 AM EST [facility] Work Phone: [facility] Immunizations Immunization Date Immunization Notes Care Provider Charity jones 04-10-2017 influenza virus vacc ine, unspecified formulation Lidia Older SUPERVISOR RIVETING.DOCUMENTATION CLERK Work Phone: [facility] 05-05-2014 influenza, seasonal, injectable Pham Rajguru SUPERVISOR RIVETING.DOCUMENTATION CLERK Work Phone: [facility] 09-30-2013 measles, mumps and rubella virus vaccine Pham Rajguru SUPERVISOR RIVETING.DOCUMENTATION CLERK Work Phone: [facility] 09-30-2013 pneumococcal polysaccharide vaccine, 23 valent Pham Rajguru SUPERVISOR RIVETING.DOCUMENTATION CLERK Work Phone: [facility] 10-02-2012 tetanus toxoid, redu tad diphtheria toxoid, and acellular pertussis vaccine, adsorbed Pham Rajguru SUPERVISOR RIVETING.DOCUMENTATION CLERK Work Phone: [facility] 05-25-2012 influenza virus vacc ine, unspecified formulation Pham Rajguru SUPERVISOR RIVETING.DOCUMENTATION CLERK Work Phone: [facility] 05-14-2009 influenza virus vacc ine, unspecified formulation Pham Rajguru SUPERVISOR RIVETING.DOCUMENTATION CLERK Work Phone: [facility] 05-14-2009 novel influenza-H1N1 -09, all formulations Pham Rajguru SUPERVISOR RIVETING.DOCUMENTATION CLERK Work Phone: [facility] Payers Date Payer Category Payer Self-pay 2020 Medicaid [place] [employer] [place] [employer] [id number] 2020-[email or web address]] [phone] [address] [place] [address] Medicaid [id number] 2020 Medicaid [id number] Medicaid [employer] [employer] [id number] Self-pay SELF PAY INSURANCE [id number] Unknown [id number] Unknown [id number] Unknown [id number] Unknown [id number] Unknown [id number] Unknown [id number] Unknown [id number] Unknown [id number] Unknown [id number] Unknown [id number] Unknown [id number] Unknown [id number] Unknown [id number] Unknown [id number] Social History Date Type Detail Facility Start: 11-08-2003 End: 04-20-2022 Tobacco smoking status NHIS Smokes tobacco daily [facility] Start: 11-08-2003 End: 05-10-2022 History of tobacco use Cigarette Smoker [facility] Start: 11-23-2015 End: 07-14-2023 Cigarettes smoked current (pack per day) - Reported 0.3 [facility] Start: 11-23-2015 End: 04-03-2024 Tobacco use and exposure Smokeless tobacco non-user [facility] Start: 08-25-2021 End: 07-26-2024 Alcohol intake Current drinker of alcohol (finding) [facility] Start: 11-19-2014 History SDOH Alcohol Comment occasionally [facility] Start: 09-21-2018 End: 04-20-2022 Tobacco Comment 2 packs per week [facility] Start: 1985 Sex Assigned At Not on file [facility] Start: 12-03-2021 History SDOH Alcohol Frequency 2 [facility] Start: 12-03-2021 History SDOH Alcohol Std Drinks 1 [facility] Start: 12-03-2021 History SDOH Social Connections Living 7 [facility] Start: 12-03-2021 History SDOH Physica l Activity DPW 0 [facility] Start: 12-03-2021 History SDOH Stress 5 [facility] Start: 12-03-2021 History SDOH Financial 4 [facility] Start: 11-30-2021 End: 12-10-2021 Exposure to SARS-CoV-2 (event) Not sure [facility] Work Phone: Start: 01-22-2022 End: 07-30-2023 Tobacco smoking status NHIS Unknown if ever smoked [facility] Start: 04-01-2013 with boyfriend [facility] Start: 1985 Sex Assigned At Female W [facility] Start: 01-13-2023 End: 08-11-2023 Social connection and isolation panel [facility] Do you belong to any clubs or organizations such as muslim groups, unions, fraternal or athletic groups, or school groups? No [facility] Are you now , , , , never or living with a partner? Never [facility] How often to you hav e a drink containing alcohol? 2-3 time sa week [facility] How many standard drinks containing alcohol do you have on a typical day? 3 or 4 [facility] How often do you hav e 6 or more drinks on 1 occasion? Weekly [facility] How hard is it for y ou to pay for the very basics like food, housing, medical care, and heating Somewhat hard [facility] Adult Depression Screening Assessment 5 [facility] Do you feel stress - tense, restless, nervous, or anxious, or unable to sleep at night because your mind is troubled all the time - these days [OSQ] Very much [facility] (I/We) worried pérez er (my/our) food would run out before (I/we) got money to buy more. Never true [facility] Start: 05-10-2023 End: 04-03-2024 Tobacco smoking status NHIS Ex-smoker [facility] Work Phone: Start: 11-08-2003 End: 05-10-2022 History of tobacco use Current smoker [facility] Work Phone: How often do you hav e 6 or more drinks on 1 occasion? Never [facility] Start: 04-26-2024 Alcohol Comment 2-3x per week, 3-4 drinks each [facility] Start: 06-13-2024 Alcohol Comment not in last 2 months [facility] NEGATED: Highlighted row [facility] Goals Date Patient Goal Desired Activity /State Functional Status Date Assessment Result Facility 06-19-2023 Functional status Activity Abili ty Independent [facility] Work Phone: 06-19-2023 Functional status Ambulates;Bedside Commo de [facility] Work Phone: 01-21-2015 Are you deaf, or do you have serious difficulty hearing No 01/21/2015 11:25 AM Richelle Morris Ma No [facility] 01-21-2015 Are you blind, or do you have serious difficulty seeing, even when wearing glasses No 01/21/2015 11:25 AM Richelle Morris Ma No [facility] 01-21-2015 Do you have serious difficulty walking or climbing stairs No 01/21/2015 11:25 AM Richelle Morris Ma No [facility] 01-21-2015 Do you have difficul ty dressing or bathing No 01/21/2015 11:25 AM Richelle Morris Ma [facility] 01-21-2015 Because of a physica l, mental, or emotional condition, do you have difficulty doing errands alone such as visiting a physician's office or shopping No 01/21/2015 11:25 AM EDT Richelle Brar Ma [facility] Mental Status Date Assessment Result Facility 06-19-2023 Cognitive function Voice/Name Luis Calderon [facility] Work Phone: 01-21-2015 Because of a physica l, mental, or emotional condition, do you have serious difficulty concentrating, remembering, or making decisions No 01/21/2015 11:25 AM EDT Richelle Brar Ma [facility] Clinical Notes 01-04-2013 to 01-29-2025 Telephone Encounter - Caro Driscoll RN - 01/29/2025 1:47 PM EDTTelephone Encounter - Caro Driscoll RN - 01/29/2025 1:47 PM EDTTelephone Encounter - Millie Crisostomo - 01/21/2025 2:53 PM EDT Note Date & Type Note Facility 01-29-2025 Telephone encounter Note Denied. Patient needs to get financial clearance and follow up appt needs scheduled before medication PA can be run again for approval. [facility] 01-29-2025 Miscellaneous Notes Denied. Patient needs to get financial clearance and follow up appt needs scheduled before medication PA can be run again for approval. PA FOR DUPIXENT COMPLETED VIA [employer] [facility] [employer] [facility]: [id number] AWAITING RESPONSE documented in this encounter [facility] 01-27-2025 Telephone encounter Note PA FOR DUPIXENT COMPLETED [facility]IA [employer] [facility]: [id number] AWAITING RESPONSE [facility] 01-22-2025 Telephone encounter Note Spoke to patient and explained that she does not need a referral if she is set up with [facility]. If she misses the call with FC at [phone]- she will call the office herself and set up an account. Explained to her that once that is set up and she schedules an appt with Dr. Wadsworth, then the nursing staff will complete a PA for dupixent which ended on 12/31/2024. Explained to her that the [facility]CAP only last for 90 days and needs to re established every 3 months. Last established in June of 2024. She verbalized understanding although upset. [facility] 01-22-2025 Miscellaneous Notes Spoke to patient and explained that she does not need a referral if she is set up with [facility]. If she misses the call with FC at 940- she will call the office herself and set up an account. Explained to her that once that is set up and she schedules an appt with Dr. Wadsworth, then the nursing staff will complete a PA for dupixent which ended on 12/31/2024. Explained to her that the HCAP only last for 90 days and needs to re established every 3 months. Last established in June of 2024. She verbalized understanding although upset. LVM to call back and provide more information. Please update insurance or setup a PFA appointment for self pay clearance. Is she referring to scheduling an appointment or a medication refill that needs a PA? Scott Pinto and Hattie, Can you assist with this? Thanks. Yesika Not sure why she would need another referral. Please ask Millie in scheduling to assist. Nilson Wadsworth MD Does Dr. Zamorano enter another referral? She placed the original one. documented in this encounter [facility] 01-21-2025 Telephone encounter Note LVM to call back and provide more information. Please update insurance or setup a PFA appointment for self pay clearance. Is she referring to scheduling an appointment or a medication refill that needs a PA? [facility] 01-21-2025 Telephone encounter Note Scott Pinto and Hattie, Can you assist with this? Thanks. Yesika [facility] 01-21-2025 Telephone encounter Note Not sure why she would need another referral. Please ask Millie in scheduling to assist. Nilson Wadsworth MD [facility] 01-21-2025 Telephone encounter Note [address] Dr. Zamorano enter another referral? She placed the original one. [facility] 01-15-2025 Telephone encounter Note Fax received that a PA is required for patients Dupixent. VM left on patients phone as they have not been seen since 06/13/24. Patient asked to call back to schedule. [employer] [place] : ([id number]) [facility] 01-15-2025 Miscellaneous Notes Fax received that a PA is required for patients Dupixent. VM left on patients phone as they have not been seen since 06/13/24. Patient asked to call back to schedule. [employer] [place] : ([id number]) documented in this encounter [facility] 10-07-2024 Telephone encounter Note Spoke to patient, she did get the rx for the Predisone. [facility] 10-07-2024 Miscellaneous Notes Spoke to patient, she did get the rx for the Predisone. Patient has been identified by name and date of : YesPPatient phones for refill(s): Requested Prescriptions Pending Prescriptions Disp Refills predniSONE (DELTASONE) 10 mg tablet Date of last office visit in primary care: 07/26/2024 Date of next office visit in primary care: Visit date not found Please advise. Thank you. Joana Belcher. documented in this encounter [facility] 10-02-2024 Telephone encounter Note Patient has been identified by name and date of : YesPPatient phones for refill(s): Requested Prescriptions Pending Prescriptions Disp Refills predniSONE (DELTASONE) 10 mg tablet Date of last office visit in primary care: 07/26/2024 Date of next office visit in primary care: Visit date not found Please advise. Thank you. Joana Belcher. [facility] 07-26-2024 Note HNO ID: [id number] Author: ROSELYN ZAMORANO MD Service: ? Author Type: Physician Type: Progress Notes Filed: 07/26/2024 11:43 Note Text: [facility] ESTABLISHED PATIENT OFFICE VISIT 07/26/2024 Patient Name: Sara Ontiveros PRIMARY CARE PHYSICIAN: Navdeep Mo MD CHIEF COMPLAINT: uncontrolled asthma, intubaton at [facility] 04/2024, allergies, ex smoker, GERD, obesity bmi 31 HISTORY OF PRESENT ILLNESS: Since the last visit with me on 04/2024, Ms. Ontiveros has been feeling much better. Continues to have some asthma symptoms but overall she has improved. Having some hoarseness that comes and goes Approved for dupixent- pending delivery Meds: perforomist, budesonide, Duoneb, singulair, zyrtec, famotidine Social History Tobacco Use Smoking status: Former Current packs/day: 0.00 Average packs/day: 0.3 packs/day for 18.5 years (5.6 ttl pk-yrs) Types: Cigarettes Start date: 11/08/2003 Quit date: 05/10/2022 Years since quittin.2 Smokeless tobacco: Never Vaping Use Vaping status: Never Used Substance Use Topics Alcohol use: Yes Alcohol/week: 12.0 standard drinks of alcohol Types: 12 Standard drinks or equivalent per week Comment: not in last 2 months Drug use: No ALLERGIES ALLERGIES Allergen Reactions Propranolol Shortness of Breath Seasonal Allergies Unknown Cats, dogs and dust mites verified by dust mites CURRENT OUTPATIENT MEDICATIONS ibuprofen (MOTRIN) 800 mg tablet Take 800 mg by mouth every 6 hours as needed. albuterol HFA (VENTOLIN HFA) 90 mcg/actuation inhaler Inhale 2 Puffs as instructed every 4 hours as needed for wheezing/shortness of breath. inhale 2 puffs by mouth as directed every 4 hours if needed for wheezing OR SHORTNESS OF BREATH arformoterol (BROVANA) 15 mcg/2 mL nebulizer solution Inhale 2 mL as instructed every 12 hours. budesonide (PULMICORT) 1 mg/2 mL nebulizer solution Use 2 mL via nebulizer once daily. fluticasone (FLONASE) 50 mcg/actuation nasal spray Use 2 Sprays in each nostril once daily. Rinse mouth after use. predniSONE (DELTASONE) 10 mg tablet Take FOUR tablets daily for 3 (THREE) days, then 3 (THREE) tablets daily for 3 (THREE) days, then 2 (TWO) tablets daily for 3 (THREE) days, then 1 tablet daily for 3 (THREE) days, then half tablet daily for FOUR days] cetirizine HCl/pseudoephedrine (ZYRTEC-D ORAL) Take by mouth. FAMOTIDINE ORAL Take 20 mg by mouth once daily. ipratropium-albuterol (DUONEB) 0.5 mg-3 mg(2.5 mg base)/3 mL nebu Inhale 3 mL as instructed every 4 hours as needed for wheezing/shortness of breath. montelukast (SINGULAIR) 10 mg tablet Take 1 tablet by mouth daily at bedtime. levonorgestrel (MIRENA) 20 mcg/24 hours (7 yrs) 52 mg IUD 1 Each by INTRAUTERINE route as directed. Nebulizer Accessories [facility] Pt needs nebulzier and supplies. Dx is asthma J45.40. dupilumab 300 mg/2 mL subcutaneous pen injector (Eventifier) Inject 600mg(2 pens) subcutaneously on day 1, followed by 300mg(1 pen) on day 15 and every 2 weeks thereafter (Patient not taking: Reported on 07/26/2024) amoxicillin-clavulanate potassium (AUGMENTIN) 500-125 mg per tablet Take 1 tablet by mouth two times a day. (Patient not taking: Reported on 07/26/2024) REVIEW OF SYSTEMS Review of Systems Constitutional: Negative for chills, fever and weight loss. Respiratory: Negative for cough, hemoptysis, sputum production, shortness of breath and wheezing. Cardiovascular: Negative for leg swelling. The remainder of review of systems was negative. PHYSICAL EXAMINATION: BP 116/75 Pulse 91 Wt 180 lb 5.4 oz (81.8kg) SpO2 98% General appearance: Well appearing, alert, in no acute distress, well-hydrated, well nourished. Oropharynx: Lips, mucosa, and tongue normal, teeth and gums normal, oropharynx normal Lungs: Lungs clear to auscultation. No wheezing, rhonchi, rales Heart: RRR without murmur, gallop, or rubs. No ectopy. No edema. Peripheral pulses: Normal Abdomen: Normal abdominal exam, Abdomen soft, non-tender. Bowel sounds normal. No masses, organomegaly Extremities: Normal, Warm, and No cyanosis, no clubbing, Nontender Neuro: no focal deficit Psychiatry: Alert, oriented x3 DATA: Diagnostic tests reviewed and analysed for today's visit, including films and specimens, were personally reviewed by me Most recent labs and imaging results. Immunizations: Not up to date - needs pneumonia vaccine IMPRESSION: 1. Uncontrolled persistent asthma - ICD9: 493.90, ICD10: J45.998 (primary diagnosis) Continue perforomist twice daily Continue budesonide to 1 mg twice daily by nebulizer Duoneb 4 times daily Continue singulair Continue zyrtec Continue famotidine with lifestyle modifications- may need PPI on top Referral to allergy: start Dupixent 2. History of environmental allergies - ICD9: V15.09, ICD10: Z91.09 Advised to avoid cats 3. Ex-smoker - IC (more content not included)... [facility] 07-26-2024 History of Present illness Narrative Images from the original note were not included. [facility] ESTABLISHED PATIENT OFFICE VISIT 07/26/2024 Patient Name: Sara Ontiveros PRIMARY CARE PHYSICIAN: Navdeep Mo MD CHIEF COMPLAINT: uncontrolled asthma, intubaton at [facility] 04/2024, allergies, ex smoker, GERD, obesity bmi 31 HISTORY OF PRESENT ILLNESS: Since the last visit with me on 04/2024, Ms. Ontiveros has been feeling much better. Continues to have some asthma symptoms but overall she has improved. Having some hoarseness that comes and goes Approved for dupixent- pending delivery Meds: perforomist, budesonide, Duoneb, singulair, zyrtec, famotidine Social History Tobacco Use Smoking status: Former Current packs/day: 0.00 Average packs/day: 0.3 packs/day for 18.5 years (5.6 ttl pk-yrs) Types: Cigarettes Start date: 11/08/2003 Quit date: 05/10/2022 Years since quittin.2 Smokeless tobacco: Never Vaping Use Vaping status: Never Used Substance Use Topics Alcohol use: Yes Alcohol/week: 12.0 standard drinks of alcohol Types: 12 Standard drinks or equivalent per week Comment: not in last 2 months Drug use: No ALLERGIES ALLERGIES Allergen Reactions Propranolol Shortness of Breath Seasonal Allergies Unknown Cats, dogs and dust mites verified by dust mites CURRENT OUTPATIENT MEDICATIONS ibuprofen (MOTRIN) 800 mg tablet Take 800 mg by mouth every 6 hours as needed. albuterol HFA (VENTOLIN HFA) 90 mcg/actuation inhaler Inhale 2 Puffs as instructed every 4 hours as needed for wheezing/shortness of breath. inhale 2 puffs by mouth as directed every 4 hours if needed for wheezing OR SHORTNESS OF BREATH arformoterol (BROVANA) 15 mcg/2 mL nebulizer solution Inhale 2 mL as instructed every 12 hours. budesonide (PULMICORT) 1 mg/2 mL nebulizer solution Use 2 mL via nebulizer once daily. fluticasone (FLONASE) 50 mcg/actuation nasal spray Use 2 Sprays in each nostril once daily. Rinse mouth after use. predniSONE (DELTASONE) 10 mg tablet Take FOUR tablets daily for 3 (THREE) days, then 3 (THREE) tablets daily for 3 (THREE) days, then 2 (TWO) tablets daily for 3 (THREE) days, then 1 tablet daily for 3 (THREE) days, then half tablet daily for FOUR days] cetirizine HCl/pseudoephedrine (ZYRTEC-D ORAL) Take by mouth. FAMOTIDINE ORAL Take 20 mg by mouth once daily. ipratropium-albuterol (DUONEB) 0.5 mg-3 mg(2.5 mg base)/3 mL nebu Inhale 3 mL as instructed every 4 hours as needed for wheezing/shortness of breath. montelukast (SINGULAIR) 10 mg tablet Take 1 tablet by mouth daily at bedtime. levonorgestrel (MIRENA) 20 mcg/24 hours (7 yrs) 52 mg IUD 1 Each by INTRAUTERINE route as directed. Nebulizer Accessories [facility] [place] Pt needs nebulzier and supplies. Dx is asthma J45.40. dupilumab 300 mg/2 mL subcutaneous pen injector (DUPIXENT) Inject 600mg(2 pens) subcutaneously on day 1, followed by 300mg(1 pen) on day 15 and every 2 weeks thereafter (Patient not taking: Reported on 07/26/2024) amoxicillin-clavulanate potassium (AUGMENTIN) 500-125 mg per tablet Take 1 tablet by mouth two times a day. (Patient not taking: Reported on 07/26/2024) REVIEW OF SYSTEMS Review of Systems Constitutional: Negative for chills, fever and weight loss. Respiratory: Negative for cough, hemoptysis, sputum production, shortness of breath and wheezing. Cardiovascular: Negative for leg swelling. The remainder of review of systems was negative. PHYSICAL EXAMINATION: BP 116/75 Pulse 91 Wt 180 lb 5.4 oz (81.8kg) SpO2 98% General appearance: Well appearing, alert, in no acute distress, well-hydrated, well nourished. Oropharynx: Lips, mucosa, and tongue normal, teeth and gums normal, oropharynx normal Lungs: Lungs clear to auscultation. No wheezing, rhonchi, rales Heart: RRR without murmur, gallop, or rubs. No ectopy. No edema. Peripheral pulses: Normal Abdomen: Normal abdominal exam, Abdomen soft, non-tender. Bowel sounds normal. No masses, organomegaly Extremities: Normal, Warm, and No cyanosis, no clubbing, Nontender Neuro: no focal deficit Psychiatry: Alert, oriented x3 DATA: Diagnostic tests reviewed and analysed for today's visit, including films and specimens, were personally reviewed by me Most recent labs and imaging results. Immunizations: Not up to date - needs pneumonia vaccine IMPRESSION: 1. Uncontrolled persistent asthma - ICD9: 493.90, ICD10: J45.998 (primary diagnosis) Continue perforomist twice daily Continue budesonide to 1 mg twice daily by nebulizer Duoneb 4 times daily Continue singulair Continue zyrtec Continue famotidine with lifestyle modifications- may need PPI on top Referral to allergy: start Dupixent 2. History of environmental allergies - ICD9: V15.09, ICD10: Z91.09 Advised to avoid cats 3. Ex-smoker - ICD9: V15.82, ICD10: Z87.891 In remission 4. Gastroesophageal reflux disease, unspecified whether esophagitis present - ICD9: 530.81, ICD10: K21.9 Roselyn Zamorano MD, OSMANI Staff, Respiratory [facility] documented in this encounter [facility] 07-23-2024 Telephone encounter Note Spoke to [facility] and they will call patient to set a delivery date for Dupixent. They have a clinical question to ask patient and will verify where to send Dupixent [facility] 07-23-2024 Miscellaneous Notes Spoke to [facility] and they will call patient to set a delivery date for Dupixent. They have a clinical question to ask patient and will verify where to send Dupixent documented in this encounter [facility] 07-08-2024 Telephone encounter Note AP APPROVED: [id number] DATES: 07/04/24 TO 12/31/[address]AY CARD DUPIXENT MY WAY #[id number] GROUP:[id number] [facility] 07-08-2024 Miscellaneous Notes PA APPROVED: [id number] DATES: 07/04/24 TO 12/31/[address] DU[address]ENT MY WAY #[id number] GROUP:[id number] Forms completed for PA and faxed to [employer] for yen DE SOUZA. Awaiting response Called [facility] to check on status. They are working on coverage status because it's coming back that she has express scripts. Then they will enroll her with a co pay once verification is complete. Office notes, breathing tests, labs and pulm notes sent to [facility]. Awaiting response. Will fax office notes to [facility] my [facility] once completed [facility] completed and faxed to company. Since patient has no insurance- [facility] pharmacy cannot help with PA assistance. documented in this encounter [facility] 07-08-2024 Telephone encounter Note [facility][1[facility] APROVED- PREFERRED PHARMACY IS [facility] 07-08-2024 Miscellaneous Notes [facility][1][facility] APROVED- PREFERRED PHARMACY IS [facility] documented in this encounter [facility] 07-04-2024 Telephone encounter Note Forms completed for PA and faxed to [employer] for annamarieixent PA. Awaiting response [facility] 06-28-2024 Telephone encounter Note Called [facility] my way to check on status. They are working on coverage status because it's coming back that she has express scripts. Then they will enroll her with a co pay once verification is complete. [facility] 06-17-2024 Telephone encounter Note Office notes, breathing tests, labs and pulm notes sent to [facility] my way. Awaiting response. [facility] 06-13-2024 Telephone encounter Note Will fax office notes to [facility] once completed [facility] 06-13-2024 Telephone encounter Note Form for dupixent my way completed and faxed to company. Since patient has no insurance- [facility] specialty pharmacy cannot help with PA assistance. [facility] 06-13-2024 History of Present illness Narrative [facility] received prescription(s) for Dupixent from Dr. Nilson Wadsworth's office. Benefits investigation was conducted, indicating that patient does not have prescription coverage. Patient should proceed with Dupixent My Way patient assistance application. Chart review indicates that provider's office is already assisting her with this process. No further action by [facility] at this time. Elsy Santana PharmD Clinical Pharmacist, [employer] [facility] ; Pool: P [facility] 2 Pool #: [id number] documented in this encounter [facility] 06-13-2024 Note HNO ID: [id number] Author: MAYRA SANTANA RPh Service: ? Author Type: Pharmacist Type: Progress Notes Filed: 06/13/2024 13:08 Note Text: [facility] received prescription(s) for Dupixent from Dr. Nilson Wadsworth's office. Benefits investigation was conducted, indicating that patient does not have prescription coverage. Patient should proceed with Dupixent [employer] Way patient assistance application. Chart review indicates that provider's office is already assisting her with this process. No further action by [facility] at this time. Elsy Santana PharmD Clinical Pharmacist, [employer] [facility] ; Pool: P [facility] Pool #: [id number] [facility] 06-13-2024 Instructions Nilson Wadsworth MD - 06/13/2024 12:03 PM EST You are allergic to Cats Dogs Dust mites documented in this encounter [facility] 06-13-2024 Note HNO ID: [id number] Author: CARO DRISCOLL RN Service: ? Author Type: Registered Nurse Type: Progress Notes Filed: 06/14/2024 17:48 Note Text: Patient here for allergy and asthma consult. Feels asthma is uncontrolled. Uses rescue medication at least 5-6 times daily for wheezing, SOB and chest tightness. Was intubated in April. Uses all medications as prescribed. No antihistamines last 5 days. [facility] 06-13-2024 History of Present illness Narrative Patient here for allergy and asthma consult. Feels asthma is uncontrolled. Uses rescue medication at least 5-6 times daily for wheezing, SOB and chest tightness. Was intubated in April. Uses all medications as prescribed. No antihistamines last 5 days. ASSESSMENT/PLAN: -Severe persistent eosinophilic asthma, poorly controlled Based on the severity of the patient's asthma, requiring treatment with multiple courses of systemic corticosteroids and recent hospitalization with intubation respiratory failure, treatment with a biologic medication is indicated. Risk benefits alternatives and personnel for treatment with Dupixent were discussed with the patient and she consents to proceed. Start Dupixent 600 mg subcutaneously for 1 dose then 300 mg subcutaneously every 2 weeks Continue budesonide 1 mg nebulized twice daily Continue arformoterol 15 mcg nebulized twice daily Continue Singulair 10 mg at bedtime Continue albuterol HFA inhaler 2 puffs every 4 hours as needed or DuoNeb 4 times daily as needed. She should receive Prevnar 20 and an annual influenza vaccine. Continue to follow-up with pulmonary medicine (Patient is self-pay for meds. Paperwork has been submitted for assistance through [employer] [address]) -Allergic rhinitis (cats, dogs, dust mites) Aggressive environmental controls. Encouraged patient to continue to decrease the number of cats in the home. ( Ideally, there should be no cats in the home.) Dust mite precautions should be instituted in the home. Continue fluticasone nasal spray 2 sprays each nostril once daily Continue Zyrtec-D as needed - Discussed medication dosage, usage, side effects, and goals of treatment in detail. - Follow-up in 4 months with repeat spirometry and FeNO- patient will return sooner should new symptoms or problems arise. Nilson Wadsworth MD Allergy & Immunology I spent a total of 90 minutes on the date of the service which included preparing to see the patient, [id number] patient care, completing clinical documentation, obtaining and/or reviewing separately obtained history, performing a medically appropriate examination, counseling and educating the patient/family/caregiver, ordering medications, tests, or procedures, independently interpreting results (not separately reported), and communicating results to the patient/family/caregiver. This is a consultation requested by Roselyn Zamorano MD for an allergy and immunology evaluation. My final recommendations will be communicated back to the requesting healthcare provider(s) by way of shared medical record or via U.S. mail. Sara Ontiveros is a 39 year old female with a history of severe persistent asthma and allergic rhinitis who [facility]. Last visit in this office was in 2013. Patient presents with increased asthma symptoms. Symptoms include cough, wheezing, chest tightness and shortness of breath. She is using short acting beta agonists at least a few times per day for acute symptoms. Awakening due to respiratory symptoms once per week. She has presented to the emergency room and required treatment with multiple courses of systemic steroids for asthma exacerbations in the past year. In April, she was hospitalized. She was intubated for 24 hours and spent 7 days in the ICU. She has had additional prior intubations for asthma exacerbations. Outside of the recent hospitalization, last intubation was about 10 years ago. Asthma triggers include physical activity, respiratory illnesses, cold temperatures and cat exposure. She uses fluticasone nasal spray 2 sprays each nostril once daily and Zyrtec-D with good control of her allergy symptoms other than sneezing. Cat exposure is a trigger for her symptoms. No prior subcutaneous allergy immunotherapy. She takes Pepcid 20 mg daily with improvement in her GERD symptoms. History of mild atopic dermatitis involving the antecubital and popliteal fossa. Applies Vaseline as needed with relief Denies a history of recurrent or chronic rhinosinusitis, nasal polyposis or nasal trauma. Since her recent hospitalization, she was able to re-home some of her cats. She she now has 9 cats, previously had 16. The cats are restricted from her bedroom. Dust mite precautions are not in place in the home. COLLATERAL ALLERGY HISTORY: History of Recurrent or chronic sinusitis:No Nasal polyps:No Asthma:Yes Eczema or atopic dermatitis:Yes Urticaria:No Food allergy:No Systemic reaction to insect sting:No Allergy to penicillin antibiotics:No REVIEW OF SYSTEMS: All other review of systems negative except for those listed above. PAST MEDICAL HISTORY Diagnosis Date Acute respiratory failure (HCC) 04/22/2024 Allergic rhinitis Anxiety 08/24/2017 ASCUS favor benign 05/25/2012 Asthma 2006 moderate Atopy 05/2009 allergy skin tests (Deisi Rodriguez MD) Chronic post-traumatic stress disorder (PTSD) 08/25/2021 Eczema YUNIOR (generalized anxiety disorder) 08/25/2021 High-risk 04/27/2012 LGSIL (low grade squamous intraepithelial dysplasia) 01/04/2013 Major depressive disorder, recurrent severe without psychotic features (HCC) 08/25/2021 Tobacco dependence syndrome 09/22/2009 Trauma 2008 DISLOCATED KNEE, Right MEDICATIONS: amoxicillin-clavulanate potassium (AUGMENTIN) 500-125 mg per tablet Take 1 tablet by mouth two times a day. ibuprofen (MOTRIN) 800 mg tablet Take 800 mg by mouth every 6 hours as needed. albuterol HFA (VENTOLIN HFA) 90 mcg/actuation inhaler Inhale 2 Puffs as instructed every 4 hours as needed for wheezing/shortness of breath. inhale 2 puffs by mouth as directed every 4 hours if needed for wheezing OR SHORTNESS OF BREATH arformoterol (BROVANA) 15 mcg/2 mL nebulizer solution Inhale 2 mL as instructed every 12 hours. budesonide (PULMICORT) 1 mg/2 mL nebulizer solution Use 2 mL via nebulizer once daily. fluticasone (FLONASE) 50 mcg/actuation nasal spray Use 2 Sprays in each nostril once daily. Rinse mouth after use. predniSONE (DELTASONE) 10 mg tablet Take FOUR tablets daily for 3 (THREE) days, then 3 (THREE) tablets daily for 3 (THREE) days, then 2 (TWO) tablets daily for 3 (THREE) days, then 1 tablet daily for 3 (THREE) days, then half tablet daily for FOUR days] cetirizine HCl/pseudoephedrine (ZYRTEC-D ORAL) Take by mouth. FAMOTIDINE ORAL Take 20 mg by mouth once daily. ipratropium-albuterol (DUONEB) 0.5 mg-3 mg(2.5 mg base)/3 mL nebu Inhale 3 mL as instructed every 4 hours as needed for wheezing/shortness of breath. montelukast (SINGULAIR) 10 mg tablet Take 1 tablet by mouth daily at bedtime. levonorgestrel (MIRENA) 20 mcg/24 hours (7 yrs) 52 mg IUD 1 Each by INTRAUTERINE route as directed. Nebulizer Accessories [facility] [place] Pt needs nebulzier and supplies. Dx is asthma J45.40. ALLERGIES: Allergies As of Date: 06/13/2024 Allergen Noted Reaction PROPRANOLOL 08/26/2021 Shortness of Breath Fully Assessed 06/13/2024 PAST SURGICAL HISTORY Procedure Laterality Date NONE FAMILY HISTORY: Allergic rhinitis:yes: mom. Asthma: yes: mom. Eczema: no. Cystic fibrosis: no. Immunodeficiency: no. SOCIAL HISTORY: Employer And Job Title: [employer] No employer specified (No job title specified) Years Of Education Completed: GED years Marital Status: Single with no children Social History Tobacco Use Smoking status: Former Packs/day: 0.00 Years: 0.3 packs/day for 18.5 years (5.6 ttl pk-yrs) Types: Cigarettes Start date: 11/08/2003 Quit date: 05/10/2022 Years since quittin.0 Smokeless tobacco: Never ENVIRONMENTAL HISTORY: Lives in a apartment Age of home: 66 years Heating: forced hot air, gas Woodburning fireplace in the home: no Air conditioning: Window air conditioning Basement: Damp basement Zackery: Hardwood floor Dust mite controls: Dust mite controls are not in place. Pets in the home: 9 cats Outdoor animals: 5 cats Tobacco smoke: No exposure in the home. Physical Exam: GENERAL APPEARANCE:Well appearing, alert, in no acute distress, well-hydrated, well nourished. HEENT: NCAT. EYES: conjunctiva and sclera normal. EARS: External ears normal. Canals clear. TM's normal. NOSE/SINUS: mild edema of the nasal mucosa with scant clear secretions bilaterally THROAT: no erythema NECK:neck supple, no adenopathy HEART:RRR with normal S1 and S2 ,no murmurs, no gallops, no rubs LUNGS: Faint expiratory wheezing throughout, no rales or rhonchi ABDOMEN:soft, nontender, nondistended, without organomegaly or palpable masses EXTREMITIES:Extremities normal, No deformities, No skin discoloration, and No edema SKIN: Skin color, texture, turgor normal. No rashes or lesions. Absolute eosinophil count on June 07, 2024: 170 IgE level on June 07, 2024: 161 FeNO on June 13, 2024:64 PPB Spirometry pre and postbronchodilator on June 13, 2024: Moderately severe obstruction with significant improvement in FVC and FEF 25 to 75% postbronchodilator. DLCO within normal limits ALLERGY SKIN TESTS: Completed on 06/13/2024 Positive to cats, dogs, dust mites on prick testing. documented in this encounter [facility] 06-13-2024 Note HNO ID: [id number] Author: NILSON WADSWORTH MD Service: ? Author Type: Physician Type: Progress Notes Filed: 06/14/2024 17:48 Note Text: ASSESSMENT/PLAN: -Severe persistent eosinophilic asthma, poorly controlled Based on the severity of the patient's asthma, requiring treatment with multiple courses of systemic corticosteroids and recent hospitalization with intubation respiratory failure, treatment with a biologic medication is indicated. Risk benefits alternatives and personnel for treatment with Dupixent were discussed with the patient and she consents to proceed. Start Dupixent 600 mg subcutaneously for 1 dose then 300 mg subcutaneously every 2 weeks Continue budesonide 1 mg nebulized twice daily Continue arformoterol 15 mcg nebulized twice daily Continue Singulair 10 mg at bedtime Continue albuterol HFA inhaler 2 puffs every 4 hours as needed or DuoNeb 4 times daily as needed. She should receive Prevnar 20 and an annual influenza vaccine. Continue to follow-up with pulmonary medicine (Patient is self-pay for meds. Paperwork has been submitted for assistance through [employer] [address]) -Allergic rhinitis (cats, dogs, dust mites) Aggressive environmental controls. Encouraged patient to continue to decrease the number of cats in the home. ( Ideally, there should be no cats in the home.) Dust mite precautions should be instituted in the home. Continue fluticasone nasal spray 2 sprays each nostril once daily Continue Zyrtec-D as needed - Discussed medication dosage, usage, side effects, and goals of treatment in detail. - Follow-up in 4 months with repeat spirometry and FeNO- patient will return sooner should new symptoms or problems arise. Nilson Wadsworth MD Allergy AND Immunology I spent a total of 90 minutes on the date of the service which included preparing to see the patient, [id number] patient care, completing clinical documentation, obtaining and/or reviewing separately obtained history, performing a medically appropriate examination, counseling and educating the patient/family/caregiver, ordering medications, tests, or procedures, independently interpreting results (not separately reported), and communicating results to the patient/family/caregiver. This is a consultation requested by Roselyn Zamorano MD for an allergy and immunology evaluation. My final recommendations will be communicated back to the requesting healthcare provider(s) by way of shared medical record or via U.S. mail. Sara Ontiveros is a 39 year old female with a history of severe persistent asthma and allergic rhinitis who presents [facility]. Last visit in this office was in 2013. Patient presents with increased asthma symptoms. Symptoms include cough, wheezing, chest tightness and shortness of breath. She is using short acting beta agonists at least a few times per day for acute symptoms. Awakening due to respiratory symptoms once per week. She has presented to the emergency room and required treatment with multiple courses of systemic steroids for asthma exacerbations in the past year. In April, she was hospitalized. She was intubated for 24 hours and spent 7 days in the ICU. She has had additional prior intubations for asthma exacerbations. Outside of the recent hospitalization, last intubation was about 10 years ago. Asthma triggers include physical activity, respiratory illnesses, cold temperatures and cat exposure. She uses fluticasone nasal spray 2 sprays each nostril once daily and Zyrtec-D with good control of her allergy symptoms other than sneezing. Cat exposure is a trigger for her symptoms. No prior subcutaneous allergy immunotherapy. She takes Pepcid 20 mg daily with improvement in her GERD symptoms. History of mild atopic dermatitis involving the antecubital and popliteal fossa. Applies Vaseline as needed with relief Denies a history of recurrent or chronic rhinosinusitis, nasal polyposis or nasal trauma. Since her recent hospitalization, she was able to re-home some of her cats. She she now has 9 cats, previously had 16. The cats are restricted from her bedroom. Dust mite precautions are not in place in the home. COLLATERAL ALLERGY HISTORY: History of Recurrent or chronic sinusitis:No Nasal polyps:No Asthma:Yes Eczema or atopic dermatitis:Yes Urticaria:No Food allergy:No Systemic reaction to insect sting:No Allergy to penicillin antibiotics:No REVIEW OF SYSTEMS: All other review of systems negative except for those listed above. PAST MEDICAL HISTORY Diagnosis Date Acute respiratory failure (HCC) 04/22/2024 Allergic rhinitis Anxiety 08/24/2017 ASCUS favor benign 05/25/2012 Asthma 2006 moderate Atopy 05/2009 allergy skin tests (Deisi Rodriguez MD) Chronic post-traumatic stress disorder (PTSD) 08/25/2021 Eczema YUNIOR (generalized anxiety disorder) 08/25/2021 High- (more content not included)... [facility] 06-13-2024 Note HNO ID: [id number] Author: YOAN ROWE RRT Service: ? Author Type: Registered Resp Therapist Type: Procedures Filed: 06/13/2024 10:17 Note Text: RESPIRATORY THERAPY ORAL EXHALED NITRIC OXIDE SERVICE DATE: 06/13/2024 SERVICE TIME: 10:16 AM Oral Exhaled Nitric Oxide measurement: 64.0 (ppb) (A) Normal: Adult <25 ppb, pediatric (<12 years) <20 ppb High Normal / Increased: Adult 25-50 ppb, pediatric (<12 years) 20-35 ppb Moderately raised exhaled Nitric Oxide may indicate underlying inflammation, but note that: Cold and influenza can raise exhaled Nitric Oxide and some patients have higher baseline exhaled Nitric Oxide levels than others. High: Adult >50 ppb, pediatric (<12 years) >35 ppb Indicative of ongoing eosinophilic inflammation. Symptomatic patient likely to respond to steroids. Possible causes (if already on steroids): Poor compliance, recent allergen exposure, steroid dose inadequate, and steroid resistance. Note that not all patients with high exhaled nitric oxide levels display symptoms. Oral Exhaled Nitric Oxide measurement (Previous Encounters) Test Date Oral Exhaled Nitric Oxide (ppb) 06/13/2024 64.0 (A) NAME: Yoan Rowe RRT PATIENT NAME: Ontiveros DATE: June 13, 2024 TIME: 10:16 AM [facility] 06-13-2024 Procedure note Associated Ord er(s): NITRIC OXIDE, EXHALED RESPIRATORY THERAPY ORAL EXHALED NITRIC OXIDE SERVICE DATE: 06/13/2024 SERVICE TIME: 10:16 AM Oral Exhaled Nitric Oxide measurement: 64.0 (ppb) (A) Normal: Adult <25 ppb, pediatric (<12 years) <20 ppb High Normal / Increased: Adult 25-50 ppb, pediatric (<12 years) 20-35 ppb Moderately raised exhaled Nitric Oxide may indicate underlying inflammation, but note that: Cold and influenza can raise exhaled Nitric Oxide and some patients have higher baseline exhaled Nitric Oxide levels than others. High: Adult >50 ppb, pediatric (<12 years) >35 ppb Indicative of ongoing eosinophilic inflammation. Symptomatic patient likely to respond to steroids. Possible causes (if already on steroids): Poor compliance, recent allergen exposure, steroid dose inadequate, and steroid resistance. Note that not all patients with high exhaled nitric oxide levels display symptoms. Oral Exhaled Nitric Oxide measurement (Previous Encounters) Test Date Oral Exhaled Nitric Oxide (ppb) 06/13/2024 64.0 (A) NAME: Yoan Rowe RRT PATIENT NAME: Ontiveros DATE: June 13, 2024 TIME: 10:16 AM [facility] 06-13-2024 Procedure note Associated Ord er(s): NITRIC OXIDE, EXHALED RESPIRATORY THERAPY ORAL EXHALED NITRIC OXIDE SERVICE DATE: 06/13/2024 SERVICE TIME: 10:16 AM Oral Exhaled Nitric Oxide measurement: 64.0 (ppb) (A) Normal: Adult <25 ppb, pediatric (<12 years) <20 ppb High Normal / Increased: Adult 25-50 ppb, pediatric (<12 years) 20-35 ppb Moderately raised exhaled Nitric Oxide may indicate underlying inflammation, but note that: Cold and influenza can raise exhaled Nitric Oxide and some patients have higher baseline exhaled Nitric Oxide levels than others. High: Adult >50 ppb, pediatric (<12 years) >35 ppb Indicative of ongoing eosinophilic inflammation. Symptomatic patient likely to respond to steroids. Possible causes (if already on steroids): Poor compliance, recent allergen exposure, steroid dose inadequate, and steroid resistance. Note that not all patients with high exhaled nitric oxide levels display symptoms. Oral Exhaled Nitric Oxide measurement (Previous Encounters) Test Date Oral Exhaled Nitric Oxide (ppb) 06/13/2024 64.0 (A) NAME: Yoan Rowe RRT PATIENT NAME: Sara Ontiveros DATE: June 13, 2024 TIME: 10:16 AM documented in this encounter [facility] 06-13-2024 Note HNO ID: [id number] Author: YOAN ROWE RRT Service: ? Author Type: Registered Resp Therapist Type: Progress Notes Filed: 06/13/2024 10:17 Note Text: PULM FUNCTION: Provider: Roselyn Zamorano MD Assisting Tech: Yoan oRwe RRT Spirometry w/BD: 1 DLCO: 1 Exhaled Nitric Oxide: 1 [facility] 06-13-2024 History of Present illness Narrative PULM FUNCTION: Provider: Roselyn Zamorano MD Assisting Tech: Yoan Rowe RRT Spirometry w/BD: 1 DLCO: 1 Exhaled Nitric Oxide: 1 documented in this encounter [facility] 05-03-2024 Telephone encounter Note Rx was already approved on 04/24/24 and the medications were called into [facility] in [place]. I called pt and she was notified of the approval. [facility] 05-03-2024 Miscellaneous Notes Rx was already approved on 04/24/24 and the medications were called into [facility] in [place]. I called pt and she was notified of the approval. Addended by: DENNISE [place] on: 05/03/2024 04:22 PM Modules accepted: Orders Patient called in and requested her meds. Pharmacy states they have not received the medications. I am not seeing a conformation from the pharmacy on the medications as well. Patient would like them to go to [facility] in [place]. Rx was already approved. documented in this encounter [facility] 05-03-2024 Note Addended by: DENNISE [place] on: 05/03/2024 04:22 PM Modules accepted: Orders [facility] 05-03-2024 Telephone encounter Note Patient called in and requested her meds. Pharmacy states they have not received the medications. I am not seeing a conformation from the pharmacy on the medications as well. Patient would like them to go to [facility] in [place]. [facility] 05-03-2024 Telephone encounter Note Rx was already approved. [facility] 04-26-2024 Note HNO ID: [id number] Author: NAVDEEP MO MD Service: ? Author Type: Physician Type: Progress Notes Filed: 04/26/2024 11:07 Note Text: This note was created using Inside Socialriter. Subjective Patient presents with: Hospital F/U: [facility] 04/19 - 04/21 H Felipe is a 39 year old female who was admitted for acute respiratory failure with mental status change, treated with mechanical ventilation for about 24 hours then extubated with rapid improvement. No infection was found, and she was discharged with prescriptions for asthma. She apparently had coverage issues so she was reducing medication dosages and going to urgent care or the ER for acute care. She saw Alia Batres and established pulmonary care 2 days ago. She was scheduled for PFTs and allergy consultation. She was doing better. 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 She had depression and anxiety which was currently stable without medication. [facility]. 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 Review of Systems Constitutional: Negative for chills and fever. HENT: Negative for congestion. Respiratory: Negative for chest tightness, shortness of breath and wheezing. Cardiovascular: Negative for chest pain, palpitations and leg swelling. Gastrointestinal: Negative for diarrhea, nausea and vomiting. Neurological: Negative for dizziness and headaches. Psychiatric/Behavioral: Negative for self-injury and suicidal ideas. ACTIVE PROBLEM LIST Asthma, Moderate Persistent Yunior (Generalized Anxiety Disorder) Major Depressive Disorder, Recurrent Severe Without Psychotic Features (Hcc) Chronic Post-Traumatic Stress Disorder (Ptsd) Alcohol Dependence in Remission (Hcc) Cervical Disc Disorder With Radiculopathy Severe Persistent Asthma With Status Asthmaticus Social History Tobacco Use Smoking status: Former Current packs/day: 0.00 Average packs/day: 0.3 packs/day for 18.5 years (5.6 ttl pk-yrs) Types: Cigarettes Start date: 11/08/2003 Quit date: 05/10/2022 Years since quittin.9 Smokeless tobacco: Never Vaping Use Vaping status: Never Used Substance Use Topics Alcohol use: Yes Alcohol/week: 12.0 standard drinks of alcohol Types: 12 Standard drinks or equivalent per week Drug use: No Objective BP 110/62 Pulse 85 Temp 36.8 ?C (98.2 ?F) Resp 16 Wt 83.6 kg (184 lb 4.9 oz) LMP (LMP Unknown) SpO2 99% BMI 31.64 kg/m? Physical Exam Constitutional: General: She is not in acute distress. Appearance: She is not ill-appearing. HENT: Head: Normocephalic. Nose: No congestion or rhinorrhea. Mouth/Throat: Mouth: Mucous membranes are moist. Pharynx: Oropharynx is clear. Eyes: Conjunctiva/sclera: Conjunctivae normal. Cardiovascular: Rate and Rhythm: Normal rate and regular rhythm. Heart sounds: No murmur heard. No gallop. Pulmonary: Effort: No respiratory distress. Breath sounds: Normal breath sounds. No wheezing or rales. Abdominal: Palpations: Abdomen is soft. Tenderness: There is no abdominal tenderness. Musculoskeletal: Cervical back: No tenderness. Right lower leg: No edema. Left lower leg: No edema. Neurological: Mental Status: She is alert. Gait: Gait normal. Psychiatric: Mood and Affect: Mood normal. Behavior: Behavior normal. Assessment and Plan 1. Severe persistent asthma with status asthmaticus - ICD9: 493.91, ICD10: J45.52 (primary diagnosis) - status post respiratory failure. - Continue current management per pulmonary. 2. YUNIOR (generalized anxiety disorder) - ICD9: 300.02, ICD10: F41.1 - Stable on no treatment. She declined referral at this time. 3. Major depressive disorder, recurrent severe without psychotic features (HCC) - ICD9: 296.33, ICD10: F33.2 - Stable on no treatment. She declined referral at this time. 4. Alcohol dependence in remission (HCC) - ICD9: 303.93, ICD10: F10.21 - We reviewed risks of alcohol consumption. Navdeep Mo MD [facility] 04-26-2024 History of Present illness Narrative This note was created using NoteWriter. Subjective Patient presents with: Hospital F/U: [facility] 04/19 - 04/21 Sara Chasity Ontiveros is a 39 year old female who was admitted for acute respiratory failure with mental status change, treated with mechanical ventilation for about 24 hours then extubated with rapid improvement. No infection was found, and she was discharged with prescriptions for asthma. She apparently had coverage issues so she was reducing medication dosages and going to urgent care or the ER for acute care. She saw Alia Batres and established pulmonary care 2 days ago. She was scheduled for PFTs and allergy consultation. She was doing better. 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 She had depression and anxiety which was currently stable without medication. [facility]. 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 Review of Systems Constitutional: Negative for chills and fever. HENT: Negative for congestion. Respiratory: Negative for chest tightness, shortness of breath and wheezing. Cardiovascular: Negative for chest pain, palpitations and leg swelling. Gastrointestinal: Negative for diarrhea, nausea and vomiting. Neurological: Negative for dizziness and headaches. Psychiatric/Behavioral: Negative for self-injury and suicidal ideas. ACTIVE PROBLEM LIST Asthma, Moderate Persistent Yunior (Generalized Anxiety Disorder) Major Depressive Disorder, Recurrent Severe Without Psychotic Features (Hcc) Chronic Post-Traumatic Stress Disorder (Ptsd) Alcohol Dependence in Remission (Hcc) Cervical Disc Disorder With Radiculopathy Severe Persistent Asthma With Status Asthmaticus Social History Tobacco Use Smoking status: Former Current packs/day: 0.00 Average packs/day: 0.3 packs/day for 18.5 years (5.6 ttl pk-yrs) Types: Cigarettes Start date: 11/08/2003 Quit date: 05/10/2022 Years since quittin.9 Smokeless tobacco: Never Vaping Use Vaping status: Never Used Substance Use Topics Alcohol use: Yes Alcohol/week: 12.0 standard drinks of alcohol Types: 12 Standard drinks or equivalent per week Drug use: No Objective BP 110/62 Pulse 85 Temp 36.8 C (98.2 F) Resp 16 Wt 83.6 kg (184 lb 4.9 oz) LMP (LMP Unknown) SpO2 99% BMI 31.64 kg/m Physical Exam Constitutional: General: She is not in acute distress. Appearance: She is not ill-appearing. HENT: Head: Normocephalic. Nose: No congestion or rhinorrhea. Mouth/Throat: Mouth: Mucous membranes are moist. Pharynx: Oropharynx is clear. Eyes: Conjunctiva/sclera: Conjunctivae normal. Cardiovascular: Rate and Rhythm: Normal rate and regular rhythm. Heart sounds: No murmur heard. No gallop. Pulmonary: Effort: No respiratory distress. Breath sounds: Normal breath sounds. No wheezing or rales. Abdominal: Palpations: Abdomen is soft. Tenderness: There is no abdominal tenderness. Musculoskeletal: Cervical back: No tenderness. Right lower leg: No edema. Left lower leg: No edema. Neurological: Mental Status: She is alert. Gait: Gait normal. Psychiatric: Mood and Affect: Mood normal. Behavior: Behavior normal. Assessment and Plan 1. Severe persistent asthma with status asthmaticus - ICD9: 493.91, ICD10: J45.52 (primary diagnosis) - status post respiratory failure. - Continue current management per pulmonary. 2. YUNIOR (generalized anxiety disorder) - ICD9: 300.02, ICD10: F41.1 - Stable on no treatment. She declined referral at this time. 3. Major depressive disorder, recurrent severe without psychotic features (HCC) - ICD9: 296.33, ICD10: F33.2 - Stable on no treatment. She declined referral at this time. 4. Alcohol dependence in remission (HCC) - ICD9: 303.93, ICD10: F10.21 - We reviewed risks of alcohol consumption. Navdeep Mo MD documented in this encounter [facility] 04-24-2024 Note HNO ID: [id number] Author: ROSELYN ZAMORANO MD Service: ? Author Type: Physician Type: Progress Notes Filed: 04/24/2024 14:37 Note Text: [facility] OFFICE VISIT CONSULT 04/24/2024 Patient Name: Sara Ontiveros PRIMARY CARE PHYSICIAN: Navdeep Mo MD REASON FOR CONSULT: uncontrolled asthma, allergies, ex smoker, GERD, obesity bmi 31 REFERRING PHYSICIAN: Navdeep Mo MD My final recommendations will be communicated to the requesting health care provider by way of the shared medical record for internal providers or by letter via US mail for external providers. CHIEF COMPLAINT: asthma HISTORY OF PRESENT ILLNESS: Sara Chasity Ontiveros is a 39 year old female, BMI 31.64 kg/m2 with a PMH significant for ex smoking, uncontrolled asthma, allergies, ex smoker, GERD, obesity bmi 31, here for evaluation. Her asthma symptoms has been worsening She was admitted to [facility] last week to the ICU where she required intubation for 24 hours and was kept in the ICU for 7 days. Today she feels better but she continue to have wheezing and chest congestion Her asthma attacks has been more frequent. She lost her Medicaid and was not able to afford inhalers she has been using Advair once a day instead of twice a day She is allergic to cats but have cats at home Symptoms are mild to moderate, persistent, occur at rest and on exertion. Negative stated She was discharged home from [facility], metoprolol and budesonide 0.25 in addition to albuterol inhaler and 23 months and she is currently on prednisone taper She does have GERD symptoms has been taking famotidine once a day Most recent chest x-ray June 2023 reported hyperinflation PFTs 2021 severe airflow obstruction with air trapping Smoked in the past MMRC Dyspnea Scale: 0. Not troubled by breathlessness except on strenuous exercise Short of breath when hurrying or walking up a slight hill Walks slower than contemporaries on the level because of breathlessness, or has to stop for breath when walking at own pace Stops for breath after about 100 m or after a few minutes on the level Too breathless to leave the house, or breathless when dressing or undressing Environmental/ Occupational Exposure History: Pets: No birds Asbestos: No significant exposure Silica: No significant exposure [place]: No significant exposure Mold: No significant exposure Hot tub: No significant exposure Fumes: No significant exposure Metal dust: No significant exposure Beryllium: No significant exposure Dust: No significant exposure Medications: No relevant exposure for interstitial lung diseases 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 (Deisi Rodriguez MD) YUNIOR (generalized anxiety disorder) 08/25/2021 High-risk 04/27/2012 LGSIL (low grade squamous intraepithelial dysplasia) 01/04/2013 Tobacco dependence syndrome 09/22/2009 Trauma 2008 DISLOCATED KNEE, Right PAST SURGICAL HISTORY Procedure Laterality Date NONE FAMILY HISTORY Problem Relation Age of Onset Anxiety disorder Mother Depression Mother Asthma Mother Diabetes Father Hypertension Father Diabetes Paternal Grandfather Hypertension Paternal Grandfather no pertinent family history Social History Tobacco Use Smoking status: Former Current packs/day: 0.00 Average packs/day: 0.3 packs/day for 18.5 years (5.6 ttl pk-yrs) Types: Cigarettes Start date: 11/08/2003 Quit date: 05/10/2022 Years since quittin.9 Smokeless tobacco: Never Vaping Use Vaping status: Never Used Substance Use Topics Alcohol use: Yes Comment: occasionally Drug use: No ALLERGIES ALLERGIES Allergen Reactions Propranolol Shortness of Breath CURRENT OUTPATIENT MEDICATIONS fluticasone (FLONASE) 50 mcg/actuation nasal spray Use 2 Sprays in each nostril once daily. Rinse mouth after use. arformoterol (BROVANA) 15 mcg/2 mL nebulizer solution INHALE 2 ML via NEBULIZER TWICE DAILY budesonide (PULMICORT) 0.25 mg/2 mL nebulizer solution two times a day. predniSONE (DELTASONE) 10 mg tablet Take FOUR tablets daily for 3 (THREE) days, then 3 (THREE) tablets daily for 3 (THREE) days, then 2 (TWO) tablets daily for 3 (THREE) days, then 1 tablet daily for 3 (THREE) days, then half tablet daily for FOUR days] cetirizine HCl/pseudoephedrine (ZYRTEC-D ORAL) Take by mouth. FAMOTIDINE ORAL Take by mouth. albuterol HFA (VENTOLIN HFA) 90 mcg/actuation inhaler inhale 2 puffs by mouth as directed every 4 hours if needed for wheezing OR SHORTNESS OF BREATH albuterol (PROVENTIL) 2.5 mg /3 mL (0.083 %) nebulizer solution inhale contents of 1 vial in nebulizer every 4 hours if needed for wheezing or shortness of breath levonorgestrel (MIRENA) 20 mcg/24 hours (7 yrs) 52 mg I (more content not included)... [facility] 04-24-2024 History of Present illness Narrative Images from the original note were not included. [facility] OFFICE VISIT CONSULT 04/24/2024 Patient Name: Sara Ontiveros PRIMARY CARE PHYSICIAN: Navdeep Mo MD REASON FOR CONSULT: uncontrolled asthma, allergies, ex smoker, GERD, obesity bmi 31 REFERRING PHYSICIAN: Navdeep Mo MD My final recommendations will be communicated to the requesting health care provider by way of the shared medical record for internal providers or by letter via US mail for external providers. CHIEF COMPLAINT: asthma HISTORY OF PRESENT ILLNESS: Sara Ontiveros is a 39 year old female, BMI 31.64 kg/m2 with a PMH significant for ex smoking, uncontrolled asthma, allergies, ex smoker, GERD, obesity bmi 31, here for evaluation. Her asthma symptoms has been worsening She was admitted to [facility] last week to the ICU where she required intubation for 24 hours and was kept in the ICU for 7 days. Today she feels better but she continue to have wheezing and chest congestion Her asthma attacks has been more frequent. She lost her Medicaid and was not able to afford inhalers she has been using Advair once a day instead of twice a day She is allergic to cats but have cats at home Symptoms are mild to moderate, persistent, occur at rest and on exertion. Negative stated She was discharged home from [facility], metoprolol and budesonide 0.25 in addition to albuterol inhaler and 23 months and she is currently on prednisone taper She does have GERD symptoms has been taking famotidine once a day Most recent chest x-ray June 2023 reported hyperinflation PFTs 2021 severe airflow obstruction with air trapping Smoked in the past MMRC Dyspnea Scale: 0. Not troubled by breathlessness except on strenuous exercise Short of breath when hurrying or walking up a slight hill Walks slower than contemporaries on the level because of breathlessness, or has to stop for breath when walking at own pace Stops for breath after about 100 m or after a few minutes on the level Too breathless to leave the house, or breathless when dressing or undressing Environmental/ Occupational Exposure History: Pets: No birds Asbestos: No significant exposure Silica: No significant exposure [place]: No significant exposure Mold: No significant exposure Hot tub: No significant exposure Fumes: No significant exposure Metal dust: No significant exposure Beryllium: No significant exposure Dust: No significant exposure Medications: No relevant exposure for interstitial lung diseases 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 (Deisi Rodriguez MD) YUNIOR (generalized anxiety disorder) 08/25/2021 High-risk 04/27/2012 LGSIL (low grade squamous intraepithelial dysplasia) 01/04/2013 Tobacco dependence syndrome 09/22/2009 Trauma 2008 DISLOCATED KNEE, Right PAST SURGICAL HISTORY Procedure Laterality Date NONE FAMILY HISTORY Problem Relation Age of Onset Anxiety disorder Mother Depression Mother Asthma Mother Diabetes Father Hypertension Father Diabetes Paternal Grandfather Hypertension Paternal Grandfather no pertinent family history Social History Tobacco Use Smoking status: Former Current packs/day: 0.00 Average packs/day: 0.3 packs/day for 18.5 years (5.6 ttl pk-yrs) Types: Cigarettes Start date: 11/08/2003 Quit date: 05/10/2022 Years since quittin.9 Smokeless tobacco: Never Vaping Use Vaping status: Never Used Substance Use Topics Alcohol use: Yes Comment: occasionally Drug use: No ALLERGIES ALLERGIES Allergen Reactions Propranolol Shortness of Breath CURRENT OUTPATIENT MEDICATIONS fluticasone (FLONASE) 50 mcg/actuation nasal spray Use 2 Sprays in each nostril once daily. Rinse mouth after use. arformoterol (BROVANA) 15 mcg/2 mL nebulizer solution INHALE 2 ML via NEBULIZER TWICE DAILY budesonide (PULMICORT) 0.25 mg/2 mL nebulizer solution two times a day. predniSONE (DELTASONE) 10 mg tablet Take FOUR tablets daily for 3 (THREE) days, then 3 (THREE) tablets daily for 3 (THREE) days, then 2 (TWO) tablets daily for 3 (THREE) days, then 1 tablet daily for 3 (THREE) days, then half tablet daily for FOUR days] cetirizine HCl/pseudoephedrine (ZYRTEC-D ORAL) Take by mouth. FAMOTIDINE ORAL Take by mouth. albuterol HFA (VENTOLIN HFA) 90 mcg/actuation inhaler inhale 2 puffs by mouth as directed every 4 hours if needed for wheezing OR SHORTNESS OF BREATH albuterol (PROVENTIL) 2.5 mg /3 mL (0.083 %) nebulizer solution inhale contents of 1 vial in nebulizer every 4 hours if needed for wheezing or shortness of breath levonorgestrel (MIRENA) 20 mcg/24 hours (7 yrs) 52 mg IUD 1 Each by INTRAUTERINE route as directed. Nebulizer Accessories [facility] [place] Pt needs nebulzier and supplies. Dx is asthma J45.40. REVIEW OF SYSTEMS Review of Systems Constitutional: Negative for chills, fever and weight loss. HENT: Negative for congestion. Respiratory: Positive for shortness of breath and wheezing. Negative for cough, hemoptysis and sputum production. Cardiovascular: Negative for leg swelling. The remainder of review of systems was negative. PHYSICAL EXAM BP 115/77 Pulse 85 Wt 184 lb 4.9 oz (83.6kg) SpO2 100% General appearance: Well appearing, alert, in no acute distress, well-hydrated, well nourished. Eyes: PERRLA Oropharynx: Lips, mucosa, and tongue normal, teeth and gums normal, oropharynx normal Neck: no palpable masses Lungs: Lungs clear to auscultation. No wheezing, rhonchi, rales Heart: RRR without murmur, gallop, or rubs. No ectopy , normal peripheral pulses, no peripheral edema Abdomen: Abdomen soft, non-tender. Bowel sounds normal. No masses, organomegaly Extremities: Normal, Warm, No cyanosis, no clubbing, No edema, and Nontender Neuro: no focal weakness Psychiatry: Alert, Oriented X 3 DATA Diagnostic tests reviewed and analysed for today's visit, including films and specimens, personally reviewed by me: Most recent labs and imaging results. Immunizations: Up to date ASSESSMENT/PLAN: 1. Uncontrolled persistent asthma - ICD9: 493.90, ICD10: J45.998 (primary diagnosis) Continue perforomist twice daily Change budesonide to 1 mg twice daily by nebulizer Duoneb 4 times daily Start singulair Continue zyrtec Continue famotidine with lifestyle modifications- may need PPI on top Referral to allergy f or biologic consideration Blood tests - CONSULT TO ALLERGY/IMMUNOLOGY - COMPLETE BLOOD COUNT AND DIFFERENTIAL - IMMUNOGLOBULIN E 2. SOB (shortness of breath) - ICD9: 786.05, ICD10: R06.02 - BUDESONIDE 1 MG/2 ML SUSPENSION FOR NEBULIZATION - BUDESONIDE 1 MG/2 ML SUSPENSION FOR NEBULIZATION - SPIROMETRY - BASELINE AND POST DILATOR - LUNG DIFFUSION CAPACITY (DLCO) - NITRIC OXIDE, EXHALED 3. History of environmental allergies - ICD9: V15.09, ICD10: Z91.09 Advised to avoid cats 4. Ex-smoker - ICD9: V15.82, ICD10: Z87.891 In remission 5. Gastroesophageal reflux disease, unspecified whether esophagitis present - ICD9: 530.81, ICD10: K21.9 MD Roselyn Brown MD, OSMANI Staff, [facility] CC: MD Chepe Tobar Victor H, MD documented in this encounter [facility] 04-23-2024 Telephone encounter Note Prescription Refill Information The patient has been identified by name and date of : Yes Caregiver verified no other encounters exist for this prescription request: Yes Caregiver confirmed with patient/requestor that no other refills are due, in the near future, with this provider at this time: Yes The last office visit in the department: 07/05/23 Does the patient have a future office visit with this provider/department: Yes Requested Prescriptions Pending Prescriptions Disp Refills fluticasone (FLONASE) 50 mcg/actuation nasal spray 1 Each 11 Sig: Use 2 Sprays in each nostril once daily. Rinse mouth after use. Amara Mcdowell LPN April 23, 2024 4:13 PM [facility] 04-23-2024 Miscellaneous Notes Prescription Refill Information The patient has been identified by name and date of : Yes Caregiver verified no other encounters exist for this prescription request: Yes Caregiver confirmed with patient/requestor that no other refills are due, in the near future, with this provider at this time: Yes The last office visit in the department: 07/05/23 Does the patient have a future office visit with this provider/department: Yes Requested Prescriptions Pending Prescriptions Disp Refills fluticasone (FLONASE) 50 mcg/actuation nasal spray 1 Each 11 Sig: Use 2 Sprays in each nostril once daily. Rinse mouth after use. Amara Mcdowell LPN April 23, 2024 4:13 PM documented in this encounter [facility] 04-23-2024 Telephone encounter Note Spoke with the patient she currently has no insurance, we placed a self pay referral and she will contact [employer] to get approved. [facility] 04-23-2024 Miscellaneous Notes Spoke with the patient she currently has no insurance, we placed a self pay referral and she will contact [employer] to get approved. Please assist patient with scheduling. Sudha Miller MA ASSESSMENT/PLAN: 1. Acute respiratory failure, unspecified whether with hypoxia or hypercapnia (HCC) - ICD9: 518.81, ICD10: J96.00 (primary diagnosis) - CONSULT TO PULMONARY MEDICINE 2. Severe persistent asthma with status asthmaticus - ICD9: 493.91, ICD10: J45.52 - CONSULT TO PULMONARY MEDICINE Navdeep Mo MD Sanchez/pt called to get a referral to a lung specialist. Pt was in [facility] for 3 days and d/c yesterday 04-21-24 with asthma attack and was in ICU for ventolator for 2 days. Pt to see a lung specialist with in the week. Pt has been to ER multiple times per pt/Sanchez. Please review and advise when referral is placed. Pt did not schedule a hospital follow up wants to see the specialist. Please advise pt. Latisha Montana LPN documented in this encounter [facility] 04-22-2024 Telephone encounter Note Please assist patient with scheduling. Sudha Miller MA [facility] 04-22-2024 Telephone encounter Note ASSESSMENT/PLAN: 1. Acute respiratory failure, unspecified whether with hypoxia or hypercapnia (HCC) - ICD9: 518.81, ICD10: J96.00 (primary diagnosis) - CONSULT TO PULMONARY MEDICINE 2. Severe persistent asthma with status asthmaticus - ICD9: 493.91, ICD10: J45.52 - CONSULT TO PULMONARY MEDICINE Navdeep Mo MD [facility] 04-22-2024 Telephone encounter Note Sanchez/pt called to get a referral to a lung specialist. Pt was in [facility] for 3 days and d/c yesterday 04-21-24 with asthma attack and was in ICU for ventolator for 2 days. Pt to see a lung specialist with in the week. Pt has been to ER multiple times per pt/Sanchez. Please review and advise when referral is placed. Pt did not schedule a hospital follow up wants to see the specialist. Please advise pt. Latisha Montana LPN [facility] 04-21-2024 Note [facility] Medical Records Department [address] [place] [address] Discharge Summary 04/21/24 1732 MR#: [id number] Acct: [id number] Name: SARA ONTIVEROS Rep #: [id number] : 1985 39 From: Daniel Reed MD PCP: Dr. Navdeep Mo MD Status:DIS IN Location: ICU ICU03-1 Providers Date of Admission: 04/19/24 Primary Care Physician: Dr. Navdeep Mo MD Reason For Visit: ACUTE HYPOXIC RESP FAILURE Diagnosis Discharge Diagnosis (1) Respiratory failure: Status: Acute Code(s): J96.90 - Respiratory failure, unspecified, unspecified whether with hypoxia or hypercapnia (2) Altered mental status: Status: Acute Code(s): R41.82 - Altered mental status, unspecified Medications at Discharge Home Medications inhalational spacing device (Aerochamber MV spacer) #1 ea 08/26/21 albuterol sulfate 90 mcg/actuation aerosol inhaler 2 puff inhalation Q4H PRN PRN Wheezing #8.5 grams 06/19/23 fluticasone 500 mcg-salmeterol 50 mcg/dose blistr powdr for inhalation (Advair Diskus) 1 inh inhalation BID Asthma #60 ea 06/19/23 fluticasone propionate 50 mcg/actuation nasal spray,suspension 1 spray intranasal Q12H Allergies #16 grams 06/19/23 albuterol sulfate 90 mcg/actuation aerosol inhaler (Proventil HFA) 2 inh inhalation Q4H PRN shortness of breath or wheezing #8.5 grams 11/27/23 albuterol sulfate 90 mcg/actuation aerosol inhaler (Ventolin HFA) 2 puff inhalation Q4H PRN PRN Wheezing ##1 02/02/24 albuterol sulfate 2.5 mg/3 mL (0.083 %) solution for nebulization 2.5 mg (3 mL) inhalation Q4H PRN #25 vials 04/10/24 arformoterol 15 mcg/2 mL solution for nebulization 2 ml inhalation BID 30 days #120 mL 04/21/24 budesonide 0.25 mg/2 mL suspension for nebulization 0.25 mg (2 mL) inhalation BID 30 days #120 mL 04/21/24 prednisone 10 mg tablet 10 mg PO DAILY #32 tabs 04/21/24 Hospital Course Operations None Procedures Intubation Summary of Care Provided Minutes Spent on Discharge: 37 Hospital Course: Per HPI: antonio BRADY a 39 F was brought to ED by EMS for increased shortness of breath, labored breathing, tripod breathing, respiratory distress, audible wheezing and turning blue. EMS was called by her son who is 11-year-old and told me in ED that her mother called her and she was struggling with breath, could not speak in sentences, was turning blue therefore she called EMS. As per her boyfriend, she is not doing well for last 3 to 4 days. She has history of asthma since her early 20s. Patient was put on 15 L oxygen nonrebreather and was given a DuoNeb and oxygen came up to 89% from 56%. In ED, patient looked very worse with shortness of breath, hypoxic, tight and wheezing and patient was intubated after not significant improvement after DuoNeb for nebulization. Patient has been intubated in the past for the asthma. She was nonverbal to the ED physician When I saw the patient she is on ventilator on propofol and fentanyl drip. Hospital Course: 1. Acute hypoxic respiratory failure secondary to status asthmaticus???39-year-old female with a history of uncontrolled asthma presents to the hospital with significant shortness of breath and tripod breathing. She had audible wheezing and was intubated in the ER. She was started on steroids and breathing treatments and was able to be extubated 24 hours later. She states that she has difficulty affording the Advair and so instead of taking it twice a day she takes it once a day which is also led to significant albuterol usage. Today she was breathing much better and was not requiring any oxygen at rest or with ambulation. I discussed with her the possibility for discharge today she expressed understanding of the risk benefits of going home and would like to go home today. Her sputum culture is negative with mixed colin. She does state that she has a nebulizer so I gave her prescription for budesonide and arformoterol to hopefully be able to replace the Advair at a cheaper cost at the expense of having to use the nebulizer. I also recommended she follow-up with a digital imaging specialist in the [facility] is asked what her preference was. It is possible that based on her rapid improvement she could have had a bronchospasm. Will continue with the steroid taper on discharge. Physical Exam Narrative General: Alert, Oriented x3, Cooperative, No apparent distress HEENT: Atraumatic, PERRLA, EOMI, Normocephalic Oral: Moist Mucosa Neck: Supple, No JVD Lungs: Normal air movement, scattered rhonchi, No wheeze, No rales Cardiovascular: Regular rate, Regular Rhythm, Normal S1, Normal S2, No murmurs Abdomen: Soft, Non Tender, Non-Distended, No Hepato-splenomegaly Extremities: No edema, Capillary Refill Less than 3 Seconds Skin: No rashes, No breakdown Musculoskeletal: No Tenderness to Palpation of Joints or Extremities Neurological: No focal [place] (more content not included)... [facility] 04-04-2024 Telephone encounter Note The following approved medication requests have been transmitted electronically. Requested Prescriptions Signed Prescriptions Disp Refills albuterol (PROVENTIL) 2.5 mg /3 mL (0.083 %) nebulizer solution 150 mL 0 Sig: inhale contents of 1 vial in nebulizer every 4 hours if needed for wheezing or shortness of breath Authorizing Provider: NAVDEEP MO MD [facility] 04-04-2024 Miscellaneous Notes The following approved medication requests have been transmitted electronically. Requested Prescriptions Signed Prescriptions Disp Refills albuterol (PROVENTIL) 2.5 mg /3 mL (0.083 %) nebulizer solution 150 mL 0 Sig: inhale contents of 1 vial in nebulizer every 4 hours if needed for wheezing or shortness of breath Authorizing Provider: NAVDEEP MO MD Patient has been identified by name and date of : Yes Patient phones for refill(s): Requested Prescriptions Pending Prescriptions Disp Refills albuterol (PROVENTIL) 2.5 mg /3 mL (0.083 %) nebulizer solution 150 mL 0 Sig: inhale contents of 1 vial in nebulizer every 4 hours if needed for wheezing or shortness of breath Date of last office visit in primary care: 07/05/2023 [facility] Patient to schedule an appointment Please advise. Thank you. Ruthann Robbins LPN. documented in this encounter [facility] 04-04-2024 Telephone encounter Note The following approved medication requests have been transmitted electronically. Requested Prescriptions Signed Prescriptions Disp Refills albuterol HFA (VENTOLIN HFA) 90 mcg/actuation inhaler 18 g 1 Sig: inhale 2 puffs by mouth as directed every 4 hours if needed for wheezing OR SHORTNESS OF BREATH Authorizing Provider: NAVDEEP MO MD [facility] 04-04-2024 Miscellaneous Notes The following approved medication requests have been transmitted electronically. Requested Prescriptions Signed Prescriptions Disp Refills albuterol HFA (VENTOLIN HFA) 90 mcg/actuation inhaler 18 g 1 Sig: inhale 2 puffs by mouth as directed every 4 hours if needed for wheezing OR SHORTNESS OF BREATH Authorizing Provider: NAVDEEP MO MD Prescription Refill Information The patient has been identified by name and date of : Yes Caregiver verified no other encounters exist for this prescription request: Yes Caregiver confirmed with patient/requestor that no other refills are due, in the near future, with this provider at this time: Yes The last office visit in the department: 07/05/2023 Does the patient have a future office visit with this provider/department: No Notified via [employer] to schedule an office visit. Requested Prescriptions Pending Prescriptions Disp Refills albuterol HFA (VENTOLIN HFA) 90 mcg/actuation inhaler 18 g 5 Sig: inhale 2 puffs by mouth as directed every 4 hours if needed for wheezing OR SHORTNESS OF BREATH Heladio Mead MA April 04, 2024 8:14 AM documented in this encounter [facility] 04-04-2024 Telephone encounter Note Patient has been identified by name and date of : Yes Patient phones for refill(s): Requested Prescriptions Pending Prescriptions Disp Refills albuterol (PROVENTIL) 2.5 mg /3 mL (0.083 %) nebulizer solution 150 mL 0 Sig: inhale contents of 1 vial in nebulizer every 4 hours if needed for wheezing or shortness of breath Date of last office visit in primary care: 07/05/2023 Date of next office visit in primary care: [facility] msg sent to Patient to schedule an appointment Please advise. Thank you. Ruthann Robbins LPN. [facility] 04-04-2024 Telephone encounter Note Prescription Refill Information The patient has been identified by name and date of : Yes Caregiver verified no other encounters exist for this prescription request: Yes Caregiver confirmed with patient/requestor that no other refills are due, in the near future, with this provider at this time: Yes The last office visit in the department: 07/05/2023 Does the patient have a future office visit with this provider/department: No Notified via [employer] to schedule an office visit. Requested Prescriptions Pending Prescriptions Disp Refills albuterol HFA (VENTOLIN HFA) 90 mcg/actuation inhaler 18 g 5 Sig: inhale 2 puffs by mouth as directed every 4 hours if needed for wheezing OR SHORTNESS OF BREATH Heladio Mead MA April 04, 2024 8:14 AM T [facility] 04-03-2024 Note HNO ID: [id number] Author: CALISTA LEE APRN.DOCUMENTATION CLERK Service: ? Author Type: Nurse Practitioner Type: Progress Notes Filed: 04/03/2024 15:54 Note Text: Subjective HPI HPI Sara Ontiveros is a 39 year old female who presents today for CC of cough, sob, wheezing. This started todya. Has tried asthma nebulizer. Symptoms are worsened by activity. Risk factors hx of severe asthma. Nonsmoker. Denies possibility of being . .Patient presents with: Cough: Cough, chest congestion and SOB-always has these symptoms but today much worse 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 (Deisi Rodriguez MD) YUNIOR (generalized anxiety disorder) 08/25/2021 High-risk 04/27/2012 LGSIL (low grade squamous intraepithelial dysplasia) 01/04/2013 Tobacco dependence syndrome 09/22/2009 Trauma 2008 DISLOCATED KNEE, Right PAST SURGICAL HISTORY Procedure Laterality Date NONE ALLERGIES Propranolol MEDICATIONS albuterol HFA (PROVENTIL HFA, VENTOLIN HFA) 90 mcg/actuation inhaler Inhale 2 Puffs as instructed every 6 hours as needed for wheezing/shortness of breath. albuterol HFA (PROAIR HFA) 90 mcg/actuation inhaler Inhale 2 Puffs as instructed every 6 hours as needed. gabapentin (NEURONTIN) 300 mg capsule Take 1 capsule by mouth three times a day for 90 days. albuterol HFA (VENTOLIN HFA) 90 mcg/actuation inhaler inhale 2 puffs by mouth as directed every 4 hours if needed for wheezing OR SHORTNESS OF BREATH fluticasone (FLONASE) 50 mcg/actuation nasal spray Use 2 Sprays in each nostril once daily. Rinse mouth after use. albuterol (PROVENTIL) 2.5 mg /3 mL (0.083 %) nebulizer solution inhale contents of 1 vial in nebulizer every 4 hours if needed for wheezing or shortness of breath fluticasone-salmeterol (ADVAIR DISKUS) 500-50 mcg/dose dsdv Inhale 1 Puff as instructed twice daily. Rinse and gargle mouth with water after use. levonorgestrel (MIRENA) 20 mcg/24 hours (7 yrs) 52 mg IUD 1 Each by INTRAUTERINE route as directed. Nebulizer Accessories [facility] Pt needs nebulzier and supplies. Dx is asthma J45.40. predniSONE (DELTASONE) 10 mg tablet Take 6 tabs today, then 4 tabs daily for 2 days, then 2 tabs daily for 3 days, then 1 tab daily for 3 days with food. umeclidinium (INCRUSE ELLIPTA) 62.5 mcg/actuation inhaler Inhale 1 Puff as instructed once daily. (Patient not taking: Reported on 01/06/2024) naltrexone 50 mg tablet Take 1 tablet by mouth once daily. Prescribed by psychiatry at [facility] (Patient not taking: Reported on 01/06/2024) diphenhydrAMINE (BENADRYL) 25 mg capsule Take 1 capsule by mouth twice daily. (Patient not taking: Reported on 01/06/2024) montelukast (SINGULAIR) 10 mg tablet Take 1 tablet by mouth daily at bedtime. (Patient not taking: Reported on 01/06/2024) FAMILY HISTORY Problem Relation Age of Onset Anxiety disorder Mother Depression Mother Asthma Mother Diabetes Father Hypertension Father Diabetes Paternal Grandfather Hypertension Paternal Grandfather Social History Tobacco Use Smoking status: Former Current packs/day: 0.00 Average packs/day: 0.3 packs/day for 18.5 years (5.6 ttl pk-yrs) Types: Cigarettes Start date: 11/08/2003 Quit date: 05/10/2022 Years since quittin.9 Smokeless tobacco: Never Vaping Use Vaping status: Never Used Substance Use Topics Alcohol use: Yes Comment: occasionally Drug use: No Review of Systems Constitutional: Negative for fever. HENT: Negative for congestion, ear pain, nosebleeds and sore throat. Respiratory: Positive for cough, shortness of breath and wheezing. Cardiovascular: Negative for chest pain. Musculoskeletal: Negative for neck pain. Skin: Negative for itching and rash. Objective Blood pressure 128/82, pulse 90, temperature 37.1 ?C (98.8 ?F), temperature source Tympanic, resp. rate 18, weight 80.2 kg (176 lb 12.9 oz), SpO2 100%. Physical Exam Constitutional: General: She is not in acute distress. Appearance: She is not toxic-appearing or diaphoretic. HENT: Head: Normocephalic and atraumatic. Cardiovascular: Rate and Rhythm: Normal rate and regular rhythm. Heart sounds: Normal heart sounds, S1 normal and S2 normal. Pulmonary: Effort: Pulmonary effort is normal. Breath sounds: Wheezing (scattered throughout) present. No decreased breath sounds, rhonchi or rales. Neurological: Mental Status: She is alert and oriented to person, place, and time. Gait: Gait is intact. ASSESSMENT/PLAN: 1. Moderate persistent asthmatic bronchitis with acute exacerbation - ICD9: 493.92, ICD10: J45.41 Steroid ordered Worsening s/s go to ER - PREDNISONE 10 MG TABLET Calista Lee APRN.SHAR [facility] 04-03-2024 History of Present illness Narrative Subjective HPI HPI Sara Ontiveros is a 39 year old female who presents today for CC of cough, sob, wheezing. This started todya. Has tried asthma nebulizer. Symptoms are worsened by activity. Risk factors hx of severe asthma. Nonsmoker. Denies possibility of being . .Patient presents with: Cough: Cough, chest congestion and SOB-always has these symptoms but today much worse 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 (Deisi Rodriguez MD) YUNIOR (generalized anxiety disorder) 08/25/2021 High-risk 04/27/2012 LGSIL (low grade squamous intraepithelial dysplasia) 01/04/2013 Tobacco dependence syndrome 09/22/2009 Trauma 2008 DISLOCATED KNEE, Right PAST SURGICAL HISTORY Procedure Laterality Date NONE ALLERGIES Propranolol MEDICATIONS albuterol HFA (PROVENTIL HFA, VENTOLIN HFA) 90 mcg/actuation inhaler Inhale 2 Puffs as instructed every 6 hours as needed for wheezing/shortness of breath. albuterol HFA (PROAIR HFA) 90 mcg/actuation inhaler Inhale 2 Puffs as instructed every 6 hours as needed. gabapentin (NEURONTIN) 300 mg capsule Take 1 capsule by mouth three times a day for 90 days. albuterol HFA (VENTOLIN HFA) 90 mcg/actuation inhaler inhale 2 puffs by mouth as directed every 4 hours if needed for wheezing OR SHORTNESS OF BREATH fluticasone (FLONASE) 50 mcg/actuation nasal spray Use 2 Sprays in each nostril once daily. Rinse mouth after use. albuterol (PROVENTIL) 2.5 mg /3 mL (0.083 %) nebulizer solution inhale contents of 1 vial in nebulizer every 4 hours if needed for wheezing or shortness of breath fluticasone-salmeterol (ADVAIR DISKUS) 500-50 mcg/dose dsdv Inhale 1 Puff as instructed twice daily. Rinse and gargle mouth with water after use. levonorgestrel (MIRENA) 20 mcg/24 hours (7 yrs) 52 mg IUD 1 Each by INTRAUTERINE route as directed. Nebulizer Accessories [facility] [place] Pt needs nebulzier and supplies. Dx is asthma J45.40. predniSONE (DELTASONE) 10 mg tablet Take 6 tabs today, then 4 tabs daily for 2 days, then 2 tabs daily for 3 days, then 1 tab daily for 3 days with food. umeclidinium (INCRUSE ELLIPTA) 62.5 mcg/actuation inhaler Inhale 1 Puff as instructed once daily. (Patient not taking: Reported on 01/06/2024) naltrexone 50 mg tablet Take 1 tablet by mouth once daily. Prescribed by psychiatry at [facility] (Patient not taking: Reported on 01/06/2024) diphenhydrAMINE (BENADRYL) 25 mg capsule Take 1 capsule by mouth twice daily. (Patient not taking: Reported on 01/06/2024) montelukast (SINGULAIR) 10 mg tablet Take 1 tablet by mouth daily at bedtime. (Patient not taking: Reported on 01/06/2024) FAMILY HISTORY Problem Relation Age of Onset Anxiety disorder Mother Depression Mother Asthma Mother Diabetes Father Hypertension Father Diabetes Paternal Grandfather Hypertension Paternal Grandfather Social History Tobacco Use Smoking status: Former Current packs/day: 0.00 Average packs/day: 0.3 packs/day for 18.5 years (5.6 ttl pk-yrs) Types: Cigarettes Start date: 11/08/2003 Quit date: 05/10/2022 Years since quittin.9 Smokeless tobacco: Never Vaping Use Vaping status: Never Used Substance Use Topics Alcohol use: Yes Comment: occasionally Drug use: No Review of Systems Constitutional: Negative for fever. HENT: Negative for congestion, ear pain, nosebleeds and sore throat. Respiratory: Positive for cough, shortness of breath and wheezing. Cardiovascular: Negative for chest pain. Musculoskeletal: Negative for neck pain. Skin: Negative for itching and rash. Objective Blood pressure 128/82, pulse 90, temperature 37.1 C (98.8 F), temperature source Tympanic, resp. rate 18, weight 80.2 kg (176 lb 12.9 oz), SpO2 100%. Physical Exam Constitutional: General: She is not in acute distress. Appearance: She is not toxic-appearing or diaphoretic. HENT: Head: Normocephalic and atraumatic. Cardiovascular: Rate and Rhythm: Normal rate and regular rhythm. Heart sounds: Normal heart sounds, S1 normal and S2 normal. Pulmonary: Effort: Pulmonary effort is normal. Breath sounds: Wheezing (scattered throughout) present. No decreased breath sounds, rhonchi or rales. Neurological: Mental Status: She is alert and oriented to person, place, and time. Gait: Gait is intact. ASSESSMENT/PLAN: 1. Moderate persistent asthmatic bronchitis with acute exacerbation - ICD9: 493.92, ICD10: J45.41 Steroid ordered Worsening s/s go to ER - PREDNISONE 10 MG TABLET Calista Lee APRN.DOCUMENTATION CLERK documented in this encounter [facility] 01-06-2024 History of Present illness Narrative CC: Patient presents with: Asthma: Asthma flare up x 3 days HPI: Sara H Felipe is a 38 year old female who presents to the office with complaint of shortness of breath for a few days. Symptoms are worsening Associated symptoms includes wheezing and dyspnea. Denies fever, nausea, vomiting , and diarrhea. Treatments tried include nothing so far. with no relief of symptoms. Sick contacts: unknown. History of asthma, frequent episodes of bronchitis, chronic bronchitis, bronchiectasis or COPD: Yes asthma and said it feels like her normal flairs of asthma Smoker: No Seasonal/environmental allergies: No The ROS is otherwise negative. The patient's pmh, medications, allergies, and past visits are reviewed. PHYSICAL EXAM: BP 112/76 Pulse 90 Temp 36.8 C (98.2 F) Resp 21 Wt 80.8 kg (178 lb 2.1 oz) LMP (LMP Unknown) SpO2 97% BMI 30.58 kg/m General appearance: alert, cooperative, pleasant, in no acute distress Head: Normocephalic Eyes: EOM's intact, conjunctiva pink and moist, no icterus, sclera white, non-injected Heart: Negative. RRR without obvious murmur, gallop, or rubs. No ectopy. Lungs: mild wheezing diffusely 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 (Deisi Rodriguez MD) YUNIOR (generalized anxiety disorder) 08/25/2021 High-risk 04/27/2012 LGSIL (low grade squamous intraepithelial dysplasia) 01/04/2013 Tobacco dependence syndrome 09/22/2009 Trauma 2008 DISLOCATED KNEE, Right PAST SURGICAL HISTORY Procedure Laterality Date NONE ALLERGIES Propranolol MEDICATIONS albuterol HFA (VENTOLIN HFA) 90 mcg/actuation inhaler inhale 2 puffs by mouth as directed every 4 hours if needed for wheezing OR SHORTNESS OF BREATH fluticasone (FLONASE) 50 mcg/actuation nasal spray Use 2 Sprays in each nostril once daily. Rinse mouth after use. albuterol (PROVENTIL) 2.5 mg /3 mL (0.083 %) nebulizer solution inhale contents of 1 vial in nebulizer every 4 hours if needed for wheezing or shortness of breath fluticasone-salmeterol (ADVAIR DISKUS) 500-50 mcg/dose dsdv Inhale 1 Puff as instructed twice daily. Rinse and gargle mouth with water after use. levonorgestrel (MIRENA) 20 mcg/24 hours (7 yrs) 52 mg IUD 1 Each by INTRAUTERINE route as directed. Nebulizer Accessories [facility] [place] [place] Pt needs nebulzier and supplies. Dx is asthma J45.40. albuterol HFA (PROAIR HFA) 90 mcg/actuation inhaler Inhale 2 Puffs as instructed every 6 hours as needed. (Patient not taking: Reported on 01/06/2024) gabapentin (NEURONTIN) 300 mg capsule Take 1 capsule by mouth three times a day for 90 days. umeclidinium (INCRUSE ELLIPTA) 62.5 mcg/actuation inhaler Inhale 1 Puff as instructed once daily. (Patient not taking: Reported on 01/06/2024) naltrexone 50 mg tablet Take 1 tablet by mouth once daily. Prescribed by psychiatry at [facility] (Patient not taking: Reported on 01/06/2024) diphenhydrAMINE (BENADRYL) 25 mg capsule Take 1 capsule by mouth twice daily. (Patient not taking: Reported on 01/06/2024) montelukast (SINGULAIR) 10 mg tablet Take 1 tablet by mouth daily at bedtime. (Patient not taking: Reported on 01/06/2024) FAMILY HISTORY Problem Relation Age of Onset Anxiety disorder Mother Depression Mother Asthma Mother Diabetes Father Hypertension Father Diabetes Paternal Grandfather Hypertension Paternal Grandfather Social History Tobacco Use Smoking status: Former Packs/day: 0.30 Years: 16.00 Additional pack years: 0.00 Total pack years: 4.80 Types: Cigarettes Start date: 11/08/2003 Quit date: 05/10/2022 Years since quittin.6 Smokeless tobacco: Never Vaping Use Vaping Use: Never used Substance Use Topics Alcohol use: Yes Comment: occasionally Drug use: No ASSESSMENT/PLAN: 1. Mild intermittent asthma without complication - ICD9: 493.90, ICD10: J45.20 - ALBUTEROL SULFATE HFA 90 MCG/ACTUATION AEROSOL INHALER - PREDNISONE 10 MG TABLET Prescription instructions reviewed with patient as applicable. Potential red flag symptoms discussed with the patient. Reviewed appropriate action plan to take if red flag symptoms occur. Patient agreeable to treatment plan. Patient will make a follow up with PCP Sherita Salazar APRN.DOCUMENTATION CLERK documented in this encounter [facility] 10-27-2023 History of Present illness Narrative Subjective HPI Nontoxic-appearing female presents urgent care chief plaint asthma exacerbation. Duration of symptoms today. Associated symptoms cough wheezing some shortness of breath. History of asthma exacerbations this feels similar. Albuterol is helping slightly. States was hospitalized last Su for asthma exacerbation. Denies any known sick contacts. Denies any chest pain pleuritic pain hemoptysis fever body aches chills nausea vomiting abdominal pain change in bowel or bladder habits. Past medical history prescription medication use allergies reviewed. Denies chance of is not breast-feeding. .Patient presents with: Asthma: Flare x today 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 (Deisi Rodriguez MD) YUNIOR (generalized anxiety disorder) 08/25/2021 High-risk 04/27/2012 LGSIL (low grade squamous intraepithelial dysplasia) 01/04/2013 Tobacco dependence syndrome 09/22/2009 Trauma 2008 DISLOCATED KNEE, Right PAST SURGICAL HISTORY Procedure Laterality Date NONE ALLERGIES Propranolol MEDICATIONS tiZANidine (ZANAFLEX) 4 mg tablet Take 1 tablet by mouth every 8 hours as needed (spasm). diclofenac, EC, (VOLTAREN) 75 mg EC tablet Take 1 tablet by mouth two times a day. gabapentin (NEURONTIN) 300 mg capsule Take 1 capsule by mouth three times a day for 90 days. albuterol HFA (VENTOLIN HFA) 90 mcg/actuation inhaler inhale 2 puffs by mouth as directed every 4 hours if needed for wheezing OR SHORTNESS OF BREATH umeclidinium (INCRUSE ELLIPTA) 62.5 mcg/actuation inhaler Inhale 1 Puff as instructed once daily. naltrexone 50 mg tablet Take 1 tablet by mouth once daily. Prescribed by psychiatry at [facility] fluticasone (FLONASE) 50 mcg/actuation nasal spray Use [...] and gargle mouth with water after use. montelukast (SINGULAIR) 10 mg tablet Take 1 tablet by mouth daily at bedtime. levonorgestrel (MIRENA) 20 mcg/24 hours (7 yrs) 52 mg IUD 1 Each by INTRAUTERINE route as directed. Nebulizer Accessories [facility] [place] Pt needs nebulzier and supplies. Dx is asthma J45.40. FAMILY HISTORY Problem Relation Age of Onset Anxiety disorder Mother Depression Mother Asthma Mother Diabetes Father Hypertension Father Diabetes Paternal Grandfather Hypertension Paternal Grandfather Social History Tobacco Use Smoking status: Former Packs/day: 0.30 Years: 16.00 Additional pack years: 0.00 Total pack years: 4.80 Types: Cigarettes Start date: 11/08/2003 Quit date: 05/10/2022 Years since quittin.4 Smokeless tobacco: Never Vaping Use Vaping Use: Never used Substance Use Topics Alcohol use: Yes Comment: occasionally Drug use: No BP 115/67 Pulse 91 Temp 36.8 C (98.2 F) Resp 20 Wt 80.7 kg (177 lb 14.6 oz) LMP (LMP Unknown) SpO2 100% BMI 30.54 kg/m Review of Systems Constitutional: Negative for chills, fever and malaise/fatigue. HENT: Negative for congestion, ear discharge, ear pain, sinus pain and sore throat. Eyes: Negative for blurred vision, pain, discharge and redness. Respiratory: Positive for cough, shortness of breath and wheezing. Negative for hemoptysis, sputum production and stridor. Cardiovascular: Negative for chest pain. Gastrointestinal: Negative for abdominal pain, diarrhea, nausea and vomiting. Musculoskeletal: Negative for myalgias. Skin: Negative for itching and rash. Neurological: Negative for dizziness and headaches. Objective Physical Exam Constitutional: General: She is not in acute distress. Appearance: She is not diaphoretic. HENT: Head: Normocephalic. Jaw: No trismus, tenderness, swelling or pain on movement. Nose: Nose normal. Mouth/Throat: Mouth: Mucous membranes are moist. Pharynx: Oropharynx is clear. Uvula midline. No pharyngeal swelling, oropharyngeal exudate, posterior oropharyngeal erythema or uvula swelling. Eyes: Conjunctiva/sclera: Conjunctivae normal. Pupils: Pupils are equal, round, and reactive to light. Cardiovascular: Rate and Rhythm: Normal rate and regular rhythm. Heart sounds: Normal heart sounds. Pulmonary: Effort: Pulmonary effort is normal. No tachypnea, accessory muscle usage or respiratory distress. Breath sounds: No stridor. Wheezing present. No rhonchi or rales. Abdominal: General: There is no distension. Palpations: Abdomen is soft. Tenderness: There is no abdominal tenderness. There is no guarding or rebound. Musculoskeletal: Cervical back: Normal range of motion and neck supple. No edema, erythema, rigidity or tenderness. No pain with movement. Normal range of motion. Lymphadenopathy: Cervical: No cervical adenopathy. Skin: General: Skin is warm and dry. Neurological: Mental Status: She is alert and oriented to person, place, and time. ASSESSMENT/PLAN: 1. Moderate persistent asthma with acute exacerbation - ICD9: 493.92, ICD10: J45.41 Nontoxic-appearing. No acute distress noted. Mild increase respiration rate noted. wheezing on auscultation. Treat as acute asthma exacerbation. Placed on prednisone. Albuterol inhaler sent to pharmacy. Strict red flags for ER evaluation discussed. Patient was educated on supportive therapies. [...] of care. This note was generated using Intellistream software. It may contain errors in wording, punctuation, or spelling. Brien Frazier APRN.SHAR documented in this encounter [facility] 10-13-2023 Note HNO ID: [id number] Author: ELI CRUZ APRN.DOCUMENTATION CLERK Service: ? Author Type: Nurse Practitioner Type: Progress Notes Filed: 10/13/2023 12:37 Note Text: [facility] General Today's Date: 10/13/2023 Name: Sara Ontiveros : 1985 Purpose: Follow-up Patient Evaluation - This is an established patient, returning today for continued evaluation and management of the chief complaint noted below (Telemedicine) Chief complaint: Neck pain left arm pain Pertinent Past Medical History: Asthma, Depression, PTSD, anxiety, Alcohol dependence (remission) Pertinent Past Surgeries: none This is a virtual visit via Zoom, Phone and/or Tsukulinkhart. It required patient-provider interaction for the medical decision making as documented below. Patient understands that privacy cannot be guaranteed. Note: Examination was limited today due to this being a virtual/telemedicine encounter Interval History: Overall pain and functional disability since last visit: Unchanged New Complaints since last visit: No PAIN DESCRIPTION: Timing: Constant Character: Dull, Sharp, Shooting, Throbbing pt states she feels it is like a chetan horse going down her left arm Primary Location: neck and left and trapezius region Radiation: down the left arm into all fingers mostly the first 3. Exacerbating factors: lifting over her head, Relieving factors: Repositioning/Changing positions, Heat Interferes with: everything Patient reporting her pain has not changed since her last assessment. Patient has been going to the physical therapist and the therapy is not helping with the strength or with the pain. Patient complaining of the numbness and tingling getting worse especially in the last 3 fingers. States there is times that her hand becomes discolored and ice cold. Patient states that the physical therapist is seen this as well. Patient stating that she is taking the Flexeril and does not feel it is helping and continues to take the gabapentin is unsure if it is relieving any of her pain. States that she is using ibuprofen currently that we will just take the edge off. Patient is here stating that she is having a difficult time at work due to the pain. Current Pain Medications: Neuropathics: gabapentin ( taking for depression) pt reports not on a regular bases NSAIDS: ibuprofen Muscle Relaxants: cyclobenzaprine Topicals: Other Prescription or OTC Pain Medications: tylenol Opioids (when applicable): No question data found. Anti-depressants or Mood-Stabilizers: None Anti-Coagulants: None Therapies Attended (Current or Most Recent): Physical Therapy 08/11/2023 through 09/29/2023 08/11/2023 AG SPINE COMBINATION Questionnaire GREENLIGHT Completed Date 08/11/2023 Questionnaire Opiod Risk Tool Completed Date 08/11/2023 Comments 2 No question data found. (All drug screens are appropriate unless indicated otherwise) Notable Events During Course of Treatment: 08/10/2023 - Initial HPI (Obtained by Eli Cruz CNP). DURATION AND ONSET: The pain complaint has been present for approximately 4 months. The pain had a sudden onset. The mechanism of injury is unknown. RED FLAG SYMPTOMS: left arm weakness and numbness or tingling in her fingers. PAIN DESCRIPTION: Timing: Constant Character: Dull, Sharp, Shooting, Throbbing pt states she feels it is like a chetan horse going down her left arm Primary Location: neck and left and trapezius region Radiation: down the left arm into all fingers. Exacerbating factors: lifting over her head, Relieving factors: Repositioning/Changing positions, Medications, Heat Interferes with: everything Patient reporting approximately 4 months ago she woke up with the pain in her left upper shoulder neck with radiation going down her arm. Patient states she does not remember hurting herself. Patient states this pain has been like a charley horse feeling going down her arms. Patient stating that she did go to the ER and they did do a CT scan, did give her lidocaine, and some medication which did help short-term. 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 Patient states it is a constant pain in her left shoulder arm and neck. Patient has not had physical therapy. Patient was on gabapentin for issues for psych but she has been taking them as needed as she is not gone back to get her prescription. Patient has not had physical therapy. Patient states currently she is having a difficult time with her activities of daily living due to the pain. Treatment History: PAIN PROCEDURES: DATE PROCEDURE IMPROVEMENT To d (more content not included)... [facility] 10-13-2023 Instructions Eli Cruz APRN.CNP - 10/13/2023 12:34 PM EDT Ice and heat as tolerated Activity as tolerated documented in this encounter [facility] 10-13-2023 History of Present illness Narrative Images from the original note were not included. [facility] [place] General Today's Date: 10/13/2023 Name: Sara Ontiveros : 1985 Purpose: Follow-up Patient Evaluation - This is an established patient, returning today for continued evaluation and management of the chief complaint noted below (Telemedicine) Chief complaint: Neck pain left arm pain Pertinent Past Medical History: Asthma, Depression, PTSD, anxiety, Alcohol dependence (remission) Pertinent Past Surgeries: none This is a virtual visit via Zoom, Phone and/or Tsukulinkhart. It required patient-provider interaction for the medical decision making as documented below. Patient understands that privacy cannot be guaranteed. Note: Examination was limited today due to this being a virtual/telemedicine encounter Interval History: Overall pain and functional disability since last visit: Unchanged New Complaints since last visit: No PAIN DESCRIPTION: Timing: Constant Character: Dull, Sharp, Shooting, Throbbing pt states she feels it is like a chetan horse going down her left arm Primary Location: neck and left and trapezius region Radiation: down the left arm into all fingers mostly the first 3. Exacerbating factors: lifting over her head, Relieving factors: Repositioning/Changing positions, Heat Interferes with: everything Patient reporting her pain has not changed since her last assessment. Patient has been going to the physical therapist and the therapy is not helping with the strength or with the pain. Patient complaining of the numbness and tingling getting worse especially in the last 3 fingers. States there is times that her hand becomes discolored and ice cold. Patient states that the physical therapist is seen this as well. Patient stating that she is taking the Flexeril and does not feel it is helping and continues to take the gabapentin is unsure if it is relieving any of her pain. States that she is using ibuprofen currently that we will just take the edge off. Patient is here stating that she is having a difficult time at work due to the pain. Current Pain Medications: Neuropathics: gabapentin ( taking for depression) pt reports not on a regular bases NSAIDS: ibuprofen Muscle Relaxants: cyclobenzaprine Topicals: Other Prescription or OTC Pain Medications: tylenol Opioids (when applicable): No question data found. Anti-depressants or Mood-Stabilizers: None Anti-Coagulants: None Therapies Attended (Current or Most Recent): Physical Therapy 08/11/2023 through 09/29/2023 08/11/2023 AG SPINE COMBINATION Questionnaire GREENLIGHT Completed Date 08/11/2023 Questionnaire Opiod Risk Tool Completed Date 08/11/2023 Comments 2 No question data found. (All drug screens are appropriate unless indicated otherwise) Notable Events During Course of Treatment: 08/10/2023 - Initial HPI (Obtained by Eli Cruz CNP). DURATION AND ONSET: The pain complaint has been present for approximately 4 months. The pain had a sudden onset. The mechanism of injury is unknown. RED FLAG SYMPTOMS: left arm weakness and numbness or tingling in her fingers. PAIN DESCRIPTION: Timing: Constant Character: Dull, Sharp, Shooting, Throbbing pt states she feels it is like a chetan horse going down her left arm Primary Location: neck and left and trapezius region Radiation: down the left arm into all fingers. Exacerbating factors: lifting over her head, Relieving factors: Repositioning/Changing positions, Medications, Heat Interferes with: everything Patient reporting approximately 4 months ago she woke up with the pain in her left upper shoulder neck with radiation going down her arm. Patient states she does not remember hurting herself. Patient states this pain has been like a charley horse feeling going down her arms. Patient stating that she did go to the ER and they did do a CT scan, did give her lidocaine, and some medication which did help short-term. 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 Patient states it is a constant pain in her left shoulder arm and neck. Patient has not had physical therapy. Patient was on gabapentin for issues for psych but she has been taking them as needed as she is not gone back to get her prescription. Patient has not had physical therapy. Patient states currently she is having a difficult time with her activities of daily living due to the pain. Treatment History: PAIN PROCEDURES: DATE PROCEDURE IMPROVEMENT To date, no interventional pain management procedures performed at this practice. Data Reviewed Today: Allergies: ALLERGIES Allergen Reactions Propranolol Shortness of Breath Social History Tobacco Use Smoking status: Former Packs/day: 0.30 Years: 16.00 Additional pack years: 0.00 Total pack years: 4.80 Types: Cigarettes Start date: 11/08/2003 Quit date: 05/10/2022 Years since quittin.4 Smokeless tobacco: Never Vaping Use Vaping Use: Never used Substance Use Topics Alcohol use: Yes Comment: occasionally Drug use: No 09/29/2023 10/13/2023 INTAKE PAIN ASSESSMENT Are you having pain associated with your visit today? Yes, Provider notified Pain Level 5 7 Pain Location Arm-Left Description Cramping;Shooting Duration Amount of Time 5 Duration Units Months Frequency Continuous Current Pain Medications: Neuropathics: gabapentin NSAIDS: Muscle Relaxants: flexeril Topicals: Other Prescription or OTC Pain Medications: Opioids (when applicable): Anti-depressants or Mood-Stabilizers: None Anti-Coagulants: None 08/11/2023 AG SPINE COMBINATION Questionnaire GREENLIGHT Completed Date 08/11/2023 Questionnaire Opiod Risk Tool Completed Date 08/11/2023 Comments 2 No question data found. (All drug screens are appropriate unless indicated otherwise) Data Reviewed Today: Allergies: ALLERGIES Allergen Reactions Propranolol Shortness of Breath Social History Tobacco Use Smoking status: Former Packs/day: 0.30 Years: 16.00 Additional pack years: 0.00 Total pack years: 4.80 Types: Cigarettes Start date: 11/08/2003 Quit date: 05/10/2022 Years since quittin.4 Smokeless tobacco: Never Vaping Use Vaping Use: Never used Substance Use Topics Alcohol use: Yes Comment: occasionally Drug use: No 09/29/2023 10/13/2023 INTAKE PAIN ASSESSMENT Are you having pain associated with your visit today? Yes, Provider notified Pain Level 5 7 Pain Location Arm-Left Description Cramping;Shooting Duration Amount of Time 5 Duration Units Months Frequency Continuous Compliance: PDMP website checked and validated on 10/13/2023 by Eli Cruz APRN.DOCUMENTATION CLERK All prescriptions have been APPROPRIATELY filled. No suspicious activity was identified. Recent Drug screens: 08/11/2023 AG SPINE COMBINATION Questionnaire GREENLIGHT Completed Date 08/11/2023 Questionnaire Opiod Risk Tool Completed Date 08/11/2023 Comments 2 No question data found. (All drug screens are appropriate unless indicated otherwise) Risk Assessment: YUNIOR-7: 01/28/2022 01/13/2023 08/11/2023 YUNIOR - 7 SCORES Score 17 19 19 0 (0-4) minimal anxiety, (5-9) mild anxiety, (10-14) moderate anxiety, (15-21) severe anxiety PHQ-9: 01/28/2022 01/13/2023 08/11/2023 PHQ-9 Score 11 21 21 9 (0-4) minimal depression, (5-9) mild depression, (10-14) moderate depression, (15-19) moderately severe depression, (20-27) severe depression Diagnostic Studies: Relevant Imaging: Electrodiagnostic Study (EMG): None Recent Labs: Creatinine Date Value Ref Range Status 10/22/2021 0.84 0.58 - 0.96 mg/dL Final No results found for: GFR No results found for: PCGLUCOSE Current Medications, Past Medical History, Past Surgical History, Family History & Social History: Reviewed on today's date. Review of Systems: Reviewed on today's date. Pertinent Positives: MSK - pain in the region being treated Neuro: Negarive weakness or numbness in the region being treated Skin: Negative (No itching) Eyes: Negative (No blurred or double vision) Respiratory: Negative (No Cough, [id number], Dyspnea on exertion, wheezing) Cardiovascular: Negative (No Chest Pain, Tightness, Pressure, Palpitations) Gastrointestinal: Negative (No Abdominal pain, Nausea, Vomiting, Constipation, Diarrhea) Genitourinary: Negative (No dysuria) Hematologic: Negative (No bleeding, bruising) OB: is Denied or Not Applicable Endocrine: Negative (No hot/cold intolerance) Psychiatric: Negative (No depression, anxiety or suicidal ideation) Physical Exam: PHYSICAL EXAMINATION: VIDEO EXAM: (if completed, performed via video enabled technology) GENERAL: alert and appropriate, in no distress, well-hydrated, well nourished, and happy, smiling, interactive SKIN: no rash noted HEAD: normocephalic, no abnormality or lesion noted EYES: no injection and visual acuity is grossly normal EARS: hearing grossly normal NOSE: external nose normal without rhinorrhea NECK:Decreased range of motion of cervical spine due to pain. Decreased range of motion of shoulders due to pain. RESPIRATORY: breathing non-labored CHEST: equal chest rise with normal respiratory effort HEART: no obvious deficit BACK: back normal in appearance, spine with FROM EXTREMITIES: no obvious deficit IMPRESSION: 38 year old female presents with complaint(s) of Neck pain with radicular symptoms as described above. Patient does not seem to be improving with physical therapy. Patient continues to be weak and having a hard time moving her arms. Will attempt to get an MRI approved. Will also order an EMG nerve conduction study of the upper extremities to see if there is a valid reason for the numbness and tingling in her hand. Patient was encouraged to continue physical therapy at this point. Will stop the Flexeril as it is ineffective and attempt tizanidine instead, warning was given to patient regarding side effects. Will continue the gabapentin and start diclofenac. Patient was instructed not to take ibuprofen and diclofenac together and to wait 5 to 7 days after starting the tizanidine to try the diclofenac. Patient stated understanding of the instructions and was okay with the plan of care. Diagnoses: (M54.12) Cervical radicular pain (primary encounter diagnosis) (R20.0, R20.2) Numbness and tingling in left hand (M50.30) Degeneration of intervertebral disc of cervical spine without disc herniation (M48.02) Spinal stenosis of cervical region PLAN: Sara Ontiveros would benefit from the following to reach personal goals for decreasing pain, improving function and work participation, and/or improving quality of life: Medications: Requested Prescriptions Signed Prescriptions Disp Refills tiZANidine (ZANAFLEX) 4 mg tablet 60 tablet 1 Sig: Take 1 tablet by mouth every 8 hours as needed (spasm). diclofenac, EC, (VOLTAREN) 75 mg EC tablet 60 tablet 1 Sig: Take 1 tablet by mouth two times a day. Interventional Procedures: Ordered a EMG/NCT of the upper extremities. Studies: MRI: Cervical Spine Functional Synagogue: Pt to continue PT Referrals: No additional considerations at present Follow-up: 1 month Depending on response to the above plan, consider: RIO Compliance and Clinic Policies Reviewed and/or Discussed Today: None Attribution: In addition to reviewing the information noted above, some elements copied from my most recent clinical note(s), including the physical exam (completed in entirety today), and the impression and plan sections, have been updated where appropriate. All reflect current medical decision making from today's date. I spent a total of 31 minutes on the date of the service which included preparing to see the patient, [id number] patient care, completing clinical documentation, counseling and educating the patient/family/caregiver, and ordering medications, tests, or procedures. Eli Cruz APRN.SHAR Pain Management [facility] documented in this encounter [facility] 09-22-2023 History of Present illness Narrative Episode Visit Count: 4 Therapist That Will Accept/Oversee The Plan Of Care: Addi Alfredo Start of Care Date: 09/01/23 Onset Date: 05/25/23 Plan of Care Certification Date: 09/01/23 Next Certification Due Date: 10/27/23 Patient Identified by Name and Date of : Yes [facility] PHYSICAL THERAPY TREATMENT NOTE ASSESSMENT: Sara Ontiveros tolerated the session with fatigue, decreased symptoms, and expected muscle soreness. She demonstrated improvements in radicular symptoms with cervical traction. Pt had purpling in her L hand with exercises again, however it was not painful like last session. The patient will continue to benefit from ongoing skilled physical therapy to progress toward set goals. PLAN FOR NEXT VISIT: Continue with manual cervical traction. Asses response to pectoral stretching. PN SUBJECTIVE: Pt reports no change in symptoms. Pt stated that she laid on her heating pad all night last night. Pain: Pain Pain Level: 5 Pain Location: Neck - Left, Arm - Left Post Treatment Pain Post Treatment Pain Location: Neck - Left, Arm - Left Post Treatment Symptoms: my neck feels a lot looser compared to when I came in OBJECTIVE MEASURES WITH LEVEL OF FUNCTION: GH joint anteriorly rotated TREATMENT: Therapeutic Exercise: 1: *Standing pectoral stretch 3x20 seconds LUE with L arm low on wall 2: *Scapular retractions 2x10 Skilled Intervention: Patient was educated in proper exercise technique and purpose for exercises. Reviewed and educated patient on additions/changes for home exercise program as above (*). Skilled judgment was used in selection of appropriate interventions. Provided written instruction for home exercise program to facilitate proper performance and compliance. Correct performance of therapeutic exercises was facilitated with verbal and visual cuing. Manual Therapy: 1: Manual cervical traction with intermittent pull x 15 mintues (Pt states I can feel my fingers again, like I have sensation back.) 2: Manual retraction of L GH joint in supine. Skilled Intervention: Manual skills to improve joint mobility, ROM, and decrease pain. Utilized anatomy knowledge of the therapist, and assessment of patient's response to intervention. Billing Therapeutic Exercise Treatment Minutes: 10 Manual TherapyTreatment Minutes: 28 Total Session Time (minutes): 38 Session Start Time : 934 Session Stop Time : 1012 UVALDO Christie PT documented in this encounter [facility] 09-15-2023 History of Present illness Narrative Episode Visit Count: 3 Therapist That Will Accept/Oversee The Plan Of Care: Addi Alfredo Start of Care Date: 09/01/23 Onset Date: 05/25/23 Plan of Care Certification Date: 09/01/23 Next Certification Due Date: 10/27/23 Patient Identified by Name and Date of : Yes REHABILITATION AND SPORTS THERAPY PHYSICAL THERAPY TREATMENT NOTE ASSESSMENT: Sara Ontiveros tolerated the session with increased symptoms. She demonstrated difficulty with continued pain and N/T into the LUE. The patient will continue to benefit from ongoing skilled physical therapy to progress toward set goals. PLAN FOR NEXT VISIT: Manual traction. Possible manual traction with nerve glides. SUBJECTIVE: Nothing is helping much other than the manual traction and the other manual techniques performed today. The nerve glides did not seem to help or hurt her. Pain: Pain Pain Level: 7 Pain Location: Neck - Left, Arm - Left Post Treatment Pain Post Treatment Pain Level: No Change Post Treatment Pain Location: Neck - Left, Arm - Left OBJECTIVE MEASURES WITH LEVEL OF FUNCTION: Pt's upper arm is splotchy pink and forearm and hand are purple and cold to the touch compared to previous sessions. PA to C3 increases symptoms into the LUE while C4-5 causes increased neck pain TREATMENT: Therapeutic Exercise: 1: Cervical retractions x 4 (causes 10/10 pain and pt feeling light-headed. Pt laid down and the light-headedness went away and pain reduced to 6/10 with manual traction.) 2: Cervical R sidebend x 10 (Not given for home) Skilled Intervention: Patient was educated in proper exercise technique and purpose for exercises. Correct performance of therapeutic exercises was facilitated with verbal cuing. Manual Therapy: 1: Manual traction to cervical spine for pain reduction x12 minutes, gentle intermittent pull (Discussed possible use of home cervical traction unit for pain relief at home.) 2: Inferior glide of L 1st rib x 10 (Decreases tingling in the fingers) 3: Manual retraction of L GH joint in supine (reuces pain to a 3/10, but symptoms return after manual technique is stopped) Skilled Intervention: Manual skills to improve joint mobility, ROM, and decrease pain. Utilized anatomy knowledge of the therapist, and assessment of patient's response to intervention. Billing Therapeutic Exercise Treatment Minutes: 17 Manual TherapyTreatment Minutes: 30 Skilled Treatment Time Minutes (timed and untimed codes): 47 Total Session Time (minutes): 47 Session Start Time : 1417 Session Stop Time : 1504 Aaron Dia PT documented in this encounter [facility] 09-08-2023 History of Present illness Narrative Program_ID:[id number] Access Code: [email or web address] URL: [email or web address] Date: 09-08-2023 Prepared By: Sayda Dempsey Program Notes Exercises - Single Arm Doorway Pec Stretch at 90 Degrees Abduction - 1 x daily - 7 x weekly - 3 sets - 2 reps - Ulnar Nerve Flossing - 1 x daily - 7 x weekly - 2 sets - 5 reps - Ulnar Nerve Flossing - 1 x daily - 7 x weekly - 2 sets - 5 reps - Median Nerve Flossing - 1 x daily - 7 x weekly - 2 sets - 5 reps - Radial Nerve Mobilization - 1 x daily - 7 x weekly - 2 sets - 5 reps - Gentle Levator Scapulae Stretch - 1 x daily - 7 x weekly - 1 sets - 3 reps - Seated Gentle Upper Trapezius Stretch - 1 x daily - 7 x weekly - 1 sets - 3 reps Episode Visit Count: 2 Therapist That Will Accept/Oversee The Plan Of Care: Addi Alfredo Start of Care Date: 09/01/23 Onset Date: 05/25/23 Plan of Care Certification Date: 09/01/23 Next Certification Due Date: 10/27/23 Patient Identified by Name and Date of : Yes REHABILITATION AND SPORTS THERAPY PHYSICAL THERAPY TREATMENT NOTE ASSESSMENT: Sara Chasity Ontiveros tolerated the session with fatigue, decreased symptoms, and expected muscle soreness. She demonstrated improvements in numbness and tingling in LUE with nerve glides. The patient will continue to benefit from ongoing skilled physical therapy to progress toward set goals. PLAN FOR NEXT VISIT: Continue with manual traction. Asses response to UE nerve glides SUBJECTIVE: Pt reports that she is really hurting today. A lot of numbness in her L hand. Numbness and tingling in all of her fingers, middle and ring finger are the worst. Cervical retraction is causing neck to be more painful and sore. Pt experiencing more tightness in elbow and in neck with looking down. Pain: Pain Pain Level: 6 Pain Location: Neck - Left, Arm - Left Description: (like a chetan horse and electricity) Post Treatment Pain Post Treatment Pain Level: 6 Post Treatment Pain Location: Neck - Left, Arm - Left OBJECTIVE MEASURES WITH LEVEL OF FUNCTION: Tightness in L UT. TREATMENT: Therapeutic Exercise: 1: *Median nerve glide 2x5 (decreased parasthesias in LUE) 2: *Ulnar nerve glide 2x5 3: *Radial nerve mobilization 2x5 4: *Seated UT stretch 3x30 seconds L Skilled Intervention: Patient was educated in proper exercise technique and purpose for exercises. Reviewed and educated patient on additions/changes for home exercise program as above (*). Skilled judgment was used in selection of appropriate interventions. Provided written instruction for home exercise program to facilitate proper performance and compliance. Correct performance of therapeutic exercises was facilitated with verbal and visual cuing. Manual Therapy: 1: Manual traction to cervical spine for pain reduction x8 minutes, gentle intermittent pull Skilled Intervention: Manual skills to improve joint mobility, ROM, and decrease pain. Utilized anatomy knowledge of the therapist, and assessment of patient's response to intervention. Billing Therapeutic Exercise Treatment Minutes: 37 Manual TherapyTreatment Minutes: 8 Skilled Treatment Time Minutes (timed and untimed codes): 45 Total Session Time (minutes): 45 Session Start Time : 800 Session Stop Time : 845 Diana Villalobos, UVALDO Fontana PT DPPetrona documented in this encounter [facility] 09-01-2023 History of Present illness Narrative Program_ID:[id number] Access Code: [email or web address] URL: [email or web address] Date: 09-01-2023 Prepared By: Sayda Dempsey Program Notes Exercises - Supine Chin Tuck - 1 x daily - 7 x weekly - 3 sets - 10 reps - Single Arm Doorway Pec Stretch at 90 Degrees Abduction - 1 x daily - 7 x weekly - 3 sets - 2 reps Episode Visit Count: 1 Therapist That Will Accept/Oversee The Plan Of Care: Addi Alfredo Start of Care Date: 09/01/23 Onset Date: 05/25/23 Plan of Care Certification Date: 09/01/23 Next Certification Due Date: 10/27/23 Patient Identified by Name and Date of : Yes REHABILITATION AND SPORTS THERAPY PHYSICAL THERAPY EVALUATION PLAN OF CARE: Assessment: Felipe presents with diagnosis of neck pain with radiculopathy into the left arm that interferes with working, sleeping, reaching overhead, cooking, dressing, cleaning, lifting . She presents with impairments in ADL's, independence in exercise, overall function, posture, range of motion, sensation, strength, and symptom management. Patient did not complete the PROMIS (Patient Reported Outcome Measures Information System). Prognosis for therapy is Good due to: current objective clinical presentation, good overall health status, within-session changes . She will benefit from skilled therapy services to meet the goals established for this plan of care as noted below. Goals for Episode of Care: created on 09/01/23 through 10/27/23 Morgan in home exercise program. Patient will decrease pain rating by 2 points to meet minimal clinical important difference for numeric pain rating scale. Patient will increase active ROM of cervical spine to WNL and pain free in all directions to allow pt to to improve postural alignment. Patient will demonstrate increase in LUE strength to 5/5 during manual muscle testing in order to improve function for home management tasks. Perform 12 hours of work with decreased report of symptoms/pain in 8 weeks. Improve postural awareness. Decreased muscle tenderness over levator. Centralization of nerve symptoms as evidenced by improvement in sensation in the patient's left hand. Patient Goals: Reduce pain Planned Interventions, Frequency, and Duration: Current Frequency: 1x/week Duration: 8 weeks Total Number of Visits Planned: 8 Planned Treatment Interventions: Therapeutic exercise (95767), Neuromuscular re-education (44168), Manual therapy (52955), Therapeutic activities (94430), Gait Training (48028), Self-mcfp management (47490), Body Mechanics Training, Functional training, General Conditioning, E-Stim Unattended (17774), E-Stim Attended/TENS (48656) PLAN FOR NEXT VISIT: progress cervical deep flexor strengthening, potentially introduce nerve glide, ongoing manual traction Patient demonstrates good understanding of plan of care and treatment. The above goals and plan of care were discussed and agreed upon by patient/family. SUBJECTIVE: Patient presenting to PT for evaluation of neck pain with left arm radicular symptoms. Pain began around Thanksgiving, and the patient suspects she slept wrong. No specific event lead to onset. She feels the pain is worsening since initial injury. Imaging showing mild arthritis. Has tried steroids and gabapentin which did not offer relief. Muscle relaxers have helped occassionally. Has noted recent onset of headaches 2x per week. 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 Infection Clinical Reasoning: No identified risk factors. Cervical Arterial Dysfunction Clinical Reasoning: No identified risk factors Cervical Myelopathy Diagnostic Rule: No identified risk factors. Red Flags - Cervical Cancer Clinical Reasoning: No identified risk factors. Infection Clinical Reasoning: No identified risk factors. Cervical Arterial Dysfunction Clinical Reasoning: No identified risk factors Cervical Myelopathy Diagnostic Rule: No identified risk factors. Spine History Symptoms Location at Onset: Neck, Arm, Hand Symptoms Since Onset: Worsening Pain is Worse Always: (Overuse) Pain is Better Always: Rest Sleep Affected by Pain: Pain keeps from falling asleep, Pain awakens Pain: Pain Pain Level: 5 Pain Location: Neck - Left, Arm - Left Description: Cramping, Shooting Post Treatment Pain Post Treatment Pain Level: 4 Post Treatment Pain Location: Neck - Left, Arm - Left PROMIS Scales T-scores: mean of general population = 50. 5 points is clinically meaningfully difference Percentiles provide an indication of how the patient's score ranks in relation to the general population. Higher percentile rankings indicate better function/quality of life. 50th percentile is the average of the general population and indicates half of respondents had a worse score. OBJECTIVE MEASURES WITH LEVEL OF FUNCTION: Posture / Alignment Posture: Forward head, Rounded shoulders Spine Observations L Cervical Spine Palpation Tenderness: Upper trapezius, Levator scapulae (recreated finger numbess with pressure at levator) Sensation - Cervical Spine Cervical Spine Sensation: Dermatomes Cervical Spine Sensation - Dermatomes: C7 3rd Digit Cervical Spine ROM Cervical ROM : Measurement AROM Cervical Flexion AROM (degrees) : 60 Degrees (painful) Cervical Extension AROM (degrees) : 45 Degrees (significant increase in pain) Cervical Side-Bend Right AROM (degrees): 41 Degrees Cervical Side-Bend Left AROM (degrees) : 48 Degrees Cervical Rotation Right AROM (degrees) : 60 Degrees Cervical Rotation Left AROM (degrees) : 70 Degrees UE AROM R Shoulder Internal Rotation (Functional): T8 R Shoulder External Rotation (Functional): T3 L Shoulder Internal Rotation (Functional): T10 L Shoulder External Rotation (Functional): C8 UE Flexibility L Levator Scapulae Flexibility Comments: increased pressure with left levator stretch UE and Cervical Strength Strength Tested: Shoulder All R UE Strength: grossly 5/5 L Shoulder Flexion: 4/5 L Shoulder Abduction (C5): 4/5 L Shoulder Internal Rotation: 5/5 L Shoulder External Rotation: 4/5 Special Tests - Cervical Cervical Special Tests: Cervical Compression, Cervical Distraction, Spurling, Median Nerve, Ulnar Nerve Cervical Distraction: Positive Median Nerve: Left Positive Ulnar Nerve: Left Positive Gait Gait Observation: WNL Education: Education Learning Preferences: Demonstration, Explanation, Performance, Printed Materials Barriers: None Learning/educational needs: Health promotion, Home exercise program, Plan of Care, Posture, Body Mechanics Education Provided: Yes, see treatment interventions for education provided Education Provided To: Patient Education Mode/Type: Demonstration, Explanation/Discussion, Literature/Printed Materials, Performance Response to Education/Teach Back: States/Identifies, Return Demonstration TREATMENT: PT Treatment Interventions: Therapeutic Exercise, Manual Therapy Evaluation Therapeutic Exercise: 1: *Cervical retraction 2x10 3 sec hold supine, 1x10 3 sec hold seated 2: Seated scapular retraction, terminated due to increased nerve pain 3: *doorway pec stretch x30 sec 4: Patient educated on rehabilitation process, cervical anatomy, emphasis on pain free movements, importance of HEP compliance, and goals for PT. Significant education on nerve pain and referral pattern for cervical muscles. Skilled Intervention: Patient was educated in proper exercise technique and purpose for exercises. Skilled judgment was used in selection of appropriate interventions. Provided written instruction for home exercise program to facilitate proper performance and compliance. Correct performance of therapeutic exercises was facilitated with verbal and visual cuing. Patient education as noted. Manual Therapy: 1: Manual traction to cervical spine for pain reduction x8 minutes, patient endorsing decreased tingling sensation of the left hand during traction. 2: STM to UT, levator, paraspinals, and suboccipitals for pain relief and improved ROM. Patient tolerating only very light pressure in circular motions. Skilled Intervention: Manual skills to improve joint mobility, ROM, and decrease pain. Utilized anatomy knowledge of the therapist, and assessment of patient's response to intervention. Billing * Evaluation Low Complexity: 1 Unit Therapeutic Exercise Treatment Minutes: 10 Manual TherapyTreatment Minutes: 10 Skilled Treatment Time Minutes (timed and untimed codes): 43 Total Session Time (minutes): 43 Session Start Time : 948 Session Stop Time : 1031 Sayda Fontana PT, DPT documented in this encounter [facility] 08-11-2023 Note HNO ID: [id number] Author: KITTY PENA MA Service: ? Author Type: Row Boss Hoeing Type: Progress Notes Filed: 08/11/2023 12:53 Note Text: Review of Systems Constitutional: Negative for activity change, chills, fever and unexpected weight change. Gastrointestinal: Negative for bowel retention or incontinence Genitourinary: Negative for difficulty urinating. Negative for bladder retention or incontinence Musculoskeletal: Positive for arthralgias, back pain, myalgias, neck pain and neck stiffness. Negative for gait problem and joint swelling. Neurological: Positive for weakness and numbness. Negative for headaches. Psychiatric/Behavioral: Positive for dysphoric mood and sleep disturbance. Negative for suicidal ideas. The patient is nervous/anxious. [facility] 08-11-2023 Note HNO ID: [id number] Author: ELI CRUZ APRN.CNP Service: ? Author Type: Nurse Practitioner Type: Progress Notes Filed: 08/11/2023 12:53 Note Text: [facility] Today's Date: 08/11/2023 Name: Sara Ontiveros : 1985 Purpose: New Patient Consultation Chief complaint: Neck pain left arm pain Referring Clinician: Lidia Peraza CNP Pertinent Past Medical History: Asthma, Depression, PTSD, anxiety, Alcohol dependence (remission) Pertinent Past Surgeries: none History of Present Illness (HPI): 08/10/2023 - Initial HPI (Obtained by Eli Cruz CNP). DURATION AND ONSET: The pain complaint has been present for approximately 4 months. The pain had a sudden onset. The mechanism of injury is unknown. RED FLAG SYMPTOMS: left arm weakness and numbness or tingling in her fingers. PAIN DESCRIPTION: Timing: Constant Character: Dull, Sharp, Shooting, Throbbing pt states she feels it is like a chetan horse going down her left arm Primary Location: neck and left and trapezius region Radiation: down the left arm into all fingers. Exacerbating factors: lifting over her head, Relieving factors: Repositioning/Changing positions, Medications, Heat Interferes with: everything Patient reporting approximately 4 months ago she woke up with the pain in her left upper shoulder neck with radiation going down her arm. Patient states she does not remember hurting herself. Patient states this pain has been like a charley horse feeling going down her arms. Patient stating that she did go to the ER and they did do a CT scan, did give her lidocaine, and some medication which did help short-term. 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 Patient states it is a constant pain in her left shoulder arm and neck. Patient has not had physical therapy. Patient was on gabapentin for issues for psych but she has been taking them as needed as she is not gone back to get her prescription. Patient has not had physical therapy. Patient states currently she is having a difficult time with her activities of daily living due to the pain. Current Pain Medications: Neuropathics: gabapentin ( taking for depression) pt reports not on a regular bases NSAIDS: ibuprofen Muscle Relaxants: cyclobenzaprine Topicals: Other Prescription or OTC Pain Medications: tylenol Opioids (when applicable): Greenlight Questionnaire GREENLIGHT Completed Date 08/11/2023 Opioid Risk Tool Opiod Risk Tool Date Completed 08/11/2023 Comments 2 YUNIOR-7 Anxiety Score 0 Completed Date 08/11/2023 PHQ9P Score 9 Completed Date 08/11/2023 Anti-depressants or Mood-Stabilizers: None Anti-Coagulants: None Therapies Attended (Current or Most Recent): No Current Therapies Treatment History: PAIN PROCEDURES: DATE PROCEDURE IMPROVEMENT To date, no interventional pain management procedures performed at this practice. MEDICATIONS Taken TO DATE (for the chief complaint(s)): Neuropathics: Neurontin (Gabapentin) NSAIDS: Motrin (Ibuprofen) Muscle Relaxants: Flexeril (Cyclobenzaprine) Topicals: Lidocaine Patch, Voltaren (Gel) Other Prescription or OTC Pain Medications: Tylenol (Acetaminophen) Opioids: None Data Reviewed Today: Allergies: ALLERGIES Allergen Reactions Propranolol Shortness of Breath Social History Tobacco Use Smoking status: Former Packs/day: 0.30 Years: 16.00 Additional pack years: 0.00 Total pack years: 4.80 Types: Cigarettes Start date: 11/08/2003 Quit date: 05/10/2022 Years since quittin.2 Smokeless tobacco: Never Vaping Use Vaping Use: Never used Substance Use Topics Alcohol use: Yes Comment: occasionally Drug use: No INTAKE PAIN ASSESSMENT 07/14/2023 08/09/2023 Are you having pain associated with your visit today? - Yes, Provider notified Pain Scales - - Pain Level 5 10 Pain Location Shoulder-Left Arm-Left Description - Aching;Cramping;Numbness;Pressure ;Sore;Tingling Duration Amount of Time - 2 Duration Units - Months Frequency - Continuous Intervention/Comfort measure - Medication;Reposition;Heat;Pillow support;Rocking/holding Comments - The pain is in the upper left side of my back, neck, and down the entire arm. It feels like knots or the worst cramps that will not give up. My fingers feel numb or they'll tingle like they've fallen asleep. Pain Assessment Reassessment - Compliance: PDMP website checked and validated on 08/11/2023 by Eli Cruz APRN.DOCUMENTATION CLERK All prescriptions have been APPROPRIATELY filled. No suspicious activity was identified. [facility] 08/11/2023 Questionnaire GREENLIGHT Completed Date 08/11/19 (more content not included)... [facility] 08-11-2023 History of Present illness Narrative Review of Systems Constitutional: Negative for activity change, chills, fever and unexpected weight change. Gastrointestinal: Negative for bowel retention or incontinence Genitourinary: Negative for difficulty urinating. Negative for bladder retention or incontinence Musculoskeletal: Positive for arthralgias, back pain, myalgias, neck pain and neck stiffness. Negative for gait problem and joint swelling. Neurological: Positive for weakness and numbness. Negative for headaches. Psychiatric/Behavioral: Positive for dysphoric mood and sleep disturbance. Negative for suicidal ideas. The patient is nervous/anxious. Images from the original note were not included. [facility] Today's Date: 08/11/2023 Name: Sara Ontiveros : 1985 Purpose: New Patient Consultation Chief complaint: Neck pain left arm pain Referring Clinician: Lidia Pearza CNP Pertinent Past Medical History: Asthma, Depression, PTSD, anxiety, Alcohol dependence (remission) Pertinent Past Surgeries: none History of Present Illness (HPI): 08/10/2023 - Initial HPI (Obtained by Eli Cruz CNP). DURATION AND ONSET: The pain complaint has been present for approximately 4 months. The pain had a sudden onset. The mechanism of injury is unknown. RED FLAG SYMPTOMS: left arm weakness and numbness or tingling in her fingers. PAIN DESCRIPTION: Timing: Constant Character: Dull, Sharp, Shooting, Throbbing pt states she feels it is like a chetan horse going down her left arm Primary Location: neck and left and trapezius region Radiation: down the left arm into all fingers. Exacerbating factors: lifting over her head, Relieving factors: Repositioning/Changing positions, Medications, Heat Interferes with: everything Patient reporting approximately 4 months ago she woke up with the pain in her left upper shoulder neck with radiation going down her arm. Patient states she does not remember hurting herself. Patient states this pain has been like a charley horse feeling going down her arms. Patient stating that she did go to the ER and they did do a CT scan, did give her lidocaine, and some medication which did help short-term. 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 Patient states it is a constant pain in her left shoulder arm and neck. Patient has not had physical therapy. Patient was on gabapentin for issues for psych but she has been taking them as needed as she is not gone back to get her prescription. Patient has not had physical therapy. Patient states currently she is having a difficult time with her activities of daily living due to the pain. Current Pain Medications: Neuropathics: gabapentin ( taking for depression) pt reports not on a regular bases NSAIDS: ibuprofen Muscle Relaxants: cyclobenzaprine Topicals: Other Prescription or OTC Pain Medications: tylenol Opioids (when applicable): Greenlight Questionnaire GREENLIGHT Completed Date 08/11/2023 Opioid Risk Tool Opiod Risk Tool Date Completed 08/11/2023 Comments 2 YUNIOR-7 Anxiety Score 0 Completed Date 08/11/2023 PHQ9P Score 9 Completed Date 08/11/2023 Anti-depressants or Mood-Stabilizers: None Anti-Coagulants: None Therapies Attended (Current or Most Recent): No Current Therapies Treatment History: PAIN PROCEDURES: DATE PROCEDURE IMPROVEMENT To date, no interventional pain management procedures performed at this practice. MEDICATIONS Taken TO DATE (for the chief complaint(s)): Neuropathics: Neurontin (Gabapentin) NSAIDS: Motrin (Ibuprofen) Muscle Relaxants: Flexeril (Cyclobenzaprine) Topicals: Lidocaine Patch, Voltaren (Gel) Other Prescription or OTC Pain Medications: Tylenol (Acetaminophen) Opioids: None Data Reviewed Today: Allergies: ALLERGIES Allergen Reactions Propranolol Shortness of Breath Social History Tobacco Use Smoking status: Former Packs/day: 0.30 Years: 16.00 Additional pack years: 0.00 Total pack years: 4.80 Types: Cigarettes Start date: 11/08/2003 Quit date: 05/10/2022 Years since quittin.2 Smokeless tobacco: Never Vaping Use Vaping Use: Never used Substance Use Topics Alcohol use: Yes Comment: occasionally Drug use: No INTAKE PAIN ASSESSMENT 07/14/2023 08/09/2023 Are you having pain associated with your visit today? - Yes, Provider notified Pain Scales - - Pain Level 5 10 Pain Location Shoulder-Left Arm-Left Description - Aching;Cramping;Numbness;Pressure ;Sore;Tingling Duration Amount of Time - 2 Duration Units - Months Frequency - Continuous Intervention/Comfort measure - Medication;Reposition;Heat;Pillow support;Rocking/holding Comments - The pain is in the upper left side of my back, neck, and down the entire arm. It feels like knots or the worst cramps that will not give up. My fingers feel numb or they'll tingle like they've fallen asleep. Pain Assessment Reassessment - Compliance: PDMP website checked and validated on 08/11/2023 by Eli Cruz APRN.DOCUMENTATION CLERK All prescriptions have been APPROPRIATELY filled. No suspicious activity was identified. AG SPINE COMBINATION 08/11/2023 Questionnaire GREENLIGHT Completed Date 08/11/2023 Questionnaire Opiod Risk Tool Completed Date 08/11/2023 Comments 2 (All drug screens are appropriate unless indicated otherwise) Risk Assessment: YUNIOR-7: YUNIOR - 7 SCORES 01/13/2023 01/13/2023 08/11/2023 YUNIOR-7 Score 19 19 0 (0-4) minimal anxiety, (5-9) mild anxiety, (10-14) moderate anxiety, (15-21) severe anxiety PHQ-9: PHQ-9 01/13/2023 01/13/2023 08/11/2023 Score 21 21 9 (0-4) minimal depression, (5-9) mild depression, (10-14) moderate depression, (15-19) moderately severe depression, (20-27) severe depression Greenlight Questionnaire GREENLIGHT Completed Date 08/11/2023 Opioid Risk Tool Opiod Risk Tool Date Completed 08/11/2023 Comments 2 YUNIOR-7 Anxiety Score 0 Completed Date 08/11/2023 PHQ9P Score 9 Completed Date 08/11/2023 Diagnostic Studies: Relevant Imaging: IMPRESSION: Left shoulder: Negative. Left humerus: Negative. Brand Strategy Manager: KVNG Transcribe Date/Time: Jul 14 2023 4:14P Dictated by : FADIA JENSEN MD This examination was interpreted and the report reviewed and electronically signed by: FADIA JENSEN MD on Jul 14 2023 4:16PM EST Results-Findings * * *Final Report* * * DATE OF EXAM: Jul 14 2023 3:47PM LDX 5252 - XR SHLDR >/=3V AP/ANGELES AP/OTHR LT / PROCEDURE REASON: Other * * * * Physician Interpretation * * * * LEFT SHOULDER X-RAY SERIES CLINICAL HISTORY: Worsening pain left shoulder over last 2 weeks, no known injury TECHNIQUE: AP, Grashey and lateral scapular Y-view COMPARISON: None available. RESULT: No fracture or malalignment. Joint spaces and articular surfaces are preserved. LEFT HUMERUS X-RAY SERIES TECHNIQUE: AP and lateral views. COMPARISON: None available. RESULT: No fracture or malalignment. Joint spaces and articular surfaces are preserved. 07/14/2023 4:14 PM - Radiology, Oru In Impression IMPRESSION: No acute findings in the cervical spine. Mild degenerative changes. Anatomic Variant: None. Assume 7 cervical vertebrae with counting from the craniocervical junction. Brand Strategy Manager: KVNG Transcribe Date/Time: Jul 14 2023 4:09P Dictated by : VANESSA SUBRAMANIAN MD This examination was interpreted and the report reviewed and electronically signed by: VANESSA SUBRAMANIAN MD on Jul 14 2023 4:12PM EST Results-Findings IMPRESSION: Left shoulder: Negative. Left humerus: Negative. Brand Strategy Manager: [facility] Transcribe Date/Time: Jul 14 2023 4:14P Dictated by : FADIA JENSEN MD This examination was interpreted and the report reviewed and electronically signed by: FADIA JENSEN MD on Jul 14 2023 4:16PM EST Results-Findings * * *Final Report* * * DATE OF EXAM: Jul 14 2023 3:47PM LDX 5354 - XR HUMERUS 2V AP/LAT LT / PROCEDURE REASON: Other * * * * Physician Interpretation * * * * LEFT SHOULDER X-RAY SERIES CLINICAL HISTORY: Worsening pain left shoulder over last 2 weeks, no known injury TECHNIQUE: AP, Grashey and lateral scapular Y-view COMPARISON: None available. RESULT: No fracture or malalignment. Joint spaces and articular surfaces are preserved. LEFT HUMERUS X-RAY SERIES TECHNIQUE: AP and lateral views. COMPARISON: None available. RESULT: No fracture or malalignment. Joint spaces and articular surfaces are preserved. * * *Final Report* * * DATE OF EXAM: Jul 14 2023 3:41PM [facility] 0505 - CT CERVICAL SPINE WO IVCON / PROCEDURE REASON: Spinal stenosis, cervical * * * * Physician Interpretation * * * * EXAMINATION: CT CERVICAL SPINE WO IVCON CLINICAL HISTORY: Spinal stenosis, cervical TECHNIQUE: Spiral, high resolution axial unenhanced images were obtained from the skull base to the cervicothoracic junction with sagittal and coronal planar reconstructions. MQ: [id number] CT Radiation dose: Integrated CT Dose-Length Product (DLP) for this visit = 181.68 mGy*cm CT Dose Reduction Employed: Automated exposure control(AEC) and iterative recon COMPARISON: None. RESULT: Counting reference: Craniocervical junction. Anatomic Variants: None. Medical Device Assembler (topogram) images: No additional findings. Alignment: Reversal of the cervical lordosis. Craniocervical junction: Craniocervical junction is normal. Osseous structures/fracture: No evidence of a lytic or blastic process in the visualized spine. No evidence of acute or chronic fracture. Mild disc space narrowing at C6-7. Cervical soft tissues: The paraspinal soft tissues are within normal limits. Degenerative changes: Mild degenerative changes. Electrodiagnostic Study (EMG): None Recent Labs: Creatinine Date Value Ref Range Status 10/22/2021 0.84 0.58 - 0.96 mg/dL Final No results found for: EGFR No results found for: PCGLUCOSE Current Medications, Past Medical History, Past Surgical History, Family History, Social History and Review of Systems: On today's date, noted above, I have confirmed and edited as necessary, the PFSH and ROS obtained by others. Physical Exam: 08/11/23 1004 Pulse: 100 Resp: 16 SpO2: 99% Physical Exam Vitals reviewed. Constitutional: General: She is not in acute distress. Appearance: She is not ill-appearing. HENT: Head: Normocephalic and atraumatic. Eyes: Conjunctiva/sclera: Conjunctivae normal. Cardiovascular: Pulses: Normal pulses. Pulmonary: Effort: Pulmonary effort is normal. No respiratory distress. Musculoskeletal: Left shoulder: Tenderness present. No crepitus. Decreased range of motion. Cervical back: Spasms, tenderness and bony tenderness present. Decreased range of motion. Comments: Neck pain all located on the left side. Skin: General: Skin is warm and dry. Neurological: Mental Status: She is alert and oriented to person, place, and time. Motor: Motor function is intact. Deep Tendon Reflexes: Reflex Scores: Tricep reflexes are 2+ on the right side and 2+ on the left side. Bicep reflexes are 2+ on the right side and 2+ on the left side. Psychiatric: Mood and Affect: Mood and affect normal. Behavior: Behavior normal. Behavior is cooperative. Comments: Patient nervous with assessment IMPRESSION: 38 year old female presents with complaint(s) of Left side neck pain, left trapezius region pain and radicular symptoms going down her left arm. The patient did have a CT scan of her cervical spine which did not reflect a rationale for this pain. Patient has not had physical therapy which we will order at this point. Patient has been on gabapentin in the past without negative side effects. Will attempt the gabapentin again to see if will help with the radicular symptoms. Will also order cyclobenzaprine as this was ordered by the ER and did help with her pain. Due to the patient's anxiety and the CT report I do not feel comfortable doing an injection as I cannot confirm it is needed and I am not sure she could sit through it and I explained this to the patient she did understand. May consider an cervical epidural after the physical therapy is done if there is no relief. Diagnoses: (M50.30) Degeneration of intervertebral disc of cervical spine without disc herniation (primary encounter diagnosis) (M54.12) Cervical radicular pain (R20.0, R20.2) Numbness and tingling in left hand PLAN: Sara Ontiveros would benefit from the following to reach personal goals for decreasing pain, improving function and work participation, and/or improving quality of life: Medications: Requested Prescriptions Signed Prescriptions Disp Refills gabapentin (NEURONTIN) 300 mg capsule 90 capsule 2 Sig: Take 1 capsule by mouth three times a day for 90 days. cyclobenzaprine (FLEXERIL) 10 mg tablet 90 tablet 2 Sig: Take 1 tablet by mouth every 8 hours as needed. Interventional Procedures: None Studies: None Functional Synagogue: Physical Therapy Consultation (Land-Based) Referrals: No additional considerations at present Follow-up: 2 months Depending on response to the above plan, consider: Cervical ILESI Compliance and Clinic Policies Reviewed and/or Discussed Today: None Attribution: In addition to reviewing the information noted above, some elements copied from my most recent clinical note(s), including the physical exam (completed in entirety today), and the impression and plan sections, have been updated where appropriate. All reflect current medical decision making from today's date. Eli Cruz APRN.SHAR Pain [facility] documented in this encounter [facility] 07-30-2023 Discharge summary Note Date/Time July 30, 2023 7:44pm [facility] Medical Records Department [address] [place] [address] Emergency Department Summary 07/30/23 MR#: [id number] Acct: [id number] Name: SARA ONTIVEROS Rep #:[id number] : 1985 38 From: Amilcar Byrnes MD PCP: Dr. Navdeep Mo MD Status:R EG ER Location: ED HPI History of Present Illness Chief Complaint: Shortness of Breath Informant: patient Narrative Narrative: Patient presents with some cough and wheezing. She states this really all just started today. She has had subjective fever. Little bit of myalgias. A littlebit of congestion sore throat. She started coughing but no productivity. She is now wheezing. She does have some moderate asthma. She generally has been reasonably well-controlled but did have some more exacerbations recently. She was actually admitted to ICU for status asthmaticus a little over a month ago. But she did well within about a day. That was her last steroid dose. She is not having chest pain. PFSH PFSH Medical History Anxiety Asthma Former tobacco use Home Medications inhalational spacing device (Aerochamber MV spacer) #1 ea 08/26/21 [Rx Last Taken Unknown] albuterol sulfate 2.5 mg/3 mL (0.083 %) solution for nebulization 2.5 mg (3 mL) inhalation Q4HWA.RT PRN Shortness Of Breath #180 mL 06/19/23 [Rx Last Taken Unknown] albuterol sulfate 90 mcg/actuation aerosol inhaler 2 puff inhalation Q4H PRN PRNWheezing #8.5 grams 06/19/23 [Rx Last Taken Unknown] fluticasone 500 mcg-salmeterol 50 mcg/dose blistr powdr for inhalation (Advair Diskus) 1 inh inhalation BID #60 ea 06/19/23 [Rx Last Taken Unknown] fluticasone propionate 50 mcg/actuation nasal spray,suspension 1 spray intranasal Q12H #16 grams 06/19/23 [Rx Last Taken Unknown] montelukast 10 mg tablet 10 mg PO DAILY #30 tabs 06/19/23 [Rx Last Taken Unknown] prednisone 20 mg tablet 40 mg (2 x 20 mg) PO DAILY #10 tabs 06/19/23 [Rx Last Taken Unknown] prednisone 20 mg tablet 60 mg (3 x 20 mg) PO DAILY #15 TABLETS 07/30/23 [Rx Last Taken Unknown] umeclidinium 62.5 mcg/actuation blister powder for inhalation (Incruse Ellipta) 1 inh inhalation Q24H 07/30/23 [History Last Taken Unknown] Allergy/AdvReac Type Severity Reaction Status Date / Time propranolol [From Inderal LA] Allergy Shortness Verified 07/30/23 19:15 of breath Family History Mother Asthma Father Diabetes Surgical History No history of previous surgery Social History household members: significant other and children Smoking Status: Former smoker how long ago did patient quit smoking: Quit cigarette tobacco ~ 1 year prior, 1pk/3-4 days from teen until quit. alcohol intake: current alcohol intake frequency: a few times a month substance use type: does not use ROS ROS ED ROS Narrative A complete review of systems was performed and is negative except as documented in the history of present illness. Some specific details below. Constitutional: Possible mild fevers today. EYE: No discharge, visual complaints, or pain. ENT: No difficulty swallowing. No swelling. No pain. No reflux symptoms. CV: No chest pain or syncope. No palpitations. Respiratory: See history of present illness. GI: No abdominal pain. No nausea vomiting diarrhea. No blood in stool. : No frequency dysuria or hematuria. Musculoskeletal: No recent trauma. Mild myalgias Skin: No rash. Nondiaphoretic. Neuro: No weakness or numbness. Endocrine: No polyuria or polydipsia. EXAM Physical Exam Narrative Exam Narrative: CONSTITUTIONAL: Patient is nontoxic in appearance. The patient looks comfortable. Work of breathing looks slightly increased. HEENT: No notable trauma. Mucous membranes moist. No swelling. No nasal drainage. EYES: No conjunctival injection. No proptosis. NECK:No JVD. No stridor. CARDIOVASCULAR: Mildly tachycardic rate. Regular rhythm. No notable murmur. No JVD. RESPIRATORY: No respiratory distress. Breathing is slightly increased but she is air able to carry on normal conversation. She does have expiratory wheezing that is mild throughout. But she seems to be moving good volumes. Saturations are normal at 99% on room air showing no hypoxia. GASTROINTESTINAL: Not distended. Bowel sounds are normal. No tenderness. No guarding. No rebound. No palpable mass. No bruit is heard. GENITOURINARY: No CVA tenderness. MUSCULOSKELETAL: Atraumatic. No peripheral edema. No cord. No tenderness. NEUROLOGICAL: Patient is alert and appropriate. SKIN: No noted rashes. No diaphoresis. PSYCHIATRIC: Patient is calm. Mood is appropriate. Const Vital Signs: 07/30/23 19:15 07/30/23 19:25 07/30/23 19:28 Temperature 98.1 F Temperature Source Temporal Pulse Rate 116 H 112 H Respiratory Rate 22 H 24 H Respiratory Effort Short of Breath Respiratory Depth Normal Respiratory Pattern Tachypnea Blood Pressure 101/55 L Blood Pressure Mean 70 Pulse Ox 98 99 Oxygen Delivery Method Room Air Room Air Room Air 07/30/23 19:51 07/30/23 19:43 Temperature Temperature Source Pulse Rate 94 Respiratory Rate 20 H Respiratory Effort Respiratory Depth Respiratory Pattern Normal Blood Pressure Blood Pressure Mean Pulse Ox Oxygen Delivery Method Room Air MDM MDM MDM Narrative Medical decision making narrative: My independent interpretation of single view x-ray shows no acute process. No infiltrate or pneumothorax. Final reading shows increased lung volumes. Viral studies are normal. I did blood work because she had gotten ill before and I wanted to get ahead of this in case. Patient CBC is normal. Patient's electrolytes are normal other than minimal elevation of glucose. Patient is feeling markedly better. She has nebulizer meds and inhalers at home. I will write for prednisone. Lab Data Attestation: I reviewed the patient's lab results. Labs: Laboratory Results - last 24 hr 07/30/23 19:50 WBC 7.4 RBC 4.22 Hgb 12.9 Hct 39.5 MCV 93.6 MCH 30.6 MCHC 32.7 RDW Std Deviation 43.3 RDW Coeff of Birttney 12.7 Plt Count 322 MPV 9.1 Immature Gran % (Auto) 0.400 Neut % (Auto) 78.9 H Lymph % (Auto) 14.3 L Walsh % (Auto) 2.8 Eos % (Auto) 2.8 Baso % (Auto) 0.8 Absolute Neuts (auto) 5.8 Absolute Lymphs (auto) 1.06 Nucleated RBC % 0 Sodium 141 Potassium 3.8 Chloride 112 H Carbon Dioxide 26.0 Anion Gap 3 L BUN 9 Creatinine 0.91 Estim Creat Clear Calc 87.93 Est GFR (MDRD) Af Amer 89 Est GFR (MDRD) Non-Af 74 BUN/Creatinine Ratio 9.9 L Glucose 146 H Calcium 8.7 Radiography Diagnostic Testing: Clinical Impression(s) from Imaging Studies Chest X-Ray 07/30/23 20:11 IMPRESSION: Increased lung volumes suggesting air trapping, without appreciable peribronchial thickening. No pulmonary hyperlucency to suggest emphysema. Electronically Signed: Andrade Alvarado DO at 20:36 EST , Discharge Plan Triage Chief Complaint: Shortness of Breath ED Provider: Amilcar Byrnes Dx/Rx/DC Orders Clinical Impression: Asthma Instructions: ED Asthma, Acute (Adult) Prescriptions: New prednisone 20 mg tablet 60 mg PO DAILY Qty: 15 0RF No Action (DME) Aerochamber MV Spacer See Rx Instructions .ROUTE .MEDSUPPLY Qty: 1 0RF Rx Instructions: As directed prednisone 20 mg tablet 40 mg PO DAILY Qty: 10 0RF albuterol sulfate 2.5 MG/3 ML solution for nebulization 2.5 mg inhalation Q4HWA.RT PRN (Reason: Shortness Of Breath) Qty: 180 0RF fluticasone propion-salmeterol [Advair Diskus] 500-50 mcg/dose blister with device 1 inh INHALATION BID Qty: 60 0RF montelukast 10 mg tablet 10 mg PO DAILY Qty: 30 0RF albuterol sulfate 1 PUFF inhaler 2 puff inhalation Q4H PRN PRN (Reason: Wheezing) Qty: 8.5 0RF fluticasone propionate 50 mcg/actuation spray,suspension 1 spray INTRANASAL Q12H Qty: 16 0RF Incruse Ellipta 62.5 mcg/actuation blister with device 1 inh INHALATION Q24H Patient Comments: Inhale 1 Puff as instructed once daily. Primary Care Provider: Navdeep Mo Referrals: Navdeep Mo MD [Primary Care Provider] - 3-5 Days if not improving Disposition Disposition: Home, Self Care What to do if you have Problems For any increased pain, shortness of breath, bleeding, nausea or vomiting, chestpain, or any unexpected problems, contact your Primary Care Provider. Call [facility] ([phone]) or report to the closest Emergency Room. Call 911 if necessary. 07/30/232112 <Electronically signed by Amilcar Byrnes MD> Cosigner Signature (if applicable): CC: Dr. Navdeep Mo MD ~ Signed [facility] Work Phone: [phone] 874-709512-18-2023 [facility] Medical Records Department [address] [place] [address] Discharge Summary 06/19/23 1001 MR#: [id number] Acct: [id number] Name: SARA ONTIVEROS Rep #: [id number] : 1985 38 From: Gregorio Mosley MD PCP: Dr. Navdeep Mo MD Status:ADM IN Location: ICU [place] [address] Providers Date of Admission: 06/18/23 Date of Discharge: 06/19/23 Primary Care Physician: Dr. Navdeep Mo MD Consultations 06/19/23 00:37 Consult: Real Estate Consultant / Pulmonary Medicine Routine Consulting Provider: Maximo Beasley Reason for Consult: Asthma with status asthmaticus EMERGENT Consult: No Notified: No Date Notified: 06/18/23 Time Notified: 23:56 06/19/23 07:02 Consult: Real Estate Consultant / Pulmonary Medicine Routine Consulting Provider: Pulmonary Medicine [facility] Reason for Consult: Asthma EMERGENT Consult: No Notified: Yes Date Notified: 06/19/23 Time Notified: 07:02 Method of Notification: Verbal Reason For Visit: STATUS ASTHMATICUS Diagnosis Discharge Diagnosis (1) Asthma with status asthmaticus: Status: Chronic Code(s): J45.902 - Unspecified asthma with status asthmaticus Qualifiers: Asthma persistence: persistent Asthma severity: moderate Qualified Code(s): J45.42 - Moderate persistent asthma with status asthmaticus Medications at Discharge Home Medications albuterol sulfate 90 mcg/actuation aerosol inhaler 2 puff inhalation Q4H PRN PRN Wheezing 01/04/20 albuterol sulfate 2.5 mg/3 mL (0.083 %) solution for nebulization 2.5 mg inhalation Q4HWA.RT PRN Shortness Of Breath 01/16/20 fluticasone 500 mcg-salmeterol 50 mcg/dose blistr powdr for inhalation (Advair Diskus) 1 inh inhalation BID 05/15/21 montelukast 10 mg tablet 10 mg PO DAILY 05/15/21 inhalational spacing device (Aerochamber MV spacer) #1 ea 08/26/21 fluticasone propionate 50 mcg/actuation nasal spray,suspension 1 spray intranasal Q12H 06/18/23 prednisone 20 mg tablet 40 mg (2 x 20 mg) PO DAILY #10 tabs 06/19/23 Hospital Course Summary of Care Provided Minutes Spent on Discharge: 35 Hospital Course: Patient is a 38-year-old lady with past medical history is again for moderate intermittent asthma who presented to the emergency department with worsening shortness of breath 1. Acute asthma exacerbation ??? Patient admitted to a monitored bed managed with bronchodilator treatment as well as systemic steroid. Patient was seen in consultation by pulmonary medicine. Patient did experience rapid improvement in her condition discharged on prednisone. Instructed to follow-up with pulmonary medicine and primary care physician as outpatient 2. Allergic rhinitis ??? Stable 3. Anxiety disorder ??? Per history currently not on any medication 4. DVT prophylaxis ??? Low risk Physical Exam Narrative GENERAL: cooperative HEENT: Atraumatic; normocephalic EYES; Anicteric, Normal Conjunctiva NECK; supple, normal thyroid, RESPIRATORY: Diminished to auscultation CARDIOVASCULAR: Regular S1 S2, GI: soft, normoactive bowel sounds, : No Renal angle tenderness; EXTREMITIES: No edema, no clubbing, MUSCULOSKELETAL: no muscle wasting NEURO: Awake; no lateralizing signs. SKIN: No Rash PSYCH; Flat affect Weight / BMI Weight Weight: 80 kg Body Mass Index (BMI) 30.2 ABG / Lab / Microbiology Data 06/19/23 04:05 06/19/23 04:05 Laboratory: Laboratory Results - last 24 hr 06/18/23 23:00: WBC 10.5, RBC 4.08 L, Hgb 12.6, Hct 39.5, MCV 96.8, MCH 30.9, MCHC 31.9 L, RDW Std Deviation 43.0, RDW Coeff of Brittney 12.1, Plt Count 430, MPV 9.3, Immature Gran % (Auto) 0.400, Neut % (Auto) 51.9, Lymph % (Auto) 33.9, Walsh % (Auto) 7.9, Eos % (Auto) 4.8, Baso % (Auto) 1.1 H, Absolute Neuts (auto) 5.4, Absolute Lymphs (auto) 3.55, Nucleated RBC % 0, Sodium 141, Potassium 3.7, Chloride 111 H, Carbon Dioxide 28.0, Anion Gap 2 L, BUN 10, Creatinine 0.84, Estim Creat Clear Calc 79.18, Est GFR (MDRD) Af Amer 98, Est GFR (MDRD) Non-Af 81, BUN/Creatinine Ratio 11.9, Glucose 128 H , Calcium 8.5, Troponin I High Sens 5 06/19/23 00:40: Procalcitonin < 0.04 06/19/23 04:05: WBC 8.8, RBC 3.67 L, Hgb 11.4 L, Hct 35.2 L, MCV 95.9, MCH 31.1, MCHC 32.4, RDW Std Deviation 42.7, RDW Coeff of Brittney 12.0, Plt Count 263, MPV 10.0, Immature Gran % (Auto) 0.300, Neut % (Auto) 95.5 H, Lymph % (Auto) 3.3 L, Walsh % (Auto) 0.8, Eos % (Auto) 0.0, Baso % (Auto) 0.1, Absolute Neuts (auto) 8.4 H, Absolute Lymphs (auto) 0.29 L, Nucleated RBC % 0, Differential Comment SCANNED, Sodium 142, Potassium 4.2, Chloride 114 H, Carbon Dioxide 20.0 L, Anion Gap 8, BUN 8, Creatinine 0.79, Estim Creat Clear Calc 84.19, Est GFR (MDRD) Af Amer 105, Est GFR (MDRD) Non-Af 87, BUN/Creatinine Ratio 10.1, Glucose 205 H, Calcium 6.8 L, Total Bilirubin 0.30, AST 29, ALT 12 L, Alkaline Phosphatase 32 L, Total Protein 5.8 L, Albumin 2.8 L, Gl (more content not included)...[facility]12-18-2023 History and physical note Author Sara Celestin [facility] June 19, 2023 12:09am Note Date/Time June 18, 2023 11:55pm [facility] Medical Records Department [address] [place] [address] H&P Exam - Hospitalist 06/18/23 2354 MR#: [id number] Acct: [id number] Name: SARA ONTIVEROS Rep #:[id number] : 1985 38 From: Sara Celestin MD PCP: Dr. Navdeep Mo MD Status:A DM IN Location: ICU ICU04-1 HPI - General General Date of Admission: 06/18/23 Date of Service: 06/18/23 Chief Complaint: Dyspnea, wheezing, increased work of breathing, respiratory distress. HPI Narrative The patient is a 38 y/o F w/ PMHx: Asthma w/ allergic rhinitis, Anxiety who presents to the [facility] ED on 06/18/23 with 3 of onset dyspnea worsening over the last 3 days with chest tightness and wheezing with no recent upper respiratory infection or symptoms or any ill contacts in the home but not improving despite usage of home nebulizer treatments prompting eventual EMS call and transition tot ED. On route to the ED they did attempt BiPAP but because of claustrophobiaand anxiety patient was unable to tolerate it. She does report allergies to cats and does have several cats but is never seek at allergy treatment. She does not currently have a digital imaging specialist but notes that they have discussed this and that she would likely benefit but she has been anxious about it. Workup in the ED included T97.6, heart rate 132, BP 123/90, respiratory rate 40, 100% on room air, CBC with WBC 10.5, hemoglobin 12.6, platelet 430 without marked shift,VBG with pH 7.21, pO2 105, O2 96% on a nonrebreather, BMP with glucose 128 otherwise not marked appearing, troponin 5, chest x-ray on review with no acute cardiopulmonary findings but final read pending per radiology, EKG with sinus tachycardia with no acute evidence of ischemia, COVID and influenza antigen pending per ED physician. In the ED patient administered terbutaline 0.25 subcu x1, Solu-Medrol 125 mg IV x 1, magnesium 2 g IV x 1, DuoNeb therapy as well as epi 0.3 mg IM x 1 treatment in addition to a 1 L normal saline bolus. In the EDthe physician did encourage patient to utilize BiPAP however she declined but fortunately slowly improved. Did discuss potential need for future BiPAP in theED with patient just in case she declined again and following lengthy discussionshe would be amenable to trying potentially with Precedex drcoby. PFSH Medical History Anxiety Asthma Former tobacco use Home Medications albuterol sulfate 90 mcg/actuation aerosol inhaler 2 puff inhalation Q4H PRN PRNWheezing 07/06/19 [History Last Taken Unknown] albuterol sulfate 2.5 mg/3 mL (0.083 %) solution for nebulization 2.5 mg inhalation Q4HWA.RT PRN Shortness Of Breath 01/16/20 [History Last Taken Unknown] fluticasone 500 mcg-salmeterol 50 mcg/dose blistr powdr for inhalation (Advair Diskus) 1 inh inhalation BID 05/15/21 [History Last Taken Unknown] montelukast 10 mg tablet 10 mg PO DAILY 05/15/21 [History Last Taken Unknown] inhalational spacing device (Aerochamber MV spacer) #1 ea 08/26/21 [Rx Last Taken Unknown] fluticasone propionate 50 mcg/actuation nasal spray,suspension 1 spray intranasal Q12H 06/18/23 [History Last Taken Unknown] Allergy/AdvReac Type Severity Reaction Status Date / Time propranolol [From Inderal LA] Allergy Shortness Verified 06/18/23 22:56 of breath Family History (Updated 06/19/23 @ 00:[address] Sara Celestin MD) Mother Asthma Father Diabetes Surgical History (Updated 06/19/23 @ 00:[address] Sara Celestin MD) No history of previous surgery Social History (Updated 06/19/23 @ 00:[address] Sara Celestin MD) household members: significant other and children Smoking Status: Former smoker how long ago did patient quit smoking: Quit cigarette tobacco ~ 1 year prior, 1pk/3-4 days from teen until quit. alcohol intake: current alcohol intake frequency: a few times a month substance use type: does not use ROS ROS Narrative Admission Review of Systems: CONSTITUTIONAL: No weight loss, fever, chills, + weakness or fatigue. HEENT: Eyes: No visual loss, blurred vision, double vision or yellow sclerae. Ears, Nose, Throat: No hearing loss, sneezing, congestion, runny nose or sore throat. SKIN: No rash or itching, lesions, wounds. CARDIOVASCULAR: No chest pain, chest pressure or chest discomfort, palpitations,edema, orthopnea, syncopal events. RESPIRATORY: + Shortness of breath, wheezing, respiratory distress. No recent cough or marked sputum, hemoptysis. GASTROINTESTINAL: No anorexia, nausea, vomiting or diarrhea, abdominal pain, melena, BRBPR. GENITOURINARY: No dysuria, frequency, urgency or retention. NEUROLOGICAL: No headache, dizziness, syncope, paralysis, ataxia, numbness or tingling in the extremities, focal weakness, change in bowel or bladder control,seizure. MUSCULOSKELETAL: No muscle, back pain, joint pain or stiffness. HEMATOLOGIC: No anemia, bleeding or bruising. LYMPHATICS: No enlarged nodes. No history of splenectomy. PSYCHIATRIC: + Severe anxiety and claustrophobia. ENDOCRINOLOGIC: No reports of sweating, cold or heat intolerance. No polyuria orpolydipsia. ALLERGIES: + history of asthma, rhinitis. Vital Signs Vital Signs Vital Signs: 06/18/23 22:56 06/18/23 23:04 06/18/23 23:49 Temperature 97.6 F L Temperature Source Temporal Pulse Rate 132 H 116 H Respiratory Rate 40 H 19 H Respiratory Effort Short of Breath Labored Accessory Muscle Use Respiratory Depth Shallow Respiratory Pattern Grunting Blood Pressure 123/90 H 137/84 H Blood Pressure Mean 101 101 Pulse Ox 100 96 Oxygen Delivery Method Non-Rebreather Oxygen Flow Rate (L/min) 15 Weight Weight: 184 lb 4.903 oz Body Mass Index (BMI) 31.6 Physical Exam Narrative Physical Examination: General: Awake, alert, oriented x 3 and cooperative, seated upright in the ED bed, still increased work of breathing and some accessory muscle use but able tospeak in sentences now and no longer tripoding with respiratory distress significantly lessened. Skin: Normal color, normal turgor, no icterus, no cyanosis. HEENT: AT/NC, EOMI, PERRLA, dry MM, no carotid bruits or JVD noted. Lungs: Still significantly diminished throughout, tight, some air movement upperfields, decreased significantly bases, occasional and tight wheeze, increased work of breathing accessory muscle usage still present however respiratory distress is improving. Heart: Tachycardic with regular rhythm; no gallop, rub audible. Abdomen: Soft, NTTP, ND, distant normal BS, no HSM. Extremities: No cyanosis, clubbing, or edema. Neurological: Patient awake, alert, oriented as noted, cognitive function intact; pupils equally reactive to light and accommodation, cranial nerves II-XII grossly normal, moving all 4 extremities, no focal deficits, strength severely globally decreased secondary to acute presentation. Psychiatric: Affect appears anxious, tearful but eventually calms with discussions and does have significant underlying anxiety history. Also admits to claustrophobia. Results Lab / Micro Data 06/18/23 23:00 06/18/23 23:00 Labs: Laboratory Results - last 24 hr 06/18/23 23:00: WBC 10.5, RBC 4.08 L, Hgb 12.6, Hct 39.5, MCV 96.8, MCH 30.9, MCHC 31.9 L, RDW Std Deviation 43.0, RDW Coeff of Brittney 12.1, Plt Count 430, MPV 9.3, Immature Gran % (Auto) 0.400, Neut % (Auto) 51.9, Lymph % (Auto) 33.9, Walsh% (Auto) 7.9, Eos % (Auto) 4.8, Baso % (Auto) 1.1 H, Absolute Neuts (auto) 5.4, Absolute Lymphs (auto) 3.55, Nucleated RBC % 0, Sodium 141, Potassium 3.7, Chloride 111 H, Carbon Dioxide 28.0, Anion Gap 2 L, BUN 10, Creatinine 0.84, Estim Creat Clear Calc 79.18, Est GFR (MDRD) Af Amer 98, Est GFR (MDRD) Non-Af 81, BUN/Creatinine Ratio 11.9, Glucose 128 H, Calcium 8.5, Troponin I High Sens 5 ABG Data ABG results: ABG 06/18/23 23:21 Specimen Type MIHAI Sample Site Not entered O2 % 100.0 VBG pH 7.21 L VBG pO2 105 H VBG HCO3 26 VBG Total CO2 28 VBG O2 Sat (Calc) 96 H VBG Base Excess -2 L POC Mix VBG pCO2 Pt Tmp 64.8 H O2 Delivery Device NRB Rhythm Strip Rhythm Strip: Sinus Tach Rate: 140 Ectopy: None Assessment & Plan Assessment/Plan (1) Asthma with status asthmaticus: PLAN: Plan The patient is a 38 y/o F w/ PMHx: Asthma w/ allergic rhinitis, Anxiety who presents to the [facility] ED on 06/18/23 with 3 of onset dyspnea worsening over the last 3 days with chest tightness and wheezing with no recent upper respiratory infection or symptoms or any ill contacts in the home but not improving despite usage of home nebulizer treatments prompting eventual EMS call and transition tot ED. #1. Acute on Chronic Asthma exacerbation with status asthmaticus with acute respiratory distress, slowly improving: CXR w/ chronic changes, CBC on admission w/no marked WBC elevation or left shift, no recent URI symptoms. Will admit to the ICU, requesting send this to dilation, maintain on oxygen with wean as tolerated to room air, continue ATC duonebs, PRN albuterol, IV methylprednisolone, HOB, IS parameters, to be cautious we will request respiratory viral panel, procalcitonin, magnesium IV will be also administered. At discharge patient would strongly benefit from referral to pulmonary medicine andwould also strongly benefit from allergy formal testing and treatment as patientvery clearly implicates that she would not forego having cats as pets. #2. Anxiety: Per current list not on regimen, certainly would expect to be increased with current presentation #1, encourage continued outpatient follow-upand counseling if appropriate. Again as note if patient for some reason did worsen and required BiPAP certainly could consider Precedex usage. Given presentation in the ED and discussions will have low-dose Ativan for severe anxiety. #3. Former tobacco use: Encourage continued tobacco cessation. #4. DVT prophylaxis: Low risk. Charges/Coding Visit Charges Inpatient E&M: 63233 Init Hosp L3 06/19/23 0009 <Electronically signed by Sara Celestin MD> Cosigner Signature (if applicable): CC: Dr. Sara Celestin MD; Dr. Navdeep Mo MD~ Signed [facility] Work Phone: 1(253) 522-721512-18-2023 Discharge summary Author Saji Noonan [facility] June 19, 2023 12:04am Note Date/Time June 18, 2023 11:08pm [facility] Medical Records Department [address] [place] [address] Emergency Department Summary 06/18/23 MR#: [id number] Acct: [id number] Name: SARA ONTIVEROS Rep #:[id number] : 1985 38 From: Saji Noonan MD PCP: Dr. Navdeep Mo MD Status:A DM IN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 started working with [...] I am still constantly unfocused and worried abouteverything. Still has high anxiety intermittently. Utilizes Ativan only as needed for increased feelings of anxiety. She has been sleeping very well since starting Seroquel. She denies any daytime drowsiness or otherside effects. Denies any changes in her appetite. She typically just eats once a day. Her asthma has improved. She is trying to be more consistent in taking her asthma medications. She has been trying to reduce her smoking to 10 cigarettes a day. She was smoking more when she was moreanxious. Interval Progress: Improved Risks and benefits of the medication, including any black box warnings, were discussed with the patient. Social History: Patient lives with her boyfriend and son. PATIENT DATA: Generalized Anxiety Disorder Scale (YUNIOR-7) YUNIOR - 7 SCORES 08/06/2021 08/25/2021 10/01/2021 YUNIOR-7 Score 20 20 21 (0-4) minimal anxiety, [...] demonstrates appropriate tone, prosody, orin, phonetics, and syntaxand Appropriate tone, prosody, orin, phonetics, and syntax [...] which included preparing to see the patient, [id number] patient care, completing clinical documentation, and counseling and educating the patient/family/caregiver, ordering medications/labs. Pham Patten APRN.CNP October 01, 2021 10:30 AM documented in this encounterLicking [facility] Hospital07-05-2013 History of Past illness Narrative* Problem Noted [...] of this encounter (statuses as of 10/01/2021) [facility] Narrative* Problem Noted [...] of this encounter (statuses as of 10/12/2021) [facility] Narrative* Problem Noted [...] of this encounter (statuses as of 10/12/2021) [facility] Narrative* Problem Noted [...] of this encounter (statuses as of 10/25/2021) [facility] Narrative* Problem Noted [...] of this encounter (statuses as of 11/02/2021) [facility] Narrative* Problem Noted [...] of this encounter (statuses as of 11/26/2021) [facility] Narrative* Problem Noted [...] of this encounter (statuses as of 12/06/2021) [facility] Narrative* Problem Noted [...] of this encounter (statuses as of 12/10/2021) [facility] Narrative* Problem Noted [...] of this encounter (statuses as of 12/31/2021) [facility] Narrative* Problem Noted [...] of this encounter (statuses as of 01/29/2022) [facility] Narrative* Problem Noted [...] of this encounter (statuses as of 03/04/2022) [facility] Narrative* Problem Noted [...] of this encounter (statuses as of 03/04/2022) [facility] Narrative* Problem Noted [...] of this encounter (statuses as of 04/20/2022) [facility] Narrative* Problem Noted [...] of this encounter (statuses as of 03/16/2023) [facility] Narrative* Problem Noted [...] of this encounter (statuses as of 05/12/2023) [facility] Narrative* Problem Noted [...] as of this encounter (statuses as of 08/11/2023) [facility] Narrative* Problem Noted [...] as of this encounter (statuses as of 09/01/2023) [facility] Narrative* Problem Noted [...] as of this encounter (statuses as of 09/08/2023) [facility] Narrative* Problem Noted [...] as of this encounter (statuses as of 09/15/2023) [facility] Narrative* Problem Noted [...] as of this encounter (statuses as of 09/22/2023) [facility] Narrative* Problem Noted [...] as of this encounter (statuses as of 10/13/2023) [facility] HospitalDischarge summary Author Gregorio Mosley [facility] June 19, 2023 10:07am Note Date/Time June 19, 2023 10:04am [facility] Medical Records Department [address] [place] [id number] Discharge Summary 06/19/23 1001 MR#: [id number] Acct: [id number] Name: SARA ONTIVEROS Rep #:[id number] : 1985 38 From: Gregorio Mosley MD PCP: Dr. Navdeep Mo MD Status:A DM IN Location: ICU ICU-1 Providers Date of Admission: 06/18/23 Date of Discharge: 06/19/23 Primary Care Physician: Dr. Navdeep Mo MD Consultations 06/19/23 00:37 Consult: Real Estate Consultant / Pulmonary Medicine Routine Consulting Provider: Maximo Beasley Reason for Consult: Asthma with status asthmaticus EMERGENT Consult: No Notified: No Date Notified: 06/18/23 Time Notified: 23:56 06/19/23 07:02 Consult: Real Estate Consultant / Pulmonary Medicine Routine Consulting Provider: Pulmonary Medicine [facility] Reason for Consult: Asthma EMERGENT Consult: No Notified: Yes Date Notified: 06/19/23 Time Notified: 07:02 Method of Notification: Verbal Reason For Visit: STATUS ASTHMATICUS Diagnosis Discharge Diagnosis (1) Asthma with status asthmaticus: Status: Chronic Code(s): J45.902 - Unspecified asthma with status asthmaticus Qualifiers: Asthma persistence: persistent Asthma severity: moderate Qualified Code(s): J45.42 - Moderate persistent asthma with status asthmaticus Medications at Discharge Home Medications albuterol sulfate 90 mcg/actuation aerosol inhaler 2 puff inhalation Q4H PRN PRNWheezing 07/06/19 albuterol sulfate 2.5 mg/3 mL (0.083 %) solution for nebulization 2.5 mg inhalation Q4HWA.RT PRN Shortness Of Breath 01/16/20 fluticasone 500 mcg-salmeterol 50 mcg/dose blistr powdr for inhalation (Advair Diskus) 1 inh inhalation BID 05/15/21 montelukast 10 mg tablet 10 mg PO DAILY 05/15/21 inhalational spacing device (Aerochamber MV spacer) #1 ea 08/26/21 fluticasone propionate 50 mcg/actuation nasal spray,suspension 1 spray intranasal Q12H 06/18/23 prednisone 20 mg tablet 40 mg (2 x 20 mg) PO DAILY #10 tabs 06/19/23 Hospital Course Summary of Care Provided Minutes Spent on Discharge: 35 Hospital Course: Patient is a 38-year-old lady with past medical history is again for moderate intermittent asthma who presented to the emergency department with worsening shortness of breath 1. Acute asthma exacerbation ? Patient admitted to a monitored bed managed with bronchodilator treatment as well as systemic steroid. Patient was seen in consultation by pulmonary medicine. Patient did experience rapid improvement in her condition discharged on prednisone. Instructed to follow-up with pulmonary medicine and primary carephysician as outpatient 2. Allergic rhinitis ? Stable 3. Anxiety disorder ? Per history currently not on any medication 4. DVT prophylaxis ? Low risk Physical Exam Narrative GENERAL: cooperative HEENT: Atraumatic; normocephalic EYES; Anicteric, Normal Conjunctiva NECK; supple, normal thyroid, RESPIRATORY: Diminished to auscultation CARDIOVASCULAR: Regular S1 S2, GI: soft, normoactive bowel sounds, : No Renal angle tenderness; EXTREMITIES: No edema, no clubbing, MUSCULOSKELETAL: no muscle wasting NEURO: Awake; no lateralizing signs. SKIN: No Rash PSYCH; Flat affect Weight / BMI Weight Weight: 80 kg Body Mass Index (BMI) 30.2 ABG / Lab / Microbiology Data 06/19/23 04:05 06/19/23 04:05 Laboratory: Laboratory Results - last 24 hr 06/18/23 23:00: WBC 10.5, RBC 4.08 L, Hgb 12.6, Hct 39.5, MCV 96.8, MCH 30.9, MCHC 31.9 L, RDW Std Deviation 43.0, RDW Coeff of Brittney 12.1, Plt Count 430, MPV 9.3, Immature Gran % (Auto) 0.400, Neut % (Auto) 51.9, Lymph % (Auto) 33.9, Walsh% (Auto) 7.9, Eos % (Auto) 4.8, Baso % (Auto) 1.1 H, Absolute Neuts (auto) 5.4, Absolute Lymphs (auto) 3.55, Nucleated RBC % 0, Sodium 141, Potassium 3.7, Chloride 111 H, Carbon Dioxide 28.0, Anion Gap 2 L, BUN 10, Creatinine 0.84, Estim Creat Clear Calc 79.18, Est GFR (MDRD) Af Amer 98, Est GFR (MDRD) Non-Af 81, BUN/Creatinine Ratio 11.9, Glucose 128 H, Calcium 8.5, Troponin I High Sens 5 06/19/23 00:40: Procalcitonin < 0.04 06/19/23 04:05: WBC 8.8, RBC 3.67 L, Hgb 11.4 L, Hct 35.2 L, MCV 95.9, MCH 31.1,MCHC 32.4, RDW Std Deviation 42.7, RDW Coeff of Brittney 12.0, Plt Count 263, MPV 10.0, Immature Gran % (Auto) 0.300, Neut % (Auto) 95.5 H, Lymph % (Auto) 3.3 L, Walsh % (Auto) 0.8, Eos % (Auto) 0.0, Baso % (Auto) 0.1, Absolute Neuts (auto) 8.4 H, Absolute Lymphs (auto) 0.29 L, Nucleated RBC % 0, Differential Comment SCANNED, Sodium 142, Potassium 4.2, Chloride 114 H, Carbon Dioxide 20.0 L, AnionGap 8, BUN 8, Creatinine 0.79, Estim Creat Clear Calc 84.19, Est GFR (MDRD) Af Amer 105, Est GFR (MDRD) Non-Af 87, BUN/Creatinine Ratio 10.1, Glucose 205 H, Calcium 6.8 L, Total Bilirubin 0.30, AST 29, ALT 12 L, Alkaline Phosphatase 32 L, Total Protein 5.8 L, Albumin 2.8 L, Globulin 3.0, Albumin/Globulin Ratio 0.9 Microbiology: Microbiology 06/18/23 23:27 Nasal Secretion SARS-CoV-2 & FLU Antigen (Rapid) - Final ABG: ABG 06/18/23 23:21 Specimen Type MIHAI Sample Site Not entered O2 % 100.0 VBG pH 7.21 L VBG pO2 105 H VBG HCO3 26 VBG Total CO2 28 VBG O2 Sat (Calc) 96 H VBG Base Excess -2 L POC Mix VBG pCO2 Pt Tmp 64.8 H O2 Delivery Device NRB Radiography Diagnostic Testing: Radiology Impression Chest X-Ray 06/18/23 23:17 IMPRESSION: No radiographic evidence of acute cardiopulmonary disease. Electronically Signed: Onel Connor MD at 0:25 EST Reading Location ID and State: [facility] / [place] Tel , Service support , D/C Instructions Discharge Diet: No restrictions Discharge Activity: Return to Normal Activity Call your doctor if you observe: Fever of 101 or Higher, Shortness of breath, Fainting spells and Chest pain Meaningful Use Info Meaningful Use Diagnoses (Choose all that apply): None applicable Discharge Plan Admission Admit Date/Time: 06/18/23 23:54 Attending Provider: Gregorio Mosley Primary Care Provider: Navdeep Mo Consulting Providers: Sara Celestin; You Fox; Tc Swan; Maximo Beasley; Chacorta Frost; Vani Méndez ORDAINED MINISTER Discharge Orders/Prescriptions Prescriptions: New prednisone 20 mg tablet 40 mg PO DAILY Qty: 10 0RF Continued albuterol sulfate 1 PUFF inhaler 2 puff inhalation Q4H PRN PRN (Reason: Wheezing) albuterol sulfate 2.5 MG/3 ML solution for nebulization 2.5 mg inhalation Q4HWA.RT PRN (Reason: Shortness Of Breath) fluticasone propion-salmeterol [Advair Diskus] 500-50 mcg/dose blister with device 1 inh INHALATION BID montelukast 10 mg tablet 10 mg PO DAILY Patient Comments: Take 1 tablet by mouth daily at bedtime. (DME) Aerochamber MV Spacer See Rx Instructions .ROUTE .MEDSUPPLY Qty: 1 0RF Rx Instructions: As directed fluticasone propionate 50 mcg/actuation spray,suspension 1 spray INTRANASAL Q12H Patient Comments: Use 2 Sprays in each nostril once daily. Rinse mouth after use. Referrals / Follow Up: You Fox MD [Med Staff - Active Staff] - Within 1 Month Navdeep Mo MD [Primary Care Provider] - Within 2 Weeks Disposition Disposition (needs filled in before D/C Order can be placed): Home, Self Care Charges/Coding Visit Charges Inpatient E&M: 23541 Disch Hosp >30min 06/19/23 1007 <Electronically signed by Gregorio Mosley MD> Cosigner Signature (if applicable): CC: Dr. Gregorio Mosley MD; Dr. Navdeep Mo MD~ Signed [facility] Work Phone: Evaluation note* Diagnosis YUNIOR (generalized anxiety disorder)- Primary Generalized anxiety disorder Chronic post-traumatic stress disorder (PTSD) Major depressive disorder, recurrent episode, moderate (HCC) Major depressive disorder, recurrent episode, moderate Encounter for long-term (current) use of medications Encounter for long-term (current) use of other medications documented [facility]* Diagnosis Moderate persistent asthma without complication Unspecified asthma Anxiety Anxiety state, unspecified Moderate persistent asthma with acute exacerbation [facility] Diagnosis YUNIOR (generalized anxiety disorder) Generalized anxiety disorder documented [facility]* Diagnosis Moderate persistent asthma without complication Unspecified asthma documented in this encounter [facility]* Diagnosis Chronic post-traumatic stress disorder (PTSD)- Primary YUNIOR (generalized anxiety disorder) Generalized anxiety disorder Major depressive disorder, recurrent episode, moderate (HCC) Major depressive disorder, recurrent episode, moderate Nicotine use [facility]* Diagnosis Moderate persistent asthma without complication Unspecified asthma Anxiety Anxiety state, unspecified Moderate persistent asthma with acute exacerbation [facility] Diagnosis Moderate persistent asthma without complication Unspecified asthma [facility] noteNo assessment information availableWCincinnati [facility] Work Phone: Evaluation note* Diagnosis Chronic post-traumatic stress disorder (PTSD)- Primary YUNIOR (generalized anxiety disorder) Generalized anxiety disorder Recurrent major depressive disorder, in partial remission (HCC) Nicotine use documented in this encounter [facility] note* Diagnosis YUNIOR (generalized anxiety disorder) Generalized anxiety disorder [facility]* Diagnosis Moderate persistent asthma with exacerbation- Primary Unspecified asthma, with exacerbation documented in this encounter [facility] note* Diagnosis Moderate persistent asthma without complication Unspecified asthma Anxiety Anxiety state, unspecified Moderate persistent asthma with acute exacerbation [facility]* Diagnosis Onset Date Resolution Status Asthma with status asthmaticus chronic [facility] Work Phone: evaluation note* Diagnosis Onset Date Resolution Status Asthma with status asthmaticus resolved [facility] Work Phone: Evaluation note* Diagnosis Degeneration of intervertebral disc of cervical spine without disc herniation- Primary Cervical radicular pain Brachial neuritis or radiculitis nos Numbness and tingling in left hand Disturbance of skin sensation documented in this encounter [facility] note* Diagnosis Cervical disc disorder with radiculopathy- Primary Brachial neuritis or radiculitis nos documented in this encounter [facility] note* Diagnosis Cervical disc disorder with radiculopathy- Primary Brachial neuritis or radiculitis nos documented in this encounter [facility] note* Diagnosis Cervical disc disorder with radiculopathy- Primary Brachial neuritis or radiculitis nos documented in this encounter [facility] note* Diagnosis Cervical disc disorder with radiculopathy- Primary Brachial neuritis or radiculitis nos [facility]* Diagnosis Cervical radicular pain- Primary Brachial neuritis or radiculitis nos Numbness and tingling in left hand Disturbance of skin sensation Degeneration of intervertebral disc of cervical spine without disc herniation Spinal stenosis of cervical region Spinal stenosis in cervical region documented in this encounter [facility] note* Diagnosis Moderate persistent asthma with acute exacerbation- Primary [facility]* Diagnosis Mild intermittent asthma without complication- Primary Unspecified asthma [facility]* Diagnosis Moderate persistent asthmatic bronchitis with acute exacerbation- Primary [facility]* Diagnosis Moderate persistent asthma without complication Unspecified asthma [facility]* Diagnosis Uncontrolled persistent asthma- Primary Unspecified asthma SOB (shortness of breath) Shortness of breath History of environmental allergies Other allergy, other than to medicinal agents Ex-smoker Personal history of tobacco use, presenting hazards to health Gastroesophageal reflux disease, unspecified whether esophagitis present [facility] Diagnosis Severe persistent asthma with status asthmaticus- Primary Unspecified asthma, with status asthmaticus YUNIOR (generalized anxiety disorder) Generalized anxiety disorder Major depressive disorder, recurrent severe without psychotic features (HCC) Major depressive disorder, recurrent episode, severe, without mention of psychotic behavior Alcohol dependence in remission (HCC) Other and unspecified alcohol dependence, in remission [facility]* Diagnosis Acute respiratory failure, unspecified whether with hypoxia or hypercapnia (HCC)- Primary Severe persistent asthma with status asthmaticus Unspecified asthma, with status asthmaticus [facility]* Diagnosis SOB (shortness of breath) Shortness of breath [facility]* Diagnosis SOB (shortness of breath) Shortness of breath [facility]* Diagnosis Severe persistent asthma with status asthmaticus- Primary Unspecified asthma, with status asthmaticus [facility]* Diagnosis Allergic rhinitis due to animal (cat) (dog) hair and dander- Primary Uncontrolled persistent asthma Unspecified asthma Allergic rhinitis due to dust mite Eosinophilic asthma Pulmonary eosinophilia [facility]* Diagnosis Severe persistent asthma without complication- Primary SOB (shortness of breath) Shortness of breath Ex-smoker Personal history of tobacco use, presenting hazards to health History of environmental allergies Other allergy, other than to medicinal agents Gastroesophageal reflux disease, unspecified whether esophagitis present [facility] Author Sara Celestin [facility] June 19, 2023 12:09am Note Date/Time June 18, 2023 11:55pm [facility] Medical Records Department [address] [place] [address] H&P Exam - Hospitalist 06/18/23 2354 MR#: [id number] Acct: [id number] Name: SARA ONTIVEROS Rep #:[id number] : 1985 38 From: Sara Celestin MD PCP: Dr. Navdeep Mo MD Status:A DM IN Location: ICU ICU04-1 HPI - General General Date of Admission: 06/18/23 Date of Service: 06/18/23 Chief Complaint: Dyspnea, wheezing, increased work of breathing, respiratory distress. HPI Narrative The patient is a 38 y/o F w/ PMHx: Asthma w/ allergic rhinitis, Anxiety who presents to the [facility] ED on 06/18/23 with 3 of onset dyspnea worsening over the last 3 days with chest tightness and wheezing with no recent upper respiratory infection or symptoms or any ill contacts in the home but not improving despite usage of home nebulizer treatments prompting eventual EMS call and transition tot ED. On route to the ED they did attempt BiPAP but because of claustrophobiaand anxiety patient was unable to tolerate it. She does report allergies to cats and does have several cats but is never seek at allergy treatment. She does not currently have a digital imaging specialist but notes that they have discussed this and that she would likely benefit but she has been anxious about it. Workup in the ED included T97.6, heart rate 132, BP 123/90, respiratory rate 40, 100% on room air, CBC with WBC 10.5, hemoglobin 12.6, platelet 430 without marked shift,VBG with pH 7.21, pO2 105, O2 96% on a nonrebreather, BMP with glucose 128 otherwise not marked appearing, troponin 5, chest x-ray on review with no acute cardiopulmonary findings but final read pending per radiology, EKG with sinus tachycardia with no acute evidence of ischemia, COVID and influenza antigen pending per ED physician. In the ED patient administered terbutaline 0.25 subcu x1, Solu-Medrol 125 mg IV x 1, magnesium 2 g IV x 1, DuoNeb therapy as well as epi 0.3 mg IM x 1 treatment in addition to a 1 L normal saline bolus. In the EDthe physician did encourage patient to utilize BiPAP however she declined but fortunately slowly improved. Did discuss potential need for future BiPAP in theED with patient just in case she declined again and following lengthy discussionshe would be amenable to trying potentially with Precedex drip. [facility] Anxiety Asthma Former tobacco use Home Medications albuterol sulfate 90 mcg/actuation aerosol inhaler 2 puff inhalation Q4H PRN PRNWheezing 07/06/19 [History Last Taken Unknown] albuterol sulfate 2.5 mg/3 mL (0.083 %) solution for nebulization 2.5 mg inhalation Q4HWA.RT PRN Shortness Of Breath 01/16/20 [History Last Taken Unknown] fluticasone 500 mcg-salmeterol 50 mcg/dose blistr powdr for inhalation (Advair Diskus) 1 inh inhalation BID 05/15/21 [History Last Taken Unknown] montelukast 10 mg tablet 10 mg PO DAILY 05/15/21 [History Last Taken Unknown] inhalational spacing device (Aerochamber MV spacer) #1 ea 08/26/21 [Rx Last Taken Unknown] fluticasone propionate 50 mcg/actuation nasal spray,suspension 1 spray intranasal Q12H 06/18/23 [History Last Taken Unknown] Allergy/AdvReac Type Severity Reaction Status Date / Time propranolol [From Inderal LA] Allergy Shortness Verified 06/18/23 22:56 of breath Family History (Updated 06/19/23 @ 00:[address] Sara Celestin MD) Mother Asthma Father Diabetes Surgical History (Updated 06/19/23 @ 00:[address] Sara Celestin MD) No history of previous surgery Social History (Updated 06/19/23 @ 00:[address] Sara Celestin MD) household members: significant other and children Smoking Status: Former smoker how long ago did patient quit smoking: Quit cigarette tobacco ~ 1 year prior, 1pk/3-4 days from teen until quit. alcohol intake: current alcohol intake frequency: a few times a month substance use type: does not use ROS ROS Narrative Admission Review of Systems: CONSTITUTIONAL: No weight loss, fever, chills, + weakness or fatigue. HEENT: Eyes: No visual loss, blurred vision, double vision or yellow sclerae. Ears, Nose, Throat: No hearing loss, sneezing, congestion, runny nose or sore throat. SKIN: No rash or itching, lesions, wounds. CARDIOVASCULAR: No chest pain, chest pressure or chest discomfort, palpitations,edema, orthopnea, syncopal events. RESPIRATORY: + Shortness of breath, wheezing, respiratory distress. No recent cough or marked sputum, hemoptysis. GASTROINTESTINAL: No anorexia, nausea, vomiting or diarrhea, abdominal pain, melena, BRBPR. GENITOURINARY: No dysuria, frequency, urgency or retention. NEUROLOGICAL: No headache, dizziness, syncope, paralysis, ataxia, numbness or tingling in the extremities, focal weakness, change in bowel or bladder control,seizure. MUSCULOSKELETAL: No muscle, back pain, joint pain or stiffness. HEMATOLOGIC: No anemia, bleeding or bruising. LYMPHATICS: No enlarged nodes. No history of splenectomy. PSYCHIATRIC: + Severe anxiety and claustrophobia. ENDOCRINOLOGIC: No reports of sweating, cold or heat intolerance. No polyuria orpolydipsia. ALLERGIES: + history of asthma, rhinitis. Vital Signs Vital Signs Vital Signs: 06/18/23 22:56 06/18/23 23:04 06/18/23 23:49 Temperature 97.6 F L Temperature Source Temporal Pulse Rate 132 H 116 H Respiratory Rate 40 H 19 H Respiratory Effort Short of Breath Labored Accessory Muscle Use Respiratory Depth Shallow Respiratory Pattern Grunting Blood Pressure 123/90 H 137/84 H Blood Pressure Mean 101 101 Pulse Ox 100 96 Oxygen Delivery Method Non-Rebreather Oxygen Flow Rate (L/min) 15 Weight Weight: 184 lb 4.903 oz Body Mass Index (BMI) 31.6 Physical Exam Narrative Physical Examination: General: Awake, alert, oriented x 3 and cooperative, seated upright in the ED bed, still increased work of breathing and some accessory muscle use but able tospeak in sentences now and no longer tripoding with respiratory distress significantly lessened. Skin: Normal color, normal turgor, no icterus, no cyanosis. HEENT: AT/NC, EOMI, PERRLA, dry MM, no carotid bruits or JVD noted. Lungs: Still significantly diminished throughout, tight, some air movement upperfields, decreased significantly bases, occasional and tight wheeze, increased work of breathing accessory muscle usage still present however respiratory distress is improving. Heart: Tachycardic with regular rhythm; no gallop, rub audible. Abdomen: Soft, NTTP, ND, distant normal BS, no HSM. Extremities: No cyanosis, clubbing, or edema. Neurological: Patient awake, alert, oriented as noted, cognitive function intact; pupils equally reactive to light and accommodation, cranial nerves II-XII grossly normal, moving all 4 extremities, no focal deficits, strength severely globally decreased secondary to acute presentation. Psychiatric: Affect appears anxious, tearful but eventually calms with discussions and does have significant underlying anxiety history. Also admits to claustrophobia. Results Lab / Micro Data 06/18/23 23:00 06/18/23 23:00 Labs: Laboratory Results - last 24 hr 06/18/23 23:00: WBC 10.5, RBC 4.08 L, Hgb 12.6, Hct 39.5, MCV 96.8, MCH 30.9, MCHC 31.9 L, RDW Std Deviation 43.0, RDW Coeff of Brittney 12.1, Plt Count 430, MPV 9.3, Immature Gran % (Auto) 0.400, Neut % (Auto) 51.9, Lymph % (Auto) 33.9, Walsh% (Auto) 7.9, Eos % (Auto) 4.8, Baso % (Auto) 1.1 H, Absolute Neuts (auto) 5.4, Absolute Lymphs (auto) 3.55, Nucleated RBC % 0, Sodium 141, Potassium 3.7, Chloride 111 H, Carbon Dioxide 28.0, Anion Gap 2 L, BUN 10, Creatinine 0.84, Estim Creat Clear Calc 79.18, Est GFR (MDRD) Af Amer 98, Est GFR (MDRD) Non-Af 81, BUN/Creatinine Ratio 11.9, Glucose 128 H, Calcium 8.5, Troponin I High Sens 5 ABG Data ABG results: ABG 06/18/23 23:21 Specimen Type MIHAI Sample Site Not entered O2 % 100.0 VBG pH 7.21 L VBG pO2 105 H VBG HCO3 26 VBG Total CO2 28 VBG O2 Sat (Calc) 96 H VBG Base Excess -2 L POC Mix VBG pCO2 Pt Tmp 64.8 H O2 Delivery Device NRB Rhythm Strip Rhythm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 Mcmahan SUPERVISOR RIVETING.DOCUMENTATION CLERK [address] [place] [address] [facility] [address] [place] [address] Referral ID Status Reason Start Date Expiration Date V isits Requested Visits Authorized [id number] Closed Auto-Generate d Referral 12/03/2021 07/02/2022 1 1 Reason Onset Date Comments Refill Request 03/04/2022 Reason Comments Asthma Asthma flare up, has been going on for a few days Reason Onset Date Comments Refill Request 03/15/2023 Reason Comments Insurance Authorization Trelealla ellipmohini Reason Comments New Patient Evaluation Neck Pain Back Pain Upper Arm Pain Left Reason Comments PT Eval Patient Education Reason Comments Follow Up Specialty Diagnoses / Procedures Referred By Contac t Referred To Contact Pain Management / PAIN MANAGEMENT Diagnoses 2 month follow up Procedures VIDEO SPEC EST Self Eli Cruz, SUPERVISOR RIVETING.DOCUMENTATION CLERK [address] [place] [address] Referral ID Status Reason Start Date Expiration Date Visits Requested Visits Authorized [id number] Pending Review Financial Clearance Required - Self Pay 10/13/2023 01/11/2024 1 1 Reason Comments Asthma Flare x today Specialty Diagnoses / Procedures Referred By Contac t Referred To Contact [facility] Diagnoses asthma flare up: trouble breathing x today Procedures EST SAME DAY [facility] [address] [place] [address] Referral ID Status Reason Start Date Expiration Date Visits Requested Visits Authorized [id number] Authorized Patient Cleared - Qualified 100% FAS 10/27/2023 01/25/2024 99 99 Reason Comments Asthma Asthma flare up x 3 days Reason Comments Cough Cough, chest congest ion and SOB-always has these symptoms but today much worse Reason Onset Date Comments Refill Request 04/03/2024 Reason Onset Date Comments Refill Request 04/23/2024 Reason Comments Hospital F/U [facility] 04/19 - 04/21 Reason Comments Referral Reason Onset Date Comments Refill Request 05/03/2024 Reason Onset Date Comments Refill Request 05/20/2024 Specialty Diagnoses / Procedures Referred By Contac t Ref[facility] Diagnoses SOB (shortness of breath) Procedures NITRIC OXIDE, EXHALED NITRIC OXIDE GAS DETERMINATION Roselyn Zamorano MD [address] [place] [address] [facility] [address] [place] [address] Referral ID Status Reason Start Date Expiration Date Visits Requested Visits Authorized [id number] Pending Review Auto-Generat ed Referral 05/24/2025 1 1 Specialty Diagnoses / Procedures Referred By Contac t Referred [facility] Diagnoses SOB (shortness of breath) Procedures LUNG DIFFUSION CAPACITY (DLCO) DIFFUSING CAPACITY Roselyn Zamorano MD [address] [place] [address] [address] Referral ID Status Reason Start Date Expiration Date Visits Requested Visits Authorized [id number] Pending Review Auto-Generat ed Referral 05/24/2025 1 1 Specialty Diagnoses / Procedures Referred By Contac t Referred To [facility] Diagnoses SOB (shortness of breath) Procedures SPIROMETRY - BASELINE AND POST DILATOR BRNCDILAT RSPSE SPMTRY PRE&POST-BRNCDILAT ADMN Roselyn Zamorano MD [address] [place] [address] [facility] [address] [place] [address] Referral ID Status Reason Start Date Expiration Date Visits Requested Visits Authorized [id number] Pending Review Auto-Generat ed Referral 4 05/24/2025 1 1 Reason Onset Date Comments SPP Inflammatory Conditions - Treatment Referral 06/13/2024 Dupixent Reason Comments New Patient Asthma Specialty Diagnoses / Procedures Referred By Shea russ Referred To Contact Allergy Diagnoses Uncontrolled persistent asthma Procedures CONSULT TO ALLERGY/IMMUNOLOGY OFFICE/OUTPATIENT NEW HIGH MDM 60 MINUTES Roselyn Zamorano MD [address] [place] [address] Referral ID Status Reason Start Date Expiration Date V isits Requested Visits Authorized [id number] Closed PCP Requested Referral 04/24/2024 04/24/2025 1 1 Reason Comments dupixent start Reason Onset Date Comments Refill Request 07/08/2024 Reason Comments 3 month F/U for Asthma No concerns Reason Onset Date Comments Refill Request 10/02/2024 Reason Comments PA FOR DUPIXENT Care Teams (unrecognized sec tion and content) Purification Operator Helper Relationship Specialty Start Date End Date Navdeep Mo MD [address] [place], [place] [id number] PCP - General Internal Medicine 11/30/17 Purification Operator Helper Relationship Specialty Start Date End Date Navdeep Mo MD [address] [place], [place] [id number] PCP - General Internal Medicine 11/30/17 Purification Operator Helper Relationship Specialty Start Date End Date Navdeep Mo MD [address] [place] [address] PCP - General Internal Medicine 11/30/17 Purification Operator Helper Relationship Specialty Start Date End Date Navdeep Mo MD [address] [place] [address] PCP - General Internal Medicine 11/30/17 Purification Operator Helper Relationship Specialty Start Date End Date Navdeep Mo MD [address] [place] [address] PCP - General Internal Medicine 11/30/17 Purification Operator Helper Relationship Specialty Start Date End Date Navdeep Mo MD [address] [place] [address] PCP - General Internal Medicine 11/30/17 Purification Operator Helper Relationship Specialty Start Date End Date Navdeep Mo MD [address] [place] [address] PCP - General Internal Medicine 11/30/17 Purification Operator Helper Relationship Specialty Start Date End Date Navdeep Mo MD [address] [place] [address] PCP - General Internal Medicine 11/30/17 Purification Operator Helper Relationship Specialty Start Date End Date Navdeep Mo MD [address] [place] [address] PCP - General Internal Medicine 11/30/17 Team Status: Active Member Role Status Dates Dr. Navdeep Mo MD Family Provider Active Dr. Navdeep Mo MD Primary Care Provider Active Team Status: Inactive Member Role Status Dates Dr. Navdeep Mo MD Primary Care Provider Active Dr. Chato Lomas DO Emergency Provider Active Purification Operator Helper Relationship Specialty Start Date End Date Navdeep Mo MD [address] [place] [address] PCP - General Internal Medicine 11/30/17 Team Status: Inactive Member Role Status Dates Dr. Navdeep Mo MD Primary Care Provider Active Dr. Joana Luu MD Emergency Provider Active Purification Operator Helper Relationship Specialty Start Date End Date Navdeep Mo MD [address] [place] [address] PCP - General Internal Medicine 11/30/17 Team Status: Inactive Member Role Status Dates Dr. Navdeep Mo MD Primary Care Provider Active Dr. Joana Luu MD Attending Provider, Emergency Provider Active Team Status: Active Member Role Status Dates Dr. Navdeep Mo MD Primary Care Provider Active Dr. Saji Noonan MD Referring Provider, Emergency Provider Active Dr. Sara Celestin MD Admit Provider, Attending Prov ider Active Team Status: Active Member Role Status Dates Dr. Navdeep Mo MD Primary Care Provider Active Dr. Saji Noonan MD Referring Provider, Emergency Provider Active Dr. Sara Celestin MD Admit Provider, Other Provider Active Dr. You Fox MD Other Provider Active Dr. Tc Swan , Other Provider Active Dr. Maximo Beasley MD Other Provider Active Dr. Chacorta Frost MD Other Provider Active Vani Méndez ORDAINED MINISTER, ORDAINED MINISTER-C Other Provider Active Dr. Gregorio Mosley MD Attending Provider, Other Provid er Active Team Status: Inactive Member Role Status Dates Dr. Navdeep Mo MD Primary Care Provider Active Dr. Saji Noonan MD Referring Provider, Emergency Provider Active Dr. Sara Celestin MD Admit Provider, Other Provider Active Dr. You Fox MD Other Provider Active Dr. Tc Swan , Other Provider Active Dr. Maximo Beasley MD Other Provider Active Dr. Chacorta Frost MD Other Provider Active Vani Méndez ORDAINED MINISTER, ORDAINED MINISTER-C Other Provider Active Dr. Gregorio Mosley MD Attending Provider Active Team Status: Active Member Role Status Dates Dr. Navdeep Mo MD Primary Care Provider Active Dr. Saji Noonan MD Emergency Provider Active Dr. Sara Celestin MD Admit Provider, Other Provider Active Dr. You Fox MD Other Provider Active Dr. Tc Swan , Other Provider Active Dr. Maximo Beasley MD Other Provider Active Dr. Chacorta Frost MD Other Provider Active Vani Méndez ORDAINED MINISTER, ORDAINED MINISTER-C Other Provider Active Dr. Gregorio Mosley MD Attending Provider, Other Provid er Active Team Status: Active Member Role Status Dates Dr. Navdeep Mo MD Primary Care Provider Active Dr. Saji Noonan MD Referring Provider, Emergency Provider Active Dr. Sara Celestin MD Admit Provider, Other Provider Active Dr. You Fox MD Attending Provider, Other Provid er Active Dr. Tc Swan DO Other Provider Active Dr. Maximo Beasley MD Other Provider Active Dr. Chacorta Frost MD Other Provider Active Vani Méndez ORDAINED MINISTER, ORDAINED MINISTER-C Other Provider Active Dr. Gregorio Mosley MD Other Provider Active Team Status: Inactive Member Role Status Dates Dr. Navdeep Mo MD Primary Care Provider Active Dr. Amilcar Byrnes MD Emergency Provider Active Purification Operator Helper Relationship Specialty Start Date End Date Navdeep Mo MD [address] [place] [address] PCP - General Internal Medicine 11/30/17 Purification Operator Helper Relationship Specialty Start Date End Date Navdeep Mo MD [address] [place], [place] [id number] PCP - General Internal Medicine 11/30/17 Purification Operator Helper Relationship Specialty Start Date End Date Navdeep Mo MD [address] [place] [address] PCP - General Internal Medicine 11/30/17 Purification Operator Helper Relationship Specialty Start Date End Date Navdeep Mo MD [address] [place] [address] PCP - General Internal Medicine 11/30/17 Purification Operator Helper Relationship Specialty Start Date End Date Navdeep Mo MD [address] [place], [place] [address] PCP - General Internal Medicine 11/30/17 Purification Operator Helper Relationship Specialty Start Date End Date Navdeep Mo MD [address] [place] [address] PCP - General Internal Medicine 11/30/17 Purification Operator Helper Relationship Specialty Start Date End Date Navdeep Mo MD [address] [place] [address] PCP - General Internal Medicine 11/30/17 Purification Operator Helper Relationship Specialty Start Date End Date Navdeep Mo MD [address] [place] [address] PCP - General Internal Medicine 11/30/17 Purification Operator Helper Relationship Specialty Start Date End Date Navdeep Mo MD [address] [place] [address] PCP - General Internal Medicine 11/30/17 Purification Operator Helper Relationship Specialty Start Date End Date Navdeep Mo MD [address] [place] [address] PCP - General Internal Medicine 11/30/17 Purification Operator Helper Relationship Specialty Start Date End Date Navdeep Mo MD [address] [place] [address] PCP - General Internal Medicine 11/30/17 Purification Operator Helper Relationship Specialty Start Date End Date Navdeep Mo MD [address] [place] [address] PCP - General Internal Medicine 11/30/17 Lidia Peraza, SUPERVISOR RIVETING.DOCUMENTATION CLERK [address] [place] [address] Crisis Therapist Internal Medicine 06/10/24 Purification Operator Helper Relationship Specialty Start Date End Date Navdeep Mo MD [address] [facility] [place] [address] PCP - General Internal Medicine 11/30/17 Lidia Peraza, SUPERVISOR RIVETING.DOCUMENTATION CLERK [address] [place] [address] Crisis Therapist Internal Medicine 06/10/24 Purification Operator Helper Relationship Specialty Start Date End Date Navdeep Mo MD [address] [place] [address] PCP - General Internal Medicine 11/30/17 Lidia Peraza, SUPERVISOR RIVETING.DOCUMENTATION CLERK [address] [place] [address] Crisis Therapist Internal Medicine 06/10/24 Purification Operator Helper Relationship Specialty Start Date End Date Navdeep Mo MD [address] [place] [address] PCP - General Internal Medicine 11/30/17 Lidia Peraza, SUPERVISOR RIVETING.DOCUMENTATION CLERK [address] [place] [address] Crisis Therapist Internal Medicine 06/10/24 Purification Operator Helper Relationship Specialty Start Date End Date Navdeep Mo MD [address] [place] [address] PCP - General Internal Medicine 11/30/17 Lidia Peraza, SUPERVISOR RIVETING.DOCUMENTATION CLERK [address] [facility] [place] [address] Crisis Therapist Internal Medicine 06/10/24 Purification Operator Helper Relationship Specialty Start Date End Date Navdeep Mo MD [address] [facility] [place] [address] PCP - General Internal Medicine 11/30/17 Lidia Peraza, SUPERVISOR RIVETING.DOCUMENTATION CLERK [address] [place] [address] Crisis Therapist Internal Medicine 06/10/24 Purification Operator Helper Relationship Specialty Start Date End Date Navdeep Mo MD [address] [facility] [place] [address] PCP - General Internal Medicine 11/30/17 Lidia Peraza, SUPERVISOR RIVETING.DOCUMENTATION CLERK [address] [place] [address] Crisis Therapist Internal Medicine 06/10/24 Purification Operator Helper Relationship Specialty Start Date End Date Navdeep Mo MD [address] [facility] [place] [address] PCP - General Internal Medicine 11/30/17 Lidia Peraza, SUPERVISOR RIVETING.DOCUMENTATION CLERK [address] [place] [address] Crisis Therapist Internal Medicine 06/10/24 Purification Operator Helper Relationship Specialty Start Date End Date Navdeep Mo MD [address] [facility] [place] [address] PCP - General Internal Medicine 11/30/17 Lidia Peraza, SUPERVISOR RIVETING.DOCUMENTATION CLERK [address] [place] [address] Crisis Therapist Internal Medicine 06/10/24 Purification Operator Helper Relationship Specialty Start Date End Date Navdeep Mo MD [address] [place] [address] PCP - General Internal Medicine 11/30/17 Lidia Peraza, SUPERVISOR RIVETING.DOCUMENTATION CLERK [address] [place] [address] Crisis Therapist Internal Medicine 06/10/24 Purification Operator Helper Relationship Specialty Start Date End Date Navdeep Mo MD [address] [place] [address] PCP - General Internal Medicine 11/30/17 Lidia Peraza, SUPERVISOR RIVETING.DOCUMENTATION CLERK [address] [place] [address] Crisis Therapist Internal Medicine 06/10/24 Purification Operator Helper Relationship Specialty Start Date End Date Navdeep Mo MD [address] [place] [address] PCP - General Internal Medicine 11/30/17 Lidia Peraza, SUPERVISOR RIVETING.DOCUMENTATION CLERK [address] [place] [address] Crisis Therapist Internal Medicine 06/10/24 Purification Operator Helper Relationship Specialty Start Date End Date Navdeep oM MD [address] [place] [address] PCP - General Internal Medicine 11/30/17 Lidia Peraza, SUPERVISOR RIVETING.DOCUMENTATION CLERK [address] [place], [place] [address] Crisis Therapist Internal Medicine 06/10/24 Purification Operator Helper Relationship Specialty Start Date End Date Navdeep Mo MD [address] [place], [place] [address] PCP - General Internal Medicine 11/30/17 Lidia Peraza, SUPERVISOR RIVETING.DOCUMENTATION CLERK [address] [place], [place] [address] Crisis Therapist Internal Medicine 06/10/24 Goals (unrecognized section and content) Goals may be documented in a n alternate sectionGoals may be documented in an alternate sectionGoals may be documented in an alternate sectionGoals may be documented in an alternate sectionGoals may be documented in an alternate section FOR RECORDS PERTAINING TO PATIENTS WHO ARE [...] BE BASED ON THE PRIMARY CLINICAL RECORDS. [employer] provides no warranty or guarantee of the accuracy or completeness of information in this document.
== END 2025-03-01 10:26 | disposition home or self-care (01) ==
PROVIDERS: Emergency Provider Emergency Medicine; PCP Internal Medicine; Visit Provider Emergency Medicine
DX: H00.014 Hordeolum externum left upper eyelid (principal); J45.909 Unspecified asthma, uncomplicated; Z87.891 Personal history of nicotine dependence; Z79.51 Long term (current) use of inhaled steroids
CPT/HCPCS: 99283

== ENCOUNTER 2025-05-08 14:03 | Emergency (ER) | payer SELFPAY ==
[2025-05-08 14:03] VITALS: BP 139/108; PULSE 112; RESP 22; TEMP 36.5; O2SAT 100; BMI 31.9
[2025-05-08 14:37] VITALS: PULSE 88; RESP 17
--- NOTE | 2025-05-08 14:42 | EDS_ITS ---
HPI History of Present Illness Chief Complaint: Asthma Informant: patient Onset/Context/Timing Onset: Days (2) Context: gradual Timing: Continuous Quality: Positive for Wheezing Worsened by: Exertion Relieved by: Albuterol Associated Symptoms cough and rhinorrhea; Negative for post nasal drip, ear pain, fever, sore throat, chills, sweats, clear sputum, white sputum, yellow sputum or green sputum Narrative Narrative: Patient presents with asthma exacerbation that has been getting worse over the past 2 days. Patient states it is gradually getting worse. Patient thinks it may be triggered by seasonal allergies. Patient admits to some tightness and wheezing in her chest. Patient states she has been using her home inhalers and aerosols with minimal improvement. Patient states that he in the past when she has had flareups like this, she has been started on prednisone. Patient states her breathing is worse with any exertion. Patient states she has had a slight cough. Patient denies any sputum. Patient admits to some rhinorrhea. Patient denies any fevers or chills. Patient admits to some tightness in her chest from coughing but denies any chest pressure. PE Risk Factors: Negative for Cancer, OCP + Smoking + > 35, Prior DVT or PE, Recent immobilization, Recent surgery or Recent travel Prior similar symptoms: Yes (With asthma attacks) [facility] Medical History Status asthmaticus Former tobacco use Anxiety Asthma Home Medications ?Medication ?Instructions ?Recorded ?Last Taken ?Type inhalational spacing device #1 ea 08/26/21 Unknown Rx (Aerochamber MV spacer) albuterol sulfate 90 mcg/actuation 2 puff inhalation Q 4H PRN PRN 06/19/23 Unknown Rx aerosol inhaler Wheezing #8.5 grams fluticasone propionate 50 1 spray intranasal Q12H Brennon rgies 06/19/23 04/18/24 Rx mcg/actuation nasal #16 grams spray,suspension albuterol sulfate 90 mcg/actuation 2 inh inhalation Q4 H PRN shortness 11/27/23 Unknown Rx aerosol inhaler (Proventil HFA) of breath or wheezing #8.5 grams albuterol sulfate 90 mcg/actuation 2 puff inhalation Q 4H PRN PRN 02/02/24 Unknown Rx aerosol inhaler (Ventolin HFA) Wheezing ##1 albuterol sulfate 2.5 mg/3 mL 2.5 mg (3 mL) inhalation Q4H PRN 04/10/24 Unknown Rx (0.083 %) solution for nebulization #25 vials arformoterol 15 mcg/2 mL solution 2 ml inhalation BID 30 days #120 mL 04/21/24 Unknown Rx for nebulization budesonide 0.25 mg/2 mL suspension 0.25 mg (2 mL) inha lation BID 30 04/21/24 Unknown Rx for nebulization days #120 mL ipratropium 0.5 mg-albuterol 3 mg 3 ml continuous nebu lization Q4H 03/01/25 Unknown History (2.5 mg base)/3 mL nebulization PRN PRN wheezing soln montelukast 10 mg tablet 10 mg PO QHS 03/01/25 Unknow n History cetirizine 10 mg tablet (24Hour 10 mg PO DAILY 5 Unknown History Allergy) famotidine 20 mg tablet (Acid 20 mg PO DAILY 05/08/25 Unknown History Controller) prednisone 20 mg tablet 60 mg (3 x 20 mg) PO DAILY # 15 05/08/25 Unknown Rx TABLETS Allergy/AdvReac Type Severity Reaction Status Date / Time propranolol (From Inderal [place]) Allergy Shortness Verified 05/08/25 14:06 of breath Family History Mother Asthma Father Diabetes Surgical History No history of previous surgery no surgical history Social History household members: significant other and children Smoking Status: Former smoker how long ago did patient quit smoking: Quit cigarette tobacco ~ 1 year prior, 1 pk/3-4 days from teen until quit. alcohol intake: current alcohol intake frequency: a few times a month substance use type: does not use ROS ROS ED Constitutional Constitutional ED: Denies chills or fever(s) Eyes Eyes: Denies blurry vision or change in vision ENT ENT ED: Denies rhinorrhea or sore throat Cardiovascular Cardiovascular: Denies chest pain or palpitations Respiratory/Chest Respiratory/Chest: Reports cough and dyspnea Gastrointestinal Gastrointestinal: Denies nausea or vomiting Genitourinary Genitourinary ED: Denies dysuria or hematuria Musculoskeletal Musculoskeletal: Denies back pain or neck pain Integumentary Denies abscess or rash Neurologic Neurologic: Denies headache(s) or weakness Allergic/Immunologic Allergic/Immunologic ED: Denies mouth swelling or urticaria EXAM Physical Exam Const Vital Signs: 05/08/25 14:03 05/08/25 14:35 05/08/25 14:37 Temperature 97.7 F L Temperature Source Temporal Pulse Rate 112 H 88 Respiratory Rate 22 H 17 Respiratory Effort Normal Non-Labored Respiratory Depth Normal Respiratory Pattern Normal Normal Blood Pressure 139/108 H Blood Pressure Mean 118 Pulse Ox 100 Oxygen Delivery Method Room Air Room Air 05/08/25 15:03 Temperature Temperature Source Pulse Rate 92 Respiratory Rate 18 Respiratory Effort Respiratory Depth Respiratory Pattern Blood Pressure 108/71 Blood Pressure Mean 83 Pulse Ox 96 Oxygen Delivery Method Positive well nourished and well developed Constitutional Narrative: BMI is 31.9 General Appearance ED: well developed and NAD HEENT Reports moist mucous membranes Neck supple and no JVD Resp normal respiratory effort Auscultation: wheezes expiratory wheezes and throughout Cardio regular rate and regular rhythm GI non-tender and non-distended Palpation: soft Neuro oriented x3, CN's II-XII intact bilaterally and no sensory deficits noted [place] Coma Scale: document GCS findings Spontaneous Obeys Commands Oriented 15 Sensorium / Orientation: alert Speech: speech normal Motor Exam: strength 5/5 throughout Psych mental status grossly normal MDM MDM MDM Narrative Medical decision making narrative: Patient was given a DuoNeb aerosol here. Patient was given a dose of prednisone. Treatment and Re-Evaluation :: Patient was feeling better on reevaluation. Patient was given a repeat DuoNeb aerosol. Patient was given a prescription for prednisone. Patient was instructed to follow-up with her primary care physician and tool polishing machine operator in 5 to 7 days. Patient was instructed to return if worse in any way. Patient understood and was agreeable with the plan. All questions were answered. Discharge Plan Triage Chief Complaint: Asthma ED Provider: Chato Lomas Dx/Rx/DC Orders Clinical Impression: Asthma, Dyspnea Instructions: ED Asthma, Acute (Adult) Prescriptions: New prednisone 20 mg tablet 60 mg PO DAILY Qty: 15 0RF No Action (DME) Aerochamber MV Spacer See Rx Instructions .ROUTE .MEDSUPPLY Qty: 1 0RF Rx Instructions: As directed albuterol sulfate 1 PUFF inhaler 2 puff inhalation Q4H PRN PRN (Reason: Wheezing) Qty: 8.5 0RF fluticasone propionate 50 mcg/actuation spray,suspension 1 spray INTRANASAL Q12H Qty: 16 0RF albuterol sulfate [Proventil HFA] 90 mcg/actuation HFA aerosol inhaler 2 inh inhalation Q4H PRN (Reason: shortness of breath or wheezing) Qty: 8.5 1RF albuterol sulfate 2.5 mg /3 mL (0.083 %) solution for nebulization 2.5 mg inhalation Q4H PRN Qty: 25 0RF Rx Instructions: Use q4 hours and PRN for wheezing budesonide 0.25 mg/2 mL suspension for nebulization 0.25 mg inhalation BID 30 Days Qty: 120 0RF arformoterol 15 mcg/2 mL solution for nebulization 2 ml inhalation BID 30 Days Qty: 120 0RF ipratropium-albuterol 0.5 mg-3 mg(2.5 mg base)/3 mL solution for nebulization 3 ml continuous nebulization Q4H PRN PRN (Reason: wheezing) montelukast 10 mg tablet 10 mg PO QHS albuterol sulfate [Ventolin HFA] 90 mcg/actuation HFA aerosol inhaler 2 puff inhalation Q4H PRN PRN (Reason: Wheezing) Qty: 1 0RF cetirizine [24Hour Allergy] 10 mg tablet 10 mg PO DAILY famotidine [Acid Controller] 20 mg tablet 20 mg PO DAILY Primary Care Provider: Care Physician,No Primary Referrals: Care Physician,No Primary [Primary Care Provider, Medical] Activity Restrictions/Additional Instructions: Follow-up with your primary care physician and tool polishing machine operator in 5 to 7 days. Print Language: Croatian Disposition Disposition: Home, Self Care
[2025-05-08 15:03] VITALS: BP 108/71; PULSE 92; RESP 18; O2SAT 96
[2025-05-08 16:00] VITALS: BP 105/74; PULSE 90; RESP 18; TEMP 37.1; O2SAT 95
== END 2025-05-08 16:13 | disposition home or self-care (01) ==
PROVIDERS: Emergency Provider Emergency Medicine; Visit Provider Emergency Medicine
DX: J45.909 Unspecified asthma, uncomplicated (principal); F41.9 Anxiety disorder, unspecified; Z79.51 Long term (current) use of inhaled steroids; Z79.899 Other long term (current) drug therapy; Z87.891 Personal history of nicotine dependence
CPT/HCPCS: 94640; 99282